=== PATIENT | female | born 1950 | race Asian ===

== ENCOUNTER 2017-03-02 11:12 | Emergency (ER) | payer SELFPAY ==
[2017-03-02 12:31] LABS: Basophils % (Auto) 0.4 % (0.0-1.8); Hemoglobin 13.4 gm/dl (10.1-14.3); Mean Corpuscular HGB Conc 34 % (30-34); Mean Corpuscular Hemoglobin 33 pg (28-32); Mean Corpuscular Volume 95 fl (79-97); Platelet Count 270 K/mm3 (140-440); Red Blood Count 4.12 M/mm3 (3.65-5.03); Red Cell Distribution Width 12.8 % (13.2-15.2); White Blood Count 6.8 K/mm3 (4.5-11.0)
[2017-03-02 13:17] LABS: Anion Gap 16 mmol/L; Blood Urea Nitrogen 12 mg/dL (7-17); Calcium 8.6 mg/dL (8.4-10.2); Carbon Dioxide 25 mmol/L (22-30); Chloride 101.4 mmol/L (98-107); Glucose 117 mg/dL (65-100); Potassium 3.9 mmol/L (3.6-5.0); Sodium 138 mmol/L (137-145)
--- NOTE | 2017-03-02 13:33 | XRay Report ---
Chest 2 views and right ribs: History: Chest pain rib pain. Findings: Normal cardiomediastinal silhouette. Trachea is midline. Evidence of emphysema with chronic interstitial lung changes lower lobes bilaterally. Minimal pleural thickening bilaterally. No evidence of recent fracture right ribs. Next Impression: Findings as detailed above. No evidence of acute fracture.
[2017-03-02 14:13] VITALS: BP 193/90
[2017-03-02 14:28] LABS: Bacteria,Urine 2+ /HPF (Negative); Bilirubin,Urine NEG (Negative); Blood,Urine NEG (Negative); Ketones,Urine NEG (Negative); Leukocyte Esterase,Urine SM (Negative); Nitrite,Urine NEG (Negative); Protein,Urine <15 mg/dL mg/dL (Negative); Urobilinogen,Urine < 2.0 mg/dL (<2.0)
== END 2017-03-02 17:05 ==
LOC: ED 11:12
DX: Z53.21 Procedure and treatment not carried out due to patient leaving prior to being seen by health care provider (principal)
CPT/HCPCS: 36415; 80048; 81001; 84484; 85025; 93005; 93010

== ENCOUNTER 2020-09-13 03:33 | Inpatient (IN) | payer OTHER ==
[2020-09-13 04:57] LABS: Hematocrit 37.2 % (30.3-42.9); Hemoglobin 12.6 gm/dl (10.1-14.3); Mean Corpuscular HGB Conc 34 % (30-34); Mean Corpuscular Volume 101 fl (79-97); Platelet Count 132 K/mm3 (140-440); Red Blood Count 3.67 M/mm3 (3.65-5.03); Red Cell Distribution Width 13.8 % (13.2-15.2)
[2020-09-13 05:03] LABS: Lymphocytes % (Auto) 8.6 % (13.4-35.0)
[2020-09-13 05:04] LABS: Basophils % (Auto) 0.1 % (0.0-1.8); Lymphocytes # (Auto) 1.5 K/mm3 (1.2-5.4); Monocytes # (Auto) 0.8 K/mm3 (0.0-0.8); Monocytes % (Auto) 4.5 % (0.0-7.3)
[2020-09-13 05:06] LABS: Albumin 3.1 g/dL (3.9-5); Calcium 7.7 mg/dL (8.4-10.2)
--- NOTE | 2020-09-13 05:11 | XRay Report ---
ABDOMEN 3 VIEW(S) INDICATION / CLINICAL INFORMATION: Abd pain, SOB. COMPARISON: None available. FINDINGS: TUBES / LINES: None. BOWEL GAS PATTERN: No acute abnormality. Bowel is normal in caliber. There is gas noted throughout th e bowel. FREE AIR / EXTRALUMINAL GAS: None seen. ADDITIONAL FINDINGS: No significant additional findings. CHEST: There is bilateral interstitial disease IMPRESSION: 1. No acute abnormality is seen in the abdomen. There is gas in the small and large bowel. The bowel is normal in caliber. 2. There is bilateral interstitial disease which is likely chronic. Signer Name: Ranjan Josue MD Signed: 09/13/2020 5:07 AM Workstation Name: [id number]
[2020-09-13] MEDS ORDERED: SODIUM CHLORIDE 0.9% 1000 ML 1,000 ML IV ONE ×2 (05:26→10:30)
[2020-09-13] MEDS ORDERED: cefTRIAXone/NS 1 GM/50 ML 1 GM/50 ML BAG IV ONE (06:51)
--- NOTE | 2020-09-13 06:57 | Emergency Department Report ---
HPI - General Chief Complaint: Abdominal Pain Time Seen by Provider: 09/13/20 04:10 - HPI HPI: Room 19 The patient is a 70-year-old female present with a chief complaint of flank pain. The patient states for the past 4 days she has had pain in her left flank in addition to dysuria nausea and vomiting. Patient denies hematuria. ED Past Medical Hx - Past Medical History Previous Medical History?: Yes Hx Hypertension: Yes Hx Seizures: Yes Hx Psychiatric Treatment: Yes (depression) Additional medical history: UNABLE TO OBTAIN - Surgical History Past Surgical History?: Yes Additional Surgical History: UNABLE TO OBTAIN - Family History Family history: no significant - Social History Smoking Status: Never Smoker Substance Use Type: None - Medications Home Medications: Home Medications Medication Instructions Recorded Confirmed Last Taken Type Acetaminophen/Codeine [Tylenol #3] 1 tab PO Q6H PRN #20 tab 01/17/16 Unknown Rx amLODIPine [Norvasc] 5 mg PO DAILY 01/17/16 01/17/16 Unknown History carBAMazepine [TEGretol] 200 mg PO Q12HR #60 tab 01/17/16 Unknown Rx ED Review of Systems ROS: Stated complaint: NAUSEA, BACK PAIN Other details as noted in HPI Constitutional: weakness Eyes: denies: eye pain ENT: denies: throat pain Respiratory: cough Cardiovascular: denies: chest pain Endocrine: no symptoms reported Gastrointestinal: abdominal pain, nausea Genitourinary: dysuria. denies: hematuria Musculoskeletal: back pain Neurological: denies: headache Physical Exam - Physical Exam Vital Signs: Vital Signs 09/13/20 09/13/20 09/13/20 03:56 04:16 04:30 Temperature 100.8 F H Pulse Rate 101 H 102 H 105 H Respiratory 22 18 25 H Rate Blood Pressure 101/59 101/59 Blood Pressure 101/59 [Left] O2 Sat by Pulse 94 94 92 Oximetry 09/13/20 09/13/20 09/13/20 04:46 05:00 05:16 Temperature Pulse Rate 107 H 101 H 104 H Respiratory 21 26 H 28 H Rate Blood Pressure 101/59 101/59 96/48 Blood Pressure [Left] O2 Sat by Pulse 91 93 93 Oximetry Physical Exam: GENERAL: The patient is well-developed well-nourished female lying on stretcher not appearing to be in acute distress. [] HEENT: Normocephalic. Atraumatic. Extraocular motions are intact. Patient has moist mucous membranes. NECK: Supple. Trachea midline CHEST/LUNGS: Clear to auscultation. There is no respiratory distress noted. HEART/CARDIOVASCULAR: Regular. There is tachycardia. There is no gallop rub or murmur. ABDOMEN: Abdomen is soft to palpation. Patient complains of periumbilical discomfort to palpation. There is no rebound or guarding. Patient has normal bowel sounds. There is no abdominal distention. SKIN: There is no rash. There is no edema. There is no diaphoresis. NEURO: The patient is awake, alert, and oriented. The patient is cooperative. The patient has no focal neurologic deficits. The patient has normal speech MUSCULOSKELETAL: There is bilateral CVA tenderness. There is no evidence of acute injury. ED Course Vital Signs 09/13/20 09/13/20 09/13/20 03:56 04:16 04:30 Temperature 100.8 F H Pulse Rate 101 H 102 H 105 H Respiratory 22 18 25 H Rate Blood Pressure 101/59 101/59 Blood Pressure 101/59 [Left] O2 Sat by Pulse 94 94 92 Oximetry 09/13/20 09/13/20 09/13/20 04:46 05:00 05:16 Temperature Pulse Rate 107 H 101 H 104 H Respiratory 21 26 H 28 H Rate Blood Pressure 101/59 101/59 96/48 Blood Pressure [Left] O2 Sat by Pulse 91 93 93 Oximetry ED Medical Decision Making - Lab Data Result diagrams: 09/13/20 04:16 09/13/20 04:16 Laboratory Tests 09/13/20 09/13/20 09/13/20 04:16 04:16 04:16 WBC 17.5 H RBC 3.67 Hgb 12.6 Hct 37.2 MCV 101 H MCH 34 H MCHC 34 RDW 13.8 Plt Count 132 L Lymph % (Auto) 8.6 L [place] % (Auto) 4.5 Eos % (Auto) 0.0 Baso % (Auto) 0.1 Lymph # (Auto) 1.5 Lea # (Auto) 0.8 Eos # (Auto) 0.0 Baso # (Auto) 0.0 Seg Neutrophils % 86.8 H Seg Neutrophils # 15.2 H Sodium 130 L Potassium 4.1 Chloride 95.6 L Carbon Dioxide 19 L Anion Gap 20 BUN 38 H Creatinine 2.5 H Estimated GFR 19 BUN/Creatinine Ratio 15 Glucose 230 H Lactic Acid Calcium 7.7 L Total Bilirubin 0.50 AST 38 ALT 20 Alkaline Phosphatase 111 Troponin T NT-Pro-B Natriuret Pep Total Protein 7.5 Albumin 3.1 L Albumin/Globulin Ratio 0.7 Lipase 27 Urine Color Urine Turbidity Urine pH Ur Specific [place] Urine Protein Urine Glucose (UA) Urine Ketones Urine Blood Urine Nitrite Urine Bilirubin Urine Urobilinogen Ur Leukocyte Esterase Urine WBC (Auto) Urine RBC (Auto) U Epithel Cells (Auto) Urine WBC Clumps Amorphous Crystals Plasma/Serum Alcohol 09/13/20 09/13/20 09/13/20 04:16 04:16 04:16 WBC RBC Hgb Hct MCV MCH MCHC RDW Plt Count Lymph % (Auto) [place] % (Auto) Eos % (Auto) Baso % (Auto) Lymph # (Auto) [place] # (Auto) Eos # (Auto) Baso # (Auto) Seg Neutrophils % Seg Neutrophils # Sodium Potassium Chloride Carbon Dioxide Anion Gap BUN Creatinine Estimated GFR BUN/Creatinine Ratio Glucose Lactic Acid 2.50 H* Calcium Total Bilirubin AST ALT Alkaline Phosphatase Troponin T < 0.010 NT-Pro-B Natriuret Pep 1315 H Total Protein Albumin Albumin/Globulin Ratio Lipase Urine Color Urine Turbidity Urine pH Ur Specific [place] Urine Protein Urine Glucose (UA) Urine Ketones Urine Blood Urine Nitrite Urine Bilirubin Urine Urobilinogen Ur Leukocyte Esterase Urine WBC (Auto) Urine RBC (Auto) U Epithel Cells (Auto) Urine WBC Clumps Amorphous Crystals Plasma/Serum Alcohol < 0.01 09/13/20 09/13/20 07:06 Unknown WBC RBC Hgb Hct MCV MCH MCHC RDW Plt Count Lymph % (Auto) [place] % (Auto) Eos % (Auto) Baso % (Auto) Lymph # (Auto) [place] # (Auto) Eos # (Auto) Baso # (Auto) Seg Neutrophils % Seg Neutrophils # Sodium Potassium Chloride Carbon Dioxide Anion Gap BUN Creatinine Estimated GFR BUN/Creatinine Ratio Glucose Lactic Acid 1.80 Calcium Total Bilirubin AST ALT Alkaline Phosphatase Troponin T NT-Pro-B Natriuret Pep Total Protein Albumin Albumin/Globulin Ratio Lipase Urine Color [place] Urine Turbidity Cloudy Urine pH 5.0 Ur Specific [place] 1.018 Urine Protein 100 mg/dl Urine Glucose (UA) Neg Urine Ketones Neg Urine Blood Lg Urine Nitrite Neg Urine Bilirubin Neg Urine Urobilinogen < 2.0 Ur Leukocyte Esterase Mod Urine WBC (Auto) > 182.0 H Urine RBC (Auto) 10.0 U Epithel Cells (Auto) 3.0 Urine WBC Clumps 1+ Amorphous Crystals 1+ Plasma/Serum Alcohol - Radiology Data Radiology results: report reviewed (Chest x-ray, CT abdomen pelvis), image reviewed (Chest x-ray, CT abdomen pelvis) interpreted by me: Chest x-ray-no definite focal infiltrates, no pneumothorax. No foreign body seen [address] [address] XRay Report Signed Patient: JACKELYN KEENE MR#: [id number] : 1950 Acct:[id number] Age/Sex: 70 / F ADM Date: 09/13/20 Loc: ED Attending Dr: Ordering Physician: TUYET AUSTIN DO Date of Service: 09/13/20 Procedure(s): XR abd series w cxr 1V Accession Number(s): [id number] cc: TUYET AUSTIN DO Fluoro Time In Minutes: ABDOMEN 3 VIEW(S) INDICATION / CLINICAL INFORMATION: Abd pain, SOB. COMPARISON: None available. FINDINGS: TUBES / LINES: None. BOWEL GAS PATTERN: No acute abnormality. Bowel is normal in caliber. There is gas noted throughout the bowel. FREE AIR / EXTRALUMINAL GAS: None seen. ADDITIONAL FINDINGS: No significant additional findings. CHEST: There is bilateral interstitial disease IMPRESSION: 1. No acute abnormality is seen in the abdomen. There is gas in the small and large bowel. The bowel is normal in caliber. 2. There is bilateral interstitial disease which is likely chronic. Signer Name: Ranjan Josue MD Signed: 09/13/2020 5:07 AM Workstation Name: [id number] Tra nscribed By: Dictated By: Ranjan Josue MD Electronically Authenticated By: Ranjan Josue MD Signed Date/Time: 09/13/20506 DD/ 3 TD/TT: Print Cancel [address] [address] Cat Scan Report Signed Patient: JACKELYN KEENE MR#: [id number] : 1950 Acct:[id number] Age/Sex: 70 / F ADM Date: 09/13/20 Loc: ED Attending Dr: Ordering Physician: OSMEL WHITE MD Date of Service: 09/13/20 Procedure(s): CT abdomen pelvis wo con Accession Number(s): [id number] cc: OSMEL WHITE MD This CT A BDOMEN AND PELVIS WITHOUT CONTRAST INDICATION / CLINICAL INFORMATION: Periumbilical abdominal pain, bilateral flank pain. TECHNIQUE: Axial CT images were obtained through the abdomen and pelvis without IV contrast. All CT scans at this location are performed using CT dose reduction for ALARA by means of automated exposure control. COMPARISON: None available. FINDINGS: LOWER CHEST: There is airspace consolidation in the extreme right lung base suspicious for pneumonia and to a lesser extent in the left lung base.. There is bilateral basilar interstitial disease and bullous disease in the lungs. LIVER: No significant abnormality. GALLBLADDER: No significant abnormality. BILE DUCTS: No significant abnormality. PANCREAS: No significant abnormality. SPLEEN: No significant abnormality. ADRENALS: No significant abnormality. RIGHT KIDNEY / URETER: There is mild stranding in the fat around the right kidney. There is slight dilatation of the renal collecting system. No ureteral calculi are seen. LEFT KIDNEY / URETER: No significant abnormality. STOMACH / SMALL BOWEL: There is a hiatal hernia. There is no obstruction. COLON: No significant abnormality. APPENDIX: No significant abnormality. PERITONEUM: No free fluid. No free air. No fluid collection. LYMPH NODES: No significant adenopathy. AORTA / ARTERIES: Mild atherosclerotic calcification without acute abnormality. IVC / VEINS: No significant abnormality. URINARY BLADDER: No significant abnormality. REPRODUCTIVE ORGANS: There is a 10 x 8 cm cystic mass in the left adnexa. This measures water density. ADDITIONAL FINDINGS: None. SKELETAL SYSTEM: No acute abnormality IMPRESSION: 1. There is airspace consolidation noted in the lung ba ses right greater than left. This could represent pneumonia. 2. There is perinephric edema on the right. There is mild dilatation of the right renal collecting system. No ureteral calculi are seen. These changes are not specific but could indicate a recently passed stone. 3. There is a large cystic mass in the left adnexa. Signer Name: Ranjan Josue MD Signed: 09/13/2020 7:33 AM Workstation Name: [id number] Transcribed By: Dictated By: Ranjan Josue MD Electronically Authenticated By: Ranjan Josue MD Signed Date/Time: 09/13/20732 DD/ 4 TD/TT: - Differential Diagnosis Pyelonephritis, pneumonia, COVID-19, cystitis, sepsis Critical care attestation.: If time is entered above; I have spent that time in minutes in the direct care of this critically ill patient, excluding procedure time. ED Disposition Clinical Impression: Pneumonia, Suspected COVID-19 virus infection, Sepsis, Leukocytosis, Abdominal pain, acute, Acute kidney injury, Pyelonephritis, Hypoxia Disposition: OP ADMIT IP TO THIS HOSP Is pt being admited?: Yes Does the pt Need Aspirin: No Condition: Fair Instructions: Bacterial Pneumonia (ED), Abdominal Pain (ED) Referrals: PRIMARY CARE, [Primary Care Provider] - 3-5 Days Time of Disposition: 07:47 (Hospitalist paged)
[2020-09-13 07:20] LABS: Amorphous Crystals,Urine 1+; Bilirubin,Urine NEG (Negative); Blood,Urine LG (Negative); Color,Urine Amber (Yellow); Urobilinogen,Urine < 2.0 mg/dL (<2.0)
[2020-09-13 07:28] LABS: WBC,Urine > 182.0 /HPF (0.0-6.0)
--- NOTE | 2020-09-13 07:38 | Cat Scan Report ---
This CT ABDOMEN AND PELVIS WITHOUT CONTRAST INDICATION / CLINICAL INFORMATION: Periumbilical abdominal pain, bilateral flank pain. TECHNIQUE: Axial CT images were obtained through the abdomen and pelvis without IV contrast. All CT scans at this location are performed using CT dose reduction for ALARA by means of automated exposure control. COMPARISON: None available. FINDINGS: LOWER CHEST: There is airspace consolidation in the extreme right lung base suspicious for pneumonia and to a lesser extent in the left lung base.. There is bilateral basilar interstitial disease and bu llous disease in the lungs. LIVER: No significant abnormality. GALLBLADDER: No significant abnormality. BILE DUCTS: No significant abnormality. PANCREAS: No significant abnormality. SPLEEN: No significant abnormality. ADRENALS: No significant abnormality. RIGHT KIDNEY / URETER: There is mild stranding in the fat around the right kidney. There is slight dilatation of the renal collecting system. No ureteral calculi are seen. LEFT KIDNEY / URETER: No significant abnormality. STOMACH / SMALL BOWEL: There is a hiatal hernia. There is no obstruction. COLON: No significant abnormality. APPENDIX: No significant abnormality. PERITONEUM: No free fluid. No free air. No fluid collection. LYMPH NODES: No significant adenopathy. AORTA / ARTERIES: Mild atherosclerotic calcification without acute abnormality. IVC / VEINS: No significant abnormality. URINARY BLADDER: No significant abnormality. REPRODUCTIVE ORGANS: There is a 10 x 8 cm cystic mass in the left adnexa. This measures water density . ADDITIONAL FINDINGS: None. SKELETAL SYSTEM: No acute abnormality IMPRESSION: 1. There is airspace consolidation noted in the lung bases right greater than left. This could repres ent pneumonia. 2. There is perinephric edema on the right. There is mild dilatation of the right renal collecting sy stem. No ureteral calculi are seen. These changes are not specific but could indicate a recently pass ed stone. 3. There is a large cystic mass in the left adnexa. Signer Name: Ranjan Josue MD Signed: 09/13/2020 7:33 AM Workstation Name: [id number]
[2020-09-13] MEDS ORDERED: AZITHROMYCIN/NS 500 MG/250 ML 500 MG/250 ML BAG IV ONE (07:44)
[2020-09-13] MEDS ORDERED: ACETAMINOPHEN 500 MG TAB PO ONE (08:00)
[2020-09-13] MEDS ORDERED: ONDANSETRON 4 MG/2 ML INJ IV PRN (09:02)
[2020-09-13] MEDS ORDERED: hydrALAZINE 20 MG/1 ML INJ IV PRN (09:02)
[2020-09-13] MEDS ORDERED: METOCLOPRAMIDE 10 MG TAB PO PRN (09:02)
--- NOTE | 2020-09-13 09:09 | History and Physical Report ---
History of Present Illness Date of examination: 09/13/20 Date of admission: 09/13/20 07:50 Chief complaint: Flank pain History of present illness: The patient is a 70-year-old female with a history of hypertension, seizure depression presented to the hospital with a chief complaint of flank pain for last 4 days. The patient also complains of subjective fever dysuria nausea and vomiting for the same duration. Patient denies hematuria. In the ER work-up showed high WBC count and positive leukoesterase and a UA, WBC of 17.5, elevated D-dimer greater than 10,000, creatinine 2.5 with CO2 of 19, lactic acid 2.5. CT abdomen pelvis in the ER showed airspace consolidation in the lung bases right greater than left, perinephric edema on the right and mild dilatation of the right renal collecting system, a large cystic mass in the left adnexa. Patient also noted to have hypertension, she was was given IV fluid bolus, placed on empiric antibiotics, blood culture and urine culture ordered and called for admission for further evaluation and management. - Past Medical History Previous Medical History?: Yes Hx Hypertension: Yes Hx Seizures: Yes Hx Psychiatric Treatment: Yes (depression) Additional medical history: UNABLE TO OBTAIN - Surgical History Past Surgical History?: UNABLE TO OBTAIN - Family History Family history: no significant - Social History Smoking Status: Never Smoker Substance Use Type: None Review of System: Constitutional: + fever, + chills, no weight loss Ears, eyes, nose, mouth and throat: no nasal congestion, no nasal discharge, no sinus pressure, no vision change, no red eye. Neck: No neck pain or rigidity. Cardiovascular: No chest pain, no orthopnea, no palpitations, no leg swelling Respiratory: No shortness of breath, no cough, no congestion, no wheezing Gastrointestinal: + abdominal pain, _+nausea, + vomiting Genitourinary : Positive for dysuria, no hematuria Musculoskeletal: no joint swelling or muscle ache Integumentary: no rash, no pruritis Neurological: no parathesias, no numbness, no tingling Endocrine: no cold or heat intolerance, no polyuria or polydipsia Hematologic/Lymphatic: no easy bruising, no easy bleeding, no gland swelling Allergic/Immunologic: no urticaria, no angioedema. Medications and Allergies Allergies Allergy/AdvReac Type Severity Reaction Status Date / Time No Known Allergies Allergy Unverified 01/16/16 13:46 Home Medications Medication Instructions Recorded Confirmed Last Taken Type Acetaminophen/Codeine [Tylenol #3] 1 tab PO Q6H PRN #20 tab 01/17/16 09/13/20 09/13/20 17:44 Rx amLODIPine [Norvasc] 5 mg PO DAILY 01/17/16 09/13/20 09/13/20 17:44 History carBAMazepine [TEGretol] 200 mg PO Q12HR #60 tab 01/17/16 09/13/20 09/13/20 17:44 Rx Active Meds: Active Medications Acetaminophen/Codeine Phosphate (Acetaminophen W/Codeine 300-30 Mg Tab) 1 tab PO Q6H PRN PRN Reason: Pain, Moderate (4-6) Carbamazepine (Carbamazepine 200 Mg Tab) 200 mg PO Q12HR CHAS Famotidine (Famotidine 10 Mg Tab) 10 mg PO BID CHAS Heparin Sodium (Porcine) (Heparin 5,000 Unit/1 Ml Vial) 5,000 unit SUB-Q Q8HR CHAS Hydralazine HCl (Hydralazine 20 Mg/1 Ml Inj) 5 mg IV Q30MIN PRN PRN Reason: Hypertension Ceftriaxone Sodium (Rocephin/Ns 1 Gm/50 Ml) 1 gm in 50 mls @ 100 mls/hr IV Q12HR CHAS; Protocol Sodium Chloride (Nacl 0.9% 1000 Ml) 1,000 mls @ 100 mls/hr IV DIRECT CHAS Metoclopramide HCl (Metoclopramide 10 Mg Tab) 10 mg PO Q6H PRN PRN Reason: Nausea And Vomiting Ondansetron HCl (Ondansetron 4 Mg/2 Ml Inj) 4 mg IV Q8H PRN PRN Reason: N/V unrelieved by Reglan Exam - Physical Exam Narrative exam: Limited physical exam due to COVID-19 pandemic to minimize transmission of the disease and to preserve PPE. Vital reviewed and stable. GENERAL: well-developed well-nourished elderly female lying on bed appeared to be in no discomfort. HEENT: Normocephalic. Atraumatic. NECK: Supple. CHEST/LUNGS: breathing nonlabored. HEART/CARDIOVASCULAR: Heart rate tachycardic ABDOMEN: Visibly not distended SKIN: There is no rash NEURO: No focal motor deficit. Follows command. MUSCULOSKELETAL: No joint effusion EXTRIMITY: No swelling, no cyanosis or clubbing. PSYCH: Cooperative. - Constitutional Vitals: Temp Pulse Resp BP Pulse Ox 100.3 F H 101 H 29 H 111/55 99 09/13/20 09:02 09/13/20 08:46 09/13/20 08:46 09/13/20 08:46 09/13/20 08:46 HEART Score - HEART Score Troponin: Troponin T < 0.010 ng/mL (0.00-0.029) 09/13/20 04:16 Results - Labs CBC & Chem 7: 09/15/20 08:02 09/14/20 04:52 Labs: Abnormal lab results 09/13/20 09/13/20 09/13/20 Range/Units 04:16 04:16 04:16 WBC 17.5 H (4.5-11.0) K/mm3 MCV 101 H (79-97) fl MCH 34 H (28-32) pg Plt Count 132 L (140-440) K/mm3 Lymph % (Auto) 8.6 L (13.4-35.0) % Seg Neutrophils % 86.8 H (40.0-70.0) % Seg Neutrophils # 15.2 H (1.8-7.7) K/mm3 Sodium 130 L (137-145) mmol/L Chloride 95.6 L (98-107) mmol/L Carbon Dioxide 19 L (22-30) mmol/L BUN 38 H (7-17) mg/dL Creatinine 2.5 H (0.6-1.2) mg/dL Glucose 230 H (65-100) mg/dL Lactic Acid (0.7-2.0) mmol/L Calcium 7.7 L (8.4-10.2) mg/dL NT-Pro-B Natriuret Pep 1315 H (0-900) pg/mL Albumin 3.1 L (3.9-5) g/dL Urine WBC (Auto) (0.0-6.0) /HPF 09/13/20 09/13/20 Range/Units 04:16 07:06 WBC (4.5-11.0) K/mm3 MCV (79-97) fl MCH (28-32) pg Plt Count (140-440) K/mm3 Lymph % (Auto) (13.4-35.0) % Seg Neutrophils % (40.0-70.0) % Seg Neutrophils # (1.8-7.7) K/mm3 Sodium (137-145) mmol/L Chloride (98-107) mmol/L Carbon Dioxide (22-30) mmol/L BUN (7-17) mg/dL Creatinine (0.6-1.2) mg/dL Glucose (65-100) mg/dL Lactic Acid 2.50 H* (0.7-2.0) mmol/L Calcium (8.4-10.2) mg/dL NT-Pro-B Natriuret Pep (0-900) pg/mL Albumin (3.9-5) g/dL Urine WBC (Auto) > 182.0 H (0.0-6.0) /HPF - Imaging and Cardiology Chest x-ray: report reviewed Abdominal x-ray: report reviewed CT scan - abdomen: report reviewed Assessment and Plan Sepsis, -manifested with fever tachycardia leukocytosis elevated lactic acid, bilateral pneumonia and UTI -Patient also pui FOR covid -Start empiric antibiotic, obtain culture, follow clinically, IV fluid Hypotension, likely due to septic shock and dehydration -Patient received IV fluids bolus and BP responding to IV fluid -We will start on pressors if needed UTI with pyelonephritis: IV antibiotics, urine cultures Covid PUI: Placed on Covid protocol, Covid test was ordered ALLAN, due to vasomotor nephropathy/ATN from severe sepsis -Continue IV antibiotics hold BP medications Bilateral pneumonia: Empiric antibiotic, Covid protocol, follow culture Acute hypoxic respiratory failure, likely due to underlying pneumonia and chronic lung disease -Continue antibiotics, nebulizer as needed and scheduled, and supplemental O2 to keep O2 sats greater than 94% -Consult pulmonary if symptom worsen Left adnexal cystic mass: Monitor clinically for now further work-up could be done as outpatient when clinically more stable DVT prophylaxis: Heparin CT abdomen pelvis: 1. There is airspace consolidation noted in the lung bases right greater than left. This could represent pneumonia. 2. There is perinephric edema on the right. There is mild dilatation of the right renal collecting system. No ureteral calculi are seen. These changes are not specific but could indicate a recently passed stone. 3. There is a large cystic mass in the left adnexa.
[2020-09-13] MEDS ORDERED: cefTRIAXone/NS 1 GM/50 ML 1 GM/50 ML BAG IV SCH (10:00)
[2020-09-13] MEDS ORDERED: amLODIPine 5 MG TAB PO SCH (10:00)
[2020-09-13 10:09] LABS: C-Reactive Protein 42.3 mg/dL (0.00-1.30)
[2020-09-13] MEDS: carBAMazepine 200 MG TAB PO SCH ×2 (10:27→23:20)
[2020-09-13] MEDS: FAMOTIDINE 10 MG TAB PO SCH ×2 (10:27→23:19)
[2020-09-13] MEDS: SODIUM CHLORIDE 0.9% 1000 ML 1,000 ML IV SCH ×2 (11:52→23:19)
[2020-09-13] MEDS: HEPARIN 5,000 UNIT/1 ML VIAL SUB-Q SCH ×2 (13:24→23:20)
[2020-09-13] MEDS: ACETAMINOPHEN W/CODEINE 300-30 MG TAB PO PRN ×2 (17:16→23:19)
[2020-09-13] MEDS ORDERED: AZITHROMYCIN/NS 500 MG/250 ML 500 MG/250 ML BAG IV SCH (22:00)
[2020-09-13] MEDS ORDERED: cefTRIAXone/NS 2 GM/100 ML 2 GM/100 ML BAG IV SCH (22:00)
[2020-09-14] MEDS: HEPARIN 5,000 UNIT/1 ML VIAL SUB-Q SCH ×3 (05:19→21:03)
[2020-09-14] MEDS: ACETAMINOPHEN W/CODEINE 300-30 MG TAB PO PRN ×2 (05:20→17:19)
[2020-09-14 06:24] LABS: Calcium 6.6 mg/dL (8.4-10.2)
[2020-09-14] MEDS: FAMOTIDINE 10 MG TAB PO SCH ×2 (09:58→21:03)
[2020-09-14] MEDS: carBAMazepine 200 MG TAB PO SCH ×2 (09:58→21:04)
[2020-09-14] MEDS: IPRATROPIUM/ALBUTEROL SULFATE 3 ML AMPUL.NEB IH SCH ×3 (12:31→20:10)
--- NOTE | 2020-09-14 14:41 | XRay Report ---
CHEST 1 VIEW 09/14/2020 1:29 PM INDICATION / CLINICAL INFORMATION: chest pain. COMPARISON: 01/13/2021 FINDINGS: SUPPORT DEVICES: None. HEART / MEDIASTINUM: No significant abnormality. LUNGS / PLEURA: Mild increased interstitial process in bilateral lungs. No pneumothorax. ADDITIONAL FINDINGS: No significant additional findings. IMPRESSION: 1. Mild increased interstitial prominence in bilateral lungs could represent mild interstitial edema. Signer Name: Asaf Shields MD Signed: 09/14/2020 2:36 PM Workstation Name: [id number]
--- NOTE | 2020-09-14 15:14 | Nuclear Medicine Report ---
Nuclear medicine perfusion lung scan Indication: Shortness of breath Technique: 5.0 mCi of Tc 99m MAA were given by IV. Findings: Comparison with chest radiograph from earlier today. Perfusion images are unremarkable; specifically, no wedge-shaped, pleural-based, segmental defects ar e seen. Impression: Normal V/Q scan. Signer Name: Shawn Everett MD Signed: 09/14/2020 3:10 PM Workstation Name: [id number]
--- NOTE | 2020-09-14 15:23 | Progress Note ---
Assessment and Plan Sepsis, -manifested with fever tachycardia leukocytosis elevated lactic acid, bilateral pneumonia and UTI -Covid test is negative, blood Cx positive for gm -ve rods -Start empiric antibiotic, obtain culture, follow clinically, IV fluid Hypotension, likely due to septic shock and dehydration -Patient received IV fluids bolus and BP responding to IV fluid -We will start on pressors if needed UTI with pyelonephritis: IV antibiotics, urine cultures Gm neg bacteremia - change abx to cefepime, follow final cx result, consult ID Covid PUI: Ruled out with a negative test ALLAN, due to vasomotor nephropathy/ATN from severe sepsis -Continue IV antibiotics hold BP medications Bilateral pneumonia: Empiric antibiotic, Covid protocol, follow culture Acute hypoxic respiratory failure, likely due to underlying pneumonia and chronic lung disease -Continue antibiotics, nebulizer as needed and scheduled, and supplemental O2 to keep O2 sats greater than 94% -Consult pulmonary if symptom worsen Left adnexal cystic mass: Monitor clinically for now further work-up could be done as outpatient when clinically more stable DVT prophylaxis: Heparin CT abdomen pelvis: 1. There is airspace consolidation noted in the lung bases right greater than left. This could represent pneumonia. 2. There is perinephric edema on the right. There is mild dilatation of the right renal collecting system. No ureteral calculi are seen. These changes are not specific but could indicate a recently passed stone. 3. There is a large cystic mass in the left adnexa. Daily clinical course: 09/14: blood cx positive for gm -ve rods, Covid test is negative. Continue empiric breathing treatments. Renal function improving. Continue IV fluid. Order for renal ultrasound. consult ID, change iv abx to cefepime. Subjective Date of service: 09/14/20 Interval history: Patient seen and examined. Medical records and medication list reviewed. No acute event overnight noted by the RN. Patient denies any chest pain, states that abdominal pain much better today, patient is tolerating diet. Blood culture growing gram-negative karly Discussed plan of care at bedside with patient. Objective - Exam Narrative Exam: GENERAL: well-developed well-nourished elderly female lying on bed appeared to be in no discomfort. HEENT: Normocephalic. Atraumatic. NECK: Supple. CHEST/LUNGS: breathing nonlabored. HEART/CARDIOVASCULAR: S1 and S2 positive ABDOMEN: Bowel sounds positive SKIN: There is no rash NEURO: No focal motor deficit. Follows command. MUSCULOSKELETAL: No joint effusion EXTRIMITY: No swelling, no cyanosis or clubbing. PSYCH: Cooperative. - Constitutional Vitals: Vital Signs - 12hr 09/14/20 09/14/20 09/14/20 05:07 11:42 12:40 Temperature 101.2 F H 98.8 F Pulse Rate 100 H 96 H Pulse Rate [ 73 Anterior Bilateral Throughout] Respiratory 18 18 Rate Respiratory 16 Rate [Anterior Bilateral Throughout] Blood Pressure 98/48 95/64 O2 Sat by Pulse 94 95 Oximetry - Labs CBC & Chem 7: 09/15/20 08:02 09/15/20 08:02 Labs: Abnormal lab results 09/13/20 09/14/20 Range/Units 14:39 04:52 D-Dimer > 01490 H (0-234) ng/mlDDU Sodium 133 L (137-145) mmol/L Carbon Dioxide 18 L (22-30) mmol/L BUN 36 H (7-17) mg/dL Creatinine 2.0 H (0.6-1.2) mg/dL Glucose 105 H (65-100) mg/dL Calcium 6.6 L (8.4-10.2) mg/dL HEART Score - HEART Score Troponin: Troponin T < 0.010 ng/mL (0.00-0.029) 09/13/20 04:16
--- NOTE | 2020-09-14 18:49 | Ultrasound Report ---
US renal BILAT INDICATION / CLINICAL INFORMATION: Possible CKD. COMPARISON: CT abdomen of 09/13/2020 FINDINGS: Right kidney measures 10.9 cm in length, with cortical thickness of 1.4 cm. Cortical echogenicity is normal. No hydronephrosis or abnormal mass. Left kidney measures 10.5 cm in length, with cortical thickness of 1.6 cm. Cortical echogenicity is n ormal. No hydronephrosis or abnormal mass. Urinary bladder appears unremarkable. Large cystic mass in the left adnexal region, unchanged from the CT exam. IMPRESSION: 1. Normal kidneys and urinary bladder. Signer Name: Eron Sweeney MD Signed: 09/14/2020 6:45 PM Workstation Name: [id number]
[2020-09-14] MEDS ORDERED: CEFEPIME/NS 1 GM/100 ML 1 GM/100 ML BAG IV SCH (19:00)
[2020-09-14] MEDS ORDERED: CEFEPIME 0.5 GM in SODIUM CHLORIDE 0.9% 100 ML IV SCH (20:00)
[2020-09-15] MEDS: SODIUM CHLORIDE 0.9% 1000 ML 1,000 ML IV SCH (04:43)
[2020-09-15] MEDS: HEPARIN 5,000 UNIT/1 ML VIAL SUB-Q SCH ×3 (05:32→22:06)
[2020-09-15 08:50] LABS: Basophils % (Auto) 0.4 % (0.0-1.8); Eosinophils # (Auto) 0.1 K/mm3 (0.0-0.4); Eosinophils % (Auto) 0.8 % (0.0-4.3); Hematocrit 28.5 % (30.3-42.9); Hemoglobin 9.8 gm/dl (10.1-14.3); Lymphocytes # (Auto) 1.4 K/mm3 (1.2-5.4); Lymphocytes % (Auto) 14.4 % (13.4-35.0); Mean Corpuscular HGB Conc 35 % (30-34); Mean Corpuscular Volume 100 fl (79-97); Monocytes # (Auto) 0.8 K/mm3 (0.0-0.8); Monocytes % (Auto) 8.2 % (0.0-7.3); Platelet Count 111 K/mm3 (140-440); Red Blood Count 2.85 M/mm3 (3.65-5.03); Red Cell Distribution Width 14.1 % (13.2-15.2)
[2020-09-15] MEDS ORDERED: CEFEPIME/NS 1 GM/100 ML 1 GM/100 ML BAG IV SCH (10:00)
[2020-09-15] MEDS: IPRATROPIUM/ALBUTEROL SULFATE 3 ML AMPUL.NEB IH SCH ×3 (10:53→21:07)
[2020-09-15] MEDS: FAMOTIDINE 10 MG TAB PO SCH ×2 (11:14→22:29)
[2020-09-15] MEDS: carBAMazepine 200 MG TAB PO SCH ×2 (11:14→22:29)
[2020-09-15] MEDS: MIDODRINE 2.5 MG TAB PO SCH ×2 (13:05→15:58)
--- NOTE | 2020-09-15 13:33 | Progress Note ---
Assessment and Plan Sepsis, -manifested with fever tachycardia leukocytosis elevated lactic acid, bilateral pneumonia and UTI -Covid test is negative, blood Cx positive for gm -ve rods -Start empiric antibiotic, obtain culture, follow clinically, IV fluid Hypotension, likely due to septic shock and dehydration -Patient received IV fluids bolus and BP responding to IV fluid -We will start on pressors if needed UTI with pyelonephritis: IV antibiotics, urine cultures Gm neg bacteremia - change abx to cefepime, follow final cx result, consult ID Covid PUI: Ruled out with a negative test ALLAN, due to vasomotor nephropathy/ATN from severe sepsis -Continue IV antibiotics hold BP medications Bilateral pneumonia: Empiric antibiotic, Covid protocol, follow culture Acute hypoxic respiratory failure, likely due to underlying pneumonia and chronic lung disease -Continue antibiotics, nebulizer as needed and scheduled, and supplemental O2 to keep O2 sats greater than 94% -Consult pulmonary if symptom worsen Left adnexal cystic mass: Monitor clinically for now further work-up could be done as outpatient when clinically more stable DVT prophylaxis: Heparin CT abdomen pelvis: 1. There is airspace consolidation noted in the lung bases right greater than left. This could represent pneumonia. 2. There is perinephric edema on the right. There is mild dilatation of the right renal collecting system. No ureteral calculi are seen. These changes are not specific but could indicate a recently passed stone. 3. There is a large cystic mass in the left adnexa. Daily clinical course: 09/14: blood cx positive for gm -ve rods, Covid test is negative. Continue empiric breathing treatments. Renal function improving. Continue IV fluid. Order for renal ultrasound. consult ID, change iv abx to cefepime. 09/15: Continue to replete electrolytes as needed, follow BMP, continue IV antibiotic. Follow final blood culture results and ID recommendation Subjective Date of service: 09/15/20 Interval history: Patient seen and examined. Medical records and medication list reviewed. No acute event overnight noted by the RN. Patient denies any chest pain, patient is tolerating diet. Blood culture growing gram-negative karly -E. coli Discussed plan of care at bedside with patient. Objective - Exam Narrative Exam: GENERAL: well-developed well-nourished elderly female lying on bed appeared to be in no discomfort. HEENT: Normocephalic. Atraumatic. NECK: Supple. CHEST/LUNGS: breathing nonlabored. HEART/CARDIOVASCULAR: S1 and S2 positive ABDOMEN: Bowel sounds positive SKIN: There is no rash NEURO: No focal motor deficit. Follows command. MUSCULOSKELETAL: No joint effusion EXTRIMITY: No swelling, no cyanosis or clubbing. PSYCH: Cooperative. - Constitutional Vitals: Vital Signs - 12hr 09/15/20 09/15/20 05:28 11:20 Temperature 98.0 F 98.2 F Pulse Rate 100 H 100 H Respiratory 16 19 Rate Blood Pressure 99/59 Blood Pressure 124/63 [Left] O2 Sat by Pulse 84 95 Oximetry - Labs CBC & Chem 7: 09/15/20 08:02 09/16/20 04:26 Labs: Abnormal lab results 09/15/20 09/15/20 Range/Units 08:02 08:02 RBC 2.85 L (3.65-5.03) M/mm3 Hgb 9.8 L (10.1-14.3) gm/dl Hct 28.5 L D (30.3-42.9) % MCV 100 H (79-97) fl MCH 35 H (28-32) pg MCHC 35 H (30-34) % Plt Count 111 L (140-440) K/mm3 [place] % (Auto) 8.2 H (0.0-7.3) % Seg Neutrophils % 76.2 H (40.0-70.0) % Sodium 132 L (137-145) mmol/L Carbon Dioxide 19 L (22-30) mmol/L BUN 24 H (7-17) mg/dL Creatinine 1.4 H (0.6-1.2) mg/dL Glucose 123 H (65-100) mg/dL Calcium 7.0 L (8.4-10.2) mg/dL HEART Score - HEART Score Troponin: Troponin T < 0.010 ng/mL (0.00-0.029) 09/13/20 04:16
[2020-09-15] MEDS ORDERED: METOPROLOL TARTRATE 5 MG/5 ML INJ IV SCH (15:00)
--- NOTE | 2020-09-15 16:27 | Consultation ---
History of Present Illness - Reason for Consult Consult date: 09/15/20 Gram-negative bacilli Requesting physician: DAVID LEMOS - History of Present Illness 70 years old female with history of hypertension, depression, seizure disorder, admitted on 09/13/2020 secondary to bilateral flank pain associated with dysuria, subjective fever, nausea and vomiting for 4 days. On arrival, temperature 100.5, HR 101, RR 22, O2 sat 94%, BP 101/59. Initial WBC 17.5. Hemoglobin 12.6. Platelet 132. D-dimer> 10,000. Lactate 2.5. Creatinine 2.5. CRP 42. Procalcitonin 162. Blood culture 09/13/2020 gram-negative bacilli 4 out of 4 bottles. Urine culture E. coli resistant to ampicillin. SARS-CoV-[address] abdomen with bilateral airspace disease right more than left, right perinephric edema, mild dilated renal collecting system. Large cystic mass on the left adnexa 10 by a centimeter. VQ scan negative. Patient currently on 2 L. Review of Systems: positive in bold print General: fever, chills, malaise Cutaneous: rash, pruritus Head: headaches or injury Eyes: changes in vision, eye pain, double vision Ears: ear pain, ear discharge, ringing or hearing loss Nose: nose bleeding, stuffiness Mouth & throat: bleeding gums, horseness, no dental problems, or swollen glands Neck: no pain, node enlargement/lumps, tyroid enlargement or tenderness Respiratory: SOB, cough, SEVILLA, wheezing, sputum, hemoptysis, pleuritic chest pain Cardiovascular: chest pain, leg edema, cyanosis, SEVILLA, orthopnea Musculoskeletal: edema, deformities, pain Gastrointestinal: nausea, vomiting, hematemesis, diarrhea, constipation, melena, bright red blood in stools, fecal incontinence, jaundice Genitourinary/Reproductive: frequent urination, dysuria, flank pain, hematuria, incontinence Neurogical: seizures, headaches, weakness, paresthesias, loss of speech or vision; memory loss, vertigo, tremors, numbness Psychiatric: stable mood; excessive anxiety, sadness or moodiness Medications and Allergies Allergies Allergy/AdvReac Type Severity Reaction Status Date / Time No Known Allergies Allergy Unverified 01/16/16 13:46 Home Medications Medication Instructions Recorded Confirmed Last Taken Type Acetaminophen/Codeine [Tylenol #3] 1 tab PO Q6H PRN #20 tab 01/17/16 09/13/20 09/13/20 17:44 Rx amLODIPine [Norvasc] 5 mg PO DAILY 01/17/16 09/13/20 09/13/20 17:44 History carBAMazepine [TEGretol] 200 mg PO Q12HR #60 tab 01/17/16 09/13/20 09/13/20 17:44 Rx Active Meds: Active Medications Acetaminophen/Codeine Phosphate (Acetaminophen W/Codeine 300-30 Mg Tab) 1 tab PO Q6H PRN PRN Reason: Pain, Moderate (4-6) Last Admin: 09/14/20 17:19 Dose: 1 tab Documented by: Albuterol/Ipratropium (Ipratropium/Albuterol Sulfate 3 Ml Ampul.Neb) 1 ampul IH TIDRT [facility] Last Admin: 09/15/20 10:53 Dose: 1 ampul Documented by: Carbamazepine (Carbamazepine 200 Mg Tab) 200 mg PO Q12HR [facility] Last Admin: 09/15/20 11:14 Dose: 200 mg Documented by: Famotidine (Famotidine 10 Mg Tab) 10 mg PO BID [facility] Last Admin: 09/15/20 11:14 Dose: 10 mg Documented by: Heparin Sodium (Porcine) (Heparin 5,000 Unit/1 Ml Vial) 5,000 unit SUB-Q Q8HR [facility] Last Admin: 09/15/20 05:32 Dose: 5,000 unit Documented by: Hydralazine HCl (Hydralazine 20 Mg/1 Ml Inj) 5 mg IV Q30MIN PRN PRN Reason: Hypertension Sodium Chloride (Nacl 0.9% 1000 Ml) 1,000 mls @ 100 mls/hr IV DIRECT [facility] Last Admin: 09/15/20 04:43 Dose: 100 mls/hr Documented by: Cefepime HCl (Cefepime/Ns 1 Gm/100 Ml) 1 gm in 100 mls @ 200 mls/hr IV Q12HR [facility] Last Admin: 09/15/20 11:15 Dose: 200 mls/hr Documented by: Metoclopramide HCl (Metoclopramide 10 Mg Tab) 10 mg PO Q6H PRN PRN Reason: Nausea And Vomiting Metoprolol Tartrate (Metoprolol Tartrate 25 Mg Tab) 12.5 mg PO Q8HR [facility] Midodrine (Midodrine 2.5 Mg Tab) 5 mg PO TID@0800,1200,1600 [facility] Last Admin: 09/15/20 15:58 Dose: Not Given Documented by: Ondansetron HCl (Ondansetron 4 Mg/2 Ml Inj) 4 mg IV Q8H PRN PRN Reason: N/V unrelieved by Reglan Physical Examination - Physical Exam Narrative exam: General appearance: Alert in NAD pleasant Eyes: anicteric sclerae, moist conjunctivae; no lid-lag; PERRLA HENT: Normocephalic, Atraumatic; normal external ears, nares open, oropharynx clear partially edentulous Neck: supple, tracheal midline, no JVD Lungs: Bibasilar crackles CV: RRR no murmur Abdomen: Soft, non-tender; no masses or hepatosplenomegaly Extremities: no edema, no cyanosis Skin: No rash. Psych: no agitated Neuro: alert and oriented x 3. Moving all extermities - Constitutional Vitals: Vital Signs Temp Pulse Resp BP Pulse Ox 98.2 F 100 H 19 124/63 95 09/15/20 11:20 09/15/20 11:20 09/15/20 11:20 09/15/20 11:20 09/15/20 11:20 Temperature -Last 24 Hours Temperature 98.2 F Temperature 98.0 F Temperature 98.0 F Temperature 102.1 F Results - Labs CBC & Chem 7: 09/15/20 08:02 09/15/20 08:02 Labs: Abnormal lab results 09/15/20 09/15/20 Range/Units 08:02 08:02 RBC 2.85 L (3.65-5.03) M/mm3 Hgb 9.8 L (10.1-14.3) gm/dl Hct 28.5 L D (30.3-42.9) % MCV 100 H (79-97) fl MCH 35 H (28-32) pg MCHC 35 H (30-34) % Plt Count 111 L (140-440) K/mm3 [place] % (Auto) 8.2 H (0.0-7.3) % Seg Neutrophils % 76.2 H (40.0-70.0) % Sodium 132 L (137-145) mmol/L Carbon Dioxide 19 L (22-30) mmol/L BUN 24 H (7-17) mg/dL Creatinine 1.4 H (0.6-1.2) mg/dL Glucose 123 H (65-100) mg/dL Calcium 7.0 L (8.4-10.2) mg/dL Assessment and Plan Cultures: Blood culture 09/13/2020 gram-negative bacilli 4 out of 4 bottles. Urine culture E. coli resistant to ampicillin. SARS-CoV-2 PCR negative. Assessment: 70 years old female with history of hypertension, depression, seizure disorder, admitted on 09/13/2020 secondary to bilateral flank pain associated with dysuria, subjective fever, nausea and vomiting for 4 days. On arrival, temperature 100.5, HR 101, RR 22, O2 sat 94%, BP 101/59. Initial WBC 17.5. Hemoglobin 12.6. Platelet 132. D-dimer> 10,000. Lactate 2.5. Creatinine 2.5. CRP 42. Procalcitonin 162. CT abdomen with bilateral airspace disease right more than left, right perinephric edema, mild dilated renal collecting system. Large cystic mass on the left adnexa 10 by a centimeter. VQ scan negative. Patient currently on 2 L. #Severe sepsis: Present on admission with fever, tachycardia, leukocytosis, elevated lactate, ALLAN, likely secondary to gram-negative bacilli bacteremia/UTI/pneumonia. Very high procalcitonin in the setting of ALLAN. #Complicated UTI with pyelonephritis and dilated renal collecting system: No stones seen. Urine culture grew E. coli resistant to ampicillin. #Gram-negative bacilli bacteremia: Likely secondary to UTI. Blood culture ID and SERGIO is pending. #Bilateral pneumonia: Community-acquired versus aspiration. SARS-CoV-2 PCR negative. #ALLAN: Secondary to sepsis, improving. #Large left adnexal mass: CT shows 10 x 8 cm left adnexal mass. Unclear etiology? Malignancy ? Abscess #Elevated D-dimer: VQ scan low probability for PE Recommendations: -Pelvic ultrasound evaluation for mass/cyst versus abscess, CENTRIFUGAL WAX MOLDER f/u as an outpatient -Stop cefepime -Start ceftriaxone 2 g IV once a day -Add azithromycin to cover community-acquired pneumonia -Anticipate to discharge on Levaquin 750 mg p.o. once a day total 10 days to cover UTI with bacteremia/pneumonia -Lower extremity ultrasound rule out DVT -Repeat procalcitonin and CRP Will follow. Bita Manley MD Infectious Diseases Importer Or Exporter [facility] ([facility] M [phone] O [phone]
[2020-09-15] MEDS: METOPROLOL TARTRATE 25 MG TAB PO SCH ×2 (16:52→22:27)
[2020-09-15] MEDS ORDERED: cefTRIAXone/NS 2 GM/100 ML 2 GM/100 ML BAG IV SCH (20:00)
[2020-09-16 04:59] LABS: Calcium 7.6 mg/dL (8.4-10.2)
[2020-09-16] MEDS: HEPARIN 5,000 UNIT/1 ML VIAL SUB-Q SCH (05:13)
[2020-09-16] MEDS: SODIUM CHLORIDE 0.9% 1000 ML 1,000 ML IV SCH (05:13)
[2020-09-16] MEDS: METOPROLOL TARTRATE 25 MG TAB PO SCH ×2 (05:24→13:13)
[2020-09-16] MEDS: IPRATROPIUM/ALBUTEROL SULFATE 3 ML AMPUL.NEB IH SCH (07:25)
[2020-09-16] MEDS: carBAMazepine 200 MG TAB PO SCH (10:10)
[2020-09-16] MEDS: FAMOTIDINE 10 MG TAB PO SCH (10:10)
[2020-09-16 11:48] VITALS: BP 110/66
--- NOTE | 2020-09-16 13:24 | Progress Note ---
Assessment and Plan Cultures: Blood culture 09/13/2020 E coli 4 out of 4 bottles. Urine culture E. coli resistant to ampicillin. SARS-CoV-2 PCR negative. Assessment: 70 years old female with history of hypertension, depression, seizure disorder, admitted on 09/13/2020 secondary to bilateral flank pain associated with dysuria, subjective fever, nausea and vomiting for 4 days. On arrival, temperature 100.5, HR 101, RR 22, O2 sat 94%, BP 101/59. Initial WBC 17.5. Hemoglobin 12.6. Platelet 132. D-dimer> 10,000. Lactate 2.5. Creatinine 2.5. CRP 42-->23. Procalcitonin 162-->29. CT abdomen with bilateral airspace disease right more than left, right perinephric edema, mild dilated renal collecting system. Large cystic mass on the left adnexa 10 by a centimeter. VQ scan negative. Patient currently on 2 L. #Severe sepsis: resolved, likely secondary to gram-negative bacilli bacteremia/UTI/pneumonia. Very high procalcitonin in the setting of ALLAN. #Complicated UTI with pyelonephritis and dilated renal collecting system: No stones seen. Urine culture grew E. coli resistant to ampicillin. #E coli bacteremia: Likely secondary to UTI. Repeat Blood culture no growth #Bilateral pneumonia: Community-acquired versus aspiration. SARS-CoV-2 PCR negative. #ALLAN: Secondary to sepsis, improving. #Large left adnexal mass: CT shows 10 x 8 cm left adnexal mass. Unclear etiology? Malignancy ? Abscess #Elevated D-dimer: VQ scan low probability for PE Recommendations: -markers better but remain elevated -Pelvic ultrasound evaluation for mass/cyst versus abscess, FIELD MECHANIC f/u as an outpatient -Lower extremity ultrasound rule out DVT -Continue ceftriaxone 2 g IV once a day -Continue Azithromycin to cover community-acquired pneumonia total 5 days -Anticipate to discharge on Levaquin 750 mg p.o. once a day total 10 days to cover UTI with bacteremia/pneumonia till 09/24/2020 Will follow. Bita Manley MD Infectious Diseases Rn Palliative [facility] ([facility] M [phone] O [phone] Subjective Date of service: 09/16/20 Principal diagnosis: E coli bacteremia Interval history: Feels better, no fever, still c/o bilateral back pain Objective - Exam Narrative Exam: General appearance: Alert in NAD pleasant Eyes: anicteric sclerae, moist conjunctivae; no lid-lag; PERRLA HENT: Normocephalic, Atraumatic; normal external ears, nares open, oropharynx clear partially edentulous Neck: supple, tracheal midline, no JVD Lungs: Bibasilar crackles CV: RRR no murmur Abdomen: Soft, mild tenderness diffusely Extremities: no edema, no cyanosis Skin: No rash. Psych: no agitated Neuro: alert and oriented x 3. Moving all extermities - Constitutional Vitals: Vital Signs Temp Pulse Resp BP Pulse Ox 97.9 F 72 18 110/66 84 09/16/20 11:41 09/16/20 13:13 09/16/20 11:41 09/16/20 13:13 09/16/20 11:41 Temperature -Last 24 Hours Temperature 97.9 F Temperature 97.2 F Temperature 98.5 F - Labs CBC & Chem 7: 09/15/20 08:02 09/16/20 04:26 Labs: Abnormal lab results 09/15/20 09/15/20 09/16/20 Range/Units 17:05 22:15 04:26 Sodium 131 L (137-145) mmol/L Carbon Dioxide 14 L (22-30) mmol/L BUN 22 H (7-17) mg/dL Glucose 122 H (65-100) mg/dL POC Glucose 132 H (70-105) mg/dL Calcium 7.6 L (8.4-10.2) mg/dL C-Reactive Protein 23.60 H (0.00-1.30) mg/dL 09/16/20 09/16/20 Range/Units 08:05 11:39 Sodium (137-145) mmol/L Carbon Dioxide (22-30) mmol/L BUN (7-17) mg/dL Glucose (65-100) mg/dL POC Glucose 108 H 113 H (70-105) mg/dL Calcium (8.4-10.2) mg/dL C-Reactive Protein (0.00-1.30) mg/dL
--- NOTE | 2020-09-16 13:38 | Discharge Summary ---
Providers - Providers Date of Admission: 09/13/20 07:50 Date of discharge: 09/16/20 Attending physician: DAVID LEMOS 09/14/20 15:23 Physical Therapy Evaluation and Treat [CONS] Routine Comment: Reason For Exam: Debility 09/14/20 18:20 Consult to Physician [CONS] Routine Comment: Consulting Provider: SANDRA GOFF Physician Instructions: Reason For Exam: gm neg bacteremia 09/16/20 08:31 Consult to Case Management [CONS] Routine Services Needed at Discharge: Other Notified:: jeronimo Additional Physician Instructions: acute rehab Primary care physician: CLINICAL ENGINEER Hospitalization Condition: Fair Disposition: DC-01 TO HOME OR SELFCARE Final Discharge Diagnosis (Prints w/discharge instructions): Sepsis, hypotension/septic shock, UTI with pyelonephritis, E. coli bacteremia, will be PE while ruled out, ALLAN due to vasomotor nephropathy, bilateral pneumonia, acute hypoxic respiratory failure resolved, left adnexal cystic mass, mild hyponatremia, macrocytic anemia. Time spent for discharge: 34 minutes Core Measure Documentation - Palliative Care Palliative Care/ Comfort Measures: Not Applicable - Core Measures Any of the following diagnoses?: none Exam - Physical Exam Narrative exam: GENERAL: well-developed well-nourished elderly female lying on bed appeared to be in no discomfort. HEENT: Normocephalic. Atraumatic. NECK: Supple. CHEST/LUNGS: breathing nonlabored. HEART/CARDIOVASCULAR: S1 and S2 positive ABDOMEN: Bowel sounds positive SKIN: There is no rash NEURO: No focal motor deficit. Follows command. MUSCULOSKELETAL: No joint effusion EXTRIMITY: No swelling, no cyanosis or clubbing. PSYCH: Cooperative. - Constitutional Vitals: Temp Pulse Resp BP Pulse Ox 97.9 F 72 18 110/66 84 09/16/20 11:41 09/16/20 13:13 09/16/20 11:41 09/16/20 13:13 09/16/20 11:41 Plan Activity: advance as tolerated Weight Bearing Status: Weight Bear as Tolerated Diet: regular Special Instructions: home health RN Durable Medical Equipment Needed Upon Discharge: Walker-Rolling Additional Instructions: Please continue Levaquin 750 mg p.o. once a day to cover UTI with bacteremia/pneumonia till 09/24/2020. Please follow-up with [facility] as outpatient for your left adnexal cystic mass. Follow up with: PRIMARY CARE, [Primary Care Provider] - 3-5 Days
[2020-09-16] MEDS ORDERED: AZITHROMYCIN 250 MG TAB PO SCH (14:00)
[2020-09-16 15:05] LABS: Iron 76 ug/dL (37-170); Total Iron Binding Capacity 139 mcg/dL (250-450)
--- NOTE | 2020-09-16 18:19 | Ultrasound Report ---
Transvaginal and transabdominal pelvic ultrasound INDICATION: Left lower quadrant pain FINDINGS: Uterus measures 8.8 x 3.7 x 3.0 cm. Endometrium is thickened measuring 2 mm. Uterus is ante flexed imaging, this appearance. Right ovary is not well seen. Small amount of free fluid in the righ t pelvis. Left ovary measures 10.1 x 7.2 x 8.6 cm. There is a cystic lesion/mass measuring 9.9 x 6.8 cm. IMPRESSION: 1. Left ovarian cystic mass. Follow-up ultrasound and workup is recommended. 2. Thickened endometrium. Myometrium is slightly echogenic. Follow-up recommended. Signer Name: Asaf Shields MD Signed: 09/16/2020 6:15 PM Workstation Name: [email or web address]
== END 2020-09-16 16:11 | disposition home health service (06) | DRG 871 ==
LOC: ED 03:33 → 3A 07:50
PROVIDERS: ADMIT Internal Medicine; ATTEND Internal Medicine
DX: A41.51 Sepsis due to Escherichia coli [E. coli] (principal); J18.9 Pneumonia, unspecified organism; N17.0 Acute kidney failure with tubular necrosis; R65.21 Severe sepsis with septic shock; J96.01 Acute respiratory failure with hypoxia; N12 Tubulo-interstitial nephritis, not specified as acute or chronic; N39.0 Urinary tract infection, site not specified; E87.1 Hypo-osmolality and hyponatremia; Z20.822 Contact with and (suspected) exposure to COVID-19; I10 Essential (primary) hypertension; F32.9 Major depressive disorder, single episode, unspecified; I95.9 Hypotension, unspecified; N83.8 Other noninflammatory disorders of ovary, fallopian tube and broad ligament; R79.89 Other specified abnormal findings of blood chemistry; D53.9 Nutritional anemia, unspecified
CPT/HCPCS: 36415; 71045; 74022; 74176; 76770; 76830; 76856; 78580; 80048; 80053; 80320; 81001; 82140; 82728; 82962; 83550; 83615; 83690; 83880; 84145; 84484; 85025; 85379; 86140; 87040; 87076; 87086; 87186; 93306; 94640; 96365; 96367; 96375; G0378; A9540; G0480; J0456; J0692; J0696; J1644; J7030; U0003

== ENCOUNTER 2020-09-16 20:12 | Inpatient (IN) | payer OTHER ==
--- NOTE | 2020-09-16 21:10 | Event Note ---
ED Screening Note Date of service: 09/16/20 Time: 21:07 ED Screening Note: 70-year-old female patient with history of pneumonia presents to the emergency department to be readmitted to the hospital. According to the daughter, who is not present, the patient was discharged from this facility earlier today. The daughter received a telephone call from the hospitalist saying that she needed to bring the patient back to the hospital to be readmitted because her oxygen saturation was low. Patient was diagnosed with pneumonia during her admission. It is unclear whether she uses supplemental oxygen at home. Patient states that her chest pain and shortness of breath are no worse today than they were during her admission. Pulse oximetry 96% on 2 L per nasal cannula. General: Awake, appropriately interactive, no acute distress. Neck: Supple. Full range of motion intact. Cardiovascular: Normal peripheral perfusion. Pulmonary: Scattered expiratory wheezing. No respiratory distress. Patient is speaking normally without use of accessory muscles. Skin: No apparent rashes or lesions. Neurological: No facial asymmetry. Speech is clear. Follows commands. Patient is alert and oriented. Musculoskeletal: Moves all four extremities spontaneously with normal range of motion. Psych: Cooperative. Appropriate mood and affect. I have greeted and performed a focused rapid initial assessment of this patient. A comprehensive ED assessment and evaluation of the patient, analysis of all t est results, and completion of the medical decision-making process will be conducted by additional ED providers. This initial assessment/diagnostic orders/clinical plan/treatment(s) is/are subject to change based on patients health status, clinical progression and re-assessment. Further treatment and workup at subsequent clinical provider's discretion. Patient/guardian urged not to elope from the ED as their condition may be serious if not clinically assessed and managed.
[2020-09-16 21:39] LABS: Basophils % (Auto) 0.3 % (0.0-1.8); Eosinophils # (Auto) 0.1 K/mm3 (0.0-0.4); Eosinophils % (Auto) 0.9 % (0.0-4.3); Hematocrit 33.7 % (30.3-42.9); Hemoglobin 11.2 gm/dl (10.1-14.3); Lymphocytes # (Auto) 1.5 K/mm3 (1.2-5.4); Lymphocytes % (Auto) 13.2 % (13.4-35.0); Mean Corpuscular HGB Conc 33 % (30-34); Mean Corpuscular Volume 102 fl (79-97); Monocytes # (Auto) 0.8 K/mm3 (0.0-0.8); Monocytes % (Auto) 6.5 % (0.0-7.3); Platelet Count 204 K/mm3 (140-440); Red Cell Distribution Width 14.1 % (13.2-15.2)
[2020-09-16 22:06] LABS: Albumin 2.7 g/dL (3.9-5); Calcium 7.5 mg/dL (8.4-10.2)
--- NOTE | 2020-09-16 22:29 | XRay Report ---
CHEST 1 VIEW 09/16/2020 8:45 PM INDICATION / CLINICAL INFORMATION: chest pain/SOB. COMPARISON: 09/14/2020 FINDINGS: SUPPORT DEVICES: None. HEART / MEDIASTINUM: No significant abnormality. LUNGS / PLEURA: There is mild increase in interstitial markings. There is increased airspace opacity in the lung bases. No pneumothorax. ADDITIONAL FINDINGS: No significant additional findings. IMPRESSION: 1. Mild Interval worsening. Signer Name: Ranjan Josue MD Signed: 09/16/2020 10:25 PM Workstation Name: [id number]
--- NOTE | 2020-09-16 23:51 | Emergency Department Report ---
ED General Adult HPI - General Chief complaint: Dyspnea/Respdistress Stated complaint: im fine PUI?: No Time Seen by Provider: 09/16/20 23:46 Source: patient, RN notes reviewed, old records reviewed Mode of arrival: Wheelchair Limitations: Other (The patient is a poor historian) - History of Present Illness Initial comments: The patient was evaluated in the emergency department for symptoms described in the history of present illness. He/she was evaluated in the context of the global COVID-19 pandemic, which necessitated consideration that the patient might be at risk for infection with the virus that causes COVID-19. In stitutional protocols and algorithms that pertain to the evaluation of patients at risk for COVID-19 are in a state of rapid change based on information released by regulatory bodies including the CDC and federal and state organizations. These policies and algorithms were followed during the patient's care in the emergency department. Please note that these policies, procedures and recommendations changed on a rapid basis. The patient is a 70-year-old female. The patient was recently discharged from this hospital yesterday. The patient was recently admitted to this hospital for hypertension, depression, seizure disorder, and sepsis secondary to suspected pyelonephritis, as well as right lower lobe pneumonia. She had blood cultures and urine cultures which were positive for E. coli, sensitive to Levaquin. Her D-dimer was quite elevated, and she had a low probability nuclear medicine study. Initially, was found to be febrile to 100.5, tachycardic, hypoxic, with a leukocytosis. She also had mild renal insufficiency, and a procalcitonin elevation. I received a call earlier on this afternoon from her treating physician. The patient was instructed to return to the emergency room, because of a hypoxic pulse oximetry reading, which was reportedly not communicated to the medical team. The patient herself denies complaints at this time. The patient denies physical pain to myself. She tells me that she is "fine." She was discharged with Levaquin, as per review of old medical records, and infectious disease recommendations. Improves with: none Worsens with: none Associated Symptoms: denies other symptoms - Related Data Previous Rx's Medication Instructions Recorded Last Taken Type Acetaminophen/Codeine [Tylenol 1 tab PO Q6H PRN #20 tab 01/17/16 09/13/20 17:44 Rx /Codeine # 3 tab] carBAMazepine [TEGretol] 200 mg PO Q12HR #60 tab 01/17/16 09/13/20 17:44 Rx Albuterol Mdi (or & Nicu Only) 2 puff IH QID PRN #8.5 gram 09/16/20 Unknown Rx [ProAir HFA Inhaler] Fluticasone [Flonase] 1 spray NS QDAY #1 bottle 09/16/20 Unknown Rx Metoclopramide [Reglan TAB] 10 mg PO Q6H PRN #14 tablet 09/16/20 Unknown Rx Metoprolol [Lopressor TAB] 12.5 mg PO BID #60 tablet 09/16/20 Unknown Rx guaiFENesin ER [Mucinex ER] 600 mg PO Q12H #14 tablet.er 09/16/20 Unknown Rx levoFLOXacin [Levaquin] 750 mg PO QDAY #8 tablet 09/16/20 Unknown Rx Allergies Allergy/AdvReac Type Severity Reaction Status Date / Time No Known Allergies Allergy Unverified 01/16/16 13:46 ED Review of Systems ROS: Stated complaint: SOB/LOW OX/CALLED BACK BY Other details as noted in HPI Constitutional: denies: fever Eyes: denies: eye discharge Respiratory: denies: wheezing Cardiovascular: denies: chest pain Gastrointestinal: denies: abdominal pain Genitourinary: denies: dysuria Musculoskeletal: denies: back pain Hematological/Lymphatic: denies: easy bleeding ED Past Medical Hx - Past Medical History Previous Medical History?: Yes Hx Hypertension: Yes Hx Seizures: Yes Hx Psychiatric Treatment: Yes (depression) Additional medical history: UNABLE TO OBTAIN - Surgical History Additional Surgical History: UNABLE TO OBTAIN - Social History Smoking Status: Former Smoker - Medications Home Medications: Home Medications Medication Instructions Recorded Confirmed Last Taken Type Acetaminophen/Codeine [Tylenol 1 tab PO Q6H PRN #20 tab 01/17/16 09/17/20 09/13/20 17:44 Rx /Codeine # 3 tab] carBAMazepine [TEGretol] 200 mg PO Q12HR #60 tab 01/17/16 09/17/20 09/13/20 17:44 Rx Albuterol Mdi (or & Nicu Only) 2 puff IH QID PRN #8.5 gram 09/16/20 09/17/20 Unknown Rx [ProAir HFA Inhaler] Fluticasone [Flonase] 1 spray NS QDAY #1 bottle 09/16/20 09/17/20 Unknown Rx Metoclopramide [Reglan TAB] 10 mg PO Q6H PRN #14 tablet 09/16/20 09/17/20 Unknown Rx Metoprolol [Lopressor TAB] 12.5 mg PO BID #60 tablet 09/16/20 09/17/20 Unknown Rx guaiFENesin ER [Mucinex ER] 600 mg PO Q12H #14 tablet.er 09/16/20 09/17/20 Unknown Rx levoFLOXacin [Levaquin] 750 mg PO QDAY #8 tablet 09/16/20 09/17/20 Unknown Rx ED Physical Exam - General Limitations: No Limitations General appearance: alert, in no apparent distress - Head Head exam: Present: atraumatic, normocephalic - Eye Eye exam: Present: normal appearance, EOMI - ENT ENT exam: Present: normal exam, normal external ear exam, other (Patient has poor dentition) - Neck Neck exam: Present: normal inspection, full ROM. Absent: tenderness, meningismus - Respiratory Respiratory exam: Present: decreased breath sounds. Absent: respiratory distress, wheezes, rales, rhonchi, stridor - Cardiovascular Cardiovascular Exam: Present: regular rate, normal rhythm, normal heart sounds. Absent: bradycardia, tachycardia, irregular rhythm, systolic murmur, diastolic murmur, rubs, gallop - GI/Abdominal GI/Abdominal exam: Present: soft. Absent: distended, tenderness, guarding, rebound, rigid, pulsatile mass - Extremities Exam Extremities exam: Present: normal inspection, full ROM, other (2+ pulses noted in the bilateral upper and lower extremities. There is no palpable cord. negative Homans sign. Muscular compartments are soft. The pelvis is stable.). Absent: pedal edema, calf tenderness - Back Exam Back exam: Present: normal inspection, full ROM. Absent: tenderness, CVA tenderness (R), CVA tenderness (L), paraspinal tenderness, vertebral tenderness - Neurological Exam Neurological exam: Present: alert, other (No facial droop. Tongue midline. Extraocular movements intact bilaterally. Facial sensation intact to light kaylyn ch in V1, V2, V3 distribution bilaterally. 5 and a 5 strength in 4 extremities. Sensation intact to light touch in 4 extremities.) - Psychiatric Psychiatric exam: Present: flat affect - Skin Skin exam: Present: warm, ecchymosis. Absent: rash ED Course Vital Signs 09/16/20 09/16/20 09/17/20 21:08 23:52 00:00 Temperature 98.5 F Pulse Rate 69 Respiratory 20 Rate Blood Pressure Blood Pressure 145/74 [Right] O2 Sat by Pulse 96 93 95 Oximetry O2 Sat by Pulse Oximetry [ Digit-Finger] 09/17/20 09/17/20 09/17/20 00:28 00:30 01:08 Temperature Pulse Rate 65 68 Respiratory 20 22 15 Rate Blood Pressure 140/82 Blood Pressure [Right] O2 Sat by Pulse 94 98 89 Oximetry O2 Sat by Pulse Oximetry [ Digit-Finger] 09/17/20 09/17/20 09/17/20 01:30 01:36 02:00 Temperature Pulse Rate 64 63 Respiratory 22 23 Rate Blood Pressure 138/71 Blood Pressure [Right] O2 Sat by Pulse 98 96 Oximetry O2 Sat by Pulse 88 Oximetry [ Digit-Finger] 09/17/20 02:30 Temperature Pulse Rate Respiratory 20 Rate Blood Pressure 110/63 Blood Pressure [Right] O2 Sat by Pulse 90 Oximetry O2 Sat by Pulse Oximetry [ Digit-Finger] - Reevaluation(s) Reevaluation #1: 09/17/20 00:28 Differential diagnosis, including but not limited to: Pneumonia, bacteremia, pericarditis, myocarditis, coronary artery disease, pulmonary embolism Assessment and plan: 70-year-old female who has no acute complaints to myself, who was discharged from this hospital, apparently hypoxic, without this being communicated to the treating provider, who was called back by her treating provider for readmission secondary to hypoxia. On my assessment, patient resting comfortably in stretcher, saturating 88% on room air. Prior imaging studies are reviewed and appreciated. Patient denies chest pain, EKG abnormal, but not consistent with a STEMI. Nonspecific troponin reviewed and appreciated, given lack of chest pain, lack of tachycardia, myocarditis pericarditis are unlikely. I suspect this is a type II troponin leak. In addition, mild transaminitis likely secondary to recent infectious insult. There is no right upper quadrant abdominal pain. I suspect hypoxia secondary to worsening right lower lobe pneumonia. However, given recent elevated D-dimer, hypoxia, abnormal EKG, nonspecifically elevated troponin, we will obtain CT scan of the chest to exclude concomitant pulmonary embolism. We will give IV fluids, aspirin, and continue Levaquin therapy. Patient is amenable to readmission at this time. Hospital physician, Dr. Loyd to admit to [facility] Reevaluation #2: 09/17/20 01:36 CT scan shows the following: IMPRESSION: 1. No CT evidence for pulmonary embolism. 2. There is bullous disease in the lungs characteristic of chronic changes of emphysema. There is peripheral interstitial disease in the lung bases with some bronchiectasis. There is mild honeycombing. The appearance is concerning for pulmonary fibrosis. Airspace opacities in the lung bases persist. There is a small right pleural effusion which has developed since the prior CT No pulmonary embolism identified. - Pulse Oximetry Interpretation Digit-Finger Initial Pulse Oximetry Readin O2 Sat by Pulse Oximetry: 88 Additional Comments: placed on 2 liters of oxygen ED Medical Decision Making - Lab Data Result diagrams: 09/20/20 06:17 09/20/20 06:17 Vital Signs 09/16/20 21:08 Temperature 98.5 F Pulse Rate 69 Respiratory 20 Rate Blood Pressure 145/74 [Right] O2 Sat by Pulse 96 Oximetry Lab Results 09/16/20 09/16/20 Range/Units 21:21 21:21 WBC 11.7 H (4.5-11.0) K/mm3 RBC 3.30 L (3.65-5.03) M/mm3 Hgb 11.2 (10.1-14.3) gm/dl Hct 33.7 (30.3-42.9) % MCV 102 H (79-97) fl MCH 34 H (28-32) pg MCHC 33 (30-34) % RDW 14.1 (13.2-15.2) % Plt Count 204 (140-440) K/mm3 Lymph % (Auto) 13.2 L (13.4-35.0) % [place] % (Auto) 6.5 (0.0-7.3) % Eos % (Auto) 0.9 (0.0-4.3) % Baso % (Auto) 0.3 (0.0-1.8) % Lymph # (Auto) 1.5 (1.2-5.4) K/mm3 [place] # (Auto) 0.8 (0.0-0.8) K/mm3 Eos # (Auto) 0.1 (0.0-0.4) K/mm3 Baso # (Auto) 0.0 (0.0-0.1) K/mm3 Seg Neutrophils % 79.1 H (40.0-70.0) % Seg Neutrophils # 9.2 H (1.8-7.7) K/mm3 Sodium 133 L (137-145) mmol/L Potassium 4.5 (3.6-5.0) mmol/L Chloride 105.1 (98-107) mmol/L Carbon Dioxide 16 L (22-30) mmol/L Anion Gap 16 mmol/L BUN 27 H (7-17) mg/dL Creatinine 1.1 (0.6-1.2) mg/dL Estimated GFR 49 ml/min BUN/Creatinine Ratio 25 % Glucose 161 H (65-100) mg/dL Calcium 7.5 L (8.4-10.2) mg/dL Magnesium 1.80 (1.7-2.3) mg/dL Total Bilirubin 0.30 (0.1-1.2) mg/dL AST 181 H (5-40) units/L ALT 93 H (7-56) units/L Alkaline Phosphatase 203 H (35-129) units/L Troponin T 0.036 H D (0.00-0.029) ng/mL Total Protein 6.0 L (6.3-8.2) g/dL Albumin 2.7 L (3.9-5) g/dL Albumin/Globulin Ratio 0.8 % - EKG Data -: EKG Interpreted by Wi EKG shows normal: sinus rhythm Rate: normal - EKG Data 09/17/20 00:27 EKG interpreted at 21: 25 Sinus rhythm, 68 bpm. Normal axis, QTC 443 ms. T wave inversion V3 and V4. Motion artifact. Patient denies chest pain to myself. This is an abnormal EKG. This is not a STEMI. Nonspecific changes when compared to prior EKG. - Radiology Data Radiology results: report reviewed, image reviewed CHEST 1 VIEW 09/16/2020 8:45 PM INDICATION / CLINICAL INFORMATION: chest pain/SOB. COMPARISON: 09/14/2020 FINDINGS: SUPPORT DEVICES: None. HEART / MEDIASTINUM: No significant abnormality. LUNGS / PLEURA: There is mild increase in interstitial markings. There is increased airspace opacity in the lung bases. No pneumothorax. ADDITIONAL FINDINGS: No significant additional findings. IMPRESSION: 1. Mild Interval worsening. Signer Name: Ranjan Josue MD Signed: 09/16/2020 9:25 PM Workstation Name: [id number] Nuclear medicine perfusion lung scan Indication: Shortness of breath Technique: 5.0 mCi of Tc 99m MAA were given by IV. Findings: Comparison with chest radiograph from earlier today. Perfusion images are unremarkable; specifically, no wedge-shaped, pleural-based, segmental defects are seen. Impression: Normal V/Q scan. Signer Name: Shawn Everett MD Signed: 09/14/2020 2:10 PM Workstation Name: [id number] This CT ABDOMEN AND PELVIS WITHOUT CONTRAST INDICATION / CLINICAL INFORMATION: Periumbilical abdominal pain, bilateral flank pain. TECHNIQUE: Axial CT images were obtained through the abdomen and pelvis without IV contrast. All CT scans at this location are performed using CT dose reduction for ALARA by means of automated exposure control. COMPARISON: None available. FINDINGS: LOWER CHEST: There is airspace consolidation in the extreme right lung base suspicious for pneumonia and to a lesser extent in the left lung base.. There is bilateral basilar interstitial disease and bullous disease in the lungs. LIVER: No significant abnormality. GALLBLADDER: No significant abnormality. BILE DUCTS: No significant abnormality. PANCREAS: No significant abnormality. SPLEEN: No significant abnormality. ADRENALS: No significant abnormality. RIGHT KIDNEY / URETER: There is mild stranding in the fat around the right kidney. There is slight dilatation of the renal collecting system. No ureteral calculi are seen. LEFT KIDNEY / URETER: No significant abnormality. STOMACH / SMALL BOWEL: There is a hiatal hernia. There is no obstruction. COLON: No significant abnormality. APPENDIX: No significant abnormality. PERITONEUM: No free fluid. No free air. No fluid collection. LYMPH NODES: No significant adenopathy. AORTA / ARTERIES: Mild atherosclerotic calcification without acute abnormality. IVC / VEINS: No significant abnormality. URINARY BLADDER: No significant abnormality. REPRODUCTIVE ORGANS: There is a 10 x 8 cm cystic mass in the left adnexa. This measures water density. ADDITIONAL FINDINGS: None. SKELETAL SYSTEM: No acute abnormality IMPRESSION: 1. There is airspace consolidation noted in the lung bases right greater than left. This could represent pneumonia. 2. There is perinephric edema on the right. There is mild dilatation of the right renal collecting system. No ureteral calculi are seen. These changes are not specific but could indicate a recently passed stone. 3. There is a large cystic mass in the left adnexa. Signer Name: Ranjan Josue MD Signed: 09/13/2020 6:33 AM Workstation Name: [id number] ABDOMEN 3 VIEW(S) INDICATION / CLINICAL INFORMATION: Abd pain, SOB. COMPARISON: None available. FINDINGS: TUBES / LINES: None. BOWEL GAS PATTERN: No acute abnormality. Bowel is normal in caliber. There is gas noted throughout the bowel. FREE AIR / EXTRALUMINAL GAS: None seen. ADDITIONAL FINDINGS: No significant additional findings. CHEST: There is bilateral interstitial disease IMPRESSION: 1. No acute abnormality is seen in the abdomen. There is gas in the small and large bowel. The bowel is normal in caliber. 2. There is bilateral interstitial disease which is likely chronic. Signer Name: Ranjan Josue MD Signed: 09/13/2020 4:07 AM Workstation Name: [id number] CTA CHEST WITH CONTRAST INDICATION / CLINICAL INFORMATION: Elevated Troponin, R.L.L. Pneumonia, abnormal EKG. TECHNIQUE: Axial CT images were obtained through the chest after injection of 100 cc of Omnipaque 350 IV contrast. 3 plane MIP and/or 3D reconstructions were produced. All CT scans at this location are performed using CT dose reduction for ALARA by means of automated exposure control. COMPARISON: Chest radiograph dated 09/16/[address] dated 09/13/2020 FINDINGS: PULMONARY ARTERIES: No pulmonary emboli. THORACIC AORTA: Mild at herosclerotic calcification without acute abnormality. HEART: No significant abnormality. CORONARY ARTERY CALCIFICATION: Mild. MEDIASTINUM / MARVIN: No significant abnormality. PLEURA: There is a small right pleural effusion. No pneumothorax. LUNGS: There is bullous disease in the lungs. There is chronic appearing peripheral interstitial disease which is most prominent in the lung bases. There is mild bronchiectasis.. Basilar airspace opacities persist and appear relatively unchanged. There is a 1.3 cm subsolid nodule in the left upper lobe, series 2 image 26. ADDITIONAL FINDINGS: None. UPPER ABDOMEN: There is a hiatal hernia. There is mild atherosclerotic calcification in the aorta. SKELETAL STRUCTURES: No acute osseous abnormality IMPRESSION: 1. No CT evidence for pulmonary embolism. 2. There is bullous disease in the lungs characteristic of chronic changes of emphysema. There is peripheral interstitial disease in the lung bases with some bronchiectasis. There is mild honeycombing. The appearance is concerning for pulmonary fibrosis. Airspace opacities in the lung bases persist. There is a small right pleural effusion which has developed since the prior CT 3. Single incidental pulmonary nodule(s) in the left upper lobe measuring 13 mm with subsolid (part solid) characteristics. Recommendation according to Fleischner Society 2017 Guidelines: CT at 3-6 months to confirm persistence. If unchanged and solid component remains <6 mm, annual CT should be performed for 5 years. Signer Name: Ranjan Josue MD Signed: 09/17/2020 12:24 AM Workstation Name: [id number] Critical care attestation.: If time is entered above; I have spent that time in minutes in the direct care of this critically ill patient, excluding procedure time. ED Disposition Clinical Impression: Hypoxia, Pneumonia, Transaminitis Disposition: DC-09 OP ADMIT IP TO THIS HOSP Is pt being admited?: Yes Does the pt Need Aspirin: Yes Condition: Fair
[2020-09-17] MEDS ORDERED: LACTATED RINGERS 1,000 ML IV ONE (00:19)
[2020-09-17] MEDS ORDERED: ASPIRIN 81 MG TAB CHEW PO ONE (00:31)
[2020-09-17] MEDS ORDERED: ALBUTEROL 8.5 GM MDI INHALATION IH PRN (00:43)
[2020-09-17] MEDS ORDERED: METOCLOPRAMIDE 10 MG TAB PO PRN ×2 (00:43→01:17)
[2020-09-17] MEDS ORDERED: ACETAMINOPHEN W/CODEINE 300-30 MG TAB PO PRN (00:43)
[2020-09-17] MEDS ORDERED: ONDANSETRON 4 MG/2 ML INJ IV PRN (00:44)
--- NOTE | 2020-09-17 00:53 | History and Physical Report ---
History of Present Illness Date of examination: 09/17/20 Date of admission: 09/17/20 Chief complaint: Dyspnea Hypoxia History of present illness: 70-year-old female with past medical history of hypertension, depression, seizure disorder, and sepsis secondary to suspected pyelonephritis was brought to the emergency room because of hypoxia. O2 sat is 88%. Patient was recently discharged from this hospital yesterday. The patient was recently admitted to this hospital for hypertension, depression, seizure disorder, and sepsis secondary to suspected pyelonephritis, as well as right lower lobe pneumonia. She had blood cultures and urine cultures which were positive for E. coli, sensitive to Levaquin. Patient was found to be hypoxic O2 sat is 88%. WBC is 11.7 Chest x-ray shows mild interval worsening of the pneumonia. Past History Past Medical History: hypertension (Depression, pneumonia and pyelonephritis), s eizures Medications and Allergies Allergies Allergy/AdvReac Type Severity Reaction Status Date / Time No Known Allergies Allergy Unverified 01/16/16 13:46 Home Medications Medication Instructions Recorded Confirmed Last Taken Type Acetaminophen/Codeine [Tylenol 1 tab PO Q6H PRN #20 tab 01/17/16 09/13/20 09/13/20 17:44 Rx /Codeine # 3 tab] carBAMazepine [TEGretol] 200 mg PO Q12HR #60 tab 01/17/16 09/13/20 09/13/20 17:44 Rx Albuterol Mdi (or & Nicu Only) 2 puff IH QID PRN #8.5 gram 09/16/20 Unknown Rx [ProAir HFA Inhaler] Fluticasone [Flonase] 1 spray NS QDAY #1 bottle 09/16/20 Unknown Rx Metoclopramide [Reglan TAB] 10 mg PO Q6H PRN #14 tablet 09/16/20 Unknown Rx Metoprolol [Lopressor TAB] 12.5 mg PO BID #60 tablet 09/16/20 Unknown Rx guaiFENesin ER [Mucinex ER] 600 mg PO Q12H #14 tablet.er 09/16/20 Unknown Rx levoFLOXacin [Levaquin] 750 mg PO QDAY #8 tablet 09/16/20 Unknown Rx Active Meds: Active Medications Acetaminophen/Codeine Phosphate (Acetaminophen W/Codeine 300-30 Mg Tab) 1 tab PO Q6H PRN PRN Reason: PAIN Albuterol (Albuterol 8.5 Gm Mdi Inhalation) 2 puff IH QID PRN PRN Reason: Shortness Of Breath Carbamazepine (Carbamazepine 200 Mg Tab) 200 mg PO Q12HR [facility] Fluticasone Propionate (Fluticasone Propionate Nasal [place] 16 Gm) 50 mcg NS QDAY [facility] Guaifenesin (Guaifenesin Er 600 Mg Tab) 600 mg PO Q12H [facility] Levofloxacin/Dextrose (Levaquin 750mg/150ml) 750 mg in 150 mls @ 100 mls/hr IV ONCE ONE; Protocol Stop: 09/17/20 01:24 Lactated Ringer's (Lactated Ringers) 1,000 mls @ 999 mls/hr IV BOLUS ONE Stop: 09/17/20 01:19 Metoclopramide HCl (Metoclopramide 10 Mg Tab) 10 mg PO Q6H PRN PRN Reason: Nausea And Vomiting Metoprolol Tartrate (Metoprolol Tartrate 25 Mg Tab) 12.5 mg PO BID [facility] Review of Systems Constitutional: weakness Respiratory: shortness of breath Exam - Constitutional Vitals: Temp Pulse Resp BP Pulse Ox 98.5 F 69 20 145/74 88 09/16/20 21:08 09/16/20 21:08 09/17/20 00:28 09/16/20 21:08 09/17/20 00:31 General appearance: Present: no acute distress, well-nourished - EENT Eyes: Present: PERRL ENT: hearing intact, clear oral mucosa - Neck Neck: Present: supple, normal ROM - Respiratory Respiratory effort: normal Respiratory: bilateral: diminished - Cardiovascular Heart Sounds: Present: S1 & S2. Absent: rub, click - Extremities Extremities: pulses symmetrical, No edema Peripheral Pulses: within normal limits - Abdominal General gastrointestinal: Present: soft, non-tender, non-distended, normal bowel sounds Female genitourinary: Present: normal - Integumentary Integumentary: Present: clear, warm, dry - Musculoskeletal Musculoskeletal: gait normal, strength equal bilaterally - Psychiatric Psychiatric: appropriate mood/affect, intact judgment & insight - Neurologic Neurologic: CNII-XII intact, moves all extremities HEART Score - HEART Score Troponin: Troponin T 0.036 ng/mL (0.00-0.029) H D 09/16/20 21:21 Results - Labs CBC & Chem 7: 09/16/20 21:21 09/16/20 21:21 Labs: Laboratory Last Values WBC 11.7 K/mm3 (4.5-11.0) H 09/16/20 21:21 RBC 3.30 M/mm3 (3.65-5.03) L 09/16/20 21:21 Hgb 11.2 gm/dl (10.1-14.3) 09/16/20 21: Hct 33.7 % (30.3-42.9) 09/16/20 21: MCV 102 fl (79-97) H 09/16/20 21:21 MCH 34 pg (28-32) H 09/16/20 21: MCHC 33 % (30-34) 09/16/20 21: RDW 14.1 % (13.2-15.2) 09/16/20 21: Plt Count 204 K/mm3 (140-440) 09/16/20 21:21 Lymph % (Auto) 13.2 % (13.4-35.0) L 09/16/20 21: [place] % (Auto) 6.5 % (0.0-7.3) 09/16/20 21: Eos % (Auto) 0.9 % (0.0-4.3) 09/16/20 21: Baso % (Auto) 0.3 % (0.0-1.8) 09/16/20 21: Lymph # (Auto) 1.5 K/mm3 (1.2-5.4) 09/16/20 21: [place] # (Auto) 0.8 K/mm3 (0.0-0.8) 09/16/20 21: Eos # (Auto) 0.1 K/mm3 (0.0-0.4) 09/16/20 21: Baso # (Auto) 0.0 K/mm3 (0.0-0.1) 09/16/20 21: Seg Neutrophils % 79.1 % (40.0-70.0) H 09/16/20 21:21 Seg Neutrophils # 9.2 K/mm3 (1.8-7.7) H 09/16/20 21:21 Sodium 133 mmol/L (137-145) L 09/16/20 21:21 Potassium 4.5 mmol/L (3.6-5.0) 09/16/20 21:21 Chloride 105.1 mmol/L (98-107) 09/16/20 21:21 Carbon Dioxide 16 mmol/L (22-30) L 09/16/20 21:21 Anion Gap 16 mmol/L 09/16/20 21:21 BUN 27 mg/dL (7-17) H 09/16/20 21:21 Creatinine 1.1 mg/dL (0.6-1.2) 09/16/20 21:21 Estimated GFR 49 ml/min 09/16/20 21:21 BUN/Creatinine Ratio 25 % 09/16/20 21:21 Glucose 161 mg/dL (65-100) H 09/16/20 21:21 Lactic Acid 1.80 mmol/L (0.7-2.0) 09/17/20 00:01 Calcium 7.5 mg/dL (8.4-10.2) L 09/16/20 21:21 Magnesium 1.80 mg/dL (1.7-2.3) 09/16/20 21:21 Total Bilirubin 0.30 mg/dL (0.1-1.2) 09/16/20 21:21 AST 181 units/L (5-40) H 09/16/20 21:21 ALT 93 units/L (7-56) H 09/16/20 21:21 Alkaline Phosphatase 203 units/L (35-129) H 09/16/20 21:21 Troponin T 0.036 ng/mL (0.00-0.029) H D 09/16/20 21:21 Total Protein 6.0 g/dL (6.3-8.2) L 09/16/20 21:21 Albumin 2.7 g/dL (3.9-5) L 09/16/20 21:21 Albumin/Globulin Ratio 0.8 % 09/16/20 21:21 - Imaging and Cardiology Chest x-ray: image reviewed Assessment and Plan VTE prophylaxis?: Chemical Plan of care discussed with patient/family: Yes - Patient Problems (1) Pneumonia Current Visit: Yes Status: Acute Plan to address problem: Admit the patient to the medical telemetry. Put the patient on oxygen via nasal cannula 3 L/min. DuoNeb by nebulizer every 4 hours as needed. Levaquin 750 mils IV daily. We will do the blood cultures sputum culture and urine culture. Consult pulmonary if needed. Recheck CBC BMP in the morning (2) Hypoxia Current Visit: Yes Status: Acute Plan to address problem: Put the patient on oxygen via nasal cannula 3 L/min. DuoNeb by nebulizer every 4 hours as needed. Levaquin 750 mils IV daily. Consult pulmonary if needed. We will check if the patient is qualify for home oxygen (3) Leukocytosis Current Visit: No Status: Acute Plan to address problem: Levaquin 750 mils IV daily. We will do the blood cultures sputum culture and urine culture. Recheck CBC BMP in the morning (4) Sepsis Current Visit: No Status: Acute Plan to address problem: Levaquin 750 mils IV daily. We will do the blood cultures sputum culture and urine culture. Recheck CBC BMP in the morning (5) Pyelonephritis Current Visit: No Status: Acute Plan to address problem: Levaquin 750 mils IV daily. We will do the blood culture and urine culture. (6) Hypertension Current Visit: No Status: Chronic Plan to address problem: Hydralazine 10 mg IV every 6 hours as needed for hypertension. We monitor the blood pressure closely (7) DVT prophylaxis Current Visit: Yes Status: Acute Plan to address problem: . Heparin 5000 units subcu every 8 hours for DVT prophylaxis and Protonix 40 mg p.o. daily for GI prophylaxis. Patient is a full code
[2020-09-17] MEDS ORDERED: ALBUTEROL 2.5 MG/3 ML NEBU IH PRN (00:58)
--- NOTE | 2020-09-17 01:29 | Cat Scan Report ---
CTA CHEST WITH CONTRAST INDICATION / CLINICAL INFORMATION: Elevated Troponin, R.L.L. Pneumonia, abnormal EKG. TECHNIQUE: Axial CT images were obtained through the chest after injection of 100 cc of Omnipaque 350 IV contrast. 3 plane MIP and/or 3D reconstructions were produced. All CT scans at this location are performed using CT dose reduction for ALARA by means of automated exposure control. COMPARISON: Chest radiograph dated 09/16/[address] dated 09/13/2020 FINDINGS: PULMONARY ARTERIES: No pulmonary emboli. THORACIC AORTA: Mild atherosclerotic calcification without acute abnormality. HEART: No significant abnormality. CORONARY ARTERY CALCIFICATION: Mild. MEDIASTINUM / MARVIN: No significant abnormality. PLEURA: There is a small right pleural effusion. No pneumothorax. LUNGS: There is bullous disease in the lungs. There is chronic appearing peripheral interstitial dise ase which is most prominent in the lung bases. There is mild bronchiectasis.. Basilar airspace opacit ies persist and appear relatively unchanged. There is a 1.3 cm subsolid nodule in the left upper lobe, series 2 image 26. ADDITIONAL FINDINGS: None. UPPER ABDOMEN: There is a hiatal hernia. There is mild atherosclerotic calcification in the aorta. SKELETAL STRUCTURES: No acute osseous abnormality IMPRESSION: 1. No CT evidence for pulmonary embolism. 2. There is bullous disease in the lungs characteristic of chronic changes of emphysema. There is per ipheral interstitial disease in the lung bases with some bronchiectasis. There is mild honeycombing. The appearance is concerning for pulmonary fibrosis. Airspace opacities in the lung bases persist. Th ere is a small right pleural effusion which has developed since the prior CT 3. Single incidental pulmonary nodule(s) in the left upper lobe measuring 13 mm with subsolid (part s olid) characteristics. Recommendation according to Fleischner Society 2017 Guidelines: CT at 3-6 mon ths to confirm persistence. If unchanged and solid component remains <6 mm, annual CT should be perfo rmed for 5 years. Signer Name: Ranjan Josue MD Signed: 09/17/2020 1:24 AM Workstation Name: [id number]
[2020-09-17 02:06] LABS: Chol/HDL Ratio 5.4 %
[2020-09-17] MEDS: IPRATROPIUM/ALBUTEROL SULFATE 3 ML AMPUL.NEB IH SCH ×4 (02:30→20:07)
[2020-09-17] MEDS: HEPARIN 5,000 UNIT/1 ML VIAL SUB-Q SCH ×3 (05:39→21:37)
[2020-09-17] MEDS: ACETAMINOPHEN 325 MG TAB PO PRN (05:46)
[2020-09-17] MEDS: METOPROLOL TARTRATE 25 MG TAB PO SCH ×2 (09:27→21:35)
[2020-09-17] MEDS: carBAMazepine 200 MG TAB PO SCH ×2 (09:28→21:36)
[2020-09-17] MEDS: PANTOPRAZOLE 40 MG TAB PO SCH (09:28)
[2020-09-17] MEDS: guaiFENesin ER 600 MG TAB PO SCH ×2 (09:28→21:36)
[2020-09-17] MEDS: FLUTICASONE PROPIONATE NASAL SPRAY 16 GM NS SCH (10:22)
--- NOTE | 2020-09-17 11:32 | Electrocardiograph Report ---
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
--- NOTE | 2020-09-17 11:32 | Electrocardiograph Report ---
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
--- NOTE | 2020-09-17 18:28 | Progress Note ---
Assessment and Plan Assessment and plan: 70-year-old female with past medical history of hypertension, depression, seizure disorder, and sepsis secondary to suspected pyelonephritis was brought to the emergency room because of hypoxia. O2 sat is 88%. Patient was recently discharged from this hospital yesterday. The patient was recently admitted to this hospital for hypertension, depression, seizure disorder, and sepsis secondary to suspected pyelonephritis, as well as right lower lobe pneumonia. She had blood cultures and urine cultures which were positive for E. coli, sensitive to Levaquin. Patient was found to be hypoxic O2 sat is 88%. WBC is 11.7 - Patient Problems (1) Pneumonia Current Visit: Yes Status: Acute Plan to address problem: Levaquin, repeat blood cx, (2) Hypoxia Current Visit: Yes Status: Acute Plan to address problem: Put the patient on oxygen via nasal cannula 3 L/min. DuoNeb by nebulizer every 4 hours as needed. (3) Leukocytosis Current Visit: No Status: Acute Plan to address problem: Levaquin 750 mils IV daily. blood/sputum cx pending (4) Sepsis Current Visit: No Status: Acute Plan to address problem: Levaquin 750 mils IV daily. blood/sputum cx pending (5) Pyelonephritis Current Visit: No Status: Acute Plan to address problem: Levaquin 750 mils IV daily. blood/urine cx pending (6) Hypertension Current Visit: No Status: Chronic Plan to address problem: Hydralazine 10 mg IV every 6 hours as needed for hypertension. We monitor the blood pressure closely (7) DVT prophylaxis Current Visit: Yes Status: Acute Plan to address problem: . Heparin 5000 units subcu every 8 hours for DVT prophylaxis Protonix 40 mg p.o. daily for GI prophylaxis. CODE status: full History Interval history: 09/17 pt feels weak, SOB. needs assistance to move to the chair. PT consulted Hospitalist Physical - Physical exam Narrative exam: General appearance: Present: thin, no acute distress, well-nourished EENT: PERRL, EOM intact, hearing intact, clear oral mucosa, dentition normal Neck: Present: supple, normal ROM Respiratory: bilateral: CTA, negative: rales, rhonchi, wheezing Cardiovascular: Rhythm: regular Heart Sounds: Present: S1 & S2. Absent: gallop, rub Extremities: no ischemia, No edema, normal temperature, normal color, Full ROM Abdominal: soft, non-tender, non-distended, normal bowel sounds Integumentary: Present: clear, warm, dry Psychiatric: appropriate mood/affect, intact judgment & insight Neurologic: CNII-XII intact, moves all extremities - Constitutional Vitals: Temp Pulse Resp BP Pulse Ox 97.8 F 71 18 122/65 92 09/17/20 08:31 09/17/20 14:00 09/17/20 14:00 09/17/20 08:31 09/17/20 08:47 General appearance: Present: no acute distress, well-nourished HEART Score - HEART Score Troponin: Troponin T 0.036 ng/mL (0.00-0.029) H D 09/16/20 21:21 Results - Labs CBC & Chem 7: 09/16/20 21:21 09/16/20 21:21 Labs: Laboratory Last Values WBC 11.7 K/mm3 (4.5-11.0) H 09/16/20 21: RBC 3.30 M/mm3 (3.65-5.03) L 09/16/20 21:21 Hgb 11.2 gm/dl (10.1-14.3) 09/16/20 21: Hct 33.7 % (30.3-42.9) 09/16/20 21: MCV 102 fl (79-97) H 09/16/20 21:21 MCH 34 pg (28-32) H 09/16/20 21: MCHC 33 % (30-34) 09/16/20 21: RDW 14.1 % (13.2-15.2) 09/16/20 21: Plt Count 204 K/mm3 (140-440) 09/16/20 21:21 Lymph % (Auto) 13.2 % (13.4-35.0) L 09/16/20 21: [place] % (Auto) 6.5 % (0.0-7.3) 09/16/20 21: Eos % (Auto) 0.9 % (0.0-4.3) 09/16/20 21: Baso % (Auto) 0.3 % (0.0-1.8) 09/16/20 21: Lymph # (Auto) 1.5 K/mm3 (1.2-5.4) 09/16/20 21:21 [place] # (Auto) 0.8 K/mm3 (0.0-0.8) 09/16/20 21:21 Eos # (Auto) 0.1 K/mm3 (0.0-0.4) 09/16/20 21:21 Baso # (Auto) 0.0 K/mm3 (0.0-0.1) 09/16/20 21:21 Seg Neutrophils % 79.1 % (40.0-70.0) H 09/16/20 21:21 Seg Neutrophils # 9.2 K/mm3 (1.8-7.7) H 09/16/20 21:21 Sodium 133 mmol/L (137-145) L 09/16/20 21: Potassium 4.5 mmol/L (3.6-5.0) 09/16/20 21: Chloride 105.1 mmol/L (98-107) 09/16/20 21:21 Carbon Dioxide 16 mmol/L (22-30) L 09/16/20 21:21 Anion Gap 16 mmol/L 09/16/20 21:21 BUN 27 mg/dL (7-17) H 09/16/20 21:21 Creatinine 1.1 mg/dL (0.6-1.2) 09/16/20 21: Estimated GFR 49 ml/min 09/16/20 21: BUN/Creatinine Ratio 25 % 09/16/20 21:21 Glucose 161 mg/dL (65-100) H 09/16/20 21:21 POC Glucose 120 mg/dL (70-105) H 09/17/20 08:29 Lactic Acid 1.80 mmol/L (0.7-2.0) 09/17/20 00:01 Calcium 7.5 mg/dL (8.4-10.2) L 09/16/20 21:21 Magnesium 1.80 mg/dL (1.7-2.3) 09/16/20 21:21 Total Bilirubin 0.30 mg/dL (0.1-1.2) 09/16/20 21:21 AST 181 units/L (5-40) H 09/16/20 21:21 ALT 93 units/L (7-56) H 09/16/20 21:21 Alkaline Phosphatase 203 units/L (35-129) H 09/16/20 21:21 Total Creatine Kinase 340 units/L (30-135) H 09/17/20 00:01 Troponin T 0.036 ng/mL (0.00-0.029) H D 09/16/20 21:21 NT-Pro-B Natriuret Pep 6800 pg/mL (0-900) H 09/17/20 00:01 Total Protein 6.0 g/dL (6.3-8.2) L 09/16/20 21:21 Albumin 2.7 g/dL (3.9-5) L 09/16/20 21:21 Albumin/Globulin Ratio 0.8 % 09/16/20 21:21 Triglycerides 194 mg/dL (2-149) H 09/16/20 21: Cholesterol 108 mg/dL (50-199) 09/16/20 21:21 LDL Cholesterol Direct 39 mg/dL (50-130) L 09/16/20 21:21 HDL Cholesterol 20 mg/dL (40-59) L 09/16/20 21:21 Cholesterol/HDL Ratio 5.40 % 09/16/20 21:21 Microbiology: Microbiology 09/17/20 00:01 Peripheral/Venous Blood Culture - Preliminary Culture in Progress 09/17/20 Unknown Peripheral/Venous Blood Culture - Preliminary Culture in Progress [place]/IV: Voiding Method Bedside Commode Active Medications - Current Medications Current Medications: Generic Name Dose Route Start Last Admin Trade Name Freq PRN Reason Stop Dose Admin Acetaminophen 650 mg 09/17/20 00:44 09/17/20 05:46 Acetaminophen 325 Mg Tab PO 650 mg Q4H PRN Administration Pain MILD(1-3)/Fever >100.5/[place] Acetaminophen/Codeine Phosphate 1 tab 09/17/20 00:43 Acetaminophen W/Codeine 300-30 Mg Tab PO Q6H PRN Pain, Moderate (4-6) Albuterol 2.5 mg 09/17/20 00:58 Albuterol 2.5 Mg/3 Ml Nebu IH Q4HRT PRN Shortness Of Breath Albuterol/Ipratropium 1 ampul 09/17/20 02:00 09/17/20 15:09 Ipratropium/Albuterol Sulfate 3 Ml Ampul.Neb IH 1 ampul Q6HRT CHAS Administration Carbamazepine 200 mg 09/17/20 10:00 09/17/20 09:28 Carbamazepine 200 Mg Tab PO 200 mg Q12HR CHAS Administration Fluticasone Propionate 50 mcg 09/17/20 10:00 09/17/20 10:22 Fluticasone Propionate Nasal [place] 16 Gm NS 50 mcg QDAY CHAS Administration Guaifenesin 600 mg 09/17/20 10:00 09/17/20 09:28 Guaifenesin Er 600 Mg Tab PO 600 mg Q12HR [facility]AS Administration Heparin Sodium (Porcine) 5,000 unit 09/17/20 06:00 09/17/20 14:42 Heparin 5,000 Unit/1 Ml Vial SUB-Q 5,000 unit Q8HR CHAS Administration Hydralazine HCl 10 mg 09/17/20 00:46 Hydralazine 20 Mg/1 Ml Inj IV Q6H PRN htn Levofloxacin/Dextrose 750 mg in 150 mls @ 100 mls/hr 09/18/20 22:00 Levaquin 750mg/150ml IV 09/24/20 23:59 Q48H [facility] Protocol Metoclopramide HCl 5 mg 09/17/20 01:17 Metoclopramide 10 Mg Tab PO Q6H PRN Nausea And Vomiting Metoprolol Tartrate 12.5 mg 09/17/20 10:00 09/17/20 09:27 Metoprolol Tartrate 25 Mg Tab PO 12.5 mg BID CHAS Administration Ondansetron HCl 4 mg 09/17/20 00:44 Ondansetron 4 Mg/2 Ml Inj IV Q8H PRN Nausea And Vomiting Pantoprazole Sodium 40 mg 09/17/20 07:30 09/17/20 09:28 Pantoprazole 40 Mg Tab PO 40 mg QDAC CHAS Administration Sodium Chloride 10 ml 09/17/20 10:00 09/17/20 09:29 Sodium Chloride 0.9% 10 Ml Flush Syringe IV 10 ml BID CHAS Administration Sodium Chloride 10 ml 09/17/20 00:44 Sodium Chloride 0.9% 10 Ml Flush Syringe IV PRN PRN LINE FLUSH
[2020-09-17 20:53] LABS: Bilirubin,Urine NEG (Negative); Blood,Urine SM (Negative); Color,Urine Yellow (Yellow); Mucus,Urine FEW /HPF; Protein,Urine <15 mg/dL mg/dL (Negative); Urobilinogen,Urine < 2.0 mg/dL (<2.0)
[2020-09-18] MEDS: IPRATROPIUM/ALBUTEROL SULFATE 3 ML AMPUL.NEB IH SCH ×4 (01:25→20:55)
[2020-09-18 05:17] LABS: Hematocrit 29.5 % (30.3-42.9); Hemoglobin 9.9 gm/dl (10.1-14.3); Mean Corpuscular HGB Conc 34 % (30-34); Mean Corpuscular Volume 100 fl (79-97); Platelet Count 289 K/mm3 (140-440); Red Blood Count 2.96 M/mm3 (3.65-5.03); Red Cell Distribution Width 14.2 % (13.2-15.2)
[2020-09-18 05:19] LABS: Basophils % (Auto) 0.4 % (0.0-1.8); Eosinophils # (Auto) 0.2 K/mm3 (0.0-0.4); Eosinophils % (Auto) 1.4 % (0.0-4.3); Lymphocytes # (Auto) 2.7 K/mm3 (1.2-5.4); Monocytes # (Auto) 0.8 K/mm3 (0.0-0.8); Monocytes % (Auto) 6.4 % (0.0-7.3)
[2020-09-18 05:24] LABS: BUN/Creatinine Ratio 12; Blood Urea Nitrogen 11 mg/dL (7-17); Calcium 7.4 mg/dL (8.4-10.2); Hemolysis Index 9
[2020-09-18] MEDS: HEPARIN 5,000 UNIT/1 ML VIAL SUB-Q SCH ×3 (05:45→22:14)
[2020-09-18] MEDS: METOPROLOL TARTRATE 25 MG TAB PO SCH ×2 (10:25→22:12)
[2020-09-18] MEDS: PANTOPRAZOLE 40 MG TAB PO SCH (10:25)
[2020-09-18] MEDS: FLUTICASONE PROPIONATE NASAL SPRAY 16 GM NS SCH (10:25)
[2020-09-18] MEDS: guaiFENesin ER 600 MG TAB PO SCH ×2 (10:26→22:14)
[2020-09-18] MEDS: carBAMazepine 200 MG TAB PO SCH ×2 (10:26→22:13)
--- NOTE | 2020-09-18 11:11 | Progress Note ---
Assessment and Plan Assessment and plan: 70-year-old female with past medical history of hypertension, depression, seizure disorder, and sepsis secondary to suspected pyelonephritis was brought to the emergency room because of hypoxia. O2 sat is 88%. Patient was recently discharged from this hospital yesterday. The patient was recently admitted to this hospital for hypertension, depression, seizure disorder, and sepsis secondary to suspected pyelonephritis, as well as right lower lobe pneumonia. She had blood cultures and urine cultures which were positive for E. coli, sensitive to Levaquin. Patient was found to be hypoxic O2 sat is 88%. WBC is 11.7 - Patient Problems (1) Pneumonia Current Visit: Yes Status: Acute Plan to address problem: Levaquin ABX Blood cx NGTD (2) Acute respiratory failure w/hypoxia Current Visit: Yes Status: Acute Plan to address problem: Continue oxygen supplementation DuoNeb by nebulizer every 4 hours PRN Ambulatory O2 walk test Chest XR pending (3) Leukocytosis Current Visit: No Status: Acute Plan to address problem: Levaquin 750 mg IV daily. blood cx NGTD (4) Sepsis Current Visit: No Status: Acute Plan to address problem: Levaquin 750 mg IV daily. blood cx NGTD (5) Pyelonephritis from previous/recent admission Current Visit: No Status: Acute Plan to address problem: Levaquin 750 mils IV daily. blood cx NGTD (6) Hypertension Current Visit: No Status: Chronic Plan to address problem: Hydralazine 10 mg IV every 6 hours as needed for hypertension. (7) DVT prophylaxis Current Visit: Yes Status: Acute Plan to address problem: heparin SQ Protonix 40 mg p.o. daily for GI prophylaxis. CODE status: full History Interval history: 09/17 pt feels weak, SOB. needs assistance to move to the chair. PT consulted 09/18 pt states she has improvement with breathing, continues to be on 4L O2, states she's regaining her strength Hospitalist Physical - Physical exam Narrative exam: General appearance: Present: thin, no acute distress, well-nourished EENT: PERRL, EOM intact, hearing intact, clear oral mucosa, dentition normal Neck: Present: supple, normal ROM Respiratory: NC O2 4L, bilateral CTA, negative: rales, rhonchi, wheezing Cardiovascular: Rhythm: regular Heart Sounds: Present: S1 & S2. Absent: gallop, rub Extremities: no ischemia, No edema, normal temperature, normal color, Full ROM Abdominal: soft, non-tender, non-distended, normal bowel sounds Integumentary: Present: clear, warm, dry Psychiatric: appropriate mood/affect, intact judgment & insight Neurologic: CNII-XII intact, moves all extremities - Constitutional Vitals: Temp Pulse Resp BP Pulse Ox 98.2 F 88 18 124/66 96 09/18/20 04:44 09/18/20 08:25 09/18/20 08:25 09/18/20 04:44 09/18/20 04:44 General appearance: Present: no acute distress, well-nourished HEART Score - HEART Score Troponin: Troponin T 0.036 ng/mL (0.00-0.029) H D 09/16/20 21:21 Results - Labs CBC & Chem 7: 09/18/20 04:25 09/18/20 04:25 Labs: Laboratory Last Values WBC 12.2 K/mm3 (4.5-11.0) H 09/18/20 04:25 RBC 2.96 M/mm3 (3.65-5.03) L 09/18/20 04:25 Hgb 9.9 gm/dl (10.1-14.3) L 09/18/20 04:25 Hct 29.5 % (30.3-42.9) L 09/18/20 04:25 MCV 100 fl (79-97) H 09/18/20 04:25 MCH 34 pg (28-32) H 09/18/20 04:25 MCHC 34 % (30-34) 09/18/20 04:25 RDW 14.2 % (13.2-15.2) 09/18/20 04:25 Plt Count 289 K/mm3 (140-440) 09/18/20 04:25 Lymph % (Auto) 22.0 % (13.4-35.0) 09/18/20 04:25 [place] % (Auto) 6.4 % (0.0-7.3) 09/18/20 04:25 Eos % (Auto) 1.4 % (0.0-4.3) 09/18/20 04:25 Baso % (Auto) 0.4 % (0.0-1.8) 09/18/20 04:25 Lymph # (Auto) 2.7 K/mm3 (1.2-5.4) 09/18/20 04:25 [place] # (Auto) 0.8 K/mm3 (0.0-0.8) 09/18/20 04:25 Eos # (Auto) 0.2 K/mm3 (0.0-0.4) 09/18/20 04:25 Baso # (Auto) 0.0 K/mm3 (0.0-0.1) 09/18/20 04:25 Seg Neutrophils % 69.8 % (40.0-70.0) 09/18/20 04:25 Seg Neutrophils # 8.5 K/mm3 (1.8-7.7) H 09/18/20 04:25 Sodium 138 mmol/L (137-145) 09/18/20 04:25 Potassium 3.6 mmol/L (3.6-5.0) 09/18/20 04:25 Chloride 107.6 mmol/L (98-107) H 09/18/20 04:25 Carbon Dioxide 20 mmol/L (22-30) L 09/18/20 04:25 Anion Gap 14 mmol/L 09/18/20 04:25 BUN 11 mg/dL (7-17) 09/18/20 04:25 Creatinine 0.9 mg/dL (0.6-1.2) 09/18/20 04:25 Estimated GFR > 60 ml/min 09/18/20 04:25 BUN/Creatinine Ratio 12 % 09/18/20 04:25 Glucose 142 mg/dL (65-100) H 09/18/20 04:25 POC Glucose 120 mg/dL (70-105) H 09/17/20 08:29 Lactic Acid 1.80 mmol/L (0.7-2.0) 09/17/20 00:01 Calcium 7.4 mg/dL (8.4-10.2) L 09/18/20 04:25 Magnesium 1.80 mg/dL (1.7-2.3) 09/16/20 21:21 Total Bilirubin 0.30 mg/dL (0.1-1.2) 09/16/20 21:21 AST 181 units/L (5-40) H 09/16/20 21:21 ALT 93 units/L (7-56) H 09/16/20 21:21 Alkaline Phosphatase 203 units/L (35-129) H 09/16/20 21:21 Total Creatine Kinase 340 units/L (30-135) H 09/17/20 00:01 Troponin T 0.036 ng/mL (0.00-0.029) H D 09/16/20 21:21 NT-Pro-B Natriuret Pep 6800 pg/mL (0-900) H 09/17/20 00:01 Total Protein 6.0 g/dL (6.3-8.2) L 09/16/20 21: Albumin 2.7 g/dL (3.9-5) L 09/16/20 21: Albumin/Globulin Ratio 0.8 % 09/16/20 21: Triglycerides 194 mg/dL (2-149) H 09/16/20 21:21 Cholesterol 108 mg/dL (50-199) 09/16/20 21: LDL Cholesterol Direct 39 mg/dL (50-130) L 09/16/20 21: HDL Cholesterol 20 mg/dL (40-59) L 09/16/20 21: Cholesterol/HDL Ratio 5.40 % 09/16/20 21: Urine Color Yellow (Yellow) 09/17/20 20: Urine Turbidity Clear (Clear) 09/17/20 20: Urine pH 6.0 (5.0-7.0) 09/17/20 20:23 Ur Specific [place] 1.017 (1.003-1.030) 09/17/20 20: Urine Protein <15 mg/dl mg/dL (Negative) 09/17/20 20: Urine Glucose (UA) 50 mg/dL (Negative) 09/17/20 20: Urine Ketones Neg mg/dL (Negative) 09/17/20 20: Urine Blood Sm (Negative) 09/17/20 20: Urine Nitrite Neg (Negative) 09/17/20 20: Urine Bilirubin Neg (Negative) 09/17/20 20: Urine Urobilinogen < 2.0 mg/dL (<2.0) 09/17/20 20: Ur Leukocyte Esterase Tr (Negative) 09/17/20 20: Urine WBC (Auto) 15.0 /HPF (0.0-6.0) H 09/17/20 20:23 Urine RBC (Auto) 1.0 /HPF (0.0-6.0) 09/17/20 20:23 U Epithel Cells (Auto) 3.0 /HPF (0-13.0) 09/17/20 20:23 Urine Mucus Few /HPF 09/17/20 20:23 Microbiology: Microbiology 09/17/20 00:01 Peripheral/Venous Blood Culture - Preliminary NO GROWTH AFTER 24 HOURS 09/17/20 Unknown Peripheral/Venous Blood Culture - Preliminary NO GROWTH AFTER 24 HOURS [place]/IV: Voiding Method Bedside Commode Active Medications - Current Medications Current Medications: Generic Name Dose Route Start Last Admin Trade Name Freq PRN Reason Stop Dose Admin Acetaminophen 650 mg 09/17/20 00:44 09/17/20 05:46 Acetaminophen 325 Mg Tab PO 650 mg Q4H PRN Administration Pain MILD(1-3)/Fever >100.5/[place] Acetaminophen/Codeine Phosphate 1 tab 09/17/20 00:43 Acetaminophen W/Codeine 300-30 Mg Tab PO Q6H PRN Pain, Moderate (4-6) Albuterol 2.5 mg 09/17/20 00:58 Albuterol 2.5 Mg/3 Ml Nebu IH Q4HRT PRN Shortness Of Breath Albuterol/Ipratropium 1 ampul 09/17/20 02:00 09/18/20 08:24 Ipratropium/Albuterol Sulfate 3 Ml Ampul.Neb IH 1 ampul Q6HRT CHAS Administration Carbamazepine 200 mg 09/17/20 10:00 09/17/20 21:36 Carbamazepine 200 Mg Tab PO 200 mg Q12HR CHAS Administration Fluticasone Propionate 50 mcg 09/17/20 10:00 09/17/20 10:22 Fluticasone Propionate Nasal [place] 16 Gm NS 50 mcg QDAY CHAS Administration Guaifenesin 600 mg 09/17/20 10:00 09/17/20 21:36 Guaifenesin Er 600 Mg Tab PO 600 mg Q12HR CHAS Administration Heparin Sodium (Porcine) 5,000 unit 09/17/20 06:00 09/18/20 05:45 Heparin 5,000 Unit/1 Ml Vial SUB-Q 5,000 unit Q8HR CHAS Administration Hydralazine HCl 10 mg 09/17/20 00:46 Hydralazine 20 Mg/1 Ml Inj IV Q6H PRN htn Levofloxacin/Dextrose 750 mg in 150 mls @ 100 mls/hr 09/18/20 22:00 Levaquin 750mg/150ml IV 09/24/20 23:59 Q48H CHAS Protocol Metoclopramide HCl 5 mg 09/17/20 01:17 Metoclopramide 10 Mg Tab PO Q6H PRN Nausea And Vomiting Metoprolol Tartrate 12.5 mg 09/17/20 10:00 09/17/20 21:35 Metoprolol Tartrate 25 Mg Tab PO 12.5 mg BID CHAS Administration Ondansetron HCl 4 mg 09/17/20 00:44 Ondansetron 4 Mg/2 Ml Inj IV Q8H PRN Nausea And Vomiting Pantoprazole Sodium 40 mg 09/17/20 07:30 09/17/20 09:28 Pantoprazole 40 Mg Tab PO 40 mg QDAC CHAS Administration Sodium Chloride 10 ml 09/17/20 10:00 09/17/20 21:37 Sodium Chloride 0.9% 10 Ml Flush Syringe IV 10 ml BID CHAS Administration Sodium Chloride 10 ml 09/17/20 00:44 Sodium Chloride 0.9% 10 Ml Flush Syringe IV PRN PRN LINE FLUSH
--- NOTE | 2020-09-18 12:10 | XRay Report ---
CHEST 1 VIEW 1147 INDICATION / CLINICAL INFORMATION: eval for fluid overload COMPARISON: 09/16/2020 FINDINGS: SUPPORT DEVICES: None HEART / MEDIASTINUM: Stable LUNGS / PLEURA: Congestive changes appear mildly worse. Mild interstitial edema is mildly more promin ent. Mild basilar atelectatic changes are seen. Minimal right pleural effusion is noted. No pneumotho rax. ADDITIONAL FINDINGS: No significant additional findings. Signer Name: Matt Craven MD Signed: 09/18/2020 12:06 PM Workstation Name: [id number]
[2020-09-19] MEDS: HEPARIN 5,000 UNIT/1 ML VIAL SUB-Q SCH ×3 (05:29→21:50)
[2020-09-19] MEDS: IPRATROPIUM/ALBUTEROL SULFATE 3 ML AMPUL.NEB IH SCH ×3 (09:36→21:13)
[2020-09-19] MEDS: PANTOPRAZOLE 40 MG TAB PO SCH (10:12)
[2020-09-19] MEDS: guaiFENesin ER 600 MG TAB PO SCH ×2 (10:12→21:50)
[2020-09-19] MEDS: METOPROLOL TARTRATE 25 MG TAB PO SCH ×2 (10:12→21:51)
[2020-09-19] MEDS: FLUTICASONE PROPIONATE NASAL SPRAY 16 GM NS SCH (10:13)
[2020-09-19] MEDS: carBAMazepine 200 MG TAB PO SCH ×2 (10:14→21:51)
[2020-09-19] MEDS ORDERED: FUROSEMIDE 40 MG/4 ML INJ IV NR (15:47)
--- NOTE | 2020-09-19 15:49 | Progress Note ---
Assessment and Plan Assessment and plan: 70-year-old female with past medical history of hypertension, depression, seizure disorder, and sepsis secondary to suspected pyelonephritis was brought to the emergency room because of hypoxia. O2 sat is 88%. Patient was recently discharged from this hospital yesterday. The patient was recently admitted to this hospital for hypertension, depression, seizure disorder, and sepsis secondary to suspected pyelonephritis, as well as right lower lobe pneumonia. She had blood cultures and urine cultures which were positive for E. coli, sensitive to Levaquin. Patient was found to be hypoxic O2 sat is 88%. WBC is 11.7 - Patient Problems (1) Pneumonia Current Visit: Yes Status: Acute Plan to address problem: Levaquin ABX Blood cx NGTD (2) Acute respiratory failure w/hypoxia Current Visit: Yes Status: Acute Plan to address problem: Continue oxygen supplementation DuoNeb by nebulizer every 4 hours PRN Ambulatory O2 walk test Chest XR with pulmonary congestion Lasix 40 mg daily (3) Leukocytosis Current Visit: No Status: Acute Plan to address problem: Levaquin 750 mg IV daily. blood cx NGTD (4) Sepsis Current Visit: No Status: Acute Plan to address problem: Levaquin 750 mg IV daily. blood cx NGTD (5) Pyelonephritis from previous/recent admission Current Visit: No Status: Acute Plan to address problem: Levaquin 750 mils IV daily. blood cx NGTD (6) Hypertension Current Visit: No Status: Chronic Plan to address problem: Hydralazine 10 mg IV every 6 hours as needed for hypertension. (7) DVT prophylaxis Current Visit: Yes Status: Acute Plan to address problem: heparin SQ Protonix 40 mg p.o. daily for GI prophylaxis. CODE status: full Disposition: Continue treatment for pneumonia, ambulatory walk test pending. History Interval history: 09/17 pt feels weak, SOB. needs assistance to move to the chair. PT consulted 09/18 pt states she has improvement with breathing, continues to be on 4L O2, states she's regaining her strength 09/19 pt improving, try to wean pt off O2 Hospitalist Physical - Physical exam Narrative exam: General appearance: Present: thin, no acute distress, well-nourished EENT: PERRL, EOM intact, hearing intact, clear oral mucosa, dentition normal Neck: Present: supple, normal ROM Respiratory: NC O2 3L, bilateral CTA, negative: rales, rhonchi, wheezing Cardiovascular: Rhythm: regular Heart Sounds: Present: S1 & S2. Absent: gallop, rub Extremities: no ischemia, No edema, normal temperature, normal color, Full ROM Abdominal: soft, non-tender, non-distended, normal bowel sounds Integumentary: Present: clear, warm, dry Psychiatric: appropriate mood/affect, intact judgment & insight Neurologic: CNII-XII intact, moves all extremities - Constitutional Vitals: Temp Pulse Resp BP Pulse Ox 98.0 F 81 18 129/73 93 09/19/20 14:03 09/19/20 14:03 09/19/20 12:00 09/19/20 14:03 09/19/20 14:03 General appearance: Present: no acute distress, well-nourished HEART Score - HEART Score Troponin: Troponin T 0.036 ng/mL (0.00-0.029) H D 09/16/20 21:21 Results - Labs CBC & Chem 7: 09/18/20 04:25 09/18/20 04:25 Labs: Laboratory Last Values WBC 12.2 K/mm3 (4.5-11.0) H 09/18/20 04:25 RBC 2.96 M/mm3 (3.65-5.03) L 09/18/20 04:25 Hgb 9.9 gm/dl (10.1-14.3) L 09/18/20 04:25 Hct 29.5 % (30.3-42.9) L 09/18/20 04:25 MCV 100 fl (79-97) H 09/18/20 04:25 MCH 34 pg (28-32) H 09/18/20 04:25 MCHC 34 % (30-34) 09/18/20 04:25 RDW 14.2 % (13.2-15.2) 09/18/20 04:25 Plt Count 289 K/mm3 (140-440) 09/18/20 04:25 Lymph % (Auto) 22.0 % (13.4-35.0) 09/18/20 04:25 [place] % (Auto) 6.4 % (0.0-7.3) 09/18/20 04:25 Eos % (Auto) 1.4 % (0.0-4.3) 09/18/20 04:25 Baso % (Auto) 0.4 % (0.0-1.8) 09/18/20 04:25 Lymph # (Auto) 2.7 K/mm3 (1.2-5.4) 09/18/20 04:25 [place] # (Auto) 0.8 K/mm3 (0.0-0.8) 09/18/20 04:25 Eos # (Auto) 0.2 K/mm3 (0.0-0.4) 09/18/20 04:25 Baso # (Auto) 0.0 K/mm3 (0.0-0.1) 09/18/20 04:25 Seg Neutrophils % 69.8 % (40.0-70.0) 09/18/20 04:25 Seg Neutrophils # 8.5 K/mm3 (1.8-7.7) H 09/18/20 04:25 Sodium 138 mmol/L (137-145) 09/18/20 04:25 Potassium 3.6 mmol/L (3.6-5.0) 09/18/20 04:25 Chloride 107.6 mmol/L (98-107) H 09/18/20 04:25 Carbon Dioxide 20 mmol/L (22-30) L 09/18/20 04:25 Anion Gap 14 mmol/L 09/18/20 04:25 BUN 11 mg/dL (7-17) 09/18/20 04:25 Creatinine 0.9 mg/dL (0.6-1.2) 09/18/20 04:25 Estimated GFR > 60 ml/min 09/18/20 04:25 BUN/Creatinine Ratio 12 % 09/18/20 04:25 Glucose 142 mg/dL (65-100) H 09/18/20 04:25 POC Glucose 120 mg/dL (70-105) H 09/17/20 08:29 Lactic Acid 1.80 mmol/L (0.7-2.0) 09/17/20 00:01 Calcium 7.4 mg/dL (8.4-10.2) L 09/18/20 04:25 Magnesium 1.80 mg/dL (1.7-2.3) 09/16/20 21:21 Total Bilirubin 0.30 mg/dL (0.1-1.2) 09/16/20 21:21 AST 181 units/L (5-40) H 09/16/20 21:21 ALT 93 units/L (7-56) H 09/16/20 21:21 Alkaline Phosphatase 203 units/L (35-129) H 09/16/20 21:21 Total Creatine Kinase 340 units/L (30-135) H 09/17/20 00:01 Troponin T 0.036 ng/mL (0.00-0.029) H D 09/16/20 21:21 NT-Pro-B Natriuret Pep 6800 pg/mL (0-900) H 09/17/20 00:01 Total Protein 6.0 g/dL (6.3-8.2) L 09/16/20 21: Albumin 2.7 g/dL (3.9-5) L 09/16/20 21: Albumin/Globulin Ratio 0.8 % 09/16/20 21: Triglycerides 194 mg/dL (2-149) H 09/16/20 21:21 Cholesterol 108 mg/dL (50-199) 09/16/20 21: LDL Cholesterol Direct 39 mg/dL (50-130) L 09/16/20 21: HDL Cholesterol 20 mg/dL (40-59) L 09/16/20 21: Cholesterol/HDL Ratio 5.40 % 09/16/20 21:21 Urine Color Yellow (Yellow) 09/17/20 20:23 Urine Turbidity Clear (Clear) 09/17/20 20: Urine pH 6.0 (5.0-7.0) 09/17/20 20:23 Ur Specific [place] 1.017 (1.003-1.030) 09/17/20 20:23 Urine Protein <15 mg/dl mg/dL (Negative) 09/17/20 20:23 Urine Glucose (UA) 50 mg/dL (Negative) 09/17/20 20: Urine Ketones Neg mg/dL (Negative) 09/17/20 20:23 Urine Blood Sm (Negative) 09/17/20 20:23 Urine Nitrite Neg (Negative) 09/17/20 20:23 Urine Bilirubin Neg (Negative) 09/17/20 20:23 Urine Urobilinogen < 2.0 mg/dL (<2.0) 09/17/20 20:23 Ur Leukocyte Esterase Tr (Negative) 09/17/20 20:23 Urine WBC (Auto) 15.0 /HPF (0.0-6.0) H 09/17/20 20:23 Urine RBC (Auto) 1.0 /HPF (0.0-6.0) 09/17/20 20:23 U Epithel Cells (Auto) 3.0 /HPF (0-13.0) 09/17/20 20:23 Urine Mucus Few /HPF 09/17/20 20:23 Microbiology: Microbiology 09/17/20 20:23 Urine,Clean Catch Urine Culture - Preliminary 09/17/20 00:01 Peripheral/Venous Blood Culture - Preliminary NO GROWTH AFTER 48 HOURS 09/17/20 Unknown Peripheral/Venous Blood Culture - Preliminary NO GROWTH AFTER 48 HOURS [place]/IV: Voiding Method Bedside Commode Active Medications - Current Medications Current Medications: Generic Name Dose Route Start Last Admin Trade Name Freq PRN Reason Stop Dose Admin Acetaminophen 650 mg 09/17/20 00:44 09/17/20 05:46 Acetaminophen 325 Mg Tab PO 650 mg Q4H PRN Administration Pain MILD(1-3)/Fever >100.5/[place] Acetaminophen/Codeine Phosphate 1 tab 09/17/20 00:43 Acetaminophen W/Codeine 300-30 Mg Tab PO Q6H PRN Pain, Moderate (4-6) Albuterol 2.5 mg 09/17/20 00:58 Albuterol 2.5 Mg/3 Ml Nebu IH Q4HRT PRN Shortness Of Breath Albuterol/Ipratropium 1 ampul 09/19/20 08:00 09/19/20 09:36 Ipratropium/Albuterol Sulfate 3 Ml Ampul.Neb IH 1 ampul TIDRT CHAS Administration Carbamazepine 200 mg 09/17/20 10:00 09/19/20 10:14 Carbamazepine 200 Mg Tab PO 200 mg Q12HR CHAS Administration Fluticasone Propionate 50 mcg 09/17/20 10:00 09/19/20 10:13 Fluticasone Propionate Nasal [place] 16 Gm NS 50 mcg QDAY CHAS Administration Guaifenesin 600 mg 09/17/20 10:00 09/19/20 10:12 Guaifenesin Er 600 Mg Tab PO 600 mg Q12HR CHAS Administration Heparin Sodium (Porcine) 5,000 unit 09/17/20 06:00 09/19/20 13:22 Heparin 5,000 Unit/1 Ml Vial SUB-Q 5,000 unit Q8HR CHAS Administration Hydralazine HCl 10 mg 09/17/20 00:46 Hydralazine 20 Mg/1 Ml Inj IV Q6H PRN htn Levofloxacin/Dextrose 750 mg in 150 mls @ 100 mls/hr 09/18/20 22:00 09/18/20 22:12 Levaquin 750mg/150ml IV 09/24/20 23:59 100 mls/hr Q48H CHAS Administration Protocol Metoclopramide HCl 5 mg 09/17/20 01:17 Metoclopramide 10 Mg Tab PO Q6H PRN Nausea And Vomiting Metoprolol Tartrate 12.5 mg 09/17/20 10:00 09/19/20 10:12 Metoprolol Tartrate 25 Mg Tab PO 12.5 mg BID CHAS Administration Ondansetron HCl 4 mg 09/17/20 00:44 Ondansetron 4 Mg/2 Ml Inj IV Q8H PRN Nausea And Vomiting Pantoprazole Sodium 40 mg 09/17/20 07:30 09/19/20 10:12 Pantoprazole 40 Mg Tab PO 40 mg QDAC CHAS Administration Sodium Chloride 10 ml 09/17/20 10:00 09/19/20 10:14 Sodium Chloride 0.9% 10 Ml Flush Syringe IV 10 ml BID CHAS Administration Sodium Chloride 10 ml 09/17/20 00:44 Sodium Chloride 0.9% 10 Ml Flush Syringe IV PRN PRN LINE FLUSH
[2020-09-19] MEDS: hydrALAZINE 20 MG/1 ML INJ IV PRN (17:47)
[2020-09-19] MEDS: ACETAMINOPHEN 325 MG TAB PO PRN (21:51)
[2020-09-20] MEDS: hydrALAZINE 20 MG/1 ML INJ IV PRN (05:27)
[2020-09-20] MEDS: HEPARIN 5,000 UNIT/1 ML VIAL SUB-Q SCH ×3 (05:27→21:12)
[2020-09-20 06:45] LABS: BUN/Creatinine Ratio 6; Blood Urea Nitrogen 5 mg/dL (7-17); Calcium 7.6 mg/dL (8.4-10.2); Hemolysis Index 6
[2020-09-20 06:53] LABS: Hematocrit 31.9 % (30.3-42.9); Hemoglobin 10.6 gm/dl (10.1-14.3); Mean Corpuscular HGB Conc 33 % (30-34); Mean Corpuscular Volume 100 fl (79-97); Platelet Count 457 K/mm3 (140-440); Red Cell Distribution Width 14.5 % (13.2-15.2)
[2020-09-20] MEDS: IPRATROPIUM/ALBUTEROL SULFATE 3 ML AMPUL.NEB IH SCH ×3 (07:59→20:16)
--- NOTE | 2020-09-20 09:45 | Progress Note ---
Assessment and Plan Assessment and plan: 70-year-old female with past medical history of hypertension, depression, seizure disorder, and sepsis secondary to suspected pyelonephritis was brought to the emergency room because of hypoxia. O2 sat is 88%. Patient was recently discharged from this hospital yesterday. The patient was recently admitted to this hospital for hypertension, depression, seizure disorder, and sepsis secondary to suspected pyelonephritis, as well as right lower lobe pneumonia. She had blood cultures and urine cultures which were positive for E. coli, sensitive to Levaquin. Patient was found to be hypoxic O2 sat is 88%. WBC is 11.7 - Patient Problems [place] Pneumonia Current Visit: Yes Status: Acute Plan to address problem: Levaquin ABX Blood cx NGTD Acute respiratory failure w/hypoxia Current Visit: Yes Status: Acute Plan to address problem: Continue oxygen supplementation DuoNeb by nebulizer every 4 hours PRN Ambulatory O2 walk test Elevated BP Chest XR with pulmonary congestion Lasix 40 mg daily Pending Echocardiogram Leukocytosis Current Visit: No Status: Acute Plan to address problem: Levaquin 750 mg IV daily. blood cx NGTD Sepsis Current Visit: No Status: Acute Plan to address problem: Levaquin 750 mg IV daily. blood cx NGTD Pyelonephritis from previous/recent admission Current Visit: No Status: Acute Plan to address problem: Levaquin 750 mils IV daily. blood cx NGTD Hypertension Current Visit: No Status: Chronic Plan to address problem: Hydralazine 10 mg IV every 6 hours as needed for hypertension. DVT prophylaxis Current Visit: Yes Status: Acute Plan to address problem: heparin SQ Protonix 40 mg p.o. daily for GI prophylaxis. CODE status: full Disposition: Continue treatment for pneumonia, ambulatory walk test pending, pending echocardiogram to assess LV function History Interval history: 09/17 pt feels weak, SOB. needs assistance to move to the chair. PT consulted 09/18 pt states she has improvement with breathing, continues to be on 4L O2, states she's regaining her strength 09/19 pt improving, try to wean pt off O2 09/20 pt somewhat winded today, started lasix due to vascular congestion, will get echo to assess LV function Hospitalist Physical - Physical exam Narrative exam: General appearance: Present: thin, no acute distress, well-nourished EENT: PERRL, EOM intact, hearing intact, clear oral mucosa, dentition poor Neck: Present: supple, normal ROM Respiratory: NC O2 2L, bilateral CTA, negative: rales, rhonchi, wheezing Cardiovascular: Rhythm: regular Heart Sounds: Present: S1 & S2. Absent: gallop, rub Extremities: no ischemia, No edema, normal temperature, normal color, Full ROM Abdominal: soft, non-tender, non-distended, normal bowel sounds Integumentary: Present: clear, warm, dry Psychiatric: appropriate mood/affect, intact judgment & insight Neurologic: CNII-XII intact, moves all extremities - Constitutional Vitals: Temp Pulse Resp BP Pulse Ox 98.4 F 72 16 134/72 94 09/20/20 07:26 09/20/20 08:00 09/20/20 08:00 09/20/20 07:26 09/20/20 08:59 General appearance: Present: no acute distress, well-nourished HEART Score - HEART Score Troponin: Troponin T 0.036 ng/mL (0.00-0.029) H D 09/16/20 21:21 Results - Labs CBC & Chem 7: 09/20/20 06:17 09/20/20 06:17 Labs: Laboratory Last Values WBC 11.6 K/mm3 (4.5-11.0) H 09/20/20 06:17 RBC 3.20 M/mm3 (3.65-5.03) L 09/20/20 06:17 Hgb 10.6 gm/dl (10.1-14.3) 09/20/20 06:17 Hct 31.9 % (30.3-42.9) 09/20/20 06:17 MCV 100 fl (79-97) H 09/20/20 06:17 MCH 33 pg (28-32) H 09/20/20 06:17 MCHC 33 % (30-34) 09/20/20 06:17 RDW 14.5 % (13.2-15.2) 09/20/20 06:17 Plt Count 457 K/mm3 (140-440) H 09/20/20 06:17 Lymph % (Auto) 22.0 % (13.4-35.0) 09/18/20 04:25 [place] % (Auto) 6.4 % (0.0-7.3) 09/18/20 04:25 Eos % (Auto) 1.4 % (0.0-4.3) 09/18/20 04:25 Baso % (Auto) 0.4 % (0.0-1.8) 09/18/20 04:25 Lymph # (Auto) 2.7 K/mm3 (1.2-5.4) 09/18/20 04:25 [place] # (Auto) 0.8 K/mm3 (0.0-0.8) 09/18/20 04:25 Eos # (Auto) 0.2 K/mm3 (0.0-0.4) 09/18/20 04:25 Baso # (Auto) 0.0 K/mm3 (0.0-0.1) 09/18/20 04:25 Seg Neutrophils % 69.8 % (40.0-70.0) 09/18/20 04:25 Seg Neutrophils # 8.5 K/mm3 (1.8-7.7) H 09/18/20 04:25 Sodium 139 mmol/L (137-145) 09/20/20 06:17 Potassium 3.3 mmol/L (3.6-5.0) L 09/20/20 06:17 Chloride 104.5 mmol/L (98-107) 09/20/20 06:17 Carbon Dioxide 26 mmol/L (22-30) 09/20/20 06:17 Anion Gap 12 mmol/L 09/20/20 06:17 BUN 5 mg/dL (7-17) L 09/20/20 06:17 Creatinine 0.8 mg/dL (0.6-1.2) 09/20/20 06:17 Estimated GFR > 60 ml/min 09/20/20 06:17 BUN/Creatinine Ratio 6 % 09/20/20 06:17 Glucose 121 mg/dL (65-100) H 09/20/20 06:17 POC Glucose 120 mg/dL (70-105) H 09/17/20 08:29 Lactic Acid 1.80 mmol/L (0.7-2.0) 09/17/20 00:01 Calcium 7.6 mg/dL (8.4-10.2) L 09/20/20 06:17 Magnesium 1.80 mg/dL (1.7-2.3) 09/16/20 21:21 Total Bilirubin 0.30 mg/dL (0.1-1.2) 09/16/20 21:21 AST 181 units/L (5-40) H 09/16/20 21:21 ALT 93 units/L (7-56) H 09/16/20 21:21 Alkaline Phosphatase 203 units/L (35-129) H 09/16/20 21:21 Total Creatine Kinase 340 units/L (30-135) H 09/17/20 00:01 Troponin T 0.036 ng/mL (0.00-0.029) H D 09/16/20 21:21 NT-Pro-B Natriuret Pep 6800 pg/mL (0-900) H 09/17/20 00:01 Total Protein 6.0 g/dL (6.3-8.2) L 09/16/20 21: Albumin 2.7 g/dL (3.9-5) L 09/16/20 21: Albumin/Globulin Ratio 0.8 % 09/16/20 21: Triglycerides 194 mg/dL (2-149) H 09/16/20 21:21 Cholesterol 108 mg/dL (50-199) 09/16/20 21:21 LDL Cholesterol Direct 39 mg/dL (50-130) L 09/16/20 21: HDL Cholesterol 20 mg/dL (40-59) L 09/16/20 21:21 Cholesterol/HDL Ratio 5.40 % 09/16/20 21: Urine Color Yellow (Yellow) 09/17/20 20: Urine Turbidity Clear (Clear) 09/17/20 20: Urine pH 6.0 (5.0-7.0) 09/17/20 20:23 Ur Specific [place] 1.017 (1.003-1.030) 09/17/20 20: Urine Protein <15 mg/dl mg/dL (Negative) 09/17/20 20: Urine Glucose (UA) 50 mg/dL (Negative) 09/17/20 20: Urine Ketones Neg mg/dL (Negative) 09/17/20 20:23 Urine Blood Sm (Negative) 09/17/20 20:23 Urine Nitrite Neg (Negative) 09/17/20 20: Urine Bilirubin Neg (Negative) 09/17/20: Urine Urobilinogen < 2.0 mg/dL (<2.0) 09/17/20 20:23 Ur Leukocyte Esterase Tr (Negative) 09/17/20 20:23 Urine WBC (Auto) 15.0 /HPF (0.0-6.0) H 09/17/20 20:23 Urine RBC (Auto) 1.0 /HPF (0.0-6.0) 09/17/20 20:23 U Epithel Cells (Auto) 3.0 /HPF (0-13.0) 09/17/20 20:23 Urine Mucus Few /HPF 09/17/20 20:23 Microbiology: Microbiology 09/17/20 00:01 Peripheral/Venous Blood Culture - Preliminary NO GROWTH AFTER 72 HOURS 09/17/20 Unknown Peripheral/Venous Blood Culture - Preliminary NO GROWTH AFTER 72 HOURS 09/17/20 20:23 Urine,Clean Catch Urine Culture - Preliminary [place]/IV: Voiding Method Bedside Commode Active Medications - Current Medications Current Medications: Generic Name Dose Route Start Last Admin Trade Name Freq PRN Reason Stop Dose Admin Acetaminophen 650 mg 09/17/20 00:44 09/19/20 21:51 Acetaminophen 325 Mg Tab PO 650 mg Q4H PRN Administration Pain MILD(1-3)/Fever >100.5/[place] Acetaminophen/Codeine Phosphate 1 tab 09/17/20 00:43 Acetaminophen W/Codeine 300-30 Mg Tab PO Q6H PRN Pain, Moderate (4-6) Albuterol 2.5 mg 09/17/20 00:58 Albuterol 2.5 Mg/3 Ml Nebu IH Q4HRT PRN Shortness Of Breath Albuterol/Ipratropium 1 ampul 09/19/20 08:00 09/20/20 07:59 Ipratropium/Albuterol Sulfate 3 Ml Ampul.Neb IH 1 ampul TIDRT CHAS Administration Carbamazepine 200 mg 09/17/20 10:00 09/19/20 21:51 Carbamazepine 200 Mg Tab PO 200 mg Q12HR CHAS Administration Fluticasone Propionate 50 mcg 09/17/20 10:00 09/19/20 10:13 Fluticasone Propionate Nasal [place] 16 Gm NS 50 mcg QDAY CHAS Administration Furosemide 40 mg 09/20/20 10:00 Furosemide 40 Mg/4 Ml Inj IV DAILY@0600 CHAS Guaifenesin 600 mg 09/17/20 10:00 09/19/20 21:50 Guaifenesin Er 600 Mg Tab PO 600 mg Q12HR CHAS Administration Heparin Sodium (Porcine) 5,000 unit 09/17/20 06:00 09/20/20 05:27 Heparin 5,000 Unit/1 Ml Vial SUB-Q 5,000 unit Q8HR CHAS Administration Hydralazine HCl 10 mg 09/17/20 00:46 09/20/20 05:27 Hydralazine 20 Mg/1 Ml Inj IV 10 mg Q6H PRN Administration htn Levofloxacin/Dextrose 750 mg in 150 mls @ 100 mls/hr 09/18/20 22:00 09/18/20 22:12 Levaquin 750mg/150ml IV 09/24/20 23:59 100 mls/hr Q48H CHAS Administration Protocol Metoclopramide HCl 5 mg 09/17/20 01:17 Metoclopramide 10 Mg Tab PO Q6H PRN Nausea And Vomiting Metoprolol Tartrate 12.5 mg 09/17/20 10:00 09/19/20 21:51 Metoprolol Tartrate 25 Mg Tab PO 12.5 mg BID CHAS Administration Ondansetron HCl 4 mg 09/17/20 00:44 Ondansetron 4 Mg/2 Ml Inj IV Q8H PRN Nausea And Vomiting Pantoprazole Sodium 40 mg 09/17/20 07:30 09/19/20 10:12 Pantoprazole 40 Mg Tab PO 40 mg QDAC CHAS Administration Sodium Chloride 10 ml 09/17/20 10:00 09/19/20 21:52 Sodium Chloride 0.9% 10 Ml Flush Syringe IV 10 ml BID CHAS Administration Sodium Chloride 10 ml 09/17/20 00:44 Sodium Chloride 0.9% 10 Ml Flush Syringe IV PRN PRN LINE FLUSH
[2020-09-20] MEDS: FLUTICASONE PROPIONATE NASAL SPRAY 16 GM NS SCH (09:48)
[2020-09-20] MEDS: FUROSEMIDE 40 MG/4 ML INJ IV SCH (10:04)
[2020-09-20] MEDS: METOPROLOL TARTRATE 25 MG TAB PO SCH ×2 (10:04→21:11)
[2020-09-20] MEDS: PANTOPRAZOLE 40 MG TAB PO SCH (10:05)
[2020-09-20] MEDS: guaiFENesin ER 600 MG TAB PO SCH ×2 (10:05→21:11)
[2020-09-20] MEDS: carBAMazepine 200 MG TAB PO SCH ×2 (10:05→21:11)
[2020-09-20] MEDS: ACETAMINOPHEN 325 MG TAB PO PRN (21:09)
[2020-09-21] MEDS: FUROSEMIDE 40 MG/4 ML INJ IV SCH (05:09)
[2020-09-21] MEDS: HEPARIN 5,000 UNIT/1 ML VIAL SUB-Q SCH ×3 (05:09→22:49)
[2020-09-21 05:30] LABS: Hematocrit 31.4 % (30.3-42.9); Mean Corpuscular HGB Conc 35 % (30-34); Mean Corpuscular Volume 99 fl (79-97); Platelet Count 471 K/mm3 (140-440); Red Blood Count 3.18 M/mm3 (3.65-5.03); Red Cell Distribution Width 14.3 % (13.2-15.2)
[2020-09-21 05:54] LABS: BUN/Creatinine Ratio 10; Blood Urea Nitrogen 8 mg/dL (7-17); Calcium 7.7 mg/dL (8.4-10.2); Hemolysis Index 45
[2020-09-21] MEDS: IPRATROPIUM/ALBUTEROL SULFATE 3 ML AMPUL.NEB IH SCH ×3 (08:07→20:05)
--- NOTE | 2020-09-21 10:58 | Progress Note ---
Assessment and Plan Assessment and plan: 70-year-old female with past medical history of hypertension, depression, seizure disorder, and sepsis secondary to suspected pyelonephritis was brought to the emergency room because of hypoxia. O2 sat is 88%. Patient was recently discharged from this hospital yesterday. The patient was recently admitted to this hospital for hypertension, depression, seizure disorder, and sepsis secondary to suspected pyelonephritis, as well as right lower lobe pneumonia. She had blood cultures and urine cultures which were positive for E. coli, sensitive to Levaquin. Patient was found to be hypoxic O2 sat is 88%. WBC is 11.7 Community-acquired pneumonia Acute hypoxic respiratory failure Accelerated hypertension Sepsis DVT prophylaxis 09/17 pt feels weak, SOB. needs assistance to move to the chair. PT consulted 09/18 pt states she has improvement with breathing, continues to be on 4L O2, states she's regaining her strength 09/19 pt improving, try to wean pt off O2 09/20 pt somewhat winded today, started lasix due to vascular congestion, will get echo to assess LV function 09/21. Patient still complains of dyspnea/shortness of breath. CTA revealed bullous disease in the lungs characteristic of chronic changes of emphysema. There is also peripheral interstitial disease in the lung bases with some bronchiectasis and mild honeycombing. The appearance is concerning for pulmonary fibrosis. Given the abnormal CT findings, we will consult pulmonary for further evaluation. Continue IV antibiotics for now. History Interval history: No new issues overnight. Hospitalist Physical - Constitutional Vitals: Temp Pulse Resp BP Pulse Ox 98.3 F 68 16 132/55 94 09/21/20 04:21 09/21/20 04:09/21/20 04:09/21/20 04:09/21/20 08:07 General appearance: Present: no acute distress, well-nourished - EENT Eyes: Present: PERRL, EOM intact ENT: hearing intact, clear oral mucosa, dentition normal - Neck Neck: Present: supple, normal ROM - Respiratory Respiratory effort: normal Respiratory: bilateral: CTA - Cardiovascular Rhythm: regular Heart Sounds: Present: S1 & S2. Absent: gallop, rub - Extremities Extremities: no ischemia, No edema, Full ROM - Abdominal General gastrointestinal: soft, non-tender, non-distended, normal bowel sounds - Integumentary Integumentary: Present: clear, warm, dry - Neurologic Neurologic: CNII-XII intact, moves all extremities HEART Score - HEART Score Troponin: Troponin T 0.036 ng/mL (0.00-0.029) H D 09/16/20 21:21 Results - Labs CBC & Chem 7: 09/21/20 05:19 09/21/20 05:19 Labs: Laboratory Last Values WBC 10.2 K/mm3 (4.5-11.0) 09/21/20 05:19 RBC 3.18 M/mm3 (3.65-5.03) L 09/21/20 05:19 Hgb 11.0 gm/dl (10.1-14.3) 09/21/20 05:19 Hct 31.4 % (30.3-42.9) 09/21/20 05:19 MCV 99 fl (79-97) H 09/21/20 05:19 MCH 35 pg (28-32) H 09/21/20 05:19 MCHC 35 % (30-34) H 09/21/20 05:19 RDW 14.3 % (13.2-15.2) 09/21/20 05:19 Plt Count 471 K/mm3 (140-440) H 09/21/20 05:19 Lymph % (Auto) 22.0 % (13.4-35.0) 09/18/20 04:25 [place] % (Auto) 6.4 % (0.0-7.3) 09/18/20 04:25 Eos % (Auto) 1.4 % (0.0-4.3) 09/18/20 04:25 Baso % (Auto) 0.4 % (0.0-1.8) 09/18/20 04:25 Lymph # (Auto) 2.7 K/mm3 (1.2-5.4) 09/18/20 04:25 [place] # (Auto) 0.8 K/mm3 (0.0-0.8) 09/18/20 04:25 Eos # (Auto) 0.2 K/mm3 (0.0-0.4) 09/18/20 04:25 Baso # (Auto) 0.0 K/mm3 (0.0-0.1) 09/18/20 04:25 Seg Neutrophils % 69.8 % (40.0-70.0) 09/18/20 04:25 Seg Neutrophils # 8.5 K/mm3 (1.8-7.7) H 09/18/20 04:25 Sodium 137 mmol/L (137-145) 09/21/20 05:19 Potassium 3.9 mmol/L (3.6-5.0) 09/21/20 05:19 Chloride 102.9 mmol/L (98-107) 09/21/20 05:19 Carbon Dioxide 25 mmol/L (22-30) 09/21/20 05:19 Anion Gap 13 mmol/L 09/21/20 05:19 BUN 8 mg/dL (7-17) 09/21/20 05:19 Creatinine 0.8 mg/dL (0.6-1.2) 09/21/20 05:19 Estimated GFR > 60 ml/min 09/21/20 05:19 BUN/Creatinine Ratio 10 % 09/21/20 05:19 Glucose 121 mg/dL (65-100) H 09/21/20 05:19 POC Glucose 120 mg/dL (70-105) H 09/17/20 08:29 Lactic Acid 1.80 mmol/L (0.7-2.0) 09/17/20 00:01 Calcium 7.7 mg/dL (8.4-10.2) L 09/21/20 05:19 Magnesium 1.80 mg/dL (1.7-2.3) 09/16/20 21:21 Total Bilirubin 0.30 mg/dL (0.1-1.2) 09/16/20 21:21 AST 181 units/L (5-40) H 09/16/20 21:21 ALT 93 units/L (7-56) H 09/16/20 21:21 Alkaline Phosphatase 203 units/L (35-129) H 09/16/20 21:21 Total Creatine Kinase 340 units/L (30-135) H 09/17/20 00:01 Troponin T 0.036 ng/mL (0.00-0.029) H D 09/16/20 21:21 NT-Pro-B Natriuret Pep 6800 pg/mL (0-900) H 09/17/20 00:01 Total Protein 6.0 g/dL (6.3-8.2) L 09/16/20 21: Albumin 2.7 g/dL (3.9-5) L 09/16/20 21: Albumin/Globulin Ratio 0.8 % 09/16/20 21: Triglycerides 194 mg/dL (2-149) H 09/16/20 21:21 Cholesterol 108 mg/dL (50-199) 09/16/20 21: LDL Cholesterol Direct 39 mg/dL (50-130) L 09/16/20 21: HDL Cholesterol 20 mg/dL (40-59) L 09/16/20 21: Cholesterol/HDL Ratio 5.40 % 09/16/20 21: Urine Color Yellow (Yellow) 09/17/20 20: Urine Turbidity Clear (Clear) 09/17/20 20: Urine pH 6.0 (5.0-7.0) 09/17/20 20: Ur Specific [place] 1.017 (1.003-1.030) 09/17/20 20: Urine Protein <15 mg/dl mg/dL (Negative) 09/17/20 20: Urine Glucose (UA) 50 mg/dL (Negative) 09/17/20 20: Urine Ketones Neg mg/dL (Negative) 09/17/20 20: Urine Blood Sm (Negative) 09/17/20 20: Urine Nitrite Neg (Negative) 09/17/20 20: Urine Bilirubin Neg (Negative) 09/17/20 20: Urine Urobilinogen < 2.0 mg/dL (<2.0) 09/17/20 20:23 Ur Leukocyte Esterase Tr (Negative) 09/17/20 20: Urine WBC (Auto) 15.0 /HPF (0.0-6.0) H 09/17/20 20:23 Urine RBC (Auto) 1.0 /HPF (0.0-6.0) 09/17/20 20: U Epithel Cells (Auto) 3.0 /HPF (0-13.0) 09/17/20 20: Urine Mucus Few /HPF 09/17/20 20:23 Microbiology: Microbiology 09/17/20 00:01 Peripheral/Venous Blood Culture - Preliminary NO GROWTH AFTER 4 DAYS 09/17/20 Unknown Peripheral/Venous Blood Culture - Preliminary NO GROWTH AFTER 4 DAYS [place]/IV: Voiding Method Toilet Active Medications - Current Medications Current Medications: Generic Name Dose Route Start Last Admin Trade Name Freq PRN Reason Stop Dose Admin Acetaminophen 650 mg 09/17/20 00:44 09/20/20 21:09 Acetaminophen 325 Mg Tab PO 650 mg Q4H PRN Administration Pain MILD(1-3)/Fever >100.5/[place] Acetaminophen/Codeine Phosphate 1 tab 09/17/20 00:43 Acetaminophen W/Codeine 300-30 Mg Tab PO Q6H PRN Pain, Moderate (4-6) Albuterol 2.5 mg 09/17/20 00:58 Albuterol 2.5 Mg/3 Ml Nebu IH Q4HRT PRN Shortness Of Breath Albuterol/Ipratropium 1 ampul 09/19/20 08:00 09/21/20 08:07 Ipratropium/Albuterol Sulfate 3 Ml Ampul.Neb IH Not Given TIDRT CHAS Carbamazepine 200 mg 09/17/20 10:00 09/20/20 21:11 Carbamazepine 200 Mg Tab PO 200 mg Q12HR CHAS Administration Fluticasone Propionate 50 mcg 09/17/20 10:00 09/20/20 09:48 Fluticasone Propionate Nasal [place] 16 Gm NS 50 mcg QDAY CHAS Administration Furosemide 40 mg 09/20/20 10:00 09/21/20 05:09 Furosemide 40 Mg/4 Ml Inj IV 40 mg DAILY@0600 CHAS Administration Guaifenesin 600 mg 09/17/20 10:00 09/20/20 21:11 Guaifenesin Er 600 Mg Tab PO 600 mg Q12HR CHAS Administration Heparin Sodium (Porcine) 5,000 unit 09/17/20 06:00 09/21/20 05:09 Heparin 5,000 Unit/1 Ml Vial SUB-Q 5,000 unit Q8HR CHAS Administration Hydralazine HCl 10 mg 09/17/20 00:46 09/20/20 05:27 Hydralazine 20 Mg/1 Ml Inj IV 10 mg Q6H PRN Administration SBP > /160; DBP >/=100 Levofloxacin/Dextrose 750 mg in 150 mls @ 100 mls/hr 09/18/20 22:00 09/20/20 21:09 Levaquin 750mg/150ml IV 09/24/20 23:59 100 mls/hr Q48H CHAS Administration Protocol Metoclopramide HCl 5 mg 09/17/20 01:17 Metoclopramide 10 Mg Tab PO Q6H PRN Nausea And Vomiting Metoprolol Tartrate 12.5 mg 09/17/20 10:00 09/20/20 21:11 Metoprolol Tartrate 25 Mg Tab PO 12.5 mg BID CHAS Administration Ondansetron HCl 4 mg 09/17/20 00:44 Ondansetron 4 Mg/2 Ml Inj IV Q8H PRN Nausea And Vomiting Pantoprazole Sodium 40 mg 09/17/20 07:30 09/20/20 10:05 Pantoprazole 40 Mg Tab PO 40 mg QDAC CHAS Administration Sodium Chloride 10 ml 09/17/20 10:00 09/20/20 21:12 Sodium Chloride 0.9% 10 Ml Flush Syringe IV 10 ml BID CHAS Administration Sodium Chloride 10 ml 09/17/20 00:44 Sodium Chloride 0.9% 10 Ml Flush Syringe IV PRN PRN LINE FLUSH
[2020-09-21] MEDS: METOPROLOL TARTRATE 25 MG TAB PO SCH ×2 (11:09→22:49)
[2020-09-21] MEDS: guaiFENesin ER 600 MG TAB PO SCH ×2 (11:09→22:49)
[2020-09-21] MEDS: carBAMazepine 200 MG TAB PO SCH ×2 (11:10→22:49)
[2020-09-21] MEDS: PANTOPRAZOLE 40 MG TAB PO SCH (11:10)
[2020-09-21] MEDS: FLUTICASONE PROPIONATE NASAL SPRAY 16 GM NS SCH (11:14)
[2020-09-22] MEDS: FUROSEMIDE 40 MG/4 ML INJ IV SCH (05:18)
[2020-09-22] MEDS: HEPARIN 5,000 UNIT/1 ML VIAL SUB-Q SCH ×3 (05:18→21:37)
[2020-09-22 06:56] LABS: Hematocrit 31.6 % (30.3-42.9); Hemoglobin 10.7 gm/dl (10.1-14.3); Mean Corpuscular HGB Conc 34 % (30-34); Mean Corpuscular Volume 99 fl (79-97); Platelet Count 539 K/mm3 (140-440); Red Blood Count 3.18 M/mm3 (3.65-5.03); Red Cell Distribution Width 14.6 % (13.2-15.2)
[2020-09-22 07:05] LABS: Basophils % (Auto) 0.4 % (0.0-1.8); Eosinophils # (Auto) 0.1 K/mm3 (0.0-0.4); Eosinophils % (Auto) 1.3 % (0.0-4.3); Lymphocytes # (Auto) 2.9 K/mm3 (1.2-5.4); Lymphocytes % (Auto) 27.5 % (13.4-35.0); Monocytes # (Auto) 0.6 K/mm3 (0.0-0.8); Monocytes % (Auto) 5.3 % (0.0-7.3)
[2020-09-22 07:23] LABS: BUN/Creatinine Ratio 9; Blood Urea Nitrogen 8 mg/dL (7-17); Calcium 7.7 mg/dL (8.4-10.2); Hemolysis Index 7
[2020-09-22] MEDS: guaiFENesin ER 600 MG TAB PO SCH ×2 (09:40→21:40)
[2020-09-22] MEDS: carBAMazepine 200 MG TAB PO SCH ×2 (09:40→21:42)
[2020-09-22] MEDS: PANTOPRAZOLE 40 MG TAB PO SCH (09:40)
[2020-09-22] MEDS: METOPROLOL TARTRATE 25 MG TAB PO SCH ×2 (09:41→21:42)
[2020-09-22] MEDS: FLUTICASONE PROPIONATE NASAL SPRAY 16 GM NS SCH (09:44)
[2020-09-22] MEDS: IPRATROPIUM/ALBUTEROL SULFATE 3 ML AMPUL.NEB IH SCH ×3 (10:50→21:52)
--- NOTE | 2020-09-22 10:57 | Progress Note ---
Assessment and Plan Assessment and plan: 70-year-old female with past medical history of hypertension, depression, seizure disorder, and sepsis secondary to suspected pyelonephritis was brought to the emergency room because of hypoxia. O2 sat is 88%. Patient was recently discharged from this hospital yesterday. The patient was recently admitted to this hospital for hypertension, depression, seizure disorder, and sepsis secondary to suspected pyelonephritis, as well as right lower lobe pneumonia. She had blood cultures and urine cultures which were positive for E. coli, sensitive to Levaquin. Patient was found to be hypoxic O2 sat is 88%. WBC is 11.7 Community-acquired pneumonia Acute hypoxic respiratory failure Accelerated hypertension Sepsis DVT prophylaxis 09/17 pt feels weak, SOB. needs assistance to move to the chair. PT consulted 09/18 pt states she has improvement with breathing, continues to be on 4L O2, states she's regaining her strength 09/19 pt improving, try to wean pt off O2 09/20 pt somewhat winded today, started lasix due to vascular congestion, will get echo to assess LV function 09/21. Patient still complains of dyspnea/shortness of breath. CTA revealed bullous disease in the lungs characteristic of chronic changes of emphysema. There is also peripheral interstitial disease in the lung bases with some bronchiectasis and mild honeycombing. The appearance is concerning for pulmonary fibrosis. Given the abnormal CT findings, we will consult pulmonary for further evaluation. Continue IV antibiotics for now. 09/22. Await pulmonary evaluation for possible pulmonary fibrosis. Continue IV antibiotics. Patient currently on 3 L of oxygen satting at 96%. History Interval history: No new issues overnight. Hospitalist Physical - Constitutional Vitals: Temp Pulse Resp BP Pulse Ox 98.3 F 89 18 104/73 90 09/22/20 08:18 09/22/20 08:18 09/22/20 08:18 09/22/20 08:18 09/22/20 08:18 General appearance: Present: no acute distress, well-nourished - EENT Eyes: Present: PERRL, EOM intact ENT: hearing intact, clear oral mucosa, dentition normal - Neck Neck: Present: supple, normal ROM - Respiratory Respiratory effort: normal Respiratory: bilateral: CTA - Cardiovascular Rhythm: regular Heart Sounds: Present: S1 & S2. Absent: gallop, rub - Extremities Extremities: no ischemia, No edema, Full ROM - Abdominal General gastrointestinal: soft, non-tender, non-distended, normal bowel sounds - Integumentary Integumentary: Present: clear, warm, dry - Neurologic Neurologic: CNII-XII intact, moves all extremities HEART Score - HEART Score Troponin: Troponin T 0.036 ng/mL (0.00-0.029) H D 09/16/20 21:21 Results - Labs CBC & Chem 7: 09/22/20 04:36 09/22/20 04:36 Labs: Laboratory Last Values WBC 10.6 K/mm3 (4.5-11.0) 09/22/20 04:36 RBC 3.18 M/mm3 (3.65-5.03) L 09/22/20 04:36 Hgb 10.7 gm/dl (10.1-14.3) 09/22/20 04:36 Hct 31.6 % (30.3-42.9) 09/22/20 04:36 MCV 99 fl (79-97) H 09/22/20 04:36 MCH 34 pg (28-32) H 09/22/20 04:36 MCHC 34 % (30-34) 09/22/20 04:36 RDW 14.6 % (13.2-15.2) 09/22/20 04:36 Plt Count 539 K/mm3 (140-440) H 09/22/20 04:36 Lymph % (Auto) 27.5 % (13.4-35.0) 09/22/20 04:36 [place] % (Auto) 5.3 % (0.0-7.3) 09/22/20 04:36 Eos % (Auto) 1.3 % (0.0-4.3) 09/22/20 04:36 Baso % (Auto) 0.4 % (0.0-1.8) 09/22/20 04:36 Lymph # (Auto) 2.9 K/mm3 (1.2-5.4) 09/22/20 04:36 [place] # (Auto) 0.6 K/mm3 (0.0-0.8) 09/22/20 04:36 Eos # (Auto) 0.1 K/mm3 (0.0-0.4) 09/22/20 04:36 Baso # (Auto) 0.0 K/mm3 (0.0-0.1) 09/22/20 04:36 Seg Neutrophils % 65.5 % (40.0-70.0) 09/22/20 04:36 Seg Neutrophils # 6.9 K/mm3 (1.8-7.7) 09/22/20 04:36 Sodium 140 mmol/L (137-145) 09/22/20 04:36 Potassium 2.9 mmol/L (3.6-5.0) L* D 09/22/20 04:36 Chloride 100.8 mmol/L (98-107) 09/22/20 04:36 Carbon Dioxide 26 mmol/L (22-30) 09/22/20 04:36 Anion Gap 16 mmol/L 09/22/20 04:36 BUN 8 mg/dL (7-17) 09/22/20 04:36 Creatinine 0.9 mg/dL (0.6-1.2) 09/22/20 04:36 Estimated GFR > 60 ml/min 09/22/20 04:36 BUN/Creatinine Ratio 9 % 09/22/20 04:36 Glucose 113 mg/dL (65-100) H 09/22/20 04:36 POC Glucose 120 mg/dL (70-105) H 09/17/20 08:29 Lactic Acid 1.80 mmol/L (0.7-2.0) 09/17/20 00:01 Calcium 7.7 mg/dL (8.4-10.2) L 09/22/20 04:36 Magnesium 1.80 mg/dL (1.7-2.3) 09/16/20 21:21 Total Bilirubin 0.30 mg/dL (0.1-1.2) 09/16/20 21:21 AST 181 units/L (5-40) H 09/16/20 21:21 ALT 93 units/L (7-56) H 09/16/20 21:21 Alkaline Phosphatase 203 units/L (35-129) H 09/16/20 21:21 Total Creatine Kinase 340 units/L (30-135) H 09/17/20 00:01 Troponin T 0.036 ng/mL (0.00-0.029) H D 09/16/20 21:21 NT-Pro-B Natriuret Pep 6800 pg/mL (0-900) H 09/17/20 00:01 Total Protein 6.0 g/dL (6.3-8.2) L 09/16/20 21: Albumin 2.7 g/dL (3.9-5) L 09/16/20 21: Albumin/Globulin Ratio 0.8 % 09/16/20 21:21 Triglycerides 194 mg/dL (2-149) H 09/16/20 21: Cholesterol 108 mg/dL (50-199) 09/16/20 21: LDL Cholesterol Direct 39 mg/dL (50-130) L 09/16/20 21: HDL Cholesterol 20 mg/dL (40-59) L 09/16/20 21: Cholesterol/HDL Ratio 5.40 % 09/16/20 21: Urine Color Yellow (Yellow) 09/17/20 20: Urine Turbidity Clear (Clear) 09/17/20 20: Urine pH 6.0 (5.0-7.0) 09/17/20 20: Ur Specific [place] 1.017 (1.003-1.030) 09/17/20 20: Urine Protein <15 mg/dl mg/dL (Negative) 09/17/20 20: Urine Glucose (UA) 50 mg/dL (Negative) 09/17/20 20: Urine Ketones Neg mg/dL (Negative) 09/17/20 20: Urine Blood Sm (Negative) 09/17/20 20:23 Urine Nitrite Neg (Negative) 09/17/20 20: Urine Bilirubin Neg (Negative) 09/17/20 20: Urine Urobilinogen < 2.0 mg/dL (<2.0) 09/17/20 20:23 Ur Leukocyte Esterase Tr (Negative) 09/17/20 20:23 Urine WBC (Auto) 15.0 /HPF (0.0-6.0) H 09/17/20 20:23 Urine RBC (Auto) 1.0 /HPF (0.0-6.0) 09/17/20 20:23 U Epithel Cells (Auto) 3.0 /HPF (0-13.0) 09/17/20 20:23 Urine Mucus Few /HPF 09/17/20 20:23 Microbiology: Microbiology 09/17/20 00:01 Peripheral/Venous Blood Culture - Final NO GROWTH AFTER 5 DAYS 09/17/20 Unknown Peripheral/Venous Blood Culture - Final NO GROWTH AFTER 5 DAYS 09/17/20 20:23 Urine,Clean Catch Urine Culture - Final [place]/IV: Voiding Method Toilet Active Medications - Current Medications Current Medications: Generic Name Dose Route Start Last Admin Trade Name Freq PRN Reason Stop Dose Admin Acetaminophen 650 mg 09/17/20 00:44 09/20/20 21:09 Acetaminophen 325 Mg Tab PO 650 mg Q4H PRN Administration Pain MILD(1-3)/Fever >100.5/[place] Acetaminophen/Codeine Phosphate 1 tab 09/17/20 00:43 Acetaminophen W/Codeine 300-30 Mg Tab PO Q6H PRN Pain, Moderate (4-6) Albuterol 2.5 mg 09/17/20 00:58 Albuterol 2.5 Mg/3 Ml Nebu IH Q4HRT PRN Shortness Of Breath Albuterol/Ipratropium 1 ampul 09/19/20 08:00 09/21/20 20:05 Ipratropium/Albuterol Sulfate 3 Ml Ampul.Neb IH 1 ampul TIDRT CHAS Administration Carbamazepine 200 mg 09/17/20 10:00 09/22/20 09:40 Carbamazepine 200 Mg Tab PO 200 mg Q12HR CHAS Administration Fluticasone Propionate 50 mcg 09/17/20 10:00 09/22/20 09:44 Fluticasone Propionate Nasal [place] 16 Gm NS 50 mcg QDAY CHAS Administration Furosemide 40 mg 09/20/20 10:00 09/22/20 05:18 Furosemide 40 Mg/4 Ml Inj IV 40 mg DAILY@0600 CHAS Administration Guaifenesin 600 mg 09/17/20 10:00 09/22/20 09:40 Guaifenesin Er 600 Mg Tab PO 600 mg Q12HR CHAS Administration Heparin Sodium (Porcine) 5,000 unit 09/17/20 06:00 09/22/20 05:18 Heparin 5,000 Unit/1 Ml Vial SUB-Q 5,000 unit Q8HR CHAS Administration Hydralazine HCl 10 mg 09/17/20 00:46 09/20/20 05:27 Hydralazine 20 Mg/1 Ml Inj IV 10 mg Q6H PRN Administration SBP > /160; DBP >/=100 Levofloxacin/Dextrose 750 mg in 150 mls @ 100 mls/hr 09/18/20 22:00 09/20/20 21:09 Levaquin 750mg/150ml IV 09/24/20 23:59 100 mls/hr Q48H CHAS Administration Protocol Metoclopramide HCl 5 mg 09/17/20 01:17 Metoclopramide 10 Mg Tab PO Q6H PRN Nausea And Vomiting Metoprolol Tartrate 12.5 mg 09/17/20 10:00 09/22/20 09:41 Metoprolol Tartrate 25 Mg Tab PO 12.5 mg BID CHAS Administration Ondansetron HCl 4 mg 09/17/20 00:44 Ondansetron 4 Mg/2 Ml Inj IV Q8H PRN Nausea And Vomiting Pantoprazole Sodium 40 mg 09/17/20 07:30 09/22/20 09:40 Pantoprazole 40 Mg Tab PO 40 mg QDAC CHAS Administration Sodium Chloride 10 ml 09/17/20 10:00 09/22/20 09:41 Sodium Chloride 0.9% 10 Ml Flush Syringe IV 10 ml BID CHAS Administration Sodium Chloride 10 ml 09/17/20 00:44 Sodium Chloride 0.9% 10 Ml Flush Syringe IV PRN PRN LINE FLUSH Nutrition/Malnutrition Assess - Dietary Evaluation Nutrition/Malnutrition Findings: Nutrition Notes Start: 09/21/20 13:06 Freq: Status: Active Protocol: Document 09/21/20 13:06 (Rec: 09/21/20 13:12 [id number]) Nutrition Notes Need for Assessment generated from: Low BMI Initial or Follow up Assessment Current Diagnosis Sepsis,Hypertension Other Pertinent Diagnosis acute respiratory failure, pneu, depression Current Diet Cardiac Labs/Tests Reviewed Pertinent Medications Lasix Height 5 ft 2 in Weight 42.3 kg [place] Body Weight (kg) 50.00 BMI 17.0 Intake Prior to Admission Good Weight Status Underweight Subjective/Other Information Screen for low BMI. Pt unsure of UBW but states she hasn't lost weight and she has always been small. Pt eating 50% of meals due to prefrences and not eating meat. Food prefrences noted. Pt open to ONS daily for if she doesn't like her meal options. Burn Absent Trauma Absent GI Symptoms None Current % PO Fair (50-74%) Minimum of two criteria No Muscle Mass Mild Depletion (non-severe) #1 Nutrition Diagnosis No nutrition diagnosis at this time Is patient on ventilator? No Is Patient Ambulatory and/or Out of Bed No REE-([facility]-confined to bed) 1075.812 Kcal/Kg value to use for calculation 31 Approximate Energy Requirements Using 1311 kcal/Kg Calculation Used for Recommendations Kcal/kg Additional Notes Protein: 42-51g (1-1.2g/kg) Nutrition Intervention Change Diet Order: Continue Add Supplement/Snack (indicate name/kcal Ensure Enlive daily /protein ) Provides kCal: 350 Provides Protein (gm) 20 Goal #1 Meet at least 75% of protein and energy needs via PO and ONS intakes Anticipated Discharge Needs: Cardiac Follow-Up By: 09/24/20 Additional Comments FU for stable intakes
[2020-09-22] MEDS ORDERED: POTASSIUM CHLORIDE ER 20 MEQ TAB PO NR ×2 (13:00→17:00)
--- NOTE | 2020-09-22 15:21 | Event Note ---
Date: 09/22/[address] New, please consult him. Thanks.
[2020-09-22] MEDS: ACETAMINOPHEN 325 MG TAB PO PRN (18:33)
[2020-09-23 05:16] LABS: Basophils % (Auto) 0.5 % (0.0-1.8); Eosinophils # (Auto) 0.1 K/mm3 (0.0-0.4); Eosinophils % (Auto) 1.1 % (0.0-4.3); Hematocrit 31.8 % (30.3-42.9); Hemoglobin 10.8 gm/dl (10.1-14.3); Lymphocytes # (Auto) 2.4 K/mm3 (1.2-5.4); Lymphocytes % (Auto) 22.4 % (13.4-35.0); Mean Corpuscular HGB Conc 34 % (30-34); Mean Corpuscular Volume 99 fl (79-97); Monocytes # (Auto) 0.5 K/mm3 (0.0-0.8); Monocytes % (Auto) 4.8 % (0.0-7.3); Platelet Count 603 K/mm3 (140-440); Red Cell Distribution Width 14.7 % (13.2-15.2)
[2020-09-23] MEDS: HEPARIN 5,000 UNIT/1 ML VIAL SUB-Q SCH ×2 (05:20→13:44)
[2020-09-23] MEDS: FUROSEMIDE 40 MG/4 ML INJ IV SCH (05:22)
[2020-09-23 05:32] LABS: BUN/Creatinine Ratio 16; Blood Urea Nitrogen 14 mg/dL (7-17); Calcium 7.9 mg/dL (8.4-10.2); Hemolysis Index 6
[2020-09-23] MEDS: IPRATROPIUM/ALBUTEROL SULFATE 3 ML AMPUL.NEB IH SCH (08:36)
--- NOTE | 2020-09-23 08:55 | Progress Note ---
Subjective Date of service: 09/23/20 Interval history: 70-year-old female with past medical history of hypertension, depression, seizure disorder, and sepsis secondary to suspected pyelonephritis was brought to the emergency room because of hypoxia. O2 sat is 88%. Patient was recently discharged from this hospital yesterday. The patient was recently admitted to this hospital for hypertension, depression, seizure disorder, and sepsis secondary to suspected pyelonephritis, as well as right lower lobe pneumonia. S he had blood cultures and urine cultures which were positive for E. coli, sensitive to Levaquin. Patient was found to be hypoxic O2 sat is 88%. WBC is 11.7 Community-acquired pneumonia Acute hypoxic respiratory failure Accelerated hypertension Sepsis DVT prophylaxis 09/17 pt feels weak, SOB. needs assistance to move to the chair. PT consulted 09/18 pt states she has improvement with breathing, continues to be on 4L O2, states she's regaining her strength 09/19 pt improving, try to wean pt off O2 09/20 pt somewhat winded today, started lasix due to vascular congestion, will get echo to assess LV function 09/21. Patient still complains of dyspnea/shortness of breath. CTA revealed bullous disease in the lungs characteristic of chronic changes of emphysema. There is also peripheral interstitial disease in the lung bases with some bronchiectasis and mild honeycombing. The appearance is concerning for pulmonary fibrosis. Given the abnormal CT findings, we will consult pulmonary for further evaluation. Continue IV antibiotics for now. 09/22. Await pulmonary evaluation for possible pulmonary fibrosis. Continue IV antibiotics. Patient currently on 3 L of oxygen satting at 96%. Objective - Constitutional Vitals: Vital Signs - 12hr 09/22/20 09/22/20 09/22/20 21:42 21:51 23:35 Temperature 98.2 F Pulse Rate 84 94 H Respiratory 18 Rate Respiratory Rate [Right Abdomen] Blood Pressure 99/60 115/61 O2 Sat by Pulse 96 92 Oximetry 09/23/20 09/23/20 09/23/20 00:25 04:05 04:07 Temperature 98.0 F Pulse Rate 83 87 Respiratory 18 Rate Respiratory 18 Rate [Right Abdomen] Blood Pressure 124/58 O2 Sat by Pulse 91 Oximetry - Labs CBC & Chem 7: 09/23/20 04:30 09/23/20 04:30 Labs: Abnormal lab results 09/23/20 09/23/20 Range/Units 04:30 04:30 RBC 3.20 L (3.65-5.03) M/mm3 MCV 99 H (79-97) fl MCH 34 H (28-32) pg Plt Count 603 H (140-440) K/mm3 Seg Neutrophils % 71.2 H (40.0-70.0) % Sodium 135 L (137-145) mmol/L Glucose 157 H (65-100) mg/dL Calcium 7.9 L (8.4-10.2) mg/dL HEART Score - HEART Score Troponin: Troponin T 0.036 ng/mL (0.00-0.029) H D 09/16/20 21:21
[2020-09-23] MEDS: carBAMazepine 200 MG TAB PO SCH (09:49)
[2020-09-23] MEDS: guaiFENesin ER 600 MG TAB PO SCH (09:49)
[2020-09-23] MEDS: METOPROLOL TARTRATE 25 MG TAB PO SCH (09:49)
[2020-09-23] MEDS: PANTOPRAZOLE 40 MG TAB PO SCH (09:49)
[2020-09-23] MEDS: FLUTICASONE PROPIONATE NASAL SPRAY 16 GM NS SCH (09:51)
--- NOTE | 2020-09-23 11:05 | Discharge Summary ---
Providers - Providers Date of Admission: 09/17/20 00:32 Date of discharge: 09/23/20 Attending physician: DARBY HAMILTON 09/17/20 14:56 Physical Therapy Evaluation and Treat [CONS] Routine Comment: Reason For Exam: gen weakness 09/22/20 20:53 Consult to Physician [CONS] Routine Comment: Dr. Kristen Silva -pt seen before Consulting Provider: CANDACE HWANG Physician Instructions: Reason For Exam: abn CT/ pneumonia 09/23/20 08:58 Consult to Physician [CONS] Routine Comment: Consulting Provider: CANDACE HWANG Physician Instructions: Reason For Exam: pulmonary fibrosis Primary care physician: CLINICAL NURSE LEADER Hospitalization Condition: Fair Hospital course: 70-year-old female with past medical history of hypertension, depression, seizure disorder, and sepsis secondary to suspected pyelonephritis was brought to the emergency room because of hypoxia. O2 sat is 88%. Patient was recently discharged from this hospital yesterday. The patient was recently admitted to this hospital for hypertension, depression, seizure disorder, and sepsis secondary to suspected pyelonephritis, as well as right lower lobe pneumonia. She had blood cultures and urine cultures which were positive for E. coli, sensitive to Levaquin. Patient was found to be hypoxic O2 sat is 88%. WBC is 11.7 patient work-up found to have community-acquired pneumonia. On this admission. CT scan showed bronchiectasis with mild honeycombed appearance this was concerning for pulmonary fibrosis. Patient is stable hemodynamically stable on 3 L of O2. Has 3 L of oxygen set up for home. Patient very persistent on going home. Patient is stable enough to follow-up with her magazine hand as outpatient. Community-acquired pneumonia Acute hypoxic respiratory failure Accelerated hypertension Sepsis DVT prophylaxis 09/17 pt feels weak, SOB. needs assistance to move to the chair. PT consulted 09/18 pt states she has improvement with breathing, continues to be on 4L O2, states she's regaining her strength 09/19 pt improving, try to wean pt off O2 09/20 pt somewhat winded today, started lasix due to vascular congestion, will get echo to assess LV function 09/21. Patient still complains of dyspnea/shortness of breath. CTA revealed bullous disease in the lungs characteristic of chronic changes of emphysema. There is also peripheral interstitial disease in the lung bases with some bronchiectasis and mild honeycombing. The appearance is concerning for pulmonary fibrosis. Given the abnormal CT findings, we will consult pulmonary for further evaluation. Continue IV antibiotics for now. 09/22. Await pulmonary evaluation for possible pulmonary fibrosis. Continue IV antibiotics. Patient currently on 3 L of oxygen satting at 96%. 09/23. Patient feels stronger. Very persistent about going home. Has magazine hand has oxygen. Has been weaned down to 3 L and stable. Will discharge patient on steroid taper, 3 L of O2. Follow with Dr. Cho in 3 to 5 days. Disposition: [id number] HOME UNDER HOME [facility] Final Discharge Diagnosis (Prints w/discharge instructions): Pneumonia community-acquired pneumonia Core Measure Documentation - Palliative Care Palliative Care/ Comfort Measures: Not Applicable - Core Measures Any of the following diagnoses?: none Exam - Constitutional Vitals: Temp Pulse Resp BP Pulse Ox 98.0 F 86 16 110/61 96 09/23/20 08:20 09/23/20 09:49 09/23/20 08:20 09/23/20 09:49 09/23/20 08:20 General appearance: Present: no acute distress, well-nourished - EENT Eyes: Present: PERRL ENT: hearing intact, clear oral mucosa - Neck Neck: Present: supple, normal ROM - Respiratory Respiratory effort: normal Respiratory: bilateral: diminished, rhonchi, negative: wheezing (Mild wheezing) - Cardiovascular Heart Sounds: Present: S1 & S2. Absent: rub, click - Extremities Extremities: pulses symmetrical, No edema Peripheral Pulses: within normal limits - Abdominal General gastrointestinal: Present: soft, non-tender, non-distended, normal bowel sounds Female genitourinary: Present: normal - Integumentary Integumentary: Present: clear, warm, dry - Musculoskeletal Musculoskeletal: gait normal, strength equal bilaterally - Psychiatric Psychiatric: appropriate mood/affect, intact judgment & insight - Neurologic Neurologic: CNII-XII intact, moves all extremities Plan Activity: up only with assistance, other (Oxygen) Weight Bearing Status: Full Weight Bearing Diet: regular Special Instructions: smoking cessation, home oxygen via, home health RN Durable Medical Equipment Needed Upon Discharge: Oxygen Follow up with: PANCHO BARAJAS MD [Primary Care Provider] - 3-5 Days CANDACE HWANG MD [Staff Physician] - 7 Days Prescriptions: hydrALAZINE [Apresoline INJ] 10 mg IV Q6H PRN #1 vial PRN Reason: SBP > /160; DBP >/=100 levoFLOXacin [Levaquin TAB] 750 mg PO QDAY #8 tablet Metoprolol [Lopressor TAB] 12.5 mg PO BID #60 tablet guaiFENesin ER [Mucinex ER] 600 mg PO Q12HR #1 tablet Albuterol Mdi (or & Nicu Only) [ProAir HFA Inhaler] 2 puff IH QID PRN #8.5 gram PRN Reason: Shortness Of Breath Pantoprazole [Protonix TAB] 40 mg PO QDAC #7 tablet ALBUTEROL NEB's [Proventil 0.083% NEBS] 2.5 mg IH Q4HRT PRN #1 nebu PRN Reason: Shortness Of Breath carBAMazepine [TEGretol] 200 mg PO Q12HR #20 tablet
[2020-09-23 12:47] VITALS: BP 119/66
== END 2020-09-23 18:37 | disposition home health service (06) | DRG 871 ==
LOC: ED 20:12 → 4A 09-17 00:32
PROVIDERS: ADMIT Hospitalist; ATTEND Internal Medicine
DX: A41.9 Sepsis, unspecified organism (principal); J18.9 Pneumonia, unspecified organism; J96.01 Acute respiratory failure with hypoxia; N10 Acute pyelonephritis; Z87.01 Personal history of pneumonia (recurrent); I10 Essential (primary) hypertension; F32.9 Major depressive disorder, single episode, unspecified; G40.909 Epilepsy, unspecified, not intractable, without status epilepticus; B96.20 Unspecified Escherichia coli [E. coli] as the cause of diseases classified elsewhere
CPT/HCPCS: 36415; 71045; 71275; 80048; 80053; 80061; 81001; 82140; 82550; 82962; 83735; 83880; 84484; 85025; 85027; 87040; 87086; 93005; 94640; 96374; 96375; 96376; G0378; J0360; J1644; J1940; J1956; J7120; Q9967

== ENCOUNTER 2021-03-22 03:11 | Inpatient (IN) | payer MEDICAID ==
[2021-03-22] MEDS ORDERED: ALUM-MAG HYDROXIDE-SIMETHICONE 200-200-20MG/5ML ORAL LIQD 30 ML PO ONE (03:53)
[2021-03-22] MEDS ORDERED: levETIRAcetam 1000 MG/NS 0.75% 1,000 MG/100 ML BAG IV ONE (03:53)
[2021-03-22] MEDS ORDERED: LIDOCAINE VISCOUS 2% 15 ML ORAL LIQD PO ONE (03:53)
[2021-03-22] MEDS ORDERED: ONDANSETRON 4 MG/2 ML INJ IV ONE (03:54)
[2021-03-22] MEDS ORDERED: fentaNYL 100 MCG/2 ML INJ IV ONE (03:54)
[2021-03-22] MEDS ORDERED: FAMOTIDINE 20 MG/2 ML INJ IV ONE (03:56)
--- NOTE | 2021-03-22 04:03 | Emergency Department Report ---
HPI - General Chief Complaint: Chest Pain Time Seen by Provider: 03/22/21 03:45 - HPI HPI: Room 25 The patient is a 70-year-old female present with a chief complaint of chest pain. Patient states approximately 3 hours prior to arrival she developed sub sternal chest pain associated with shortness of breath, nausea and diaphoresis. Patient states the pain has been constant and burning in nature. EMS was called while on scene the patient had a generalized tonic-clonic seizure lasting less than 1 minute. Patient has a history of seizures and is on Keppra. Patient states she is never had a cardiac catheterization. Patient currently gives her chest pain a score of 10/10 ED Past Medical Hx - Past Medical History Hx Hypertension: Yes Hx GERD: Yes Hx Seizures: Yes Hx Psychiatric Treatment: Yes (depression) Additional medical history: UNABLE TO OBTAIN - Surgical History Past Surgical History?: No Additional Surgical History: UNABLE TO OBTAIN - Family History Family history: no significant - Social History Smoking Status: Never Smoker Substance Use Type: Alcohol - Medications Home Medications: Home Medications Medication Instructions Recorded Confirmed Last Taken Type ALBUTEROL NEB's [Proventil 0.083% 2.5 mg IH Q4HRT PRN #1 nebu 09/23/20 02/04/21 01/31/21 Rx NEBS] Albuterol Mdi (or & Nicu Only) 2 puff IH QID PRN #8.5 gram 09/23/20 02/04/21 Rx [ProAir HFA Inhaler] Albuterol Mdi (or & Nicu Only) 2 puff IH QID PRN #8.5 gram 02/05/21 Unknown Rx [ProAir HFA Inhaler] AtorvaSTATin [Lipitor] 20 mg PO QHS 02/05/21 02/05/21 Unknown History Pantoprazole [Protonix TAB] 40 mg PO QDAC #14 tablet 02/05/21 Unknown Rx Sodium Chloride 1 gm PO BID #14 tablet 02/05/21 Unknown Rx amLODIPine 10 mg PO DAILY 02/05/21 02/05/21 Unknown History carBAMazepine [TEGretol] 200 mg PO Q12HR #60 tablet 02/05/21 Unknown Rx guaiFENesin ER [Mucinex ER] 600 mg PO Q12HR #30 tablet 02/05/21 Unknown Rx levETIRAcetam [Keppra TAB] 500 mg PO BID #60 tablet 02/05/21 Unknown Rx ED Review of Systems ROS: Stated complaint: SEIZURES Other details as noted in HPI Constitutional: diaphoresis Eyes: denies: eye pain ENT: denies: throat pain Respiratory: shortness of breath Cardiovascular: chest pain Endocrine: no symptoms reported Gastrointestinal: nausea. denies: vomiting Musculoskeletal: denies: back pain Neurological: denies: headache Physical Exam - Physical Exam Vital Signs: Vital Signs 03/22/21 03:44 Temperature 98 F Pulse Rate 103 H Respiratory 18 Rate Blood Pressure 142/93 [Left] O2 Sat by Pulse 97 Oximetry Physical Exam: GENERAL: The patient is well-developed well-nourished female lying on stretcher not appearing to be in acute distress. [] HEENT: Normocephalic. Atraumatic. Extraocular motions are intact. Patient has moist mucous membranes. NECK: Supple. Trachea midline CHEST/LUNGS: Clear to auscultation. There is no respiratory distress noted. HEART/CARDIOVASCULAR: Regular. There is no tachycardia. There is no gallop rub or murmur. ABDOMEN: Abdomen is soft, nontender. Patient has normal bowel sounds. There is no abdominal distention. SKIN: There is no rash. There is no edema. There is no diaphoresis. NEURO: The patient is awake, alert, and oriented. The patient is cooperative. The patient has no focal neurologic deficits. The patient has normal speech. GCS 15 MUSCULOSKELETAL: There is no evidence of acute injury. ED Course Vital Signs 03/22/21 03:44 Temperature 98 F Pulse Rate 103 H Respiratory 18 Rate Blood Pressure 142/93 [Left] O2 Sat by Pulse 97 Oximetry ED Medical Decision Making - Lab Data Result diagrams: 03/22/21 04:04 03/22/21 04:04 Laboratory Tests 03/22/21 03/22/21 03/22/21 04:04 04:04 04:04 WBC 6.9 RBC 3.79 Hgb 13.0 Hct 37.1 MCV 98 H MCH 34 H MCHC 35 H RDW 13.7 Plt Count 212 Lymph % (Auto) 18.1 [place] % (Auto) 3.2 Eos % (Auto) 0.2 Baso % (Auto) 0.5 Lymph # (Auto) 1.3 [place] # (Auto) 0.2 Eos # (Auto) 0.0 Baso # (Auto) 0.0 Seg Neutrophils % 78.0 H Seg Neutrophils # 5.4 PT 22.4 H INR 1.90 H Sodium 135 L Potassium 3.7 Chloride 96.2 L Carbon Dioxide 18 L Anion Gap 25 BUN 20 H Creatinine 1.0 Estimated GFR 55 BUN/Creatinine Ratio 20 Glucose 214 H Calcium 9.2 Magnesium Total Creatine Kinase 90 CK-MB (CK-2) 2.8 CK-MB (CK-2) Rel Index 3.1 Troponin T < 0.010 Lipase 88 H Plasma/Serum Alcohol 03/22/21 03/22/21 04:04 04:04 WBC RBC Hgb Hct MCV MCH MCHC RDW Plt Count Lymph % (Auto) [place] % (Auto) Eos % (Auto) Baso % (Auto) Lymph # (Auto) [place] # (Auto) Eos # (Auto) Baso # (Auto) Seg Neutrophils % Seg Neutrophils # PT INR Sodium Potassium Chloride Carbon Dioxide Anion Gap BUN Creatinine Estimated GFR BUN/Creatinine Ratio Glucose Calcium Magnesium 1.50 L Total Creatine Kinase CK-MB (CK-2) CK-MB (CK-2) Rel Index Troponin T Lipase Plasma/Serum Alcohol < 0.01 - EKG Data -: EKG Interpreted by Me EKG shows normal: sinus rhythm Rate: normal (91 bpm) - EKG Data When compared to previous EKG there are: previous EKG unavailable Interpretation: other (No ischemic changes seen) - Radiology Data Radiology results: report reviewed (Chest x-ray), image reviewed (Chest x-ray) interpreted by me: Chest x-ray-no definite focal infiltrates, no pneumothorax [facility] [address] [place] [address] XRay Report Signed Patient: JACKELYN KEENE MR#: [id number] : 1950 Acct:[id number] Age/Sex: 70 / F ADM Date: 03/22/21 Loc: ED Attending Dr: Ordering Physician: OSMEL WHITE MD Date of Service: 03/22/21 Procedure(s): XR chest 1V ap Accession Number(s): [id number] cc: OSMEL WHITE MD Fluoro Time In Minutes: CHEST 1 VIEW 03/22/2021 4:22 AM INDICATION / CLINICAL INFORMATION: chest pain. COMPARISON: 02/01/2021 FINDINGS: SUPPORT DEVICES: None. HEART / MEDIASTINUM: No significant abnormality. LUNGS / PLEURA: COPD again noted. No significant pulmonary or pleural abnormality. No pneumothorax. ADDITIONAL FINDINGS: No significant additional findings. IMPRESSION: 1. No acute findings. Signer Name: Orlin Daily MD Signed: 03/22/2021 4:28 AM Workstation Name: [id number] Transcribed By: TL Dictated By: Orlin Daily MD Electronically Authenticated By: Orlin Daily MD Signed Date/Time: 03/22/21427 DD/ 6 TD/TT: Print Cancel - Differential Diagnosis ACS, pericarditis, GERD Critical care attestation.: If time is entered above; I have spent that time in minutes in the direct care of this critically ill patient, excluding procedure time. ED Disposition Clinical Impression: Chest pain Disposition: 09 ADMITTED INPATIENT Is pt being admited?: Yes Does the pt Need Aspirin: Yes Condition: Fair Instructions: Nonspecific Chest Pain, Adult Time of Disposition: 05:57 (Hospitalist called (Dr Carter)) Heart Score - HEART Score History: Moderately suspicious EKG: Normal Age: > 65 Risk factors: 1-2 risk factors Troponin: < normal limit HEART Score: 4 - EKG Read Time Time EKG Completed: 05:50 EKG Read Time: 05:55
--- NOTE | 2021-03-22 04:32 | XRay Report ---
CHEST 1 VIEW 03/22/2021 4:22 AM INDICATION / CLINICAL INFORMATION: chest pain. COMPARISON: 02/01/2021 FINDINGS: SUPPORT DEVICES: None. HEART / MEDIASTINUM: No significant abnormality. LUNGS / PLEURA: COPD again noted. No significant pulmonary or pleural abnormality. No pneumothorax. ADDITIONAL FINDINGS: No significant additional findings. IMPRESSION: 1. No acute findings. Signer Name: Orlin Daily MD Signed: 03/22/2021 4:28 AM Workstation Name: [email or web address] ([id number]
[2021-03-22 04:50] LABS: Basophils % (Auto) 0.5 % (0.0-1.8); Eosinophils % (Auto) 0.2 % (0.0-4.3); Hematocrit 37.1 % (30.3-42.9); Lymphocytes # (Auto) 1.3 K/mm3 (1.2-5.4); Lymphocytes % (Auto) 18.1 % (13.4-35.0); Mean Corpuscular HGB Conc 35 % (30-34); Mean Corpuscular Volume 98 fl (79-97); Monocytes # (Auto) 0.2 K/mm3 (0.0-0.8); Monocytes % (Auto) 3.2 % (0.0-7.3); Platelet Count 212 K/mm3 (140-440); Red Blood Count 3.79 M/mm3 (3.65-5.03); Red Cell Distribution Width 13.7 % (13.2-15.2)
[2021-03-22 04:57] LABS: INR 1.9 (0.87-1.13)
[2021-03-22 05:10] LABS: Creatine Kinase MB 2.8 ng/mL (0.0-4.0)
[2021-03-22 05:11] LABS: BUN/Creatinine Ratio 20; Blood Urea Nitrogen 20 mg/dL (7-17); Calcium 9.2 mg/dL (8.4-10.2); Hemolysis Index 14
[2021-03-22] MEDS ORDERED: THIAMINE 100 MG, FOLIC ACID 1 MG, MULTIPLE VITAMIN INJ, ADULT 10 ML in SODIUM CHLORIDE ... IV ONE (05:32)
[2021-03-22] MEDS ORDERED: MAGNESIUM SULFATE 2 GM/50 ML BAG IV ONE (05:32)
[2021-03-22] MEDS ORDERED: ASPIRIN 325 MG TAB PO ONE (05:58)
[2021-03-22] MEDS ORDERED: fentaNYL 100 MCG/2 ML INJ IV SCH (08:00)
[2021-03-22] MEDS ORDERED: MAGNESIUM HYDROXIDE (MOM) ORAL LIQD UDC PO PRN (10:00)
[2021-03-22] MEDS ORDERED: ACETAMINOPHEN 325 MG TAB PO PRN (10:00)
[2021-03-22] MEDS ORDERED: NALOXONE 0.4 MG/1 ML INJ IV PRN (10:00)
[2021-03-22] MEDS ORDERED: ONDANSETRON 4 MG/2 ML INJ IV PRN (10:00)
[2021-03-22 10:43] LABS: Chol/HDL Ratio 3.11 %; HDL Cholesterol 68 mg/dL (40-59); LDL Cholesterol,Direct TNR mg/dL (50-130)
--- NOTE | 2021-03-22 10:46 | Electrocardiograph Report ---
[facility] Test Date: 2021-03-22 Test Time: 05:50:37 Pat Name: JACKELYN KEENE Department: Room: [facility] Gender: F [employer]ing Gateman: LYNDON : 1950 Requested By: OSMEL WHITE Order Number: [id number] Reading MD: Jon Mcnamara Measurements Intervals [place] Rate: 91 P: 66 NE: 144 QRS: -5 QRSD: 94 T: 52 QT: 373 QTc: 459 Interpretive Statements Sinus rhythm Compared to ECG 02/01/2021 20:05:02 Sinus bradycardia no longer present Electronically Signed On 03-22-2021 10:46:07 EDT by Jon Mcnamara
[2021-03-22] MEDS: HEPARIN 5,000 UNIT/1 ML VIAL SUB-Q SCH ×3 (11:00→23:37)
[2021-03-22] MEDS: oxyCODONE /ACETAMINOPHEN 5-325MG TAB PO PRN ×2 (11:51→23:36)
--- NOTE | 2021-03-22 12:49 | History and Physical Report ---
History of Present Illness Date of examination: 03/22/21 Date of admission: 03/22/21 06:05 Chief complaint: Chest pain History of present illness: Patient is a 70-year-old lady with history of hypertension, seizure disorder and questionable alcohol dependence who presented with complaint of shortness of breath and chest pain. She was reported to have a witnessed seizure. She is currently on Keppra and carbamazepine at home and reports compliance. She reports her chest pain starting 1 day ago. She described it as "like heartburn". She tried to take mustard and the pain was unrelieved. The pain became worse with intensity and is associated with nausea and dizziness. The pain is located on the left side of her chest and is reproducible on examination. She denies radiation to arm, back, numbness tingling in extremities. She denies NSAID use or history of heartburn. She reports drinking a 12 ounce can of beer daily. Discussion with daughter Kathie ([phone]) revealed that patient drinks more than she alludes to. Labs were notable for negative troponin. Chest x-ray was negative for acute process. Cardiology was consulted and she was admitted for further care. Past History Past Medical History: hypertension Past Surgical History: No surgical history Social history: smoking, other (one 12oz beer daily) Family history: no significant family history Medications and Allergies Allergies Allergy/AdvReac Type Severity Reaction Status Date / Time No Known Allergies Allergy Verified 02/02/21 09:38 Home Medications Medication Instructions Recorded Confirmed Last Taken Type ALBUTEROL NEB's [Proventil 0.083% 2.5 mg IH Q4HRT PRN #1 nebu 09/23/20 03/22/21 01/31/21 Rx NEBS] Albuterol Mdi (or & Nicu Only) 2 puff IH QID PRN #8.5 gram 02/05/21 03/22/21 Unknown Rx [ProAir HFA Inhaler] AtorvaSTATin [Lipitor] 20 mg PO QHS 02/05/21 03/22/21 Unknown History Pantoprazole [Protonix TAB] 40 mg PO QDAC #14 tablet 02/05/21 03/22/21 Unknown Rx Sodium Chloride 1 gm PO BID #14 tablet 02/05/21 03/22/21 Unknown Rx amLODIPine 10 mg PO DAILY 02/05/21 03/22/21 Unknown History carBAMazepine [TEGretol] 200 mg PO Q12HR #60 tablet 02/05/21 03/22/21 Unknown Rx levETIRAcetam [Keppra TAB] 500 mg PO BID #60 tablet 02/05/21 03/22/21 Unknown Rx Metoclopramide [Reglan TAB] 1 tab PO Q6H PRN 03/22/21 03/22/21 Unknown History Metoprolol [Lopressor TAB] 0.5 tab PO BID 03/22/21 03/22/21 Unknown History Active Meds: Active Medications Acetaminophen (Acetaminophen 325 Mg Tab) 650 mg PO Q4H PRN PRN Reason: Pain MILD(1-3)/Fever >100.5/[place] Heparin Sodium (Porcine) (Heparin 5,000 Unit/1 Ml Vial) 5,000 unit SUB-Q Q8HR FORMER[facility], [facility] Last Admin: 03/22/21 11:00 Dose: 5,000 unit Documented by: Magnesium Hydroxide (Magnesium Hydroxide (Mom) Oral Liqd Udc) 30 ml PO Q4H PRN PRN Reason: Constipation Morphine Sulfate (Morphine 4 Mg/1 Ml Inj) 4 mg IV Q4H PRN PRN Reason: Pain , Severe (7-10) Naloxone HCl (Naloxone 0.4 Mg/1 Ml Inj) 0.1 mg IV Q2MIN PRN PRN Reason: Res Rate </= 8 or 02 SAT < 92% Ondansetron HCl (Ondansetron 4 Mg/2 Ml Inj) 4 mg IV Q8H PRN PRN Reason: Nausea And Vomiting Oxycodone/Acetaminophen (Oxycodone /Acetaminophen 5-325mg Tab) 1 tab PO Q6H PRN PRN Reason: Pain, Moderate (4-6) Last Admin: 03/22/21 11:51 Dose: 1 tab Documented by: Sodium Chloride (Sodium Chloride 0.9% 10 Ml Flush Syringe) 10 ml IV BID [facility], [facility] Last Admin: 03/22/21 10:45 Dose: 10 ml Documented by: Sodium Chloride (Sodium Chloride 0.9% 10 Ml Flush Syringe) 10 ml IV PRN PRN PRN Reason: LINE FLUSH Review of Systems Constitutional: chronic pain (bilateral leg pain) Cardiovascular: chest pain Gastrointestinal: nausea, heartburn Musculoskeletal: arm numbness/tingling Exam - Physical Exam Narrative exam: GENERAL: Thin elderly woman. Lying bed in no acute distress. HEENT: Normocephalic. Poor dentition. NECK: Supple. CHEST/LUNGS: CTAB on room air HEART/CARDIOVASCULAR: RRR. No murmur, rubs or gallops appreciated. ABDOMEN: +BS. NT/ND. SKIN: No rashes noted. NEURO: No focal motor deficit. Follows all commands. MUSCULOSKELETAL: No joint effusion EXTREMITIES: No cyanosis, clubbing or edema. PSYCH: Cooperative. - Constitutional Vitals: Temp Pulse Resp BP Pulse Ox 98 F 83 14 149/84 94 03/22/21 03:44 03/22/21 11:57 03/22/21 11:57 03/22/21 11:57 03/22/21 11:57 HEART Score - HEART Score EKG: Normal Age: > 65 Risk factors: 1-2 risk factors Troponin: Troponin T < 0.010 ng/mL (0.00-0.029) 03/22/21 04:04 Troponin: < normal limit Results - Labs CBC & Chem 7: 03/22/21 04:04 03/23/21 06:35 Labs: Laboratory Last Values WBC 6.9 K/mm3 (4.5-11.0) 03/22/21 04:04 RBC 3.79 M/mm3 (3.65-5.03) 03/22/21 04:04 Hgb 13.0 gm/dl (10.1-14.3) 03/22/21 04:04 Hct 37.1 % (30.3-42.9) 03/22/21 04:04 MCV 98 fl (79-97) H 03/22/21 04:04 MCH 34 pg (28-32) H 03/22/21 04:04 MCHC 35 % (30-34) H 03/22/21 04:04 RDW 13.7 % (13.2-15.2) 03/22/21 04:04 Plt Count 212 K/mm3 (140-440) 03/22/21 04:04 Lymph % (Auto) 18.1 % (13.4-35.0) 03/22/21 04:04 [place] % (Auto) 3.2 % (0.0-7.3) 03/22/21 04:04 Eos % (Auto) 0.2 % (0.0-4.3) 03/22/21 04:04 Baso % (Auto) 0.5 % (0.0-1.8) 03/22/21 04:04 Lymph # (Auto) 1.3 K/mm3 (1.2-5.4) 03/22/21 04:04 [place] # (Auto) 0.2 K/mm3 (0.0-0.8) 03/22/21 04:04 Eos # (Auto) 0.0 K/mm3 (0.0-0.4) 03/22/21 04:04 Baso # (Auto) 0.0 K/mm3 (0.0-0.1) 03/22/21 04:04 Seg Neutrophils % 78.0 % (40.0-70.0) H 03/22/21 04:04 Seg Neutrophils # 5.4 K/mm3 (1.8-7.7) 03/22/21 04:04 PT 22.4 Sec. (12.2-14.9) H 03/22/21 04:04 INR 1.90 (0.87-1.13) H 03/22/21 04:04 Sodium 135 mmol/L (137-145) L 03/22/21 04:04 Potassium 3.7 mmol/L (3.6-5.0) 03/22/21 04:04 Chloride 96.2 mmol/L (98-107) L 03/22/21 04:04 Carbon Dioxide 18 mmol/L (22-30) L 03/22/21 04:04 Anion Gap 25 mmol/L 03/22/21 04:04 BUN 20 mg/dL (7-17) H 03/22/21 04:04 Creatinine 1.0 mg/dL (0.6-1.2) 03/22/21 04:04 Estimated GFR 55 ml/min 03/22/21 04:04 BUN/Creatinine Ratio 20 % 03/22/21 04:04 Glucose 214 mg/dL (65-100) H 03/22/21 04:04 Hemoglobin A1c 7.2 % (4-6) H 03/22/21 04:04 Calcium 9.2 mg/dL (8.4-10.2) 03/22/21 04:04 Magnesium 1.50 mg/dL (1.7-2.3) L 03/22/21 04:04 Total Creatine Kinase 90 units/L (30-135) 03/22/21 04:04 CK-MB (CK-2) 2.8 ng/mL (0.0-4.0) 03/22/21 04:04 CK-MB (CK-2) Rel Index 3.1 (0-4) 03/22/21 04:04 Troponin T < 0.010 ng/mL (0.00-0.029) 03/22/21 04:04 Triglycerides 471 mg/dL (2-149) H 03/22/21 04:04 Cholesterol 212 mg/dL (50-199) H 03/22/21 04:04 LDL Cholesterol Direct TNR 03/22/21 04:04 HDL Cholesterol 68 mg/dL (40-59) H 03/22/21 04:04 Cholesterol/HDL Ratio 3.11 % 03/22/21 04:04 Lipase 88 units/L (13-60) H 03/22/21 04:04 Plasma/Serum Alcohol < 0.01 % (0-0.07) 03/22/21 04:04 - Imaging and Cardiology Chest x-ray: report reviewed, image reviewed Assessment and Plan Assessment and plan: #Chest pain, atypical -reproducible on examination, worse with inspiration -Heart score 4 -Troponin negative x1, EKG without acute ST changes -Stress test in a.m. -Cardiology consulted, recommendations appreciated #Seizure disorder -resume Keppra and carbamazepine at home doses #Hypertension -will resume amlodipine #Type 2 diabetes -Hemoglobin A1c 7.2% -Goal glucose one 140-180 while inpatient -Sliding scale + Accu-Cheks #Alcohol dependence -Patient reports to drink 1 can of beer per day -Attempts at counseling were refused -We will continue to monitor Advance Directives: No VTE prophylaxis?: Chemical Plan of care discussed with patient/family: Yes
--- NOTE | 2021-03-22 13:12 | Consultation ---
History of Present Illness Consult date: 03/22/21 Requesting physician: HELEN VELARDE Consult reason: chest pain History of present illness: Patient is a 70 year old female a PMHx of HTN and seizure disorder (on Keppra) who presented to the Ed with a complaint of chest pain x 1 day. The patient reports that yesterday she developed a burning chest pain located substernally that radiated down her left arm. She further reports that the chest pain is associated with increased SOB but denies nausea, vomiting, or lightheadedness. She states at home nothing relieved her chest pain but that the pain is made worse with deep breathing and palpation. Per documentation EMS witnessed patient having a generalized tonic-clonic seizure lasting less than a minute. Furthermore, patient admits to drinking alcohol heavily the day before her chest pain began. This patient is previously unknown to our practice. Cardiology has been consulted for chest pain Past History Past Medical History: hypertension, hyperlipidemia, seizures Past Surgical History: No surgical history Social history: lives with family, alcohol abuse Family history: no significant family history Medications and Allergies Allergies Allergy/AdvReac Type Severity Reaction Status Date / Time No Known Allergies Allergy Verified 02/02/21 09:38 Home Medications Medication Instructions Recorded Confirmed Last Taken Type ALBUTEROL NEB's [Proventil 0.083% 2.5 mg IH Q4HRT PRN #1 nebu 09/23/20 03/22/21 01/31/21 Rx NEBS] Albuterol Mdi (or & Nicu Only) 2 puff IH QID PRN #8.5 gram 02/05/21 03/22/21 Unknown Rx [ProAir HFA Inhaler] AtorvaSTATin [Lipitor] 20 mg PO QHS 02/05/21 03/22/21 Unknown History Pantoprazole [Protonix TAB] 40 mg PO QDAC #14 tablet 02/05/21 03/22/21 Unknown Rx Sodium Chloride 1 gm PO BID #14 tablet 02/05/21 03/22/21 Unknown Rx amLODIPine 10 mg PO DAILY 02/05/21 03/22/21 Unknown History carBAMazepine [TEGretol] 200 mg PO Q12HR #60 tablet 02/05/21 03/22/21 Unknown Rx levETIRAcetam [Keppra TAB] 500 mg PO BID #60 tablet 02/05/21 03/22/21 Unknown Rx Metoclopramide [Reglan TAB] 1 tab PO Q6H PRN 03/22/21 03/22/21 Unknown History Metoprolol [Lopressor TAB] 0.5 tab PO BID 03/22/21 03/22/21 Unknown History Active Meds: Active Medications Acetaminophen (Acetaminophen 325 Mg Tab) 650 mg PO Q4H PRN PRN Reason: Pain MILD(1-3)/Fever >100.5/[place] Amlodipine Besylate (Amlodipine 10 Mg Tab) 10 mg PO QDAY CHAS Atorvastatin Calcium (Atorvastatin 20 Mg Tab) 20 mg PO QHS CHAS Carbamazepine (Carbamazepine 200 Mg Tab) 200 mg PO BID [facility] Heparin Sodium (Porcine) (Heparin 5,000 Unit/1 Ml Vial) 5,000 unit SUB-Q Q8HR [facility] Last Admin: 03/22/21 11:00 Dose: 5,000 unit Documented by: Levetiracetam (Levetiracetam 500 Mg Tab) 500 mg PO BID [facility] Magnesium Hydroxide (Magnesium Hydroxide (Mom) Oral Liqd Udc) 30 ml PO Q4H PRN PRN Reason: Constipation Morphine Sulfate (Morphine 4 Mg/1 Ml Inj) 4 mg IV Q4H PRN PRN Reason: Pain , Severe (7-10) Naloxone HCl (Naloxone 0.4 Mg/1 Ml Inj) 0.1 mg IV Q2MIN PRN PRN Reason: Res Rate </= 8 or 02 SAT < 92% Ondansetron HCl (Ondansetron 4 Mg/2 Ml Inj) 4 mg IV Q8H PRN PRN Reason: Nausea And Vomiting Oxycodone/Acetaminophen (Oxycodone /Acetaminophen 5-325mg Tab) 1 tab PO Q6H PRN PRN Reason: Pain, Moderate (4-6) Last Admin: 03/22/21 11:51 Dose: 1 tab Documented by: Sodium Chloride (Sodium Chloride 0.9% 10 Ml Flush Syringe) 10 ml IV BID [facility] Last Admin: 03/22/21 10:45 Dose: 10 ml Documented by: Sodium Chloride (Sodium Chloride 0.9% 10 Ml Flush Syringe) 10 ml IV PRN PRN PRN Reason: LINE FLUSH Review of Systems All systems: negative Constitutional: no weight loss, no weight gain, no fever, no sweats Ears, nose, mouth and throat: no nasal congestion, no nasal discharge, no sinus pressure Cardiovascular: chest pain, shortness of breath, no orthopnea, no palpitations, no edema, no syncope Respiratory: shortness of breath, no cough, no excessive sputum, no hemoptysis Gastrointestinal: no abdominal pain, no nausea, no vomiting, no diarrhea Musculoskeletal: shooting arm pain, no neck stiffness, no neck pain Integumentary: no rash, no pruritis, no redness Neurological: no head injury, no transient paralysis, no paralysis, no weakness Psychiatric: no anxiety, no memory loss Endocrine: no cold intolerance, no heat intolerance Physical Examination Vital Signs Temp Pulse Resp BP Pulse Ox 98 F 103 H 18 142/93 97 03/22/21 03:44 03/22/21 03:44 03/22/21 03:44 03/22/21 03:44 03/22/21 03:44 General appearance: no acute distress HEENT: Positive: PERRL Neck: Positive: trachea midline Cardiac: Positive: Reg Rate and Rhythm Lungs: Positive: clear to auscultation, Normal Breath Sounds Neuro: Positive: Grossly Intact Abdomen: Positive: Soft, Active Bowel Sounds Skin: Negative: Rash, Suspicious Lesions, Ulceration Extremities: Present: upper extr. pulses, lower extr. pulses. Absent: edema Results 03/22/21 04:04 03/22/21 04:04 Cardiac Enzymes 03/22/21 Range/Units 04:04 CK-MB (CK-2) 2.8 (0.0-4.0) ng/mL Coagulation 03/22/21 Range/Units 04:04 PT 22.4 H (12.2-14.9) Sec. INR 1.90 H (0.87-1.13) Lipids 03/22/21 Range/Units 04:04 Triglycerides 471 H (2-149) mg/dL Cholesterol 212 H (50-199) mg/dL HDL Cholesterol 68 H (40-59) mg/dL Cholesterol/HDL Ratio 3.11 % CBC 03/22/21 Range/Units 04:04 WBC 6.9 (4.5-11.0) K/mm3 RBC 3.79 (3.65-5.03) M/mm3 Hgb 13.0 (10.1-14.3) gm/dl Hct 37.1 (30.3-42.9) % Plt Count 212 (140-440) K/mm3 Lymph # (Auto) 1.3 (1.2-5.4) K/mm3 [place] # (Auto) 0.2 (0.0-0.8) K/mm3 Eos # (Auto) 0.0 (0.0-0.4) K/mm3 Baso # (Auto) 0.0 (0.0-0.1) K/mm3 Comprehensive Metabolic Panel 03/22/21 Range/Units 04:04 Sodium 135 L (137-145) mmol/L Potassium 3.7 (3.6-5.0) mmol/L Chloride 96.2 L (98-107) mmol/L Carbon Dioxide 18 L (22-30) mmol/L BUN 20 H (7-17) mg/dL Creatinine 1.0 (0.6-1.2) mg/dL Glucose 214 H (65-100) mg/dL Calcium 9.2 (8.4-10.2) mg/dL - Imaging and Cardiology Echo: report reviewed EKG: report reviewed, image reviewed EKG interpretations - Telemetry EKG Rhythm: Sinus Rhythm - EKG Sinus rhythms and dysrhythmias: sinus rhythm Assessment and Plan HTN Atypical Chest pain * Chest pain reproducible with palpation and deep breathing * EKG shows normal sinus rhythm with no acute ischemic changes. Troponins negx1 * Echo 09/14/2020-EF 50 to 55%, right ventricular systolic function is normal mild mitral regurgitation mild to moderate tricuspid regurgitation RSVP 45 mmHg Seizure disorder * On Keppra as an outpatient Plan: Troponin pending. Lexiscan stress test in AM. NPO after midnight. Agree with Amlodipine 10mg PO QD Patient seen in conjunction with Dr. Ybarra who agrees with this plan of care. Will continue to follow - Patient Problems (1) Chest pain Current Visit: Yes Status: Acute (2) Chronic interstitial lung disease Current Visit: No Status: Acute (3) Essential hypertension Current Visit: No Status: Acute (4) Seizures Current Visit: No Status: Acute (5) Alcohol abuse Current Visit: No Status: Chronic
[2021-03-22] MEDS: amLODIPine 10 MG TAB PO SCH (14:50)
[2021-03-22] MEDS ORDERED: DEXTROSE 50% IN WATER (25GM) 50 ML SYRINGE IV PRN (22:42)
[2021-03-22] MEDS: carBAMazepine 200 MG TAB PO SCH (23:35)
[2021-03-22] MEDS: levETIRAcetam 500 MG TAB PO SCH (23:35)
[2021-03-23] MEDS: INSULIN LISPRO 100 UNIT/ML SUB-Q SCH ×4 (02:20→18:35)
[2021-03-23] MEDS: HEPARIN 5,000 UNIT/1 ML VIAL SUB-Q SCH ×3 (06:16→23:17)
[2021-03-23 07:44] LABS: Calcium 8.9 mg/dL (8.4-10.2)
[2021-03-23] MEDS ORDERED: REGADENOSON 0.4 MG/5 ML INJ IV ONE (07:55)
--- NOTE | 2021-03-23 11:38 | Progress Note ---
Assessment and Plan HTN Atypical Chest pain * Chest pain reproducible with palpation and deep breathing * EKG shows normal sinus rhythm with no acute ischemic changes. Troponins negx2 * Echo 09/14/2020-EF 50 to 55%, right ventricular systolic function is normal mild mitral regurgitation mild to moderate tricuspid regurgitation RSVP 45 mmHg * Lexiscan MPI stress test 03/23/2021- negative for ischemia Seizure disorder * [facility] Plan: Patient stress test is negative for ischemia. Patient is stable and may be discharged from a cardiac point of view. Patient seen in conjunction with Dr. Ybarra who agrees with this plan of care. Will sign off - Patient Problems (1) Chest pain Current Visit: Yes Status: Acute (2) Chronic interstitial lung disease Current Visit: No Status: Acute (3) Essential hypertension Current Visit: No Status: Acute (4) Seizures Current Visit: No Status: Acute (5) Alcohol abuse Current Visit: No Status: Chronic Subjective Date of service: 03/23/21 Principal diagnosis: seizures Interval history: Patient for stress test this AM Sinus 75 with no events on monitor Objective Vital Signs Temp Pulse Resp BP BP Pulse Ox 03/23/21 10:23 98.3 F 78 16 127/67 92 03/23/21 08:39 107/50 03/23/21 08:38 118/55 03/23/21 08:37 107/51 03/23/21 08:36 102/49 03/23/21 08:35 118/53 03/23/21 08:18 128/58 03/23/21 03:16 98.6 F 79 18 120/61 89 03/23/21 02:51 112/60 99 03/23/21 02:41 128/63 99 03/23/21 02:31 128/63 98 03/23/21 02:21 128/63 99 03/23/21 02:14 128/63 100 03/23/21 02:05 72 18 120/58 100 03/23/21 01:50 128/63 76 L 03/23/21 01:43 128/63 100 03/23/21 01:38 128/63 76 L 03/23/21 01:20 79 15 128/63 90 03/23/21 01:10 79 16 151/80 93 03/23/21 01:01 78 13 128/63 92 03/23/21 00:36 18 03/23/21 00:30 95 03/23/21 00:01 74 15 151/80 100 03/22/21 23:36 18 03/22/21 23:01 80 18 151/81 03/22/21 22:01 78 17 150/83 03/22/21 21:01 75 16 145/80 03/22/21 20:01 71 16 153/75 98 03/22/21 19:50 98.0 F 78 18 153/78 95 03/22/21 19:01 75 17 155/76 82 L 03/22/21 17:00 61 14 155/91 100 03/22/21 14:50 73 141/69 03/22/21 11:57 83 14 149/84 94 - Physical Examination General: No Apparent Distress HEENT: Positive: PERRL Neck: Positive: trachea midline Cardiac: Positive: Reg Rate and Rhythm Lungs: Positive: Normal Breath Sounds Neuro: Positive: Grossly Intact Abdomen: Positive: Soft, Active Bowel Sounds Skin: Negative: Rash, Suspicious Lesions, Ulceration Extremities: Present: upper extr. pulses, lower extr. pulses. Absent: edema - Labs and Meds Comprehensive Metabolic Panel 03/23/21 Range/Units 06:35 Sodium 135 L (137-145) mmol/L Potassium 4.3 (3.6-5.0) mmol/L Chloride 99.5 (98-107) mmol/L Carbon Dioxide 21 L (22-30) mmol/L BUN 23 H (7-17) mg/dL Creatinine 1.4 H (0.6-1.2) mg/dL Glucose 109 H (65-100) mg/dL Calcium 8.9 (8.4-10.2) mg/dL - Imaging and Cardiology EKG: report reviewed, image reviewed Echo: report reviewed - Telemetry EKG Rhythm: Sinus Rhythm - EKG Sinus rhythms and dysrhythmias: sinus rhythm
--- NOTE | 2021-03-23 12:20 | Progress Note ---
Assessment and Plan Assessment and plan: #Chest pain, atypical -Stress test negative, will continue with medical optimization -Patient reports pain to be epigastric/abdominal in nature, exquisitely tender on exam -CT abdomen pelvis without contrast ordered, will await results -Pepcid started -Cardiology consulted, recommendations appreciated #ALLAN -SCr increased from 1.0 to 1.4 -Urine electrolytes ordered -UA ordered -will give 1 L IVF -epeat BMP in a.m. #Seizure disorder -resume Keppra and carbamazepine at home doses #Hypertension -continue amlodipine #Type 2 diabetes -Hemoglobin A1c 7.2% -Goal glucose one 140-180 while inpatient -Sliding scale + Accu-Cheks #Alcohol dependence -Patient reports to drink 1 can of beer per day -Attempts at counseling were refused -will start CIWA protocol Disposition Plan: Home Total Time Spent with Patient (Minutes): 30 minutes History Interval history: No acute events overnight. Patient finished stress test. Reports feeling weak and dizzy. Has pain with eating. Denies nausea, vomiting, diarrhea. Hospitalist Physical - Physical exam Narrative exam: GENERAL: Thin elderly woman. Lying bed in no acute distress. CHEST/LUNGS: CTAB on room air HEART/CARDIOVASCULAR: RRR. No murmur, rubs or gallops appreciated. ABDOMEN: +BS. Positive epigastric tenderness. EXTREMITIES: No cyanosis, clubbing or edema. PSYCH: Cooperative. - Constitutional Vitals: Temp Pulse Resp BP Pulse Ox 98.3 F 78 16 127/67 92 03/23/21 10:23 03/23/21 10:23 03/23/21 10:23 03/23/21 10:23 03/23/21 10:23 General appearance: Present: no acute distress HEART Score - HEART Score EKG: Normal Age: > 65 Risk factors: 1-2 risk factors Troponin: Troponin T < 0.010 ng/mL (0.00-0.029) 03/22/21 15:11 Troponin: < normal limit Results - Labs CBC & Chem 7: 03/22/21 04:04 03/23/21 06:35 Labs: Laboratory Last Values WBC 6.9 K/mm3 (4.5-11.0) 03/22/21 04:04 RBC 3.79 M/mm3 (3.65-5.03) 03/22/21 04:04 Hgb 13.0 gm/dl (10.1-14.3) 03/22/21 04:04 Hct 37.1 % (30.3-42.9) 03/22/21 04:04 MCV 98 fl (79-97) H 03/22/21 04:04 MCH 34 pg (28-32) H 03/22/21 04:04 MCHC 35 % (30-34) H 03/22/21 04:04 RDW 13.7 % (13.2-15.2) 03/22/21 04:04 Plt Count 212 K/mm3 (140-440) 03/22/21 04:04 Lymph % (Auto) 18.1 % (13.4-35.0) 03/22/21 04:04 [place] % (Auto) 3.2 % (0.0-7.3) 03/22/21 04:04 Eos % (Auto) 0.2 % (0.0-4.3) 03/22/21 04:04 Baso % (Auto) 0.5 % (0.0-1.8) 03/22/21 04:04 Lymph # (Auto) 1.3 K/mm3 (1.2-5.4) 03/22/21 04:04 [place] # (Auto) 0.2 K/mm3 (0.0-0.8) 03/22/21 04:04 Eos # (Auto) 0.0 K/mm3 (0.0-0.4) 03/22/21 04:04 Baso # (Auto) 0.0 K/mm3 (0.0-0.1) 03/22/21 04:04 Seg Neutrophils % 78.0 % (40.0-70.0) H 03/22/21 04:04 Seg Neutrophils # 5.4 K/mm3 (1.8-7.7) 03/22/21 04:04 PT 22.4 Sec. (12.2-14.9) H 03/22/21 04:04 INR 1.90 (0.87-1.13) H 03/22/21 04:04 Sodium 135 mmol/L (137-145) L 03/23/21 06:35 Potassium 4.3 mmol/L (3.6-5.0) 03/23/21 06:35 Chloride 99.5 mmol/L (98-107) 03/23/21 06:35 Carbon Dioxide 21 mmol/L (22-30) L 03/23/21 06:35 Anion Gap 19 mmol/L 03/23/21 06:35 BUN 23 mg/dL (7-17) H 03/23/21 06:35 Creatinine 1.4 mg/dL (0.6-1.2) H 03/23/21 06:35 Estimated GFR 37 ml/min 03/23/21 06:35 BUN/Creatinine Ratio 16 % 03/23/21 06:35 Glucose 109 mg/dL (65-100) H 03/23/21 06:35 POC Glucose 114 mg/dL (70-105) H 03/23/21 11:05 Hemoglobin A1c 7.2 % (4-6) H 03/22/21 04:04 Calcium 8.9 mg/dL (8.4-10.2) 03/23/21 06:35 Magnesium 1.50 mg/dL (1.7-2.3) L 03/22/21 04:04 Total Creatine Kinase 90 units/L (30-135) 03/22/21 04:04 CK-MB (CK-2) 2.8 ng/mL (0.0-4.0) 03/22/21 04:04 CK-MB (CK-2) Rel Index 3.1 (0-4) 03/22/21 04:04 Troponin T < 0.010 ng/mL (0.00-0.029) 03/22/21 15:11 Triglycerides 471 mg/dL (2-149) H 03/22/21 04:04 Cholesterol 212 mg/dL (50-199) H 03/22/21 04:04 LDL Cholesterol Direct TNR 03/22/21 04:04 HDL Cholesterol 68 mg/dL (40-59) H 03/22/21 04:04 Cholesterol/HDL Ratio 3.11 % 03/22/21 04:04 Lipase 88 units/L (13-60) H 03/22/21 04:04 Plasma/Serum Alcohol < 0.01 % (0-0.07) 03/22/21 04:04 [place]/IV: Voiding Method Toilet Active Medications - Current Medications Current Medications: Generic Name Dose Route Start Last Admin Trade Name Freq PRN Reason Stop Dose Admin Acetaminophen 650 mg 03/22/21 10:00 Acetaminophen 325 Mg Tab PO Q4H PRN Pain MILD(1-3)/Fever >100.5/[place] Amlodipine Besylate 10 mg 03/22/21 14:00 03/22/21 14:50 Amlodipine 10 Mg Tab PO 10 mg QDAY CHAS Administration Atorvastatin Calcium 20 mg 03/22/21 22:00 03/22/21 23:35 Atorvastatin 20 Mg Tab PO 20 mg QHS CHAS Administration Carbamazepine 200 mg 03/22/21 22:00 03/22/21 23:35 Carbamazepine 200 Mg Tab PO 200 mg BID CHAS Administration Dextrose 50 ml 03/22/21 22:42 Dextrose 50% In Water (25gm) 50 Ml Syringe IV Q30MIN PRN Hypoglycemia Protocol Famotidine 10 mg 03/23/21 13:00 Famotidine 10 Mg Tab PO BID [facility] Heparin Sodium (Porcine) 5,000 unit 03/22/21 10:00 03/23/21 06:16 Heparin 5,000 Unit/1 Ml Vial SUB-Q 5,000 unit Q8HR [facility] Administration Insulin Human Lispro 0 unit 03/23/21 00:00 03/23/21 07:03 Insulin Lispro 100 Unit/Ml SUB-Q Not Given Q6HR [facility] Protocol Levetiracetam 500 mg 03/22/21 22:00 03/22/21 23:35 Levetiracetam 500 Mg Tab PO 500 mg BID [facility] Administration Magnesium Hydroxide 30 ml 03/22/21 10:00 Magnesium Hydroxide (Mom) Oral Liqd Udc PO Q4H PRN Constipation Morphine Sulfate 4 mg 03/22/21 10:00 Morphine 4 Mg/1 Ml Inj IV Q4H PRN Pain , Severe (7-10) Naloxone HCl 0.1 mg 03/22/21 10:00 Naloxone 0.4 Mg/1 Ml Inj IV Q2MIN PRN Res Rate </= 8 or 02 SAT < 92% Ondansetron HCl 4 mg 03/22/21 10:00 Ondansetron 4 Mg/2 Ml Inj IV Q8H PRN Nausea And Vomiting Oxycodone/Acetaminophen 1 tab 03/22/21 10:00 03/22/21 23:36 Oxycodone /Acetaminophen 5-325mg Tab PO 1 tab Q6H PRN Administration Pain, Moderate (4-6) Sodium Chloride 10 ml 03/22/21 10:00 03/23/21 00:42 Sodium Chloride 0.9% 10 Ml Flush Syringe IV 10 ml BID CHAS Administration Sodium Chloride 10 ml 03/22/21 10:00 Sodium Chloride 0.9% 10 Ml Flush Syringe IV PRN PRN LINE FLUSH
[2021-03-23] MEDS: MORPHINE 4 MG/1 ML INJ IV PRN (13:16)
--- NOTE | 2021-03-23 14:32 | Cat Scan Report ---
CT ABDOMEN WITHOUT CONTRAST HISTORY: abdominal pain. COMPARISON: 09/13/2020 TECHNIQUE: CT images of the abdomen were obtained following administration of intravenous contrast. S agittal and coronal reformatted images. All CT scans at this location are performed using CT dose red uction for ALARA by means of automated exposure control. FINDINGS: Abdomen: The liver is unremarkable. The gallbladder is contracted or surgically removed. No obvious cholelithiasis. The pancreas, spleen, kidneys and adrenal glands are unremarkable. Visualized bowel l oops are normal caliber and wall thickness. There are mild diffuse aortic calcifications without aneu rysm. No evidence for adenopathy, free fluid, free air or fluid collection. A large cyst in the left side of the pelvis measuring up to 10 cm in diameter is partially imaged. Th is presumably represents a large left ovarian cyst which is unchanged since 09/13/2020. Lungs/bones: Emphysematous changes are noted at the lung bases. Heart size is within normal limits. A large hiatal hernia is present. The osseous structures are unremarkable. IMPRESSION: No acute process is appreciated. Large left ovarian cyst, partially imaged. Large hiatal hernia. Emphysematous changes at the lung bases. Signer Name: Lester Wiley Jr, MD Signed: 03/23/2021 2:28 PM Workstation Name: [id number]
[2021-03-23] MEDS: carBAMazepine 200 MG TAB PO SCH ×2 (15:15→23:16)
[2021-03-23] MEDS: amLODIPine 10 MG TAB PO SCH (15:19)
[2021-03-23] MEDS: levETIRAcetam 500 MG TAB PO SCH ×2 (15:24→23:16)
[2021-03-23] MEDS: FAMOTIDINE 10 MG TAB PO SCH ×2 (15:24→23:16)
[2021-03-23] MEDS ORDERED: LORazepam 2 MG TAB PO PRN (16:00)
[2021-03-23] MEDS: LORazepam 2 MG TAB PO PRN (18:43)
[2021-03-24] MEDS: INSULIN LISPRO 100 UNIT/ML SUB-Q SCH ×5 (00:14→23:00)
[2021-03-24] MEDS: HEPARIN 5,000 UNIT/1 ML VIAL SUB-Q SCH ×3 (06:13→22:24)
[2021-03-24 06:34] LABS: Calcium 8.5 mg/dL (8.4-10.2)
[2021-03-24] MEDS ORDERED: SODIUM CHLORIDE 0.9% 1000 ML 1,000 ML IV SCH (07:30)
--- NOTE | 2021-03-24 07:32 | Progress Note ---
Assessment and Plan Assessment and plan: #Chest pain, atypical -Stress test negative, will continue with medical optimization -Patient reports pain to be epigastric/abdominal in nature, exquisitely tender on exam -CT abdomen pelvis without contrast shows large hiatal hernia, and large left ovarian cyst #ALLAN -SCr increased from 1.4 to 2.3 -Renal US, urine electrolytes & UA ordered -will give 1 L IVF -Nephrology consulted, assistance appreciated #Seizure disorder -continue Keppra and carbamazepine at home doses #Hypertension -continue amlodipine #Left ovarian cyst -Measuring 10 cm, unchanged from previous study -Will need outpatient follow-up #Type 2 diabetes -Hemoglobin A1c 7.2% -Goal glucose one 140-180 while inpatient -Sliding scale + Accu-Cheks #Alcohol dependence -Patient reports to drink 1 can of beer per day -Attempts at counseling were refused -continue CIWA protocol PRN Disposition Plan: Home Total Time Spent with Patient (Minutes): 30 minutes History Interval history: No acute events overnight. Patient confused today, with new oxygen requirement. Alert to self only. Hospitalist Physical - Physical exam Narrative exam: GENERAL: Thin elderly woman. Lying bed in no acute distress. CHEST/LUNGS: CTAB on 2 L nasal cannula HEART/CARDIOVASCULAR: RRR. No murmur, rubs or gallops appreciated. ABDOMEN: +BS. NT/ND EXTREMITIES: No cyanosis, clubbing or edema. PSYCH: Cooperative. - Constitutional Vitals: Temp Pulse Resp BP Pulse Ox 98.4 F 76 18 112/62 88 03/24/21 04:41 03/24/21 04:41 03/24/21 04:41 03/24/21 04:41 03/24/21 04:41 General appearance: Present: no acute distress HEART Score - HEART Score EKG: Normal Age: > 65 Risk factors: 1-2 risk factors Troponin: Troponin T < 0.010 ng/mL (0.00-0.029) 03/22/21 15:11 Troponin: < normal limit Results - Labs CBC & Chem 7: 03/22/21 04:04 03/24/21 05:48 Labs: Laboratory Last Values WBC 6.9 K/mm3 (4.5-11.0) 03/22/21 04:04 RBC 3.79 M/mm3 (3.65-5.03) 03/22/21 04:04 Hgb 13.0 gm/dl (10.1-14.3) 03/22/21 04:04 Hct 37.1 % (30.3-42.9) 03/22/21 04:04 MCV 98 fl (79-97) H 03/22/21 04:04 MCH 34 pg (28-32) H 03/22/21 04:04 MCHC 35 % (30-34) H 03/22/21 04:04 RDW 13.7 % (13.2-15.2) 03/22/21 04:04 Plt Count 212 K/mm3 (140-440) 03/22/21 04:04 Lymph % (Auto) 18.1 % (13.4-35.0) 03/22/21 04:04 [place] % (Auto) 3.2 % (0.0-7.3) 03/22/21 04:04 Eos % (Auto) 0.2 % (0.0-4.3) 03/22/21 04:04 Baso % (Auto) 0.5 % (0.0-1.8) 03/22/21 04:04 Lymph # (Auto) 1.3 K/mm3 (1.2-5.4) 03/22/21 04:04 [place] # (Auto) 0.2 K/mm3 (0.0-0.8) 03/22/21 04:04 Eos # (Auto) 0.0 K/mm3 (0.0-0.4) 03/22/21 04:04 Baso # (Auto) 0.0 K/mm3 (0.0-0.1) 03/22/21 04:04 Seg Neutrophils % 78.0 % (40.0-70.0) H 03/22/21 04:04 Seg Neutrophils # 5.4 K/mm3 (1.8-7.7) 03/22/21 04:04 PT 22.4 Sec. (12.2-14.9) H 03/22/21 04:04 INR 1.90 (0.87-1.13) H 03/22/21 04:04 Sodium 133 mmol/L (137-145) L 03/24/21 05:48 Potassium 4.0 mmol/L (3.6-5.0) 03/24/21 05:48 Chloride 96.7 mmol/L (98-107) L 03/24/21 05:48 Carbon Dioxide 20 mmol/L (22-30) L 03/24/21 05:48 Anion Gap 20 mmol/L 03/24/21 05:48 BUN 34 mg/dL (7-17) H 03/24/21 05:48 Creatinine 2.3 mg/dL (0.6-1.2) H D 03/24/21 05:48 Estimated GFR 21 ml/min 03/24/21 05:48 BUN/Creatinine Ratio 15 % 03/24/21 05:48 Glucose 95 mg/dL (65-100) 03/24/21 05:48 POC Glucose 92 mg/dL (70-105) 03/24/21 05:35 Hemoglobin A1c 7.2 % (4-6) H 03/22/21 04:04 Calcium 8.5 mg/dL (8.4-10.2) 03/24/21 05:48 Phosphorus 3.30 mg/dL (2.5-4.5) 03/24/21 05:48 Magnesium 2.00 mg/dL (1.7-2.3) 03/24/21 05:48 Total Creatine Kinase 90 units/L (30-135) 03/22/21 04:04 CK-MB (CK-2) 2.8 ng/mL (0.0-4.0) 03/22/21 04:04 CK-MB (CK-2) Rel Index 3.1 (0-4) 03/22/21 04:04 Troponin T < 0.010 ng/mL (0.00-0.029) 03/22/21 15:11 Triglycerides 471 mg/dL (2-149) H 03/22/21 04:04 Cholesterol 212 mg/dL (50-199) H 03/22/21 04:04 LDL Cholesterol Direct TNR 03/22/21 04:04 HDL Cholesterol 68 mg/dL (40-59) H 03/22/21 04:04 Cholesterol/HDL Ratio 3.11 % 03/22/21 04:04 Lipase 88 units/L (13-60) H 03/22/21 04:04 Plasma/Serum Alcohol < 0.01 % (0-0.07) 03/22/21 04:04 [place]/IV: Voiding Method Toilet Active Medications - Current Medications Current Medications: Generic Name Dose Route Start Last Admin Trade Name Freq PRN Reason Stop Dose Admin Acetaminophen 650 mg 03/22/21 10:00 Acetaminophen 325 Mg Tab PO Q4H PRN Pain MILD(1-3)/Fever >100.5/[place] Amlodipine Besylate 10 mg 03/22/21 14:00 03/23/21 15:19 Amlodipine 10 Mg Tab PO 10 mg QDAY CHAS Administration Atorvastatin Calcium 20 mg 03/22/21 22:00 03/23/21 23:16 Atorvastatin 20 Mg Tab PO 20 mg QHS CHAS Administration Carbamazepine 200 mg 03/22/21 22:00 03/23/21 23:16 Carbamazepine 200 Mg Tab PO 200 mg BID CHAS Administration Dextrose 50 ml 03/22/21 22:42 Dextrose 50% In Water (25gm) 50 Ml Syringe IV Q30MIN PRN Hypoglycemia Protocol Famotidine 10 mg 03/23/21 13:00 03/23/21 23:16 Famotidine 10 Mg Tab PO 10 mg BID [facility] Administration Heparin Sodium (Porcine) 5,000 unit 03/22/21 10:00 03/24/21 06:13 Heparin 5,000 Unit/1 Ml Vial SUB-Q 5,000 unit Q8HR [facility] Administration Sodium Chloride 1,000 mls @ 75 mls/hr 03/24/21 07:30 Nacl 0.9% 1000 Ml IV 03/24/21 20:49 DIRECT CHAS Insulin Human Lispro 0 unit 03/23/21 00:00 03/24/21 06:20 Insulin Lispro 100 Unit/Ml SUB-Q Not Given Q6HR [facility] Protocol Levetiracetam 500 mg 03/22/21 22:00 03/23/21 23:16 Levetiracetam 500 Mg Tab PO 500 mg BID [facility]AS Administration Lorazepam 2 mg 03/23/21 16:00 03/23/21 18:43 Lorazepam 2 Mg Tab PO 2 mg Q1HR PRN Administration CIWA-Ar 8-15 Lorazepam 4 mg 03/23/21 16:00 Lorazepam 2 Mg Tab PO Q1HR PRN CIWA-Ar 16-25 Lorazepam 4 mg 03/23/21 16:00 Lorazepam 2 Mg/Ml Vial IV Q15MIN PRN CIWA-Ar >25 Magnesium Hydroxide 30 ml 03/22/21 10:00 Magnesium Hydroxide (Mom) Oral Liqd Udc PO Q4H PRN Constipation Morphine Sulfate 4 mg 03/22/21 10:00 03/23/21 13:16 Morphine 4 Mg/1 Ml Inj IV 4 mg Q4H PRN Administration Pain , Severe (7-10) Naloxone HCl 0.1 mg 03/22/21 10:00 Naloxone 0.4 Mg/1 Ml Inj IV Q2MIN PRN Res Rate </= 8 or 02 SAT < 92% Ondansetron HCl 4 mg 03/22/21 10:00 Ondansetron 4 Mg/2 Ml Inj IV Q8H PRN Nausea And Vomiting Oxycodone/Acetaminophen 1 tab 03/22/21 10:00 03/22/21 23:36 Oxycodone /Acetaminophen 5-325mg Tab PO 1 tab Q6H PRN Administration Pain, Moderate (4-6) Sodium Chloride 10 ml 03/22/21 10:00 03/23/21 23:17 Sodium Chloride 0.9% 10 Ml Flush Syringe IV 10 ml BID CHAS Administration Sodium Chloride 10 ml 03/22/21 10:00 Sodium Chloride 0.9% 10 Ml Flush Syringe IV PRN PRN LINE FLUSH Nutrition/Malnutrition Assess - Dietary Evaluation Nutrition/Malnutrition Findings: Nutrition Notes Start: 03/23/21 12:32 Freq: Status: Active Protocol: Document 03/23/21 12:32 AURELIA (Rec: 03/23/21 12:52 AURELIA [id number]) Nutrition Notes Need for Assessment generated from: director trial Initial or Follow up Assessment Current Diagnosis Hypertension Other Pertinent Diagnosis Chest Pain, Hx GERD. Current Diet NPO (since 03/23). Labs/Tests 03/23: Na 135, CO2 21, BUN 23, Cr 1.54, Glu 109. Pertinent Medications 03/23: Nutritionally unremarkabke. Height 5 ft Weight 45.8 kg [place] Body Weight (kg) 45.45 BMI 19.7 Weight Status Appropriate Percent of energy/protein needs met: Pt is on NPO at the time. Burn Absent Trauma Absent GI Symptoms None Food Allergy No Skin Integrity/Comment Integumentary; clear, warm, dry. Current % PO Other Minimum of two criteria No physical signs of malnutrition #1 Nutrition Diagnosis No nutrition diagnosis at this time Comments: Pt presents no signs of integumentary risk, as per Progress Notes. Is patient on ventilator? No Is Patient Ambulatory and/or Out of Bed Yes REE-([place]-St. Jeor-ambulatory/OOB) [ 1162.850 [id number]] Kcal/Kg value to use for calculation 25 Approximate Energy Requirements Using 1145 kcal/Kg Calculation Used for Recommendations Kcal/kg Additional Notes Protein: 0.8-1.0 g/Kg/day; 36- 45 g/day; 144-180 Kcal/day ( from IBW). Fluids: 1.0 ml/Kcal/day, or as per MD. Nutrition Intervention Change Diet Order: Continue NPO, or as per MD. Goal #1 Maintain body weight within +/ -3% of current BWt during LOS. Goal #2 Reach and maintain acceptable chemistry lab values during LOS. Follow-Up By: 03/25/21 Additional Comments Continue monitoring Hydration, and BM.
--- NOTE | 2021-03-24 09:16 | Nuclear Medicine Report ---
APPROVED REPORT Exam: Nuclear Stress Test Indication: Chest pain Patient Location: [address] [place] [address] Room #: 378 Ht: 5 ft 0 in Wt: 101 lbs BSA: 1.40 m2 HR: 71 bpmBP: 128/58 mmHgBMI: 19.72 Rhythm: NSR Stress Test Details Stress Test: Pharmacologic stress testing performed using 0.4 mg of regadenoson per 5 mL given IV over 10 seconds. Reason for pharmacologic stress test: physical limitation. HR Resting HR: 71 bpm Max HR Achieved: 93 bpm Max Heart Rate (APMHR): 149.609950 bpm Target HR (85% APMHR): 126.943463 bpm % of APMHR: 62.42 BP Resting BP: 102/49 mmHg Max BP: 128/58 mmHg ECG Resting ECG: Sinus Rhythm Clinical Reason for Termination: Completed protocol Stress Symptoms: None NM EXAM: Myocardial Perfusion REST/STRESS Imaging Protocol: Rest Tc-99m/Stress Tc-99m 1 day Resting Data Rest SPECT myocardial perfusion imaging was performed in supine position 45 minutes following the intravenous injection of 10 mCi of Tc-99m Myoview. Time of rest injection: 0635 Pharmacologic Stress Pharmacologic stress test was performed by injecting Regadenoson 0.4 mg IV push followed by the intravenous injection of 28 mCi of Tc-99m Myoview. Time of stress injection: 0834 Gated Stress SPECT was performed 30 minutes after stress injection. The images were gated to evaluate regional wall motion and calculate left ventricular ejection fraction. Study Quality Study: excellent Lung Uptake: Normal Study Data TID = 1.00. Perfusion Wall Motion The rest and stress images show normal left ventricular wall motion. There is a area of akinesis in the segment of the wall which is seen on . Nuclear Conclusion ECG Findings: negative for ischemia Clinical Findings: negative for ischemia Nuclear Findings: negative for ischemia Exercise Capacity: not assessed Left Ventricular Function: normal Normal study. No scintigraphic evidence for myocardial ischemia or scar. Normal left ventricular size and function with no regional wall motion abnormalities.
--- NOTE | 2021-03-24 09:46 | Consultation ---
History of Present Illness - Reason for Consult Consult date: 03/24/21 acute renal failure Requesting physician: HELEN VELARDE - History of Present Illness Patient is a 70-year-old lady with history of hypertension, seizure disorder and questionable alcohol dependence who presented with complaint of shortness of breath and chest pain. She was reported to have a witnessed seizure. She is currently on Keppra and carbamazepine at home and reports compliance. She reports her chest pain starting 1 day ago. She described it as "like heartburn". She tried to take mustard and the pain was unrelieved. The pain became worse with intensity and is associated with nausea and dizziness. The pain is located on the left side of her chest and is reproducible on examination. She denies radiation to arm, back, numbness tingling in extremities. She denies NSAID use or history of heartburn. She reports drinking a 12 ounce can of beer daily. Could not obtain additional history from patient due to language barrier. Information obtained from admission records. Past History Past Medical History: hypertension Past Surgical History: No surgical history Social history: smoking, other (one 12oz beer daily) Family history: no significant family history Medications and Allergies Allergies Allergy/AdvReac Type Severity Reaction Status Date / Time No Known Allergies Allergy Verified 02/02/21 09:38 Home Medications Medication Instructions Recorded Confirmed Last Taken Type ALBUTEROL NEB's [Proventil 0.083% 2.5 mg IH Q4HRT PRN #1 nebu 09/23/20 03/22/21 01/31/21 Rx NEBS] Albuterol Mdi (or & Nicu Only) 2 puff IH QID PRN #8.5 gram 02/05/21 03/22/21 Unknown Rx [ProAir HFA Inhaler] AtorvaSTATin [Lipitor] 20 mg PO QHS 02/05/21 03/22/21 Unknown History Pantoprazole [Protonix TAB] 40 mg PO QDAC #14 tablet 02/05/21 03/22/21 Unknown Rx Sodium Chloride 1 gm PO BID #14 tablet 02/05/21 03/22/21 Unknown Rx amLODIPine 10 mg PO DAILY 02/05/21 03/22/21 Unknown History carBAMazepine [TEGretol] 200 mg PO Q12HR #60 tablet 02/05/21 03/22/21 Unknown Rx levETIRAcetam [Keppra TAB] 500 mg PO BID #60 tablet 02/05/21 03/22/21 Unknown Rx Metoclopramide [Reglan TAB] 1 tab PO Q6H PRN 03/22/21 03/22/21 Unknown History Metoprolol [Lopressor TAB] 0.5 tab PO BID 03/22/21 03/22/21 Unknown History Active Meds: Active Medications Acetaminophen (Acetaminophen 325 Mg Tab) 650 mg PO Q4H PRN PRN Reason: Pain MILD(1-3)/Fever >100.5/[place] Amlodipine Besylate (Amlodipine 10 Mg Tab) 10 mg PO QDAY [facility] Last Admin: 03/23/21 15:19 Dose: 10 mg Documented by: Atorvastatin Calcium (Atorvastatin 20 Mg Tab) 20 mg PO QHS [facility] Last Admin: 03/23/21 23:16 Dose: 20 mg Documented by: Carbamazepine (Carbamazepine 200 Mg Tab) 200 mg PO BID [facility] Last Admin: 03/23/21 23:16 Dose: 200 mg Documented by: Dextrose (Dextrose 50% In Water (25gm) 50 Ml Syringe) 50 ml IV Q30MIN PRN; Protocol PRN Reason: Hypoglycemia Famotidine (Famotidine 10 Mg Tab) 10 mg PO BID [facility] Last Admin: 03/23/21 23:16 Dose: 10 mg Documented by: Heparin Sodium (Porcine) (Heparin 5,000 Unit/1 Ml Vial) 5,000 unit SUB-Q Q8HR [facility] Last Admin: 03/24/21 06:13 Dose: 5,000 unit Documented by: Sodium Chloride (Nacl 0.9% 1000 Ml) 1,000 mls @ 75 mls/hr IV DIRECT CHAS Stop: 03/24/21 20:49 Insulin Human Lispro (Insulin Lispro 100 Unit/Ml) 0 unit SUB-Q Q6HR CHAS; Protocol Last Admin: 03/24/21 06:20 Dose: Not Given Documented by: Levetiracetam (Levetiracetam 500 Mg Tab) 500 mg PO BID [facility] Last Admin: 03/23/21 23:16 Dose: 500 mg Documented by: Lorazepam (Lorazepam 2 Mg Tab) 2 mg PO Q1HR PRN PRN Reason: CIWA-Ar 8-15 Last Admin: 03/23/21 18:43 Dose: 2 mg Documented by: Lorazepam (Lorazepam 2 Mg Tab) 4 mg PO Q1HR PRN PRN Reason: CIWA-Ar 16-25 Lorazepam (Lorazepam 2 Mg/Ml Vial) 4 mg IV Q15MIN PRN PRN Reason: CIWA-Ar >25 Magnesium Hydroxide (Magnesium Hydroxide (Mom) Oral Liqd Udc) 30 ml PO Q4H PRN PRN Reason: Constipation Morphine Sulfate (Morphine 4 Mg/1 Ml Inj) 4 mg IV Q4H PRN PRN Reason: Pain , Severe (7-10) Last Admin: 03/23/21 13:16 Dose: 4 mg Documented by: Naloxone HCl (Naloxone 0.4 Mg/1 Ml Inj) 0.1 mg IV Q2MIN PRN PRN Reason: Res Rate </= 8 or 02 SAT < 92% Ondansetron HCl (Ondansetron 4 Mg/2 Ml Inj) 4 mg IV Q8H PRN PRN Reason: Nausea And Vomiting Oxycodone/Acetaminophen (Oxycodone /Acetaminophen 5-325mg Tab) 1 tab PO Q6H PRN PRN Reason: Pain, Moderate (4-6) Last Admin: 03/22/21 23:36 Dose: 1 tab Documented by: Sodium Chloride (Sodium Chloride 0.9% 10 Ml Flush Syringe) 10 ml IV BID [facility]AS Last Admin: 03/23/21 23:17 Dose: 10 ml Documented by: Sodium Chloride (Sodium Chloride 0.9% 10 Ml Flush Syringe) 10 ml IV PRN PRN PRN Reason: LINE FLUSH Review of Systems All systems: negative (Negative except as noted above) Exam - Vital Signs Vital signs: Vital Signs Temp Pulse Resp BP Pulse Ox 98 F 103 H 18 142/93 97 03/22/21 03:44 03/22/21 03:44 03/22/21 03:44 03/22/21 03:44 03/22/21 03:44 - General Appearance General appearance: well-developed, well-nourished, appears stated age EENT: PERRL, mucous membranes moist Neck: Present: neck supple, trachea midline. Absent: JVD/HJR, Masses Respiratory: Clear to Ascultation Heart: regular, normal heart rate, S1S2, no murmurs Gastrointestinal: Present: normal, normoactive bowel sounds Integumentary: no rash, other (No edema) Results - Lab Results 03/22/21 04:04 03/24/21 05:48 Most recent lab results Calcium 8.5 mg/dL (8.4-10.2) 03/24/21 05:48 Phosphorus 3.30 mg/dL (2.5-4.5) 03/24/21 05:48 Magnesium 2.00 mg/dL (1.7-2.3) 03/24/21 05:48 Assessment and Plan Impression * Acute kidney injury * Atypical chest pain * Hypertension * Diabetes * Seizure disorder Recommendations * Etiology of acute kidney injury unclear. She may have a prerenal component. Need to rule out other causes of ALLAN as well * Shall check a UA as well as a fractional excretion of sodium * Check vasculitis work-up * Check renal ultrasound to assess kidney size and echogenicity and to rule out obstruction * Gentle IV hydration * Avoid nephrotoxins * Monitor fluid status and electrolytes closely * No urgent indication for dialysis today * Thank you very much for the consultation. Shall follow along with you
[2021-03-24] MEDS: FAMOTIDINE 10 MG TAB PO SCH ×2 (10:00→22:25)
[2021-03-24] MEDS: levETIRAcetam 500 MG TAB PO SCH ×2 (10:00→22:25)
[2021-03-24] MEDS: amLODIPine 10 MG TAB PO SCH (10:00)
[2021-03-24] MEDS: carBAMazepine 200 MG TAB PO SCH ×2 (10:00→22:24)
--- NOTE | 2021-03-24 13:07 | Ultrasound Report ---
ULTRASOUND RENAL INDICATION / CLINICAL INFORMATION: Worsening ALLAN. COMPARISON: CT abdomen without contrast 03/23/2021. FINDINGS: RIGHT KIDNEY: Length = 8.9 cm. - Echogenicity: Normal. - Cortical Thickness: Normal. - Hydronephrosis: None. - Cyst / Mass: None. - Stones: None seen. LEFT KIDNEY: Length = 11.3 cm. - Echogenicity: Normal. - Cortical Thickness: Normal. - Hydronephrosis: None. - Cyst / Mass: None. - Stones: None seen. URINARY BLADDER: No significant abnormality. FREE FLUID: None. ADDITIONAL FINDINGS: Large cystic mass measuring 9.7 cm is again visualized within the left adnexa an d appears unchanged from previous exams. IMPRESSION: 1. No sonographic abnormality of the kidneys or urinary bladder. 2. Stable left adnexal cyst. Scribed by: Sanjuanita Acevedo RDMS, RVT Scribed: 03/24/2021 11:46 AM I have reviewed the images, agree with this report, and edited this report as needed. Signer Name: Asaf Shields MD Signed: 03/24/2021 1:03 PM Workstation Name: [id number]
[2021-03-24] MEDS: LORazepam 2 MG TAB PO PRN (14:48)
[2021-03-24 16:58] LABS: Hepatitis B Surface Antigen Nonreactive (Negative)
[2021-03-24 17:08] LABS: Hepatitis C Virus Antibody Nonreactive (NonReactive)
[2021-03-25] MEDS: HEPARIN 5,000 UNIT/1 ML VIAL SUB-Q SCH ×3 (05:40→23:01)
[2021-03-25 06:53] LABS: Calcium 8.4 mg/dL (8.4-10.2)
[2021-03-25] MEDS: INSULIN LISPRO 100 UNIT/ML SUB-Q SCH ×3 (07:14→17:18)
[2021-03-25] MEDS: FAMOTIDINE 10 MG TAB PO SCH ×2 (10:17→23:00)
[2021-03-25] MEDS: carBAMazepine 200 MG TAB PO SCH ×2 (10:17→23:00)
[2021-03-25] MEDS: levETIRAcetam 500 MG TAB PO SCH ×2 (10:17→23:01)
[2021-03-25] MEDS: amLODIPine 10 MG TAB PO SCH (10:17)
--- NOTE | 2021-03-25 13:17 | Progress Note ---
Assessment and Plan Assessment and plan: #Acute encephalopathy -patient confused, change from baseline -CT head ordered -TSH, B12, folate, ammonia ordered -will continue to monitor #ALLAN -SCr 2.1 today -Renal US, urine electrolytes & UA ordered -continue gentle IVFs -Nephrology consulted, assistance appreciated #Seizure disorder -continue Keppra and carbamazepine at home doses #Hypertension -continue amlodipine #Left ovarian cyst -Measuring 10 cm, unchanged from previous study -Will need outpatient follow-up #Type 2 diabetes -Hemoglobin A1c 7.2% -Goal glucose one 140-180 while inpatient -Sliding scale + Accu-Cheks #Chest pain, atypical- resolved -Stress test negative, will continue with medical optimization -Patient reported pain to be epigastric/abdominal in nature -CT abdomen pelvis without contrast shows large hiatal hernia, and large left ovarian cyst #Alcohol dependence -Patient reports to drink 1 can of beer per day -Attempts at counseling were refused -continue CIWA protocol PRN Disposition Plan: Pending formal PT eval, likely home Total Time Spent with Patient (Minutes): 20 minutes History Interval history: No acute events overnight. Patient refusing to participate in visit today. Alert to self. Hospitalist Physical - Physical exam Narrative exam: GENERAL: Thin elderly woman. Lying bed in no acute distress. CHEST/LUNGS: CTAB on 2 L nasal cannula HEART/CARDIOVASCULAR: RRR. No murmur, rubs or gallops appreciated. ABDOMEN: +BS. NT/ND EXTREMITIES: No cyanosis, clubbing or edema. PSYCH: Cooperative. - Constitutional Vitals: Temp Pulse Resp BP Pulse Ox 97.6 F 75 16 169/68 97 03/25/21 11:30 03/25/21 11:30 03/25/21 11:30 03/25/21 11:30 03/25/21 11:30 General appearance: Present: no acute distress HEART Score - HEART Score EKG: Normal Age: > 65 Risk factors: 1-2 risk factors Troponin: Troponin T < 0.010 ng/mL (0.00-0.029) 03/22/21 15:11 Troponin: < normal limit Results - Labs CBC & Chem 7: 03/22/21 04:04 03/25/21 05:17 Labs: Laboratory Last Values WBC 6.9 K/mm3 (4.5-11.0) 03/22/21 04:04 RBC 3.79 M/mm3 (3.65-5.03) 03/22/21 04:04 Hgb 13.0 gm/dl (10.1-14.3) 03/22/21 04:04 Hct 37.1 % (30.3-42.9) 03/22/21 04:04 MCV 98 fl (79-97) H 03/22/21 04:04 MCH 34 pg (28-32) H 03/22/21 04:04 MCHC 35 % (30-34) H 03/22/21 04:04 RDW 13.7 % (13.2-15.2) 03/22/21 04:04 Plt Count 212 K/mm3 (140-440) 03/22/21 04:04 Lymph % (Auto) 18.1 % (13.4-35.0) 03/22/21 04:04 [place] % (Auto) 3.2 % (0.0-7.3) 03/22/21 04:04 Eos % (Auto) 0.2 % (0.0-4.3) 03/22/21 04:04 Baso % (Auto) 0.5 % (0.0-1.8) 03/22/21 04:04 Lymph # (Auto) 1.3 K/mm3 (1.2-5.4) 03/22/21 04:04 [place] # (Auto) 0.2 K/mm3 (0.0-0.8) 03/22/21 04:04 Eos # (Auto) 0.0 K/mm3 (0.0-0.4) 03/22/21 04:04 Baso # (Auto) 0.0 K/mm3 (0.0-0.1) 03/22/21 04:04 Seg Neutrophils % 78.0 % (40.0-70.0) H 03/22/21 04:04 Seg Neutrophils # 5.4 K/mm3 (1.8-7.7) 03/22/21 04:04 PT 22.4 Sec. (12.2-14.9) H 03/22/21 04:04 INR 1.90 (0.87-1.13) H 03/22/21 04:04 Sodium 139 mmol/L (137-145) 03/25/21 05:17 Potassium 3.7 mmol/L (3.6-5.0) 03/25/21 05:17 Chloride 105.1 mmol/L (98-107) 03/25/21 05:17 Carbon Dioxide 21 mmol/L (22-30) L 03/25/21 05:17 Anion Gap 17 mmol/L 03/25/21 05:17 BUN 28 mg/dL (7-17) H 03/25/21 05:17 Creatinine 2.1 mg/dL (0.6-1.2) H 03/25/21 05:17 Estimated GFR 23 ml/min 03/25/21 05:17 BUN/Creatinine Ratio 13 % 03/25/21 05:17 Glucose 151 mg/dL (65-100) H 03/25/21 05:17 POC Glucose 201 mg/dL (70-105) H 03/25/21 11:28 Hemoglobin A1c 7.2 % (4-6) H 03/22/21 04:04 Calcium 8.4 mg/dL (8.4-10.2) 03/25/21 05:17 Phosphorus 3.30 mg/dL (2.5-4.5) 03/24/21 05:48 Magnesium 2.00 mg/dL (1.7-2.3) 03/24/21 05:48 Total Creatine Kinase 90 units/L (30-135) 03/22/21 04:04 CK-MB (CK-2) 2.8 ng/mL (0.0-4.0) 03/22/21 04:04 CK-MB (CK-2) Rel Index 3.1 (0-4) 03/22/21 04:04 Troponin T < 0.010 ng/mL (0.00-0.029) 03/22/21 15:11 Triglycerides 471 mg/dL (2-149) H 03/22/21 04:04 Cholesterol 212 mg/dL (50-199) H 03/22/21 04:04 LDL Cholesterol Direct TNR 03/22/21 04:04 HDL Cholesterol 68 mg/dL (40-59) H 03/22/21 04:04 Cholesterol/HDL Ratio 3.11 % 03/22/21 04:04 Lipase 88 units/L (13-60) H 03/22/21 04:04 Plasma/Serum Alcohol < 0.01 % (0-0.07) 03/22/21 04:04 Hepatitis A IgM Ab Non-reactive (NonReactive) 03/24/21 15:42 Hep Bs Antigen Nonreactive (Negative) 03/24/21 15:42 Hep B Core IgM Ab Non-reactive (NonReactive) 03/24/21 15:42 Hepatitis C Antibody Nonreactive (NonReactive) 03/24/21 15:42 [place]/IV: Voiding Method Diaper Active Medications - Current Medications Current Medications: Generic Name Dose Route Start Last Admin Trade Name Freq PRN Reason Stop Dose Admin Acetaminophen 650 mg 03/22/21 10:00 Acetaminophen 325 Mg Tab PO Q4H PRN Pain MILD(1-3)/Fever >100.5/[place] Amlodipine Besylate 10 mg 03/22/21 14:00 03/25/21 10:17 Amlodipine 10 Mg Tab PO 10 mg QDAY CHAS Administration Atorvastatin Calcium 20 mg 03/22/21 22:00 03/24/21 22:25 Atorvastatin 20 Mg Tab PO 20 mg QHS CHAS Administration Carbamazepine 200 mg 03/22/21 22:00 03/25/21 10:17 Carbamazepine 200 Mg Tab PO 200 mg BID CHAS Administration Dextrose 50 ml 03/22/21 22:42 Dextrose 50% In Water (25gm) 50 Ml Syringe IV Q30MIN PRN Hypoglycemia Protocol Famotidine 10 mg 03/23/21 13:00 03/25/21 10:17 Famotidine 10 Mg Tab PO 10 mg BID CHAS Administration Heparin Sodium (Porcine) 5,000 unit 03/22/21 10:00 03/25/21 05:40 Heparin 5,000 Unit/1 Ml Vial SUB-Q 5,000 unit Q8HR CHAS Administration Insulin Human Lispro 0 unit 03/23/21 00:00 03/25/21 11:30 Insulin Lispro 100 Unit/Ml SUB-Q Not Given Q6HR CHAS Protocol Levetiracetam 500 mg 03/22/21 22:00 03/25/21 10:17 Levetiracetam 500 Mg Tab PO 500 mg BID CHAS Administration Lorazepam 2 mg 03/23/21 16:00 03/24/21 14:48 Lorazepam 2 Mg Tab PO 2 mg Q1HR PRN Administration CIWA-Ar 8-15 Lorazepam 4 mg 03/23/21 16:00 Lorazepam 2 Mg Tab PO Q1HR PRN CIWA-Ar 16-25 Lorazepam 4 mg 03/23/21 16:00 Lorazepam 2 Mg/Ml Vial IV Q15MIN PRN CIWA-Ar >25 Magnesium Hydroxide 30 ml 03/22/21 10:00 Magnesium Hydroxide (Mom) Oral Liqd Udc PO Q4H PRN Constipation Morphine Sulfate 4 mg 03/22/21 10:00 03/23/21 13:16 Morphine 4 Mg/1 Ml Inj IV 4 mg Q4H PRN Administration Pain , Severe (7-10) Naloxone HCl 0.1 mg 03/22/21 10:00 Naloxone 0.4 Mg/1 Ml Inj IV Q2MIN PRN Res Rate </= 8 or 02 SAT < 92% Ondansetron HCl 4 mg 03/22/21 10:00 Ondansetron 4 Mg/2 Ml Inj IV Q8H PRN Nausea And Vomiting Oxycodone/Acetaminophen 1 tab 03/22/21 10:00 03/22/21 23:36 Oxycodone /Acetaminophen 5-325mg Tab PO 1 tab Q6H PRN Administration Pain, Moderate (4-6) Sodium Chloride 10 ml 03/22/21 10:00 03/25/21 10:17 Sodium Chloride 0.9% 10 Ml Flush Syringe IV 10 ml BID CHAS Administration Sodium Chloride 10 ml 03/22/21 10:00 Sodium Chloride 0.9% 10 Ml Flush Syringe IV PRN PRN LINE FLUSH Nutrition/Malnutrition Assess - Dietary Evaluation Nutrition/Malnutrition Findings: Nutrition Notes Start: 03/23/21 12:32 Freq: Status: Active Protocol: Document 03/25/21 12:06 AURELIA (Rec: 03/25/21 12:29 AURELIA [id number]) Nutrition 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 Labs/Tests 03/25: CO2 21, BUN 28, Cr 2.1, Glu 151. Pertinent Medications 03/25: Nutritionally unremarkable. Height 5 ft Weight 45.8 kg [place] Body Weight (kg) 45.45 BMI 19.7 Weight Status Appropriate Percent of energy/protein needs met: Prescribed Pureed Diet provides with energy/protein needs (1,804 Kcal/77 g) during LOS. Burn Absent Trauma Absent GI Symptoms None Food Allergy No Skin Integrity/Comment Integumentary; clear, warm, dry. Current % PO Fair (50-74%) Minimum of two criteria No physical signs of malnutrition #1 Nutrition Diagnosis No nutrition diagnosis at this time Comments: Pt shows acceptance of PO intake of prescribed diet, as per ADL Notes. Is patient on ventilator? No Is Patient Ambulatory and/or Out of Bed Yes REE-([place]-St. Jeor-ambulatory/OOB) [ 1162.850 NUTR.[id number]] Kcal/Kg value to use for calculation 25 Approximate Energy Requirements Using 1145 kcal/Kg Calculation Used for Recommendations Kcal/kg Additional Notes Protein: 0.8-1.0 g/Kg/day; 36- 45 g/day; 144-180 Kcal/day ( from IBW). Fluids: 1.0 ml/Kcal/day, or as per MD. Nutrition Intervention Change Diet Order: Continue Pureed Diet, or as per MD. Goal #1 Maintain body weight within +/ -3% of current BWt during LOS. Goal #2 Reach and maintain acceptable chemistry lab values during LOS. Follow-Up By: 04/01/21 Additional Comments Continue monitoring acceptance of foods, % PO intake of meals, Hydration, and BM.
--- NOTE | 2021-03-25 15:07 | Progress Note ---
Assessment and Plan Impression * Acute kidney injury * Atypical chest pain * Hypertension * Diabetes * Seizure disorder Recommendations * Etiology of acute kidney injury unclear. She may have a prerenal component. Need to rule out other causes of ALLAN as well * Urine studies are still pending. * Follow-up results of vasculitis work-up. Hepatitis B and C both are negative * Gentle IV hydration * Avoid nephrotoxins * Monitor fluid status and electrolytes closely * No urgent indication for dialysis today * Renal function is slowly improving Subjective Date of service: 03/25/21 Principal diagnosis: seizures Interval history: Patient is comfortable. Unable to get history due to language barrier Objective - Vital Signs Vital signs: Vital Signs - 12hr 03/25/21 03/25/21 04:43 11:30 Temperature 97.5 F L 97.6 F Pulse Rate 65 75 Respiratory 18 16 Rate Blood Pressure 121/65 169/68 O2 Sat by Pulse 96 97 Oximetry - General Appearance General appearance: well-developed, well-nourished, appears stated age EENT: PERRL, mucous membranes moist Neck: no JVD, no thyromegaly, no carotid bruit, supple Respiratory: Present: Clear to Ascultation Cardiology: regular, normal heart rate Gastrointestinal: normal, normoactive bowel sounds Integumentary: other (No edema) - Lab 03/22/21 04:04 03/25/21 05:17 Most recent lab results Calcium 8.4 mg/dL (8.4-10.2) 03/25/21 05:17 Phosphorus 3.30 mg/dL (2.5-4.5) 03/24/21 05:48 Magnesium 2.00 mg/dL (1.7-2.3) 03/24/21 05:48 Medications & Allergies - Medications Allergies/Adverse Reactions: Allergies No Known Allergies Allergy (Verified 02/02/21 09:38) Home Medications: Home Medications Medication Instructions Recorded Confirmed Last Taken Type ALBUTEROL NEB's [Proventil 0.083% 2.5 mg IH Q4HRT PRN #1 nebu 09/23/20 03/22/21 01/31/21 Rx NEBS] Albuterol Mdi (or & Nicu Only) 2 puff IH QID PRN #8.5 gram 02/05/21 03/22/21 Unknown Rx [ProAir HFA Inhaler] AtorvaSTATin [Lipitor] 20 mg PO QHS 02/05/21 03/22/21 Unknown History Pantoprazole [Protonix TAB] 40 mg PO QDAC #14 tablet 02/05/21 03/22/21 Unknown Rx Sodium Chloride 1 gm PO BID #14 tablet 02/05/21 03/22/21 Unknown Rx amLODIPine 10 mg PO DAILY 02/05/21 03/22/21 Unknown History carBAMazepine [TEGretol] 200 mg PO Q12HR #60 tablet 02/05/21 03/22/21 Unknown Rx levETIRAcetam [Keppra TAB] 500 mg PO BID #60 tablet 02/05/21 03/22/21 Unknown Rx Metoclopramide [Reglan TAB] 1 tab PO Q6H PRN 03/22/21 03/22/21 Unknown History Metoprolol [Lopressor TAB] 0.5 tab PO BID 03/22/21 03/22/21 Unknown History Active Medications: Generic Name Dose Route Start Last Admin Trade Name Freq PRN Reason Stop Dose Admin Acetaminophen 650 mg 03/22/21 10:00 Acetaminophen 325 Mg Tab PO Q4H PRN Pain MILD(1-3)/Fever >100.5/[place] Amlodipine Besylate 10 mg 03/22/21 14:00 03/25/21 10:17 Amlodipine 10 Mg Tab PO 10 mg QDAY CHAS Administration Atorvastatin Calcium 20 mg 03/22/21 22:00 03/24/21 22:25 Atorvastatin 20 Mg Tab PO 20 mg QHS CHAS Administration Carbamazepine 200 mg 03/22/21 22:00 03/25/21 10:17 Carbamazepine 200 Mg Tab PO 200 mg BID CHAS Administration Dextrose 50 ml 03/22/21 22:42 Dextrose 50% In Water (25gm) 50 Ml Syringe IV Q30MIN PRN Hypoglycemia Protocol Famotidine 10 mg 03/23/21 13:00 03/25/21 10:17 Famotidine 10 Mg Tab PO 10 mg BID CHAS Administration Heparin Sodium (Porcine) 5,000 unit 03/22/21 10:00 03/25/21 13:31 Heparin 5,000 Unit/1 Ml Vial SUB-Q 5,000 unit Q8HR CHAS Administration Insulin Human Lispro 0 unit 03/23/21 00:00 03/25/21 11:30 Insulin Lispro 100 Unit/Ml SUB-Q Not Given Q6HR CHAS Protocol Levetiracetam 500 mg 03/22/21 22:00 03/25/21 10:17 Levetiracetam 500 Mg Tab PO 500 mg BID CHAS Administration Lorazepam 2 mg 03/23/21 16:00 03/24/21 14:48 Lorazepam 2 Mg Tab PO 2 mg Q1HR PRN Administration CIWA-Ar 8-15 Lorazepam 4 mg 03/23/21 16:00 Lorazepam 2 Mg Tab PO Q1HR PRN CIWA-Ar 16-25 Lorazepam 4 mg 03/23/21 16:00 Lorazepam 2 Mg/Ml Vial IV Q15MIN PRN CIWA-Ar >25 Magnesium Hydroxide 30 ml 03/22/21 10:00 Magnesium Hydroxide (Mom) Oral Liqd Udc PO Q4H PRN Constipation Morphine Sulfate 4 mg 03/22/21 10:00 03/23/21 13:16 Morphine 4 Mg/1 Ml Inj IV 4 mg Q4H PRN Administration Pain , Severe (7-10) Naloxone HCl 0.1 mg 03/22/21 10:00 Naloxone 0.4 Mg/1 Ml Inj IV Q2MIN PRN Res Rate </= 8 or 02 SAT < 92% Ondansetron HCl 4 mg 03/22/21 10:00 Ondansetron 4 Mg/2 Ml Inj IV Q8H PRN Nausea And Vomiting Oxycodone/Acetaminophen 1 tab 03/22/21 10:00 03/22/21 23:36 Oxycodone /Acetaminophen 5-325mg Tab PO 1 tab Q6H PRN Administration Pain, Moderate (4-6) Sodium Chloride 10 ml 03/22/21 10:00 03/25/21 10:17 Sodium Chloride 0.9% 10 Ml Flush Syringe IV 10 ml BID CHAS Administration Sodium Chloride 10 ml 03/22/21 10:00 Sodium Chloride 0.9% 10 Ml Flush Syringe IV PRN PRN LINE FLUSH
--- NOTE | 2021-03-25 17:06 | Cat Scan Report ---
CT BRAIN: 03/25/2021 INDICATION / CLINICAL INFORMATION: AMS, BEST IMAGES POSSIBLE. PATIENT DIDNT FOLLOW COMMANDS. COMPARISON: CT brain 02/01/2021 FINDINGS: BRAIN/INTRACRANIAL STRUCTURES: Unenhanced CT images of the brain demonstrate no evidence of acute abn ormality. Ventricles and sulci are prominent in size, consistent with diffuse cerebral atrophy. There is no CT evidence of acute large vessel territory ischemic injury, hemorrhage, or mass. There a re no abnormal extra-axial fluid collection. Overall, there is been no significant change when compared to 02/01/2021. EXTRACRANIAL STRUCTURES: Unremarkable. IMPRESSION: No acute abnormality. No change when compared to the prior exam. All CT scans at this location are performed using dose reduction to ALARA by means of automated expos ure control. Signer Name: Hunter Loya MD Signed: 03/25/2021 5:02 PM Workstation Name: [id number]
[2021-03-26] MEDS: INSULIN LISPRO 100 UNIT/ML SUB-Q SCH ×4 (05:43→18:00)
[2021-03-26] MEDS: HEPARIN 5,000 UNIT/1 ML VIAL SUB-Q SCH ×3 (06:17→22:04)
[2021-03-26 06:41] LABS: Hematocrit 34.8 % (30.3-42.9); Hemoglobin 11.9 gm/dl (10.1-14.3); Mean Corpuscular HGB Conc 34 % (30-34); Mean Corpuscular Volume 99 fl (79-97); Platelet Count 112 K/mm3 (140-440); Red Blood Count 3.51 M/mm3 (3.65-5.03); Red Cell Distribution Width 14.2 % (13.2-15.2)
[2021-03-26 07:05] LABS: Calcium 8.4 mg/dL (8.4-10.2)
[2021-03-26] MEDS: FAMOTIDINE 10 MG TAB PO SCH ×2 (11:06→22:04)
[2021-03-26] MEDS: amLODIPine 10 MG TAB PO SCH (11:06)
[2021-03-26] MEDS: levETIRAcetam 500 MG TAB PO SCH ×2 (11:07→22:05)
[2021-03-26] MEDS: carBAMazepine 200 MG TAB PO SCH ×2 (11:07→22:04)
--- NOTE | 2021-03-26 11:14 | Progress Note ---
Assessment and Plan Impression * Acute kidney injury * Atypical chest pain * Hypertension * Diabetes * Seizure disorder Recommendations * Etiology of acute kidney injury unclear. She may have a prerenal component. Need to rule out other causes of ALLAN as well * Urine studies are still pending. Shall reorder * Follow-up results of vasculitis work-up. Hepatitis B and C both are negative * Avoid nephrotoxins * Monitor fluid status and electrolytes closely * No urgent indication for dialysis * Renal ultrasound is essentially normal * Renal function is slowly improving * No objection to discharge from renal standpoint. However she will need outpatient renal follow-up Subjective Date of service: 03/26/21 Principal diagnosis: seizures Interval history: Patient is comfortable. Unable to get history due to language barrier Objective - Vital Signs Vital signs: Vital Signs - 12hr 03/26/21 05:52 Temperature 97.5 F L Pulse Rate 75 Respiratory 20 Rate Blood Pressure 134/55 O2 Sat by Pulse 100 Oximetry - General Appearance General appearance: well-developed, well-nourished, appears stated age EENT: PERRL, mucous membranes moist Neck: no JVD, no thyromegaly, no carotid bruit, supple Respiratory: Present: Clear to Ascultation Cardiology: regular, normal heart rate, S1S2, no murmurs Gastrointestinal: normal, normoactive bowel sounds Integumentary: no rash, other (No edema) - Lab 03/26/21 05:51 03/26/21 05:51 Most recent lab results Calcium 8.4 mg/dL (8.4-10.2) 03/26/21 05:51 Phosphorus 3.30 mg/dL (2.5-4.5) 03/24/21 05:48 Magnesium 2.00 mg/dL (1.7-2.3) 03/24/21 05:48 Medications & Allergies - Medications Allergies/Adverse Reactions: Allergies No Known Allergies Allergy (Verified 02/02/21 09:38) Home Medications: Home Medications Medication Instructions Recorded Confirmed Last Taken Type ALBUTEROL NEB's [Proventil 0.083% 2.5 mg IH Q4HRT PRN #1 nebu 09/23/20 03/22/21 01/31/21 Rx NEBS] Albuterol Mdi (or & Nicu Only) 2 puff IH QID PRN #8.5 gram 02/05/21 03/22/21 Unknown Rx [ProAir HFA Inhaler] AtorvaSTATin [Lipitor] 20 mg PO QHS 02/05/21 03/22/21 Unknown History Pantoprazole [Protonix TAB] 40 mg PO QDAC #14 tablet 02/05/21 03/22/21 Unknown Rx Sodium Chloride 1 gm PO BID #14 tablet 02/05/21 03/22/21 Unknown Rx amLODIPine 10 mg PO DAILY 02/05/21 03/22/21 Unknown History carBAMazepine [TEGretol] 200 mg PO Q12HR #60 tablet 02/05/21 03/22/21 Unknown Rx levETIRAcetam [Keppra TAB] 500 mg PO BID #60 tablet 02/05/21 03/22/21 Unknown Rx Metoclopramide [Reglan TAB] 1 tab PO Q6H PRN 03/22/21 03/22/21 Unknown History Metoprolol [Lopressor TAB] 0.5 tab PO BID 03/22/21 03/22/21 Unknown History Active Medications: Generic Name Dose Route Start Last Admin Trade Name Freq PRN Reason Stop Dose Admin Acetaminophen 650 mg 03/22/21 10:00 Acetaminophen 325 Mg Tab PO Q4H PRN Pain MILD(1-3)/Fever >100.5/[place] Amlodipine Besylate 10 mg 03/22/21 14:00 03/26/21 11:06 Amlodipine 10 Mg Tab PO 10 mg QDAY CHAS Administration Atorvastatin Calcium 20 mg 03/22/21 22:00 03/25/21 23:00 Atorvastatin 20 Mg Tab PO 20 mg QHS CHAS Administration Carbamazepine 200 mg 03/22/21 22:00 03/26/21 11:07 Carbamazepine 200 Mg Tab PO 200 mg BID CHAS Administration Dextrose 50 ml 03/22/21 22:42 Dextrose 50% In Water (25gm) 50 Ml Syringe IV Q30MIN PRN Hypoglycemia Protocol Famotidine 10 mg 03/23/21 13:00 03/26/21 11:06 Famotidine 10 Mg Tab PO 10 mg BID CHAS Administration Heparin Sodium (Porcine) 5,000 unit 03/22/21 10:00 03/26/21 06:17 Heparin 5,000 Unit/1 Ml Vial SUB-Q 5,000 unit Q8HR CHAS Administration Insulin Human Lispro 0 unit 03/23/21 00:00 03/26/21 06:01 Insulin Lispro 100 Unit/Ml SUB-Q Not Given Q6HR CHAS Protocol Levetiracetam 500 mg 03/22/21 22:00 03/26/21 11:07 Levetiracetam 500 Mg Tab PO 500 mg BID CHAS Administration Lorazepam 2 mg 03/23/21 16:00 03/24/21 14:48 Lorazepam 2 Mg Tab PO 2 mg Q1HR PRN Administration CIWA-Ar 8-15 Lorazepam 4 mg 03/23/21 16:00 Lorazepam 2 Mg Tab PO Q1HR PRN CIWA-Ar 16-25 Lorazepam 4 mg 03/23/21 16:00 Lorazepam 2 Mg/Ml Vial IV Q15MIN PRN CIWA-Ar >25 Magnesium Hydroxide 30 ml 03/22/21 10:00 Magnesium Hydroxide (Mom) Oral Liqd Udc PO Q4H PRN Constipation Morphine Sulfate 4 mg 03/22/21 10:00 03/23/21 13:16 Morphine 4 Mg/1 Ml Inj IV 4 mg Q4H PRN Administration Pain , Severe (7-10) Naloxone HCl 0.1 mg 03/22/21 10:00 Naloxone 0.4 Mg/1 Ml Inj IV Q2MIN PRN Res Rate </= 8 or 02 SAT < 92% Ondansetron HCl 4 mg 03/22/21 10:00 Ondansetron 4 Mg/2 Ml Inj IV Q8H PRN Nausea And Vomiting Oxycodone/Acetaminophen 1 tab 03/22/21 10:00 03/22/21 23:36 Oxycodone /Acetaminophen 5-325mg Tab PO 1 tab Q6H PRN Administration Pain, Moderate (4-6) Sodium Chloride 10 ml 03/22/21 10:00 03/26/21 11:07 Sodium Chloride 0.9% 10 Ml Flush Syringe IV 10 ml BID CHAS Administration Sodium Chloride 10 ml 03/22/21 10:00 Sodium Chloride 0.9% 10 Ml Flush Syringe IV PRN PRN LINE FLUSH
--- NOTE | 2021-03-26 11:23 | Progress Note ---
Assessment and Plan Assessment and plan: #Acute encephalopathy -improving -CT head ordered -TSH, folate WNL -B12 elevated -ammonia high, will give a dose of lactulose -will continue to monitor #ALLAN -SCr 1.9 today -Renal US, urine electrolytes & UA ordered -continue gentle IVFs -Nephrology consulted, assistance appreciated #Seizure disorder -continue Keppra and carbamazepine at home doses #Hypertension -continue amlodipine #Left ovarian cyst -Measuring 10 cm, unchanged from previous study -Will need outpatient follow-up #Type 2 diabetes -Hemoglobin A1c 7.2% -Goal glucose one 140-180 while inpatient -Sliding scale + Accu-Cheks #Chest pain, atypical- resolved -Stress test negative, will continue with medical optimization -Patient reported pain to be epigastric/abdominal in nature -CT abdomen pelvis without contrast shows large hiatal hernia, and large left ovarian cyst #Alcohol dependence -Patient reports to drink 1 can of beer per day -Attempts at counseling were refused -continue CIWA protocol PRN Disposition Plan: Pending PT evaluation Total Time Spent with Patient (Minutes): 20 minutes History Interval history: No acute events overnight. Patient sleep but rousable. More alert today. Hospitalist Physical - Physical exam Narrative exam: GENERAL: Thin elderly woman. Lying bed in no acute distress. CHEST/LUNGS: CTAB on 2 L nasal cannula HEART/CARDIOVASCULAR: RRR. No murmur, rubs or gallops appreciated. ABDOMEN: +BS. NT/ND EXTREMITIES: No cyanosis, clubbing or edema. PSYCH: Cooperative. - Constitutional Vitals: Temp Pulse Resp BP Pulse Ox 97.5 F L 75 20 134/55 100 03/26/21 05:52 03/26/21 05:52 03/26/21 05:52 03/26/21 05:52 03/26/21 05:52 General appearance: Present: no acute distress HEART Score - HEART Score EKG: Normal Age: > 65 Risk factors: 1-2 risk factors Troponin: Troponin T < 0.010 ng/mL (0.00-0.029) 03/22/21 15:11 Troponin: < normal limit Results - Labs CBC & Chem 7: 03/26/21 05:51 03/26/21 05:51 Labs: Laboratory Last Values WBC 5.3 K/mm3 (4.5-11.0) 03/26/21 05:51 RBC 3.51 M/mm3 (3.65-5.03) L 03/26/21 05:51 Hgb 11.9 gm/dl (10.1-14.3) 03/26/21 05:51 Hct 34.8 % (30.3-42.9) 03/26/21 05:51 MCV 99 fl (79-97) H 03/26/21 05:51 MCH 34 pg (28-32) H 03/26/21 05:51 MCHC 34 % (30-34) 03/26/21 05:51 RDW 14.2 % (13.2-15.2) 03/26/21 05:51 Plt Count 112 K/mm3 (140-440) L 03/26/21 05:51 Lymph % (Auto) 18.1 % (13.4-35.0) 03/22/21 04:04 [place] % (Auto) 3.2 % (0.0-7.3) 03/22/21 04:04 Eos % (Auto) 0.2 % (0.0-4.3) 03/22/21 04:04 Baso % (Auto) 0.5 % (0.0-1.8) 03/22/21 04:04 Lymph # (Auto) 1.3 K/mm3 (1.2-5.4) 03/22/21 04:04 [place] # (Auto) 0.2 K/mm3 (0.0-0.8) 03/22/21 04:04 Eos # (Auto) 0.0 K/mm3 (0.0-0.4) 03/22/21 04:04 Baso # (Auto) 0.0 K/mm3 (0.0-0.1) 03/22/21 04:04 Seg Neutrophils % 78.0 % (40.0-70.0) H 03/22/21 04:04 Seg Neutrophils # 5.4 K/mm3 (1.8-7.7) 03/22/21 04:04 PT 22.4 Sec. (12.2-14.9) H 03/22/21 04:04 INR 1.90 (0.87-1.13) H 03/22/21 04:04 Sodium 141 mmol/L (137-145) 03/26/21 05:51 Potassium 3.6 mmol/L (3.6-5.0) 03/26/21 05:51 Chloride 106.9 mmol/L (98-107) 03/26/21 05:51 Carbon Dioxide 23 mmol/L (22-30) 03/26/21 05:51 Anion Gap 15 mmol/L 03/26/21 05:51 BUN 24 mg/dL (7-17) H 03/26/21 05:51 Creatinine 1.9 mg/dL (0.6-1.2) H 03/26/21 05:51 Estimated GFR 26 ml/min 03/26/21 05:51 BUN/Creatinine Ratio 13 % 03/26/21 05:51 Glucose 109 mg/dL (65-100) H 03/26/21 05:51 POC Glucose 99 mg/dL (70-105) 03/26/21 11:05 Hemoglobin A1c 7.2 % (4-6) H 03/22/21 04:04 Calcium 8.4 mg/dL (8.4-10.2) 03/26/21 05:51 Phosphorus 3.30 mg/dL (2.5-4.5) 03/24/21 05:48 Magnesium 2.00 mg/dL (1.7-2.3) 03/24/21 05:48 Ammonia 102.0 umol/L (25-60) H 03/25/21 16:41 Total Creatine Kinase 90 units/L (30-135) 03/22/21 04:04 CK-MB (CK-2) 2.8 ng/mL (0.0-4.0) 03/22/21 04:04 CK-MB (CK-2) Rel Index 3.1 (0-4) 03/22/21 04:04 Troponin T < 0.010 ng/mL (0.00-0.029) 03/22/21 15:11 Triglycerides 471 mg/dL (2-149) H 03/22/21 04:04 Cholesterol 212 mg/dL (50-199) H 03/22/21 04:04 LDL Cholesterol Direct TNR 03/22/21 04:04 HDL Cholesterol 68 mg/dL (40-59) H 03/22/21 04:04 Cholesterol/HDL Ratio 3.11 % 03/22/21 04:04 Lipase 88 units/L (13-60) H 03/22/21 04:04 Vitamin B12 2000 pg/mL (211-911) H 03/25/21 16:41 Folate 14.56 ng/mL (7.3-26.0) 03/25/21 16:41 TSH 2.060 mlU/mL (0.270-4.200) 03/25/21 16:41 Free T4 0.84 ng/dL (0.76-1.46) 03/25/21 16:41 Plasma/Serum Alcohol < 0.01 % (0-0.07) 03/22/21 04:04 Hepatitis A IgM Ab Non-reactive (NonReactive) 03/24/21 15:42 Hep Bs Antigen Nonreactive (Negative) 03/24/21 15:42 Hep B Core IgM Ab Non-reactive (NonReactive) 03/24/21 15:42 Hepatitis C Antibody Nonreactive (NonReactive) 03/24/21 15:42 [place]/IV: Voiding Method Diaper Active Medications - Current Medications Current Medications: Generic Name Dose Route Start Last Admin Trade Name Freq PRN Reason Stop Dose Admin Acetaminophen 650 mg 03/22/21 10:00 Acetaminophen 325 Mg Tab PO Q4H PRN Pain MILD(1-3)/Fever >100.5/[place] Amlodipine Besylate 10 mg 03/22/21 14:00 03/26/21 11:06 Amlodipine 10 Mg Tab PO 10 mg QDAY CHAS Administration Atorvastatin Calcium 20 mg 03/22/21 22:00 03/25/21 23:00 Atorvastatin 20 Mg Tab PO 20 mg QHS CHAS Administration Carbamazepine 200 mg 03/22/21 22:00 03/26/21 11:07 Carbamazepine 200 Mg Tab PO 200 mg BID CHAS Administration Dextrose 50 ml 03/22/21 22:42 Dextrose 50% In Water (25gm) 50 Ml Syringe IV Q30MIN PRN Hypoglycemia Protocol Famotidine 10 mg 03/23/21 13:00 03/26/21 11:06 Famotidine 10 Mg Tab PO 10 mg BID CHAS Administration Heparin Sodium (Porcine) 5,000 unit 03/22/21 10:00 03/26/21 06:17 Heparin 5,000 Unit/1 Ml Vial SUB-Q 5,000 unit Q8HR CHAS Administration Insulin Human Lispro 0 unit 03/23/21 00:00 03/26/21 06:01 Insulin Lispro 100 Unit/Ml SUB-Q Not Given Q6HR [facility] Protocol Levetiracetam 500 mg 03/22/21 22:00 03/26/21 11:07 Levetiracetam 500 Mg Tab PO 500 mg BID CHAS Administration Lorazepam 2 mg 03/23/21 16:00 03/24/21 14:48 Lorazepam 2 Mg Tab PO 2 mg Q1HR PRN Administration CIWA-Ar 8-15 Lorazepam 4 mg 03/23/21 16:00 Lorazepam 2 Mg Tab PO Q1HR PRN CIWA-Ar 16-25 Lorazepam 4 mg 03/23/21 16:00 Lorazepam 2 Mg/Ml Vial IV Q15MIN PRN CIWA-Ar >25 Magnesium Hydroxide 30 ml 03/22/21 10:00 Magnesium Hydroxide (Mom) Oral Liqd Udc PO Q4H PRN Constipation Morphine Sulfate 4 mg 03/22/21 10:00 03/23/21 13:16 Morphine 4 Mg/1 Ml Inj IV 4 mg Q4H PRN Administration Pain , Severe (7-10) Naloxone HCl 0.1 mg 03/22/21 10:00 Naloxone 0.4 Mg/1 Ml Inj IV Q2MIN PRN Res Rate </= 8 or 02 SAT < 92% Ondansetron HCl 4 mg 03/22/21 10:00 Ondansetron 4 Mg/2 Ml Inj IV Q8H PRN Nausea And Vomiting Oxycodone/Acetaminophen 1 tab 03/22/21 10:00 03/22/21 23:36 Oxycodone /Acetaminophen 5-325mg Tab PO 1 tab Q6H PRN Administration Pain, Moderate (4-6) Sodium Chloride 10 ml 03/22/21 10:00 03/26/21 11:07 Sodium Chloride 0.9% 10 Ml Flush Syringe IV 10 ml BID CHAS Administration Sodium Chloride 10 ml 03/22/21 10:00 Sodium Chloride 0.9% 10 Ml Flush Syringe IV PRN PRN LINE FLUSH Nutrition/Malnutrition Assess - Dietary Evaluation Nutrition/Malnutrition Findings: Nutrition Notes Start: 03/23/21 12:32 Freq: Status: Active Protocol: Document 03/25/21 12:06 AURELIA (Rec: 03/25/21 12:29 [email or web address] [id number]) Nutrition Notes Need for Assessment generated from: him clerk Initial or Follow up Reassessment Current Diagnosis Acute Kidney Injury, Hypertension Other Pertinent Diagnosis Accute Kidney Failure Current Diet Pureed Diet (since D 03/24). Labs/Tests 03/25: CO2 21, BUN 28, Cr 2.1, Glu 151. Pertinent Medications 03/25: Nutritionally unremarkable. Height 5 ft Weight 45.8 kg [place] Body Weight (kg) 45.45 BMI 19.7 Weight Status Appropriate Percent of energy/protein needs met: Prescribed Pureed Diet provides with energy/protein needs (1,804 Kcal/77 g) during LOS. Burn Absent Trauma Absent GI Symptoms None Food Allergy No Skin Integrity/Comment Integumentary; clear, warm, dry. Current % PO Fair (50-74%) Minimum of two criteria No physical signs of malnutrition #1 Nutrition Diagnosis No nutrition diagnosis at this time Comments: Pt shows acceptance of PO intake of prescribed diet, as per ADL Notes. Is patient on ventilator? No Is Patient Ambulatory and/or Out of Bed Yes REE-([place]-St. Jeor-ambulatory/OOB) [ 1162.850 [id number]] Kcal/Kg value to use for calculation 25 Approximate Energy Requirements Using 1145 kcal/Kg Calculation Used for Recommendations Kcal/kg Additional Notes Protein: 0.8-1.0 g/Kg/day; 36- 45 g/day; 144-180 Kcal/day ( from IBW). Fluids: 1.0 ml/Kcal/day, or as per MD. Nutrition Intervention Change Diet Order: Continue Pureed Diet, or as per MD. Goal #1 Maintain body weight within +/ -3% of current BWt during LOS. Goal #2 Reach and maintain acceptable chemistry lab values during LOS. Follow-Up By: 04/01/21 Additional Comments Continue monitoring acceptance of foods, % PO intake of meals, Hydration, and BM.
[2021-03-26] MEDS: LACTULOSE 20 GM/30 ML ORAL LIQD PO SCH (13:19)
[2021-03-26] MEDS: LACTATED RINGERS 1,000 ML IV SCH (13:23)
[2021-03-26] MEDS: LORazepam 2 MG TAB PO PRN (22:05)
[2021-03-27] MEDS: INSULIN LISPRO 100 UNIT/ML SUB-Q SCH ×5 (00:09→23:07)
[2021-03-27 01:23] LABS: Creatinine,Urine 70.3 mg/dL (0.1-20.0)
[2021-03-27 01:26] LABS: Fractional Sodium Excretion 1.7
[2021-03-27 01:58] LABS: Bacteria,Urine 1+ /HPF (Negative); Bilirubin,Urine NEG (Negative); Blood,Urine SM (Negative); Color,Urine Yellow (Yellow); Mucus,Urine FEW /HPF; Protein,Urine <15 mg/dL mg/dL (Negative); Urobilinogen,Urine < 2.0 mg/dL (<2.0)
[2021-03-27] MEDS: LACTATED RINGERS 1,000 ML IV SCH ×2 (06:01→19:24)
[2021-03-27] MEDS: HEPARIN 5,000 UNIT/1 ML VIAL SUB-Q SCH ×3 (06:04→22:33)
[2021-03-27 06:25] LABS: Calcium 8.7 mg/dL (8.4-10.2)
[2021-03-27] MEDS ORDERED: POTASSIUM CHLORIDE ER 20 MEQ TAB PO NR (09:00)
[2021-03-27] MEDS: LORazepam 2 MG/ML VIAL IV PRN ×2 (10:33→23:48)
[2021-03-27] MEDS: carBAMazepine 200 MG TAB PO SCH ×2 (10:51→22:33)
[2021-03-27] MEDS: amLODIPine 10 MG TAB PO SCH (10:53)
[2021-03-27] MEDS: LACTULOSE 20 GM/30 ML ORAL LIQD PO SCH (10:53)
[2021-03-27] MEDS: levETIRAcetam 500 MG TAB PO SCH ×2 (10:54→22:33)
[2021-03-27] MEDS: FAMOTIDINE 10 MG TAB PO SCH ×2 (10:54→22:33)
--- NOTE | 2021-03-27 13:09 | Progress Note ---
Assessment and Plan Impression * Acute kidney injury * Atypical chest pain * Hypertension * Diabetes * Seizure disorder Recommendations * Etiology of acute kidney injury unclear. She may have a prerenal component. Need to rule out other causes of ALLAN as well * Urine studies are still pending. I had reordered it yesterday * Follow-up results of vasculitis work-up. Hepatitis B and C both are negative * Avoid nephrotoxins * Monitor fluid status and electrolytes closely * No urgent indication for dialysis * Renal ultrasound is essentially normal * Renal function is slowly improving Subjective Date of service: 03/27/21 Principal diagnosis: seizures Interval history: Patient appears comfortable today. Oral intake is very poor. Pured lunch at bedside. It appears that patient has not touched it yet Objective - Vital Signs Vital signs: Vital Signs - 12hr 03/27/21 03/27/21 05:23 08:15 Temperature 98.2 F Pulse Rate 70 Respiratory 18 Rate Blood Pressure 160/76 O2 Sat by Pulse 100 96 Oximetry - General Appearance General appearance: well-developed, well-nourished, appears stated age EENT: PERRL, mucous membranes moist Neck: no JVD, no thyromegaly, no carotid bruit, supple Respiratory: Present: Clear to Ascultation Cardiology: regular, normal heart rate Gastrointestinal: normal, normoactive bowel sounds Integumentary: other (No edema) - Lab 03/26/21 05:51 03/27/21 05:31 Most recent lab results Calcium 8.7 mg/dL (8.4-10.2) 03/27/21 05:31 Phosphorus 3.30 mg/dL (2.5-4.5) 03/24/21 05:48 Magnesium 2.00 mg/dL (1.7-2.3) 03/24/21 05:48 Urine Creatinine 70.3 mg/dL (0.1-20.0) H 03/26/21 01:00 Urine Sodium 121 mmol/L 03/26/21 01:00 Medications & Allergies - Medications Allergies/Adverse Reactions: Allergies No Known Allergies Allergy (Verified 02/02/21 09:38) Home Medications: Home Medications Medication Instructions Recorded Confirmed Last Taken Type ALBUTEROL NEB's [Proventil 0.083% 2.5 mg IH Q4HRT PRN #1 nebu 09/23/20 03/22/21 01/31/21 Rx NEBS] Albuterol Mdi (or & Nicu Only) 2 puff IH QID PRN #8.5 gram 02/05/21 03/22/21 Unknown Rx [ProAir HFA Inhaler] AtorvaSTATin [Lipitor] 20 mg PO QHS 02/05/21 03/22/21 Unknown History Pantoprazole [Protonix TAB] 40 mg PO QDAC #14 tablet 02/05/21 03/22/21 Unknown Rx Sodium Chloride 1 gm PO BID #14 tablet 02/05/21 03/22/21 Unknown Rx amLODIPine 10 mg PO DAILY 02/05/21 03/22/21 Unknown History carBAMazepine [TEGretol] 200 mg PO Q12HR #60 tablet 02/05/21 03/22/21 Unknown Rx levETIRAcetam [Keppra TAB] 500 mg PO BID #60 tablet 02/05/21 03/22/21 Unknown Rx Metoclopramide [Reglan TAB] 1 tab PO Q6H PRN 03/22/21 03/22/21 Unknown History Metoprolol [Lopressor TAB] 0.5 tab PO BID 03/22/21 03/22/21 Unknown History Active Medications: Generic Name Dose Route Start Last Admin Trade Name Freq PRN Reason Stop Dose Admin Acetaminophen 650 mg 03/22/21 10:00 Acetaminophen 325 Mg Tab PO Q4H PRN Pain MILD(1-3)/Fever >100.5/[place] Amlodipine Besylate 10 mg 03/22/21 14:00 03/27/21 10:53 Amlodipine 10 Mg Tab PO 10 mg QDAY CHAS Administration Atorvastatin Calcium 20 mg 03/22/21 22:00 03/26/21 22:04 Atorvastatin 20 Mg Tab PO 20 mg QHS CHAS Administration Carbamazepine 200 mg 03/22/21 22:00 03/27/21 10:51 Carbamazepine 200 Mg Tab PO 200 mg BID CHAS Administration Dextrose 50 ml 03/22/21 22:42 Dextrose 50% In Water (25gm) 50 Ml Syringe IV Q30MIN PRN Hypoglycemia Protocol Famotidine 10 mg 03/23/21 13:00 03/27/21 10:54 Famotidine 10 Mg Tab PO 10 mg BID CHAS Administration Heparin Sodium (Porcine) 5,000 unit 03/22/21 10:00 03/27/21 06:04 Heparin 5,000 Unit/1 Ml Vial SUB-Q 5,000 unit Q8HR CHAS Administration Lactated Ringer's 1,000 mls @ 75 mls/hr 03/26/21 12:30 03/27/21 06:01 Lactated Ringers IV 75 mls/hr DIRECT CHAS Administration Insulin Human Lispro 0 unit 03/27/21 11:30 Insulin Lispro 100 Unit/Ml SUB-Q ACHS CHAS Protocol Lactulose 10 gm 03/26/21 12:30 03/27/21 10:53 Lactulose 20 Gm/30 Ml Oral Liqd PO 10 gm QDAY CHAS Administration Levetiracetam 500 mg 03/22/21 22:00 03/27/21 10:54 Levetiracetam 500 Mg Tab PO 500 mg BID CHAS Administration Lorazepam 2 mg 03/23/21 16:00 03/26/21 22:05 Lorazepam 2 Mg Tab PO 2 mg Q1HR PRN Administration CIWA-Ar 8-15 Lorazepam 4 mg 03/23/21 16:00 Lorazepam 2 Mg Tab PO Q1HR PRN CIWA-Ar 16-25 Lorazepam 4 mg 03/23/21 16:00 03/27/21 10:33 Lorazepam 2 Mg/Ml Vial IV 4 mg Q15MIN PRN Administration CIWA-Ar >25 Magnesium Hydroxide 30 ml 03/22/21 10:00 Magnesium Hydroxide (Mom) Oral Liqd Udc PO Q4H PRN Constipation Morphine Sulfate 4 mg 03/22/21 10:00 03/23/21 13:16 Morphine 4 Mg/1 Ml Inj IV 4 mg Q4H PRN Administration Pain , Severe (7-10) Naloxone HCl 0.1 mg 03/22/21 10:00 Naloxone 0.4 Mg/1 Ml Inj IV Q2MIN PRN Res Rate </= 8 or 02 SAT < 92% Ondansetron HCl 4 mg 03/22/21 10:00 Ondansetron 4 Mg/2 Ml Inj IV Q8H PRN Nausea And Vomiting Oxycodone/Acetaminophen 1 tab 03/22/21 10:00 03/22/21 23:36 Oxycodone /Acetaminophen 5-325mg Tab PO 1 tab Q6H PRN Administration Pain, Moderate (4-6) Sodium Chloride 10 ml 03/22/21 10:00 03/27/21 10:54 Sodium Chloride 0.9% 10 Ml Flush Syringe IV 10 ml BID CHAS Administration Sodium Chloride 10 ml 03/22/21 10:00 Sodium Chloride 0.9% 10 Ml Flush Syringe IV PRN PRN LINE FLUSH
--- NOTE | 2021-03-27 13:41 | Progress Note ---
Assessment and Plan Assessment and plan: #Acute encephalopathy -improving -CT head ordered -TSH, folate WNL -B12 elevated -ammonia high, will give a dose of lactulose -will continue to monitor #ALLAN -SCr 1.9 today -Renal US, urine electrolytes & UA ordered -continue gentle IVFs -Nephrology consulted, assistance appreciated -will need outpatient follow up #Seizure disorder -continue Keppra and carbamazepine at home doses #Hypertension -continue amlodipine #Left ovarian cyst -Measuring 10 cm, unchanged from previous study -Will need outpatient follow-up #Type 2 diabetes -Goal glucose one 140-180 while inpatient -Sliding scale + Accu-Cheks #Chest pain, atypical- resolved -Stress test negative, will continue with medical optimization -Patient reported pain to be epigastric/abdominal in nature -CT abdomen pelvis without contrast shows large hiatal hernia, and large left ovarian cyst #Alcohol dependence -Patient reports to drink 1 can of beer per day -Attempts at counseling were refused -continue CIWA protocol PRN #Debility -patient evaluated by physical therapy, recommendation for SNF -discussed with patient's daughter Kathie, agreeable to discharge to SNF -CM consult for discharge planning Disposition Plan: SNF Total Time Spent with Patient (Minutes): 20 minutes History Interval history: No acute events overnight. Patient sleep but rousable. More alert today. Hospitalist Physical - Physical exam Narrative exam: GENERAL: Thin elderly woman. Lying bed in no acute distress. CHEST/LUNGS: CTAB on room air HEART/CARDIOVASCULAR: RRR. No murmur, rubs or gallops appreciated. ABDOMEN: +BS. NT/ND EXTREMITIES: No cyanosis, clubbing or edema. PSYCH: Cooperative. - Constitutional Vitals: Temp Pulse Resp BP Pulse Ox 98.2 F 70 18 160/76 96 03/27/21 05:23 03/27/21 05:23 03/27/21 05:23 03/27/21 05:23 03/27/21 08:15 General appearance: Present: no acute distress HEART Score - HEART Score EKG: Normal Age: > 65 Risk factors: 1-2 risk factors Troponin: Troponin T < 0.010 ng/mL (0.00-0.029) 03/22/21 15:11 Troponin: < normal limit Results - Labs CBC & Chem 7: 03/26/21 05:51 03/27/21 05:31 Labs: Laboratory Last Values WBC 5.3 K/mm3 (4.5-11.0) 03/26/21 05:51 RBC 3.51 M/mm3 (3.65-5.03) L 03/26/21 05:51 Hgb 11.9 gm/dl (10.1-14.3) 03/26/21 05:51 Hct 34.8 % (30.3-42.9) 03/26/21 05:51 MCV 99 fl (79-97) H 03/26/21 05:51 MCH 34 pg (28-32) H 03/26/21 05:51 MCHC 34 % (30-34) 03/26/21 05:51 RDW 14.2 % (13.2-15.2) 03/26/21 05:51 Plt Count 112 K/mm3 (140-440) L 03/26/21 05:51 Lymph % (Auto) 18.1 % (13.4-35.0) 03/22/21 04:04 [place] % (Auto) 3.2 % (0.0-7.3) 03/22/21 04:04 Eos % (Auto) 0.2 % (0.0-4.3) 03/22/21 04:04 Baso % (Auto) 0.5 % (0.0-1.8) 03/22/21 04:04 Lymph # (Auto) 1.3 K/mm3 (1.2-5.4) 03/22/21 04:04 [place] # (Auto) 0.2 K/mm3 (0.0-0.8) 03/22/21 04:04 Eos # (Auto) 0.0 K/mm3 (0.0-0.4) 03/22/21 04:04 Baso # (Auto) 0.0 K/mm3 (0.0-0.1) 03/22/21 04:04 Seg Neutrophils % 78.0 % (40.0-70.0) H 03/22/21 04:04 Seg Neutrophils # 5.4 K/mm3 (1.8-7.7) 03/22/21 04:04 PT 22.4 Sec. (12.2-14.9) H 03/22/21 04:04 INR 1.90 (0.87-1.13) H 03/22/21 04:04 Sodium 141 mmol/L (137-145) 03/27/21 05:31 Potassium 3.3 mmol/L (3.6-5.0) L 03/27/21 05:31 Chloride 106.2 mmol/L (98-107) 03/27/21 05:31 Carbon Dioxide 22 mmol/L (22-30) 03/27/21 05:31 Anion Gap 16 mmol/L 03/27/21 05:31 BUN 20 mg/dL (7-17) H 03/27/21 05:31 Creatinine 1.8 mg/dL (0.6-1.2) H 03/27/21 05:31 Estimated GFR 28 ml/min 03/27/21 05:31 BUN/Creatinine Ratio 11 % 03/27/21 05:31 Glucose 118 mg/dL (65-100) H 03/27/21 05:31 POC Glucose 175 mg/dL (70-105) H 03/27/21 12:18 Hemoglobin A1c 7.2 % (4-6) H 03/22/21 04:04 Calcium 8.7 mg/dL (8.4-10.2) 03/27/21 05:31 Phosphorus 3.30 mg/dL (2.5-4.5) 03/24/21 05:48 Magnesium 2.00 mg/dL (1.7-2.3) 03/24/21 05:48 Ammonia 102.0 umol/L (25-60) H 03/25/21 16:41 Total Creatine Kinase 90 units/L (30-135) 03/22/21 04:04 CK-MB (CK-2) 2.8 ng/mL (0.0-4.0) 03/22/21 04:04 CK-MB (CK-2) Rel Index 3.1 (0-4) 03/22/21 04:04 Troponin T < 0.010 ng/mL (0.00-0.029) 03/22/21 15:11 Triglycerides 471 mg/dL (2-149) H 03/22/21 04:04 Cholesterol 212 mg/dL (50-199) H 03/22/21 04:04 LDL Cholesterol Direct TNR 03/22/21 04:04 HDL Cholesterol 68 mg/dL (40-59) H 03/22/21 04:04 Cholesterol/HDL Ratio 3.11 % 03/22/21 04:04 Lipase 88 units/L (13-60) H 03/22/21 04:04 Vitamin B12 2000 pg/mL (211-911) H 03/25/21 16:41 Folate 14.56 ng/mL (7.3-26.0) 03/25/21 16:41 TSH 2.060 mlU/mL (0.270-4.200) 03/25/21 16:41 Free T4 0.84 ng/dL (0.76-1.46) 03/25/21 16:41 Urine Color Yellow (Yellow) 03/26/21 01:00 Urine Turbidity Clear (Clear) 03/26/21 01:00 Urine pH 6.0 (5.0-7.0) 03/26/21 01:00 Ur Specific [place] 1.011 (1.003-1.030) 03/26/21 01:00 Urine Protein <15 mg/dl mg/dL (Negative) 03/26/21 01:00 Urine Glucose (UA) Neg mg/dL (Negative) 03/26/21 01:00 Urine Ketones Neg mg/dL (Negative) 03/26/21 01:00 Urine Blood Sm (Negative) 03/26/21 01:00 Urine Nitrite Neg (Negative) 03/26/21 01:00 Urine Bilirubin Neg (Negative) 03/26/21 01:00 Urine Urobilinogen < 2.0 mg/dL (<2.0) 03/26/21 01:00 Ur Leukocyte Esterase Tr (Negative) 03/26/21 01:00 Urine WBC (Auto) 3.0 /HPF (0.0-6.0) 03/26/21 01:00 Urine RBC (Auto) 1.0 /HPF (0.0-6.0) 03/26/21 01:00 U Epithel Cells (Auto) 3.0 /HPF (0-13.0) 03/26/21 01:00 Urine Bacteria (Auto) 1+ /HPF (Negative) 03/26/21 01:00 Urine Mucus Few /HPF 03/26/21 01:00 Urine Eosinophils <5% (None Seen) 03/24/21 01:00 Urine Creatinine 70.3 mg/dL (0.1-20.0) H 03/26/21 01:00 Urine Sodium 121 mmol/L 03/26/21 01:00 Fraction Sodium Excret 1.7 03/26/21 01:00 Plasma/Serum Alcohol < 0.01 % (0-0.07) 03/22/21 04:04 Hepatitis A IgM Ab Non-reactive (NonReactive) 03/24/21 15:42 Hep Bs Antigen Nonreactive (Negative) 03/24/21 15:42 Hep B Core IgM Ab Non-reactive (NonReactive) 03/24/21 15:42 Hepatitis C Antibody Nonreactive (NonReactive) 03/24/21 15:42 [place]/IV: Voiding Method Incontinent Active Medications - Current Medications Current Medications: Generic Name Dose Route Start Last Admin Trade Name Freq PRN Reason Stop Dose Admin Acetaminophen 650 mg 03/22/21 10:00 Acetaminophen 325 Mg Tab PO Q4H PRN Pain MILD(1-3)/Fever >100.5/[place] Amlodipine Besylate 10 mg 03/22/21 14:00 03/27/21 10:53 Amlodipine 10 Mg Tab PO 10 mg QDAY CHAS Administration Atorvastatin Calcium 20 mg 03/22/21 22:00 03/26/21 22:04 Atorvastatin 20 Mg Tab PO 20 mg QHS CHAS Administration Carbamazepine 200 mg 03/22/21 22:00 03/27/21 10:51 Carbamazepine 200 Mg Tab PO 200 mg BID CHAS Administration Dextrose 50 ml 03/22/21 22:42 Dextrose 50% In Water (25gm) 50 Ml Syringe IV Q30MIN PRN Hypoglycemia Protocol Famotidine 10 mg 03/23/21 13:00 03/27/21 10:54 Famotidine 10 Mg Tab PO 10 mg BID CHAS Administration Heparin Sodium (Porcine) 5,000 unit 03/22/21 10:00 03/27/21 06:04 Heparin 5,000 Unit/1 Ml Vial SUB-Q 5,000 unit Q8HR CHAS Administration Lactated Ringer's 1,000 mls @ 75 mls/hr 03/26/21 12:30 03/27/21 06:01 Lactated Ringers IV 75 mls/hr DIRECT CHAS Administration Insulin Human Lispro 0 unit 03/27/21 11:30 03/27/21 11:30 Insulin Lispro 100 Unit/Ml SUB-Q 1 unit ACHS CHAS Administration Protocol Lactulose 10 gm 03/26/21 12:30 03/27/21 10:53 Lactulose 20 Gm/30 Ml Oral Liqd PO 10 gm QDAY CHAS Administration Levetiracetam 500 mg 03/22/21 22:00 03/27/21 10:54 Levetiracetam 500 Mg Tab PO 500 mg BID CHAS Administration Lorazepam 2 mg 03/23/21 16:00 03/26/21 22:05 Lorazepam 2 Mg Tab PO 2 mg Q1HR PRN Administration CIWA-Ar 8-15 Lorazepam 4 mg 03/23/21 16:00 Lorazepam 2 Mg Tab PO Q1HR PRN CIWA-Ar 16-25 Lorazepam 4 mg 03/23/21 16:00 03/27/21 10:33 Lorazepam 2 Mg/Ml Vial IV 4 mg Q15MIN PRN Administration CIWA-Ar >25 Magnesium Hydroxide 30 ml 03/22/21 10:00 Magnesium Hydroxide (Mom) Oral Liqd Udc PO Q4H PRN Constipation Morphine Sulfate 4 mg 03/22/21 10:00 03/23/21 13:16 Morphine 4 Mg/1 Ml Inj IV 4 mg Q4H PRN Administration Pain , Severe (7-10) Naloxone HCl 0.1 mg 03/22/21 10:00 Naloxone 0.4 Mg/1 Ml Inj IV Q2MIN PRN Res Rate </= 8 or 02 SAT < 92% Ondansetron HCl 4 mg 03/22/21 10:00 Ondansetron 4 Mg/2 Ml Inj IV Q8H PRN Nausea And Vomiting Oxycodone/Acetaminophen 1 tab 03/22/21 10:00 03/22/21 23:36 Oxycodone /Acetaminophen 5-325mg Tab PO 1 tab Q6H PRN Administration Pain, Moderate (4-6) Sodium Chloride 10 ml 03/22/21 10:00 03/27/21 10:54 Sodium Chloride 0.9% 10 Ml Flush Syringe IV 10 ml BID CHAS Administration Sodium Chloride 10 ml 03/22/21 10:00 Sodium Chloride 0.9% 10 Ml Flush Syringe IV PRN PRN LINE FLUSH Nutrition/Malnutrition Assess - Dietary Evaluation Nutrition/Malnutrition Findings: Nutrition Notes Start: 03/23/21 12:32 Freq: Status: Active Protocol: Document 03/25/21 12:06 AURELIA (Rec: 03/25/21 12:29 AURELIA [id number]) Nutrition Notes Need for Assessment generated from: station chief Initial or Follow up Reassessment Current Diagnosis Acute Kidney Injury, Hypertension Other Pertinent Diagnosis Accute Kidney Failure Current Diet Pureed Diet (since D 03/24). Labs/Tests 03/25: CO2 21, BUN 28, Cr 2.1, Glu 151. Pertinent Medications 03/25: Nutritionally unremarkable. Height 5 ft Weight 45.8 kg [place] Body Weight (kg) 45.45 BMI 19.7 Weight Status Appropriate Percent of energy/protein needs met: Prescribed Pureed Diet provides with energy/protein needs (1,804 Kcal/77 g) during LOS. Burn Absent Trauma Absent GI Symptoms None Food Allergy No Skin Integrity/Comment Integumentary; clear, warm, dry. Current % PO Fair (50-74%) Minimum of two criteria No physical signs of malnutrition #1 Nutrition Diagnosis No nutrition diagnosis at this time Comments: Pt shows acceptance of PO intake of prescribed diet, as per ADL Notes. Is patient on ventilator? No Is Patient Ambulatory and/or Out of Bed Yes REE-([place]-ambulatory/OOB) [ 1162.850 NUTR.MSJOOB] Kcal/Kg value to use for calculation 25 Approximate Energy Requirements Using 1145 kcal/Kg Calculation Used for Recommendations Kcal/kg Additional Notes Protein: 0.8-1.0 g/Kg/day; 36- 45 g/day; 144-180 Kcal/day ( from IBW). Fluids: 1.0 ml/Kcal/day, or as per MD. Nutrition Intervention Change Diet Order: Continue Pureed Diet, or as per MD. Goal #1 Maintain body weight within +/ -3% of current BWt during LOS. Goal #2 Reach and maintain acceptable chemistry lab values during LOS. Follow-Up By: 04/01/21 Additional Comments Continue monitoring acceptance of foods, % PO intake of meals, Hydration, and BM.
[2021-03-28] MEDS: HEPARIN 5,000 UNIT/1 ML VIAL SUB-Q SCH ×3 (05:58→21:37)
[2021-03-28] MEDS: INSULIN LISPRO 100 UNIT/ML SUB-Q SCH ×4 (07:52→21:38)
[2021-03-28 09:19] LABS: Calcium 8.9 mg/dL (8.4-10.2)
[2021-03-28] MEDS: levETIRAcetam 500 MG TAB PO SCH ×2 (09:26→21:36)
[2021-03-28] MEDS: LACTULOSE 20 GM/30 ML ORAL LIQD PO SCH (09:26)
[2021-03-28] MEDS: amLODIPine 10 MG TAB PO SCH (09:26)
[2021-03-28] MEDS: carBAMazepine 200 MG TAB PO SCH ×2 (09:26→21:36)
[2021-03-28] MEDS: FAMOTIDINE 10 MG TAB PO SCH ×2 (09:27→21:36)
--- NOTE | 2021-03-28 10:21 | Progress Note ---
Assessment and Plan Assessment and plan: #Acute encephalopathy -improving -CT head ordered -TSH, folate WNL -B12 elevated -will continue to monitor #ALLAN -improving, SCr 1.5 today -Renal US showed normal kidneys, adnexal mass -continue gentle IVFs as patient is not having adequate oral intake -Nephrology consulted, assistance appreciated -will need outpatient follow up #Seizure disorder -continue Keppra and carbamazepine at home doses #Hypertension -continue amlodipine #Left ovarian cyst -Measuring 10 cm, unchanged from previous study -Will need outpatient follow-up #Type 2 diabetes -Goal glucose one 140-180 while inpatient -Sliding scale + Accu-Cheks #Chest pain, atypical- resolved -Stress test negative, will continue with medical optimization -Patient reported pain to be epigastric/abdominal in nature -CT abdomen pelvis without contrast shows large hiatal hernia, and large left ovarian cyst #Alcohol dependence -Patient reports to drink 1 can of beer per day -Attempts at counseling were refused -CIWA protocal discontinued, patient outside of withdrawal window #Debility -patient evaluated by physical therapy, recommendation for SNF -discussed with patient's daughter Kathie, agreeable to discharge to SNF -CM consult for discharge planning Disposition Plan: Pending SNF placement Total Time Spent with Patient (Minutes): 20 minutes History Interval history: No acute events overnight. Reports back pain. No other complaints. Hospitalist Physical - Physical exam Narrative exam: GENERAL: Thin elderly woman. Lying bed in no acute distress. CHEST/LUNGS: CTAB on 1 L nasal cannula HEART/CARDIOVASCULAR: RRR. No murmur, rubs or gallops appreciated. ABDOMEN: +BS. NT/ND EXTREMITIES: No cyanosis, clubbing or edema. PSYCH: Cooperative. - Constitutional Vitals: Temp Pulse Resp BP Pulse Ox 97.9 F 69 17 157/91 98 03/27/21 22:42 03/28/21 05:57 03/28/21 05:57 03/28/21 05:57 03/28/21 05:57 General appearance: Present: no acute distress HEART Score - HEART Score EKG: Normal Age: > 65 Risk factors: 1-2 risk factors Troponin: Troponin T < 0.010 ng/mL (0.00-0.029) 03/22/21 15:11 Troponin: < normal limit Results - Labs CBC & Chem 7: 03/26/21 05:51 03/28/21 08:45 Labs: Laboratory Last Values WBC 5.3 K/mm3 (4.5-11.0) 03/26/21 05:51 RBC 3.51 M/mm3 (3.65-5.03) L 03/26/21 05:51 Hgb 11.9 gm/dl (10.1-14.3) 03/26/21 05:51 Hct 34.8 % (30.3-42.9) 03/26/21 05:51 MCV 99 fl (79-97) H 03/26/21 05:51 MCH 34 pg (28-32) H 03/26/21 05:51 MCHC 34 % (30-34) 03/26/21 05:51 RDW 14.2 % (13.2-15.2) 03/26/21 05:51 Plt Count 112 K/mm3 (140-440) L 03/26/21 05:51 Lymph % (Auto) 18.1 % (13.4-35.0) 03/22/21 04:04 [place] % (Auto) 3.2 % (0.0-7.3) 03/22/21 04:04 Eos % (Auto) 0.2 % (0.0-4.3) 03/22/21 04:04 Baso % (Auto) 0.5 % (0.0-1.8) 03/22/21 04:04 Lymph # (Auto) 1.3 K/mm3 (1.2-5.4) 03/22/21 04:04 [place] # (Auto) 0.2 K/mm3 (0.0-0.8) 03/22/21 04:04 Eos # (Auto) 0.0 K/mm3 (0.0-0.4) 03/22/21 04:04 Baso # (Auto) 0.0 K/mm3 (0.0-0.1) 03/22/21 04:04 Seg Neutrophils % 78.0 % (40.0-70.0) H 03/22/21 04:04 Seg Neutrophils # 5.4 K/mm3 (1.8-7.7) 03/22/21 04:04 PT 22.4 Sec. (12.2-14.9) H 03/22/21 04:04 INR 1.90 (0.87-1.13) H 03/22/21 04:04 Sodium 140 mmol/L (137-145) 03/28/21 08:45 Potassium 4.0 mmol/L (3.6-5.0) D 03/28/21 08:45 Chloride 103.8 mmol/L (98-107) 03/28/21 08:45 Carbon Dioxide 23 mmol/L (22-30) 03/28/21 08:45 Anion Gap 17 mmol/L 03/28/21 08:45 BUN 14 mg/dL (7-17) 03/28/21 08:45 Creatinine 1.5 mg/dL (0.6-1.2) H 03/28/21 08:45 Estimated GFR 34 ml/min 03/28/21 08:45 BUN/Creatinine Ratio 9 % 03/28/21 08:45 Glucose 110 mg/dL (65-100) H 03/28/21 08:45 POC Glucose 102 mg/dL (70-105) 03/28/21 07:47 Hemoglobin A1c 7.2 % (4-6) H 03/22/21 04:04 Calcium 8.9 mg/dL (8.4-10.2) 03/28/21 08:45 Phosphorus 3.30 mg/dL (2.5-4.5) 03/24/21 05:48 Magnesium 2.00 mg/dL (1.7-2.3) 03/24/21 05:48 Ammonia 102.0 umol/L (25-60) H 03/25/21 16:41 Total Creatine Kinase 90 units/L (30-135) 03/22/21 04:04 CK-MB (CK-2) 2.8 ng/mL (0.0-4.0) 03/22/21 04:04 CK-MB (CK-2) Rel Index 3.1 (0-4) 03/22/21 04:04 Troponin T < 0.010 ng/mL (0.00-0.029) 03/22/21 15:11 Triglycerides 471 mg/dL (2-149) H 03/22/21 04:04 Cholesterol 212 mg/dL (50-199) H 03/22/21 04:04 LDL Cholesterol Direct TNR 03/22/21 04:04 HDL Cholesterol 68 mg/dL (40-59) H 03/22/21 04:04 Cholesterol/HDL Ratio 3.11 % 03/22/21 04:04 Lipase 88 units/L (13-60) H 03/22/21 04:04 Vitamin B12 2000 pg/mL (211-911) H 03/25/21 16:41 Folate 14.56 ng/mL (7.3-26.0) 03/25/21 16:41 TSH 2.060 mlU/mL (0.270-4.200) 03/25/21 16:41 Free T4 0.84 ng/dL (0.76-1.46) 03/25/21 16:41 Urine Color Yellow (Yellow) 03/26/21 01:00 Urine Turbidity Clear (Clear) 03/26/21 01:00 Urine pH 6.0 (5.0-7.0) 03/26/21 01:00 Ur Specific [place] 1.011 (1.003-1.030) 03/26/21 01:00 Urine Protein <15 mg/dl mg/dL (Negative) 03/26/21 01:00 Urine Glucose (UA) Neg mg/dL (Negative) 03/26/21 01:00 Urine Ketones Neg mg/dL (Negative) 03/26/21 01:00 Urine Blood Sm (Negative) 03/26/21 01:00 Urine Nitrite Neg (Negative) 03/26/21 01:00 Urine Bilirubin Neg (Negative) 03/26/21 01:00 Urine Urobilinogen < 2.0 mg/dL (<2.0) 03/26/21 01:00 Ur Leukocyte Esterase Tr (Negative) 03/26/21 01:00 Urine WBC (Auto) 3.0 /HPF (0.0-6.0) 03/26/21 01:00 Urine RBC (Auto) 1.0 /HPF (0.0-6.0) 03/26/21 01:00 U Epithel Cells (Auto) 3.0 /HPF (0-13.0) 03/26/21 01:00 Urine Bacteria (Auto) 1+ /HPF (Negative) 03/26/21 01:00 Urine Mucus Few /HPF 03/26/21 01:00 Urine Eosinophils <5% (None Seen) 03/24/21 01:00 Urine Creatinine 70.3 mg/dL (0.1-20.0) H 03/26/21 01:00 Urine Sodium 121 mmol/L 03/26/21 01:00 Fraction Sodium Excret 1.7 03/26/21 01:00 Plasma/Serum Alcohol < 0.01 % (0-0.07) 03/22/21 04:04 Hepatitis A IgM Ab Non-reactive (NonReactive) 03/24/21 15:42 Hep Bs Antigen Nonreactive (Negative) 03/24/21 15:42 Hep B Core IgM Ab Non-reactive (NonReactive) 03/24/21 15:42 Hepatitis C Antibody Nonreactive (NonReactive) 03/24/21 15:42 [place]/IV: Voiding Method Diaper Active Medications - Current Medications Current Medications: Generic Name Dose Route Start Last Admin Trade Name Freq PRN Reason Stop Dose Admin Acetaminophen 650 mg 03/22/21 10:00 Acetaminophen 325 Mg Tab PO Q4H PRN Pain MILD(1-3)/Fever >100.5/[place] Amlodipine Besylate 10 mg 03/22/21 14:00 03/28/21 09:26 Amlodipine 10 Mg Tab PO 10 mg QDAY CHAS Administration Atorvastatin Calcium 20 mg 03/22/21 22:00 03/27/21 22:33 Atorvastatin 20 Mg Tab PO 20 mg QHS CHAS Administration Carbamazepine 200 mg 03/22/21 22:00 03/28/21 09:26 Carbamazepine 200 Mg Tab PO 200 mg BID CHAS Administration Dextrose 50 ml 03/22/21 22:42 Dextrose 50% In Water (25gm) 50 Ml Syringe IV Q30MIN PRN Hypoglycemia Protocol Famotidine 10 mg 03/23/21 13:00 03/28/21 09:27 Famotidine 10 Mg Tab PO 10 mg BID CHAS Administration Heparin Sodium (Porcine) 5,000 unit 03/22/21 10:00 03/28/21 05:58 Heparin 5,000 Unit/1 Ml Vial SUB-Q 5,000 unit Q8HR CHAS Administration Insulin Human Lispro 0 unit 03/27/21 11:30 03/28/21 07:52 Insulin Lispro 100 Unit/Ml SUB-Q Not Given ACHS CHAS Protocol Lactulose 10 gm 03/26/21 12:30 03/28/21 09:26 Lactulose 20 Gm/30 Ml Oral Liqd PO 10 gm QDAY CHAS Administration Levetiracetam 500 mg 03/22/21 22:00 03/28/21 09:26 Levetiracetam 500 Mg Tab PO 500 mg BID CHAS Administration Magnesium Hydroxide 30 ml 03/22/21 10:00 Magnesium Hydroxide (Mom) Oral Liqd Udc PO Q4H PRN Constipation Morphine Sulfate 4 mg 03/22/21 10:00 03/23/21 13:16 Morphine 4 Mg/1 Ml Inj IV 4 mg Q4H PRN Administration Pain , Severe (7-10) Naloxone HCl 0.1 mg 03/22/21 10:00 Naloxone 0.4 Mg/1 Ml Inj IV Q2MIN PRN Res Rate </= 8 or 02 SAT < 92% Ondansetron HCl 4 mg 03/22/21 10:00 Ondansetron 4 Mg/2 Ml Inj IV Q8H PRN Nausea And Vomiting Oxycodone/Acetaminophen 1 tab 03/22/21 10:00 03/22/21 23:36 Oxycodone /Acetaminophen 5-325mg Tab PO 1 tab Q6H PRN Administration Pain, Moderate (4-6) Sodium Chloride 10 ml 03/22/21 10:00 03/28/21 09:27 Sodium Chloride 0.9% 10 Ml Flush Syringe IV 10 ml BID CHAS Administration Sodium Chloride 10 ml 03/22/21 10:00 Sodium Chloride 0.9% 10 Ml Flush Syringe IV PRN PRN LINE FLUSH Nutrition/Malnutrition Assess - Dietary Evaluation Nutrition/Malnutrition Findings: Nutrition Notes Start: 03/23/21 12:32 Freq: Status: Active Protocol: Document 03/25/21 12:06 AURELIA (Rec: 03/25/21 12:29 [email or web address]) Nutrition Notes Need for Assessment generated from: boat tender Initial or Follow up Reassessment Current Diagnosis Acute Kidney Injury, Hypertension Other Pertinent Diagnosis Accute Kidney Failure Current Diet Pureed Diet (since D 03/24). Labs/Tests 03/25: CO2 21, BUN 28, Cr 2.1, Glu 151. Pertinent Medications 03/25: Nutritionally unremarkable. Height 5 ft Weight 45.8 kg [place] Body Weight (kg) 45.45 BMI 19.7 Weight Status Appropriate Percent of energy/protein needs met: Prescribed Pureed Diet provides with energy/protein needs (1,804 Kcal/77 g) during LOS. Burn Absent Trauma Absent GI Symptoms None Food Allergy No Skin Integrity/Comment Integumentary; clear, warm, dry. Current % PO Fair (50-74%) Minimum of two criteria No physical signs of malnutrition #1 Nutrition Diagnosis No nutrition diagnosis at this time Comments: Pt shows acceptance of PO intake of prescribed diet, as per ADL Notes. Is patient on ventilator? No Is Patient Ambulatory and/or Out of Bed Yes REE-([place]-ambulatory/OOB) [ 1162.850 NUTR.MSJOOB] Kcal/Kg value to use for calculation 25 Approximate Energy Requirements Using 1145 kcal/Kg Calculation Used for Recommendations Kcal/kg Additional Notes Protein: 0.8-1.0 g/Kg/day; 36- 45 g/day; 144-180 Kcal/day ( from IBW). Fluids: 1.0 ml/Kcal/day, or as per MD. Nutrition Intervention Change Diet Order: Continue Pureed Diet, or as per MD. Goal #1 Maintain body weight within +/ -3% of current BWt during LOS. Goal #2 Reach and maintain acceptable chemistry lab values during LOS. Follow-Up By: 04/01/21 Additional Comments Continue monitoring acceptance of foods, % PO intake of meals, Hydration, and BM.
--- NOTE | 2021-03-28 17:44 | Progress Note ---
Assessment and Plan Impression * Acute kidney injury * Atypical chest pain * Hypertension * Diabetes * Seizure disorder * Recommendations * Continue IVF * Follow-up results of vasculitis work-up. Hepatitis B and C both are negative * Avoid nephrotoxins * Monitor fluid status and electrolytes closely * No urgent indication for dialysis * Renal ultrasound is essentially normal * Renal function is slowly improving Subjective Date of service: 03/28/21 Principal diagnosis: seizures Interval history: No seizures overnight Objective - Exam Narrative Exam: General: No acute distress HEENT: Oral mucosa moist Neck: Supple, no JVD Chest: Clear to auscultation bilaterally Heart: RRR, S1 and S2, no pericardial rub Abdomen: Soft, nontender, no renal bruit Extremity: No peripheral cyanosis, edema Neurological: Alert, awake, no asterixis Dermatology: No skin rash Psych: No agitation Musculoskeletal: No joint effusion - Vital Signs Vital signs: Vital Signs - 12hr 03/28/21 03/28/21 03/28/21 05:57 11:59 17:01 Temperature 97.5 F L 98.2 F Pulse Rate 69 81 Respiratory 17 19 19 Rate Blood Pressure 171/90 164/98 Blood Pressure 157/91 [Left] O2 Sat by Pulse 98 97 Oximetry - Lab 03/26/21 05:51 03/28/21 08:45 Most recent lab results Calcium 8.9 mg/dL (8.4-10.2) 03/28/21 08:45 Phosphorus 3.30 mg/dL (2.5-4.5) 03/24/21 05:48 Magnesium 2.00 mg/dL (1.7-2.3) 03/24/21 05:48 Urine Creatinine 70.3 mg/dL (0.1-20.0) H 03/26/21 01:00 Urine Sodium 121 mmol/L 03/26/21 01:00 Medications & Allergies - Medications Allergies/Adverse Reactions: Allergies No Known Allergies Allergy (Verified 02/02/21 09:38) Home Medications: Home Medications Medication Instructions Recorded Confirmed Last Taken Type ALBUTEROL NEB's [Proventil 0.083% 2.5 mg IH Q4HRT PRN #1 nebu 09/23/20 03/22/21 01/31/21 Rx NEBS] Albuterol Mdi (or & Nicu Only) 2 puff IH QID PRN #8.5 gram 02/05/21 03/22/21 Unknown Rx [ProAir HFA Inhaler] AtorvaSTATin [Lipitor] 20 mg PO QHS 02/05/21 03/22/21 Unknown History Pantoprazole [Protonix TAB] 40 mg PO QDAC #14 tablet 02/05/21 03/22/21 Unknown Rx Sodium Chloride 1 gm PO BID #14 tablet 02/05/21 03/22/21 Unknown Rx amLODIPine 10 mg PO DAILY 02/05/21 03/22/21 Unknown History carBAMazepine [TEGretol] 200 mg PO Q12HR #60 tablet 02/05/21 03/22/21 Unknown Rx levETIRAcetam [Keppra TAB] 500 mg PO BID #60 tablet 02/05/21 03/22/21 Unknown Rx Metoclopramide [Reglan TAB] 1 tab PO Q6H PRN 03/22/21 03/22/21 Unknown History Metoprolol [Lopressor TAB] 0.5 tab PO BID 03/22/21 03/22/21 Unknown History Active Medications: Generic Name Dose Route Start Last Admin Trade Name Freq PRN Reason Stop Dose Admin Acetaminophen 650 mg 03/22/21 10:00 Acetaminophen 325 Mg Tab PO Q4H PRN Pain MILD(1-3)/Fever >100.5/[place] Amlodipine Besylate 10 mg 03/22/21 14:00 03/28/21 09:26 Amlodipine 10 Mg Tab PO 10 mg QDAY CHAS Administration Atorvastatin Calcium 20 mg 03/22/21 22:00 03/27/21 22:33 Atorvastatin 20 Mg Tab PO 20 mg QHS CHAS Administration Carbamazepine 200 mg 03/22/21 22:00 03/28/21 09:26 Carbamazepine 200 Mg Tab PO 200 mg BID CHAS Administration Dextrose 50 ml 03/22/21 22:42 Dextrose 50% In Water (25gm) 50 Ml Syringe IV Q30MIN PRN Hypoglycemia Protocol Famotidine 10 mg 03/23/21 13:00 03/28/21 09:27 Famotidine 10 Mg Tab PO 10 mg BID CHAS Administration Heparin Sodium (Porcine) 5,000 unit 03/22/21 10:00 03/28/21 13:15 Heparin 5,000 Unit/1 Ml Vial SUB-Q 5,000 unit Q8HR CHAS Administration Insulin Human Lispro 0 unit 03/27/21 11:30 03/28/21 17:23 Insulin Lispro 100 Unit/Ml SUB-Q Not Given ACHS [facility] Protocol Lactulose 10 gm 03/26/21 12:30 03/28/21 09:26 Lactulose 20 Gm/30 Ml Oral Liqd PO 10 gm QDAY CHAS Administration Levetiracetam 500 mg 03/22/21 22:00 03/28/21 09:26 Levetiracetam 500 Mg Tab PO 500 mg BID CHAS Administration Magnesium Hydroxide 30 ml 03/22/21 10:00 Magnesium Hydroxide (Mom) Oral Liqd Udc PO Q4H PRN Constipation Morphine Sulfate 4 mg 03/22/21 10:00 03/23/21 13:16 Morphine 4 Mg/1 Ml Inj IV 4 mg Q4H PRN Administration Pain , Severe (7-10) Naloxone HCl 0.1 mg 03/22/21 10:00 Naloxone 0.4 Mg/1 Ml Inj IV Q2MIN PRN Res Rate </= 8 or 02 SAT < 92% Ondansetron HCl 4 mg 03/22/21 10:00 Ondansetron 4 Mg/2 Ml Inj IV Q8H PRN Nausea And Vomiting Oxycodone/Acetaminophen 1 tab 03/22/21 10:00 03/22/21 23:36 Oxycodone /Acetaminophen 5-325mg Tab PO 1 tab Q6H PRN Administration Pain, Moderate (4-6) Sodium Chloride 10 ml 03/22/21 10:00 03/28/21 09:27 Sodium Chloride 0.9% 10 Ml Flush Syringe IV 10 ml BID CHAS Administration Sodium Chloride 10 ml 03/22/21 10:00 Sodium Chloride 0.9% 10 Ml Flush Syringe IV PRN PRN LINE FLUSH
[2021-03-29] MEDS: HEPARIN 5,000 UNIT/1 ML VIAL SUB-Q SCH ×3 (06:11→23:42)
[2021-03-29 07:25] LABS: Calcium 8.6 mg/dL (8.4-10.2)
[2021-03-29] MEDS: INSULIN LISPRO 100 UNIT/ML SUB-Q SCH ×4 (10:40→23:44)
[2021-03-29] MEDS: amLODIPine 10 MG TAB PO SCH (10:42)
[2021-03-29] MEDS: carBAMazepine 200 MG TAB PO SCH ×2 (10:42→23:42)
[2021-03-29] MEDS: LACTULOSE 20 GM/30 ML ORAL LIQD PO SCH (10:42)
[2021-03-29] MEDS: levETIRAcetam 500 MG TAB PO SCH ×2 (10:42→23:42)
[2021-03-29] MEDS: FAMOTIDINE 10 MG TAB PO SCH ×2 (10:42→23:42)
--- NOTE | 2021-03-29 12:23 | Progress Note ---
Assessment and Plan Assessment and plan: #Acute encephalopathy -improving -CT head ordered -TSH, folate WNL -B12 elevated -will continue to monitor #ALLAN -Creatinine 1.9 (previously 1.5) -Renal US showed normal kidneys, adnexal mass -continue gentle IVFs as patient is not having adequate oral intake -Nephrology consulted, assistance appreciated -will need outpatient follow up #Seizure disorder -continue Keppra and carbamazepine at home doses #Hypertension -continue amlodipine #Left ovarian cyst -Measuring 10 cm, unchanged from previous study -Will need outpatient follow-up #Type 2 diabetes -Goal glucose one 140-180 while inpatient -Sliding scale + Accu-Cheks #Chest pain, atypical- resolved -Stress test negative, will continue with medical optimization -Patient reported pain to be epigastric/abdominal in nature -CT abdomen pelvis without contrast shows large hiatal hernia, and large left ovarian cyst #Alcohol dependence -Patient reports to drink 1 can of beer per day -Attempts at counseling were refused -CIWA protocal discontinued, patient outside of withdrawal window #Debility -patient evaluated by physical therapy, recommendation for SNF -discussed with patient's daughter Kathie, agreeable to discharge to SNF -CM consult for discharge planning Disposition Plan: Pending SNF placement Total Time Spent with Patient (Minutes): 20 History Interval history: No acute events over night. The patient denies fevers, chills, nausea, vomiting, abdominal pain, chest pain/pressure, shortness of breath, urinary symptoms, weakness, or confusion. Hospitalist Physical - Constitutional Vitals: Temp Pulse Resp BP Pulse Ox 98.3 F 74 20 163/79 99 03/29/21 04:29 03/29/21 04:29 03/29/21 04:29 03/29/21 04:29 03/29/21 04:29 General appearance: Present: no acute distress, cachectic - EENT Eyes: Present: PERRL, EOM intact ENT: hearing intact, clear oral mucosa, dentition normal - Neck Neck: Present: supple, normal ROM - Respiratory Respiratory effort: normal (Currently on 5 L nasal cannula) Respiratory: negative: CTA, diminished, rales, rhonchi, wheezing - Cardiovascular Rhythm: regular Heart Sounds: Present: S1 & S2 - Extremities Extremities: no ischemia, pulses intact, pulses symmetrical, No edema, normal temperature, normal color Peripheral Pulses: within normal limits - Abdominal General gastrointestinal: soft, non-tender, non-distended, normal bowel sounds - Integumentary Integumentary: Present: clear, warm, dry - Psychiatric Psychiatric: appropriate mood/affect, intact judgment & insight, cooperative - Neurologic Neurologic: CNII-XII intact, moves all extremities - Allied Health Allied health notes reviewed: nursing HEART Score - HEART Score EKG: Normal Age: > 65 Risk factors: 1-2 risk factors Troponin: Troponin T < 0.010 ng/mL (0.00-0.029) 03/22/21 15:11 Troponin: < normal limit Results - Labs CBC & Chem 7: 03/26/21 05:51 03/29/21 05:35 Labs: Laboratory Last Values WBC 5.3 K/mm3 (4.5-11.0) 03/26/21 05:51 RBC 3.51 M/mm3 (3.65-5.03) L 03/26/21 05:51 Hgb 11.9 gm/dl (10.1-14.3) 03/26/21 05:51 Hct 34.8 % (30.3-42.9) 03/26/21 05:51 MCV 99 fl (79-97) H 03/26/21 05:51 MCH 34 pg (28-32) H 03/26/21 05:51 MCHC 34 % (30-34) 03/26/21 05:51 RDW 14.2 % (13.2-15.2) 03/26/21 05:51 Plt Count 112 K/mm3 (140-440) L 03/26/21 05:51 Lymph % (Auto) 18.1 % (13.4-35.0) 03/22/21 04:04 [place] % (Auto) 3.2 % (0.0-7.3) 03/22/21 04:04 Eos % (Auto) 0.2 % (0.0-4.3) 03/22/21 04:04 Baso % (Auto) 0.5 % (0.0-1.8) 03/22/21 04:04 Lymph # (Auto) 1.3 K/mm3 (1.2-5.4) 03/22/21 04:04 [place] # (Auto) 0.2 K/mm3 (0.0-0.8) 03/22/21 04:04 Eos # (Auto) 0.0 K/mm3 (0.0-0.4) 03/22/21 04:04 Baso # (Auto) 0.0 K/mm3 (0.0-0.1) 03/22/21 04:04 Seg Neutrophils % 78.0 % (40.0-70.0) H 03/22/21 04:04 Seg Neutrophils # 5.4 K/mm3 (1.8-7.7) 03/22/21 04:04 PT 22.4 Sec. (12.2-14.9) H 03/22/21 04:04 INR 1.90 (0.87-1.13) H 03/22/21 04:04 Sodium 140 mmol/L (137-145) 03/29/21 05:35 Potassium 3.6 mmol/L (3.6-5.0) 03/29/21 05:35 Chloride 100.4 mmol/L (98-107) 03/29/21 05:35 Carbon Dioxide 27 mmol/L (22-30) 03/29/21 05:35 Anion Gap 16 mmol/L 03/29/21 05:35 BUN 19 mg/dL (7-17) H 03/29/21 05:35 Creatinine 1.9 mg/dL (0.6-1.2) H 03/29/21 05:35 Estimated GFR 28 ml/min 03/29/21 05:35 BUN/Creatinine Ratio 11 % 03/29/21 05:35 Glucose 109 mg/dL (65-100) H 03/29/21 05:35 POC Glucose 120 mg/dL (70-105) H 03/29/21 11:21 Hemoglobin A1c 7.2 % (4-6) H 03/22/21 04:04 Calcium 8.6 mg/dL (8.4-10.2) 03/29/21 05:35 Phosphorus 3.30 mg/dL (2.5-4.5) 03/24/21 05:48 Magnesium 2.00 mg/dL (1.7-2.3) 03/24/21 05:48 Ammonia 102.0 umol/L (25-60) H 03/25/21 16:41 Total Creatine Kinase 90 units/L (30-135) 03/22/21 04:04 CK-MB (CK-2) 2.8 ng/mL (0.0-4.0) 03/22/21 04:04 CK-MB (CK-2) Rel Index 3.1 (0-4) 03/22/21 04:04 Troponin T < 0.010 ng/mL (0.00-0.029) 03/22/21 15:11 Triglycerides 471 mg/dL (2-149) H 03/22/21 04:04 Cholesterol 212 mg/dL (50-199) H 03/22/21 04:04 LDL Cholesterol Direct TNR 03/22/21 04:04 HDL Cholesterol 68 mg/dL (40-59) H 03/22/21 04:04 Cholesterol/HDL Ratio 3.11 % 03/22/21 04:04 Lipase 88 units/L (13-60) H 03/22/21 04:04 Vitamin B12 2000 pg/mL (211-911) H 03/25/21 16:41 Folate 14.56 ng/mL (7.3-26.0) 03/25/21 16:41 TSH 2.060 mlU/mL (0.270-4.200) 03/25/21 16:41 Free T4 0.84 ng/dL (0.76-1.46) 03/25/21 16:41 Urine Color Yellow (Yellow) 03/26/21 01:00 Urine Turbidity Clear (Clear) 03/26/21 01:00 Urine pH 6.0 (5.0-7.0) 03/26/21 01:00 Ur Specific [place] 1.011 (1.003-1.030) 03/26/21 01:00 Urine Protein <15 mg/dl mg/dL (Negative) 03/26/21 01:00 Urine Glucose (UA) Neg mg/dL (Negative) 03/26/21 01:00 Urine Ketones Neg mg/dL (Negative) 03/26/21 01:00 Urine Blood Sm (Negative) 03/26/21 01:00 Urine Nitrite Neg (Negative) 03/26/21 01:00 Urine Bilirubin Neg (Negative) 03/26/21 01:00 Urine Urobilinogen < 2.0 mg/dL (<2.0) 03/26/21 01:00 Ur Leukocyte Esterase Tr (Negative) 03/26/21 01:00 Urine WBC (Auto) 3.0 /HPF (0.0-6.0) 03/26/21 01:00 Urine RBC (Auto) 1.0 /HPF (0.0-6.0) 03/26/21 01:00 U Epithel Cells (Auto) 3.0 /HPF (0-13.0) 03/26/21 01:00 Urine Bacteria (Auto) 1+ /HPF (Negative) 03/26/21 01:00 Urine Mucus Few /HPF 03/26/21 01:00 Urine Eosinophils <5% (None Seen) 03/24/21 01:00 Urine Creatinine 70.3 mg/dL (0.1-20.0) H 03/26/21 01:00 Urine Sodium 121 mmol/L 03/26/21 01:00 Fraction Sodium Excret 1.7 03/26/21 01:00 Plasma/Serum Alcohol < 0.01 % (0-0.07) 03/22/21 04:04 Hepatitis A IgM Ab Non-reactive (NonReactive) 03/24/21 15:42 Hep Bs Antigen Nonreactive (Negative) 03/24/21 15:42 Hep B Core IgM Ab Non-reactive (NonReactive) 03/24/21 15:42 Hepatitis C Antibody Nonreactive (NonReactive) 03/24/21 15:42 [place]/IV: Voiding Method Diaper Active Medications - Current Medications Current Medications: Generic Name Dose Route Start Last Admin Trade Name Freq PRN Reason Stop Dose Admin Acetaminophen 650 mg 03/22/21 10:00 Acetaminophen 325 Mg Tab PO Q4H PRN Pain MILD(1-3)/Fever >100.5/[place] Amlodipine Besylate 10 mg 03/22/21 14:00 03/29/21 10:42 Amlodipine 10 Mg Tab PO 10 mg QDAY CHAS Administration Atorvastatin Calcium 20 mg 03/22/21 22:00 03/28/21 21:36 Atorvastatin 20 Mg Tab PO 20 mg QHS CHAS Administration Carbamazepine 200 mg 03/22/21 22:00 03/29/21 10:42 Carbamazepine 200 Mg Tab PO 200 mg BID CHAS Administration Dextrose 50 ml 03/22/21 22:42 Dextrose 50% In Water (25gm) 50 Ml Syringe IV Q30MIN PRN Hypoglycemia Protocol Famotidine 10 mg 03/23/21 13:00 03/29/21 10:42 Famotidine 10 Mg Tab PO 10 mg BID CHAS Administration Heparin Sodium (Porcine) 5,000 unit 03/22/21 10:00 03/29/21 06:11 Heparin 5,000 Unit/1 Ml Vial SUB-Q 5,000 unit Q8HR CHAS Administration Insulin Human Lispro 0 unit 03/27/21 11:30 03/29/21 10:40 Insulin Lispro 100 Unit/Ml SUB-Q Not Given ACHS [facility] Protocol Lactulose 10 gm 03/26/21 12:30 03/29/21 10:42 Lactulose 20 Gm/30 Ml Oral Liqd PO 10 gm QDAY CHAS Administration Levetiracetam 500 mg 03/22/21 22:00 03/29/21 10:42 Levetiracetam 500 Mg Tab PO 500 mg BID CHAS Administration Magnesium Hydroxide 30 ml 03/22/21 10:00 Magnesium Hydroxide (Mom) Oral Liqd Udc PO Q4H PRN Constipation Morphine Sulfate 4 mg 03/22/21 10:00 03/23/21 13:16 Morphine 4 Mg/1 Ml Inj IV 4 mg Q4H PRN Administration Pain , Severe (7-10) Naloxone HCl 0.1 mg 03/22/21 10:00 Naloxone 0.4 Mg/1 Ml Inj IV Q2MIN PRN Res Rate </= 8 or 02 SAT < 92% Ondansetron HCl 4 mg 03/22/21 10:00 Ondansetron 4 Mg/2 Ml Inj IV Q8H PRN Nausea And Vomiting Oxycodone/Acetaminophen 1 tab 03/22/21 10:00 03/22/21 23:36 Oxycodone /Acetaminophen 5-325mg Tab PO 1 tab Q6H PRN Administration Pain, Moderate (4-6) Sodium Chloride 10 ml 03/22/21 10:00 03/29/21 10:48 Sodium Chloride 0.9% 10 Ml Flush Syringe IV 10 ml BID CHAS Administration Sodium Chloride 10 ml 03/22/21 10:00 Sodium Chloride 0.9% 10 Ml Flush Syringe IV PRN PRN LINE FLUSH Nutrition/Malnutrition Assess - Dietary Evaluation Nutrition/Malnutrition Findings: Nutrition Notes Start: 03/23/21 12:32 Freq: Status: Active Protocol: Document 03/25/21 12:06 UARELIA (Rec: 03/25/21 12:29 [email or web address] [id number]) Nutrition Notes 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 Labs/Tests 03/25: CO2 21, BUN 28, Cr 2.1, Glu 151. Pertinent Medications 03/25: Nutritionally unremarkable. Height 5 ft Weight 45.8 kg [place] Body Weight (kg) 45.45 BMI 19.7 Weight Status Appropriate Percent of energy/protein needs met: Prescribed Pureed Diet provides with energy/protein needs (1,804 Kcal/77 g) during LOS. Burn Absent Trauma Absent GI Symptoms None Food Allergy No Skin Integrity/Comment Integumentary; clear, warm, dry. Current % PO Fair (50-74%) Minimum of two criteria No physical signs of malnutrition #1 Nutrition Diagnosis No nutrition diagnosis at this time Comments: Pt shows acceptance of PO intake of prescribed diet, as per ADL Notes. Is patient on ventilator? No Is Patient Ambulatory and/or Out of Bed Yes REE-([place]-St. Jeor-ambulatory/OOB) [ 1162.850 [id number]] Kcal/Kg value to use for calculation 25 Approximate Energy Requirements Using 1145 kcal/Kg Calculation Used for Recommendations Kcal/kg Additional Notes Protein: 0.8-1.0 g/Kg/day; 36- 45 g/day; 144-180 Kcal/day ( from IBW). Fluids: 1.0 ml/Kcal/day, or as per MD. Nutrition Intervention Change Diet Order: Continue Pureed Diet, or as per MD. Goal #1 Maintain body weight within +/ -3% of current BWt during LOS. Goal #2 Reach and maintain acceptable chemistry lab values during LOS. Follow-Up By: 04/01/21 Additional Comments Continue monitoring acceptance of foods, % PO intake of meals, Hydration, and BM.
--- NOTE | 2021-03-29 16:35 | Progress Note ---
Assessment and Plan Impression * Acute kidney injury * Atypical chest pain * Hypertension * Diabetes * Seizure disorder * Left adnexal cyst Recommendations * Continue IVF * Follow-up results of vasculitis work-up. Hepatitis B and C both are negative * Avoid nephrotoxins * Monitor fluid status and electrolytes closely * No urgent indication for dialysis * Renal ultrasound is essentially normal * Renal function is slowly improving * Adnexal cyst management as per primary Subjective Date of service: 03/29/21 Principal diagnosis: seizures Interval history: More alert this morning. Objective - Exam Narrative Exam: General: No acute distress HEENT: Oral mucosa moist Neck: Supple, no JVD Chest: Clear to auscultation bilaterally Heart: RRR, S1 and S2, no pericardial rub Abdomen: Soft, nontender, no renal bruit Extremity: No peripheral cyanosis, edema Neurological: Alert, awake, no asterixis Dermatology: No skin rash Psych: No agitation Musculoskeletal: No joint effusion - Vital Signs Vital signs: Vital Signs - 12hr 03/29/21 11:20 Temperature 98.1 F Pulse Rate 83 Respiratory 16 Rate Blood Pressure 136/82 O2 Sat by Pulse 93 Oximetry - Lab 03/26/21 05:51 03/29/21 05:35 Most recent lab results Calcium 8.6 mg/dL (8.4-10.2) 03/29/21 05:35 Phosphorus 3.30 mg/dL (2.5-4.5) 03/24/21 05:48 Magnesium 2.00 mg/dL (1.7-2.3) 03/24/21 05:48 Urine Creatinine 70.3 mg/dL (0.1-20.0) H 03/26/21 01:00 Urine Sodium 121 mmol/L 03/26/21 01:00 Medications & Allergies - Medications Allergies/Adverse Reactions: Allergies No Known Allergies Allergy (Verified 02/02/21 09:38) Home Medications: Home Medications Medication Instructions Recorded Confirmed Last Taken Type ALBUTEROL NEB's [Proventil 0.083% 2.5 mg IH Q4HRT PRN #1 nebu 09/23/20 03/22/21 01/31/21 Rx NEBS] Albuterol Mdi (or & Nicu Only) 2 puff IH QID PRN #8.5 gram 02/05/21 03/22/21 Unknown Rx [ProAir HFA Inhaler] AtorvaSTATin [Lipitor] 20 mg PO QHS 02/05/21 03/22/21 Unknown History Pantoprazole [Protonix TAB] 40 mg PO QDAC #14 tablet 02/05/21 03/22/21 Unknown Rx Sodium Chloride 1 gm PO BID #14 tablet 02/05/21 03/22/21 Unknown Rx amLODIPine 10 mg PO DAILY 02/05/21 03/22/21 Unknown History carBAMazepine [TEGretol] 200 mg PO Q12HR #60 tablet 02/05/21 03/22/21 Unknown Rx levETIRAcetam [Keppra TAB] 500 mg PO BID #60 tablet 02/05/21 03/22/21 Unknown Rx Metoclopramide [Reglan TAB] 1 tab PO Q6H PRN 03/22/21 03/22/21 Unknown History Metoprolol [Lopressor TAB] 0.5 tab PO BID 03/22/21 03/22/21 Unknown History Active Medications: Generic Name Dose Route Start Last Admin Trade Name Freq PRN Reason Stop Dose Admin Acetaminophen 650 mg 03/22/21 10:00 Acetaminophen 325 Mg Tab PO Q4H PRN Pain MILD(1-3)/Fever >100.5/[place] Amlodipine Besylate 10 mg 03/22/21 14:00 03/29/21 10:42 Amlodipine 10 Mg Tab PO 10 mg QDAY CHAS Administration Atorvastatin Calcium 20 mg 03/22/21 22:00 03/28/21 21:36 Atorvastatin 20 Mg Tab PO 20 mg QHS CHAS Administration Carbamazepine 200 mg 03/22/21 22:00 03/29/21 10:42 Carbamazepine 200 Mg Tab PO 200 mg BID CHAS Administration Dextrose 50 ml 03/22/21 22:42 Dextrose 50% In Water (25gm) 50 Ml Syringe IV Q30MIN PRN Hypoglycemia Protocol Famotidine 10 mg 03/23/21 13:00 03/29/21 10:42 Famotidine 10 Mg Tab PO 10 mg BID CHAS Administration Heparin Sodium (Porcine) 5,000 unit 03/22/21 10:00 03/29/21 06:11 Heparin 5,000 Unit/1 Ml Vial SUB-Q 5,000 unit Q8HR CHAS Administration Insulin Human Lispro 0 unit 03/27/21 11:30 03/29/21 12:27 Insulin Lispro 100 Unit/Ml SUB-Q Not Given ACHS CHAS Protocol Lactulose 10 gm 03/26/21 12:30 03/29/21 10:42 Lactulose 20 Gm/30 Ml Oral Liqd PO 10 gm QDAY CHAS Administration Levetiracetam 500 mg 03/22/21 22:00 03/29/21 10:42 Levetiracetam 500 Mg Tab PO 500 mg BID CHAS Administration Magnesium Hydroxide 30 ml 03/22/21 10:00 Magnesium Hydroxide (Mom) Oral Liqd Udc PO Q4H PRN Constipation Morphine Sulfate 4 mg 03/22/21 10:00 03/23/21 13:16 Morphine 4 Mg/1 Ml Inj IV 4 mg Q4H PRN Administration Pain , Severe (7-10) Naloxone HCl 0.1 mg 03/22/21 10:00 Naloxone 0.4 Mg/1 Ml Inj IV Q2MIN PRN Res Rate </= 8 or 02 SAT < 92% Ondansetron HCl 4 mg 03/22/21 10:00 Ondansetron 4 Mg/2 Ml Inj IV Q8H PRN Nausea And Vomiting Oxycodone/Acetaminophen 1 tab 03/22/21 10:00 03/22/21 23:36 Oxycodone /Acetaminophen 5-325mg Tab PO 1 tab Q6H PRN Administration Pain, Moderate (4-6) Sodium Chloride 10 ml 03/22/21 10:00 03/29/21 10:48 Sodium Chloride 0.9% 10 Ml Flush Syringe IV 10 ml BID CHAS Administration Sodium Chloride 10 ml 03/22/21 10:00 Sodium Chloride 0.9% 10 Ml Flush Syringe IV PRN PRN LINE FLUSH
[2021-03-30] MEDS: HEPARIN 5,000 UNIT/1 ML VIAL SUB-Q SCH ×3 (06:18→21:29)
[2021-03-30 06:19] LABS: Basophils % (Auto) 0.3 % (0.0-1.8); Eosinophils % (Auto) 0.4 % (0.0-4.3); Hematocrit 37.2 % (30.3-42.9); Hemoglobin 12.4 gm/dl (10.1-14.3); Lymphocytes # (Auto) 2.7 K/mm3 (1.2-5.4); Lymphocytes % (Auto) 33.1 % (13.4-35.0); Mean Corpuscular HGB Conc 33 % (30-34); Mean Corpuscular Volume 99 fl (79-97); Monocytes # (Auto) 1.1 K/mm3 (0.0-0.8); Monocytes % (Auto) 14.1 % (0.0-7.3); Platelet Count 160 K/mm3 (140-440); Red Blood Count 3.77 M/mm3 (3.65-5.03); Red Cell Distribution Width 14.7 % (13.2-15.2)
[2021-03-30 06:36] LABS: Calcium 8.3 mg/dL (8.4-10.2)
[2021-03-30] MEDS ORDERED: CALCIUM CARBONATE 500 MG TAB CHEW PO NR (08:30)
[2021-03-30] MEDS: INSULIN LISPRO 100 UNIT/ML SUB-Q SCH ×4 (09:22→22:00)
[2021-03-30] MEDS: FAMOTIDINE 10 MG TAB PO SCH ×2 (09:33→21:29)
[2021-03-30] MEDS: amLODIPine 10 MG TAB PO SCH (09:33)
[2021-03-30] MEDS: levETIRAcetam 500 MG TAB PO SCH ×2 (09:33→21:29)
[2021-03-30] MEDS: LACTULOSE 20 GM/30 ML ORAL LIQD PO SCH (09:34)
[2021-03-30] MEDS: K-PHOS NEUTRAL 250 MG TAB PO SCH ×3 (09:34→21:30)
[2021-03-30] MEDS: carBAMazepine 200 MG TAB PO SCH ×2 (09:35→21:30)
[2021-03-30 11:31] LABS: ANA Screen, IFA Positive (Negative)
--- NOTE | 2021-03-30 11:32 | Progress Note ---
Assessment and Plan Impression * Acute kidney injury * Atypical chest pain * Hypertension * Diabetes * Seizure disorder * Left adnexal cyst * Recommendations * Ordered IVF LR * Follow-up results of vasculitis work-up. Hepatitis B and C both are negative * Avoid nephrotoxins * Monitor fluid status and electrolytes closely * No urgent indication for dialysis * Renal ultrasound is essentially normal * Renal function is slowly improving * Adnexal cyst management as per primary Subjective Date of service: 03/30/21 Principal diagnosis: seizures Interval history: Awake and alert this morning. Incontinent. Objective - Exam Narrative Exam: General: No acute distress HEENT: Oral mucosa moist Neck: Supple, no JVD Chest: Clear to auscultation bilaterally Heart: RRR, S1 and S2, no pericardial rub Abdomen: Soft, nontender, no renal bruit Extremity: No peripheral cyanosis, edema Neurological: Alert, awake, no asterixis Dermatology: No skin rash Psych: No agitation Musculoskeletal: No joint effusion - Vital Signs Vital signs: Vital Signs - 12hr 03/30/21 03/30/21 05:45 09:31 Temperature 98.2 F 98.3 F Pulse Rate 80 86 Respiratory 18 16 Rate Blood Pressure 139/74 Blood Pressure 115/84 [Left] O2 Sat by Pulse 96 100 Oximetry - Lab 03/30/21 05:31 03/30/21 05:31 Most recent lab results Calcium 8.3 mg/dL (8.4-10.2) L 03/30/21 05:31 Phosphorus 2.90 mg/dL (2.5-4.5) 03/30/21 05:31 Magnesium 1.30 mg/dL (1.7-2.3) L 03/30/21 05:31 Urine Creatinine 70.3 mg/dL (0.1-20.0) H 03/26/21 01:00 Urine Sodium 121 mmol/L 03/26/21 01:00 Medications & Allergies - Medications Allergies/Adverse Reactions: Allergies No Known Allergies Allergy (Verified 02/02/21 09:38) Home Medications: Home Medications Medication Instructions Recorded Confirmed Last Taken Type ALBUTEROL NEB's [Proventil 0.083% 2.5 mg IH Q4HRT PRN #1 nebu 09/23/20 03/22/21 01/31/21 Rx NEBS] Albuterol Mdi (or & Nicu Only) 2 puff IH QID PRN #8.5 gram 02/05/21 03/22/21 Unknown Rx [ProAir HFA Inhaler] AtorvaSTATin [Lipitor] 20 mg PO QHS 02/05/21 03/22/21 Unknown History Pantoprazole [Protonix TAB] 40 mg PO QDAC #14 tablet 02/05/21 03/22/21 Unknown Rx Sodium Chloride 1 gm PO BID #14 tablet 02/05/21 03/22/21 Unknown Rx amLODIPine 10 mg PO DAILY 02/05/21 03/22/21 Unknown History carBAMazepine [TEGretol] 200 mg PO Q12HR #60 tablet 02/05/21 03/22/21 Unknown Rx levETIRAcetam [Keppra TAB] 500 mg PO BID #60 tablet 02/05/21 03/22/21 Unknown Rx Metoclopramide [Reglan TAB] 1 tab PO Q6H PRN 03/22/21 03/22/21 Unknown History Metoprolol [Lopressor TAB] 0.5 tab PO BID 03/22/21 03/22/21 Unknown History Active Medications: Generic Name Dose Route Start Last Admin Trade Name Freq PRN Reason Stop Dose Admin Acetaminophen 650 mg 03/22/21 10:00 Acetaminophen 325 Mg Tab PO Q4H PRN Pain MILD(1-3)/Fever >100.5/[place] Amlodipine Besylate 10 mg 03/22/21 14:00 03/30/21 09:33 Amlodipine 10 Mg Tab PO 10 mg QDAY CHAS Administration Atorvastatin Calcium 20 mg 03/22/21 22:00 03/29/21 23:42 Atorvastatin 20 Mg Tab PO 20 mg QHS CHAS Administration Carbamazepine 200 mg 03/22/21 22:00 03/30/21 09:35 Carbamazepine 200 Mg Tab PO 200 mg BID CHAS Administration Dextrose 50 ml 03/22/21 22:42 Dextrose 50% In Water (25gm) 50 Ml Syringe IV Q30MIN PRN Hypoglycemia Protocol Famotidine 10 mg 03/23/21 13:00 03/30/21 09:33 Famotidine 10 Mg Tab PO 10 mg BID CHAS Administration Heparin Sodium (Porcine) 5,000 unit 03/22/21 10:00 03/30/21 06:18 Heparin 5,000 Unit/1 Ml Vial SUB-Q 5,000 unit Q8HR CHAS Administration Insulin Human Lispro 0 unit 03/27/21 11:30 03/30/21 09:22 Insulin Lispro 100 Unit/Ml SUB-Q Not Given ACHS [facility] Protocol Lactulose 10 gm 03/26/21 12:30 03/30/21 09:34 Lactulose 20 Gm/30 Ml Oral Liqd PO 10 gm QDAY CHAS Administration Levetiracetam 500 mg 03/22/21 22:00 03/30/21 09:33 Levetiracetam 500 Mg Tab PO 500 mg BID CHAS Administration Magnesium Hydroxide 30 ml 03/22/21 10:00 Magnesium Hydroxide (Mom) Oral Liqd Udc PO Q4H PRN Constipation Morphine Sulfate 4 mg 03/22/21 10:00 03/23/21 13:16 Morphine 4 Mg/1 Ml Inj IV 4 mg Q4H PRN Administration Pain , Severe (7-10) Naloxone HCl 0.1 mg 03/22/21 10:00 Naloxone 0.4 Mg/1 Ml Inj IV Q2MIN PRN Res Rate </= 8 or 02 SAT < 92% Ondansetron HCl 4 mg 03/22/21 10:00 Ondansetron 4 Mg/2 Ml Inj IV Q8H PRN Nausea And Vomiting Oxycodone/Acetaminophen 1 tab 03/22/21 10:00 03/22/21 23:36 Oxycodone /Acetaminophen 5-325mg Tab PO 1 tab Q6H PRN Administration Pain, Moderate (4-6) Sodium Chloride 10 ml 03/22/21 10:00 03/30/21 09:34 Sodium Chloride 0.9% 10 Ml Flush Syringe IV 10 ml BID CHAS Administration Sodium Chloride 10 ml 03/22/21 10:00 Sodium Chloride 0.9% 10 Ml Flush Syringe IV PRN PRN LINE FLUSH Sodium Phosphate 250 mg 03/30/21 10:00 03/30/21 09:34 K-Phos Neutral 250 Mg Tab PO 03/30/21 20:00 250 mg QID CHAS Administration
[2021-03-30] MEDS ORDERED: LACTATED RINGERS 1,000 ML IV SCH (11:45)
--- NOTE | 2021-03-30 12:45 | Discharge Summary ---
Providers - Providers Date of Admission: 03/22/21 13:54 Date of discharge: 03/30/21 Attending physician: CHANELLE BOWLES MD 03/22/21 11:42 Consult to Physician [CONS] Routine Comment: Consulting Provider: LOBO PALMA Physician Instructions: Reason For Exam: chest pain 03/22/21 13:55 Physical Therapy Evaluation and Treat [CONS] Routine Comment: Reason For Exam: decreased ambulation 03/24/21 07:30 Consult to Physician [CONS] Routine Comment: Consulting Provider: ISSAC MADERA Physician Instructions: Reason For Exam: ALLAN 03/27/21 13:35 Consult to Case Management [CONS] Routine Services Needed at Discharge: Other Notified:: cm Additional Physician Instructions: custodial facility placement Primary care physician: MASH TUB COOKER Hospitalization Reason for admission: Acute chest pain Condition: Fair Pertinent studies: Reviewed Procedures: Stress testwithin normal limits Hospital course: The patient is a 76-year-old female with past medical history of vascular dementia, cerebral atherosclerosis, chronic debility, hypertension, and bilateral lower extremity DTI who presented via EMS after feeling sick and being unable to take care of herself. In the emergency room the patient was found to have bilateral lower extremity cellulitis with foul-smelling discharge. Due to the patient being bedbound and nonambulatory, the patient was a medicine to the medicine floor for further work-up. The patient was initiated on IV antibiotics, and general surgery was consulted for further evaluation. The patient was found to have maggots in her bilateral lower extremity ulcers/wounds. General surgery declined surgical intervention, but recommended extensive wet to dry dressing changes and follow-up with wound clinic after discharge. During her hospitalization the patient was also treated for vulvovaginal candidiasis with Diflucan. Due to chronic debility, the patient requires SNF placement. The patient and the family expressed understanding. Disposition: 01 HOME / SELF CARE / HOMELESS Final Discharge Diagnosis (Prints w/discharge instructions): Acute chest pain; debility; alcohol withdrawal Time spent for discharge: 30 min Core Measure Documentation - Palliative Care Palliative Care/ Comfort Measures: Not Applicable - Core Measures Any of the following diagnoses?: none - VTE Discharge Requirements Deep Vein Thrombosis/Pulmonary Embolism Present on Admission: No Has pt received <5 days of overlap therapy or INR<2.0: No (Not indicated) Anticoagulant overlap therapy prescribed at discharge: No Contraindication No Overlap Therapy order at DC: Not Indicated - Acute MA Discharge Requirements Aspirin at discharge: No Reason for no aspirin on DC: Medical contraindication (Not indicated) EMERSON/ARB for LVSD if EF <40%: Not Applicable Reason for no EMERSON/ARB: Medical contraindication (Not indicated) Beta stephani at discharge: No Reason for no beta stephani on DC: Medical contraindication (Not indicated) Statin for LDL = or >100 mg/dl on DC: Not Applicable Reason for no statin on DC: Medical contraindication (Not indicated) - Heart Failure Discharge Requirements EMERSNO/ARB for LVSD if EF <40%: Not Applicable Reason for no EMERSON/ARB: Renal impairment Beta stephani at discharge: No Reason for no beta stephani on DC: Medical contraindication - Stroke Discharge Requirements Statin for LDL = or >70 mg/dl on DC: Not Applicable Reason for no statin on DC: Not Indicated Anticoag for atrial fib/atrial flutter: Not Applicable Reason for no anticoag for AF/F on DC: Not Indicated Antithrombotic for ischemic stroke: No Reason for no antithrombotic on DC: Not Indicated Exam - Constitutional Vitals: Temp Pulse Resp BP Pulse Ox 98.3 F 86 16 115/84 100 03/30/21 09:31 03/30/21 09:31 03/30/21 09:31 03/30/21 09:31 03/30/21 09:31 General appearance: Present: no acute distress, cachectic, disheveled - EENT Eyes: Present: PERRL ENT: hearing intact, clear oral mucosa, poor dentition - Neck Neck: Present: supple, normal ROM - Respiratory Respiratory effort: normal - Cardiovascular Rhythm: regular Heart Sounds: Present: S1 & S2 - Extremities Extremities: no ischemia, pulses intact, pulses symmetrical, No edema, normal temperature, normal color Peripheral Pulses: within normal limits - Abdominal General gastrointestinal: Present: soft, non-tender, non-distended, normal bowel sounds Female genitourinary: Present: deferred - Rectal Rectal Exam: deferred - Integumentary Integumentary: Present: clear, warm, dry - Musculoskeletal Musculoskeletal: strength equal bilaterally - Psychiatric Psychiatric: appropriate mood/affect, cooperative - Neurologic Neurologic: moves all extremities, other (Alert and oriented x1) - Allied Health Allied health notes reviewed: nursing Plan Activity: advance as tolerated Diet: low salt Care Plan Goals: Patient will be discharging home with daughter. Assessment: The patient was evaluated for acute chest pain and found to have negative troponins and a negative stress test. The patient was monitored for alcohol withdrawal. The patient was recommended 24-hour care by physical therapy; however, the daughter is working to meet the financial requirements. Follow up with: PRIMARY CARE, [Primary Care Provider] - 3-5 Days Prescriptions: amLODIPine 10 mg PO DAILY 30 Days levETIRAcetam [Keppra TAB] 500 mg PO BID #60 tablet carBAMazepine [TEGretol] 200 mg PO Q12HR #60 tablet
--- NOTE | 2021-03-30 14:22 | Electrocardiograph Report ---
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
[2021-03-30 15:49] LABS: Albumin 2.9 g/dL (3.8-4.8); Gamma Globulin 1.6 g/dL (0.8-1.7)
[2021-03-31] MEDS: HEPARIN 5,000 UNIT/1 ML VIAL SUB-Q SCH ×3 (05:16→21:18)
[2021-03-31 06:07] LABS: Basophils % (Auto) 0.4 % (0.0-1.8); Eosinophils % (Auto) 0.1 % (0.0-4.3); Hematocrit 34.4 % (30.3-42.9); Hemoglobin 11.8 gm/dl (10.1-14.3); Lymphocytes # (Auto) 3.3 K/mm3 (1.2-5.4); Lymphocytes % (Auto) 30.9 % (13.4-35.0); Mean Corpuscular HGB Conc 34 % (30-34); Mean Corpuscular Volume 97 fl (79-97); Monocytes # (Auto) 1.4 K/mm3 (0.0-0.8); Monocytes % (Auto) 13.1 % (0.0-7.3); Platelet Count 247 K/mm3 (140-440); Red Blood Count 3.53 M/mm3 (3.65-5.03); Red Cell Distribution Width 14.7 % (13.2-15.2)
[2021-03-31 06:20] LABS: Calcium 8.4 mg/dL (8.4-10.2)
[2021-03-31] MEDS ORDERED: MAGNESIUM SULFATE 1 GM in SODIUM CHLORIDE 0.9% 50 ML IV ONE (08:00)
[2021-03-31] MEDS: INSULIN LISPRO 100 UNIT/ML SUB-Q SCH ×4 (08:52→22:17)
[2021-03-31] MEDS: LACTULOSE 20 GM/30 ML ORAL LIQD PO SCH (10:30)
[2021-03-31] MEDS: levETIRAcetam 500 MG TAB PO SCH ×2 (10:31→21:18)
[2021-03-31] MEDS: carBAMazepine 200 MG TAB PO SCH ×2 (10:31→21:18)
[2021-03-31] MEDS: amLODIPine 10 MG TAB PO SCH (10:32)
[2021-03-31] MEDS: FAMOTIDINE 10 MG TAB PO SCH ×2 (10:32→21:18)
--- NOTE | 2021-03-31 12:24 | Progress Note ---
Assessment and Plan Assessment and plan: #Acute encephalopathy -CT head ordered-negative -TSH, folate WNL -B12 elevated -Spoke to daughter Kathie ([phone]) extensively about mother's baseline. Based on conversation, patient was ambulating, completely independent, and able to perform ADLs without assistance. -Consulted neurology for further evaluation of encephalopathy; pending recs -will continue to monitor #ALLAN-improved -Creatinine 1.6 (previously 1.9) -Renal US showed normal kidneys, adnexal mass -continue gentle IVFs as patient is not having adequate oral intake -Nephrology consulted, assistance appreciated -will need outpatient follow up #Seizure disorder -continue Keppra and carbamazepine at home doses #Hypertension -continue amlodipine #Left ovarian cyst -Measuring 10 cm, unchanged from previous study -Will need outpatient follow-up #Type 2 diabetes -Goal glucose one 140-180 while inpatient -Sliding scale + Accu-Cheks #Chest pain, atypical- resolved -Stress test negative, will continue with medical optimization -Patient reported pain to be epigastric/abdominal in nature -CT abdomen pelvis without contrast shows large hiatal hernia, and large left ovarian cyst #Alcohol dependence -Patient reports to drink 1 can of beer per day -Attempts at counseling were refused -CIWA protocal discontinued, patient outside of withdrawal window #Debility -patient evaluated by physical therapy, recommendation for SNF -discussed with patient's daughter Kathie #Discharge planning -Discharge pending neurology evaluation. If no acute abnormalities found, pat ient will be discharged home. Daughter expressed understanding. Disposition Plan: Continue medical management. Total Time Spent with Patient (Minutes): 30 History Interval history: The patient was not discharged due to still requiring oxygen and concerns from her daugther (Kathie) about the patient's altered mental status compared to her baseline. Hospitalist Physical - Constitutional Vitals: Temp Pulse Resp BP Pulse Ox 98.4 F 86 20 136/83 92 03/31/21 05:42 03/31/21 05:42 03/31/21 05:42 03/31/21 05:42 03/31/21 05:42 General appearance: Present: no acute distress, cachectic, disheveled - EENT Eyes: Present: PERRL, EOM intact ENT: hearing intact, clear oral mucosa - Neck Neck: Present: supple, normal ROM - Respiratory Respiratory effort: normal - Cardiovascular Rhythm: regular Heart Sounds: Present: S1 & S2 - Extremities Extremities: no ischemia, pulses intact, pulses symmetrical, No edema, normal temperature, normal color Peripheral Pulses: within normal limits - Abdominal General gastrointestinal: soft, non-tender, non-distended, normal bowel sounds - Integumentary Integumentary: Present: clear, warm, dry - Psychiatric Psychiatric: cooperative - Neurologic Neurologic: CNII-XII intact, other (Alert and oriented x1) - Allied Health Allied health notes reviewed: nursing HEART Score - HEART Score EKG: Normal Age: > 65 Risk factors: 1-2 risk factors Troponin: Troponin T < 0.010 ng/mL (0.00-0.029) 03/22/21 15:11 Troponin: < normal limit Results - Labs CBC & Chem 7: 03/31/21 05:45 03/31/21 05:45 Labs: Laboratory Last Values WBC 10.8 K/mm3 (4.5-11.0) 03/31/21 05:45 RBC 3.53 M/mm3 (3.65-5.03) L 03/31/21 05:45 Hgb 11.8 gm/dl (10.1-14.3) 03/31/21 05:45 Hct 34.4 % (30.3-42.9) 03/31/21 05:45 MCV 97 fl (79-97) 03/31/21 05:45 MCH 33 pg (28-32) H 03/31/21 05:45 MCHC 34 % (30-34) 03/31/21 05:45 RDW 14.7 % (13.2-15.2) 03/31/21 05:45 Plt Count 247 K/mm3 (140-440) 03/31/21 05:45 Lymph % (Auto) 30.9 % (13.4-35.0) 03/31/21 05:45 [place] % (Auto) 13.1 % (0.0-7.3) H 03/31/21 05:45 Eos % (Auto) 0.1 % (0.0-4.3) 03/31/21 05:45 Baso % (Auto) 0.4 % (0.0-1.8) 03/31/21 05:45 Lymph # (Auto) 3.3 K/mm3 (1.2-5.4) 03/31/21 05:45 [place] # (Auto) 1.4 K/mm3 (0.0-0.8) H 03/31/21 05:45 Eos # (Auto) 0.0 K/mm3 (0.0-0.4) 03/31/21 05:45 Baso # (Auto) 0.0 K/mm3 (0.0-0.1) 03/31/21 05:45 Seg Neutrophils % 55.5 % (40.0-70.0) 03/31/21 05:45 Seg Neutrophils # 6.0 K/mm3 (1.8-7.7) 03/31/21 05:45 PT 22.4 Sec. (12.2-14.9) H 03/22/21 04:04 INR 1.90 (0.87-1.13) H 03/22/21 04:04 Sodium 137 mmol/L (137-145) 03/31/21 05:45 Potassium 3.6 mmol/L (3.6-5.0) 03/31/21 05:45 Chloride 98.6 mmol/L (98-107) 03/31/21 05:45 Carbon Dioxide 24 mmol/L (22-30) 03/31/21 05:45 Anion Gap 18 mmol/L 03/31/21 05:45 BUN 25 mg/dL (7-17) H 03/31/21 05:45 Creatinine 1.6 mg/dL (0.6-1.2) H 03/31/21 05:45 Estimated GFR 32 ml/min 03/31/21 05:45 BUN/Creatinine Ratio 16 % 03/31/21 05:45 Glucose 133 mg/dL (65-100) H 03/31/21 05:45 POC Glucose 156 mg/dL (70-105) H 03/31/21 11:20 Hemoglobin A1c 7.2 % (4-6) H 03/22/21 04:04 Calcium 8.4 mg/dL (8.4-10.2) 03/31/21 05:45 Phosphorus 2.80 mg/dL (2.5-4.5) 03/31/21 05:45 Magnesium 1.30 mg/dL (1.7-2.3) L 03/31/21 05:45 Ammonia 35.0 umol/L (25-60) 03/31/21 07:38 Total Creatine Kinase 90 units/L (30-135) 03/22/21 04:04 CK-MB (CK-2) 2.8 ng/mL (0.0-4.0) 03/22/21 04:04 CK-MB (CK-2) Rel Index 3.1 (0-4) 03/22/21 04:04 Troponin T < 0.010 ng/mL (0.00-0.029) 03/22/21 15:11 Serum Total Protein 6.0 g/dL (6.1-8.1) L 03/25/21 05:17 Albumin 2.9 g/dL (3.8-4.8) L 03/25/21 05:17 Hhnlj-4-Wojyfkafg 0.2 g/dL (0.2-0.3) 03/25/21 05:17 Emyyc-8-Dqztuqheg 0.5 g/dL (0.5-0.9) 03/25/21 05:17 Beta Globulins 0.7 g/dL (0.2-0.5) H 03/25/21 05:17 Gamma Globulins 1.6 g/dL (0.8-1.7) 03/25/21 05:17 Abnorm Protein Band 1 see below 03/25/21 05:17 PEP Interpretation see below H 03/25/21 05:17 Triglycerides 471 mg/dL (2-149) H 03/22/21 04:04 Cholesterol 212 mg/dL (50-199) H 03/22/21 04:04 LDL Cholesterol Direct TNR 03/22/21 04:04 HDL Cholesterol 68 mg/dL (40-59) H 03/22/21 04:04 Cholesterol/HDL Ratio 3.11 % 03/22/21 04:04 Lipase 88 units/L (13-60) H 03/22/21 04:04 Vitamin B12 1895 pg/mL (211-911) H 03/31/21 07:38 Folate 14.56 ng/mL (7.3-26.0) 03/25/21 16:41 TSH 2.060 mlU/mL (0.270-4.200) 03/25/21 16:41 Free T4 0.84 ng/dL (0.76-1.46) 03/25/21 16:41 Urine Color Yellow (Yellow) 03/26/21 01:00 Urine Turbidity Clear (Clear) 03/26/21 01:00 Urine pH 6.0 (5.0-7.0) 03/26/21 01:00 Ur Specific [place] 1.011 (1.003-1.030) 03/26/21 01:00 Urine Protein <15 mg/dl mg/dL (Negative) 03/26/21 01:00 Urine Glucose (UA) Neg mg/dL (Negative) 03/26/21 01:00 Urine Ketones Neg mg/dL (Negative) 03/26/21 01:00 Urine Blood Sm (Negative) 03/26/21 01:00 Urine Nitrite Neg (Negative) 03/26/21 01:00 Urine Bilirubin Neg (Negative) 03/26/21 01:00 Urine Urobilinogen < 2.0 mg/dL (<2.0) 03/26/21 01:00 Ur Leukocyte Esterase Tr (Negative) 03/26/21 01:00 Urine WBC (Auto) 3.0 /HPF (0.0-6.0) 03/26/21 01:00 Urine RBC (Auto) 1.0 /HPF (0.0-6.0) 03/26/21 01:00 U Epithel Cells (Auto) 3.0 /HPF (0-13.0) 03/26/21 01:00 Urine Bacteria (Auto) 1+ /HPF (Negative) 03/26/21 01:00 Urine Mucus Few /HPF 03/26/21 01:00 Urine Eosinophils <5% (None Seen) 03/24/21 01:00 Urine Creatinine 70.3 mg/dL (0.1-20.0) H 03/26/21 01:00 Urine Sodium 121 mmol/L 03/26/21 01:00 Fraction Sodium Excret 1.7 03/26/21 01:00 Plasma/Serum Alcohol < 0.01 % (0-0.07) 03/22/21 04:04 DIANE Screen Positive (Negative) H 03/24/21 15:42 Double Strand DNA Ab <1 IU/mL (<=4) 03/24/21 15:42 Complement C3 36 mg/dL (83-193) L 03/24/21 15:42 Complement C4 9 mg/dL (15-57) L 03/24/21 15:42 Hepatitis A IgM Ab Non-reactive (NonReactive) 03/24/21 15:42 Hep Bs Antigen Nonreactive (Negative) 03/24/21 15:42 Hep B Core IgM Ab Non-reactive (NonReactive) 03/24/21 15:42 Hepatitis C Antibody Nonreactive (NonReactive) 03/24/21 15:42 [place]/IV: Voiding Method Incontinent Active Medications - Current Medications Current Medications: Generic Name Dose Route Start Last Admin Trade Name Freq PRN Reason Stop Dose Admin Acetaminophen 650 mg 03/22/21 10:00 Acetaminophen 325 Mg Tab PO Q4H PRN Pain MILD(1-3)/Fever >100.5/[place] Amlodipine Besylate 10 mg 03/22/21 14:00 03/31/21 10:32 Amlodipine 10 Mg Tab PO Not Given QDAY CHAS Atorvastatin Calcium 20 mg 03/22/21 22:00 03/30/21 21:29 Atorvastatin 20 Mg Tab PO 20 mg QHS CHAS Administration Carbamazepine 200 mg 03/22/21 22:00 03/31/21 10:31 Carbamazepine 200 Mg Tab PO 200 mg BID CHAS Administration Dextrose 50 ml 03/22/21 22:42 Dextrose 50% In Water (25gm) 50 Ml Syringe IV Q30MIN PRN Hypoglycemia Protocol Famotidine 10 mg 03/23/21 13:00 03/31/21 10:32 Famotidine 10 Mg Tab PO 10 mg BID CHAS Administration Heparin Sodium (Porcine) 5,000 unit 03/22/21 10:00 03/31/21 05:16 Heparin 5,000 Unit/1 Ml Vial SUB-Q 5,000 unit Q8HR CHAS Administration Lactated Ringer's 1,000 mls @ 75 mls/hr 03/30/21 11:45 Lactated Ringers IV 04/01/21 01:04 DIRECT CHAS Insulin Human Lispro 0 unit 03/27/21 11:30 03/31/21 08:52 Insulin Lispro 100 Unit/Ml SUB-Q Not Given ACHS CHAS Protocol Lactulose 10 gm 03/26/21 12:30 03/31/21 10:30 Lactulose 20 Gm/30 Ml Oral Liqd PO 10 gm QDAY CHAS Administration Levetiracetam 500 mg 03/22/21 22:00 03/31/21 10:31 Levetiracetam 500 Mg Tab PO 500 mg BID CHAS Administration Magnesium Hydroxide 30 ml 03/22/21 10:00 Magnesium Hydroxide (Mom) Oral Liqd Udc PO Q4H PRN Constipation Morphine Sulfate 4 mg 03/22/21 10:00 03/23/21 13:16 Morphine 4 Mg/1 Ml Inj IV 4 mg Q4H PRN Administration Pain , Severe (7-10) Naloxone HCl 0.1 mg 03/22/21 10:00 Naloxone 0.4 Mg/1 Ml Inj IV Q2MIN PRN Res Rate </= 8 or 02 SAT < 92% Ondansetron HCl 4 mg 03/22/21 10:00 Ondansetron 4 Mg/2 Ml Inj IV Q8H PRN Nausea And Vomiting Oxycodone/Acetaminophen 1 tab 03/22/21 10:00 03/22/21 23:36 Oxycodone /Acetaminophen 5-325mg Tab PO 1 tab Q6H PRN Administration Pain, Moderate (4-6) Sodium Chloride 10 ml 03/22/21 10:00 03/31/21 10:32 Sodium Chloride 0.9% 10 Ml Flush Syringe IV 10 ml BID CHAS Administration Sodium Chloride 10 ml 03/22/21 10:00 Sodium Chloride 0.9% 10 Ml Flush Syringe IV PRN PRN LINE FLUSH Nutrition/Malnutrition Assess - Dietary Evaluation Nutrition/Malnutrition Findings: Nutrition Notes Start: 03/23/21 12:32 Freq: Status: Active Protocol: Document 03/25/21 12:06 AURELIA (Rec: 03/25/21 12:29 AURELIA [id number]) Nutrition Notes Need for Assessment generated from: utility [employer] Initial or Follow up Reassessment Current Diagnosis Acute Kidney Injury, Hypertension Other Pertinent Diagnosis Accute Kidney Failure Current Diet Pureed Diet (since D 03/24). Labs/Tests 03/25: CO2 21, BUN 28, Cr 2.1, Glu 151. Pertinent Medications 03/25: Nutritionally unremarkable. Height 5 ft Weight 45.8 kg [place] Body Weight (kg) 45.45 BMI 19.7 Weight Status Appropriate Percent of energy/protein needs met: Prescribed Pureed Diet provides with energy/protein needs (1,804 Kcal/77 g) during LOS. Burn Absent Trauma Absent GI Symptoms None Food Allergy No Skin Integrity/Comment Integumentary; clear, warm, dry. Current % PO Fair (50-74%) Minimum of two criteria No physical signs of malnutrition #1 Nutrition Diagnosis No nutrition diagnosis at this time Comments: Pt shows acceptance of PO intake of prescribed diet, as per ADL Notes. Is patient on ventilator? No Is Patient Ambulatory and/or Out of Bed Yes REE-([place]-St. Jeor-ambulatory/OOB) [ 1162.850 NUTR.[id number]] Kcal/Kg value to use for calculation 25 Approximate Energy Requirements Using 1145 kcal/Kg Calculation Used for Recommendations Kcal/kg Additional Notes Protein: 0.8-1.0 g/Kg/day; 36- 45 g/day; 144-180 Kcal/day ( from IBW). Fluids: 1.0 ml/Kcal/day, or as per MD. Nutrition Intervention Change Diet Order: Continue Pureed Diet, or as per MD. Goal #1 Maintain body weight within +/ -3% of current BWt during LOS. Goal #2 Reach and maintain acceptable chemistry lab values during LOS. Follow-Up By: 04/01/21 Additional Comments Continue monitoring acceptance of foods, % PO intake of meals, Hydration, and BM. - Attestation Statement I have reviewed and agreed w/ Malnutrition eval & tx plan: Yes
--- NOTE | 2021-03-31 12:43 | Progress Note ---
Assessment and Plan Impression * Acute kidney injury * Atypical chest pain * Hypertension * Diabetes * Seizure disorder * Left adnexal cyst * Recommendations * Continue IVF LR * Encouraged PO hydration * Follow-up results of vasculitis work-up. Hepatitis B and C both are negative * Avoid nephrotoxins * Monitor fluid status and electrolytes closely * No urgent indication for dialysis * Renal ultrasound is essentially normal * Renal function is slowly improving * Adnexal cyst management as per primary Subjective Date of service: 03/31/21 Principal diagnosis: seizures Interval history: Resting in bed. Incontinent. Objective - Exam Narrative Exam: General: No acute distress HEENT: Oral mucosa moist Neck: Supple, no JVD Chest: Clear to auscultation bilaterally Heart: RRR, S1 and S2, no pericardial rub Abdomen: Soft, nontender, no renal bruit Extremity: No peripheral cyanosis, edema Neurological: Alert, awake, no asterixis Dermatology: No skin rash Psych: No agitation Musculoskeletal: No joint effusion - Vital Signs Vital signs: Vital Signs - 12hr 03/31/21 03/31/21 03/31/21 05:42 10:34 11:20 Temperature 98.4 F 98.6 F Pulse Rate 86 83 88 Respiratory 20 18 Rate Blood Pressure 136/83 105/55 116/67 O2 Sat by Pulse 92 94 95 Oximetry - Lab 03/31/21 05:45 03/31/21 05:45 Most recent lab results Calcium 8.4 mg/dL (8.4-10.2) 03/31/21 05:45 Phosphorus 2.80 mg/dL (2.5-4.5) 03/31/21 05:45 Magnesium 1.30 mg/dL (1.7-2.3) L 03/31/21 05:45 Urine Creatinine 70.3 mg/dL (0.1-20.0) H 03/26/21 01:00 Urine Sodium 121 mmol/L 03/26/21 01:00 Medications & Allergies - Medications Allergies/Adverse Reactions: Allergies No Known Allergies Allergy (Verified 02/02/21 09:38) Home Medications: Home Medications Medication Instructions Recorded Confirmed Last Taken Type ALBUTEROL NEB's [Proventil 0.083% 2.5 mg IH Q4HRT PRN #1 nebu 09/23/20 03/22/21 01/31/21 Rx NEBS] Albuterol Mdi (or & Nicu Only) 2 puff IH QID PRN #8.5 gram 02/05/21 03/22/21 Unknown Rx [ProAir HFA Inhaler] AtorvaSTATin [Lipitor] 20 mg PO QHS 02/05/21 03/22/21 Unknown History Pantoprazole [Protonix TAB] 40 mg PO QDAC #14 tablet 02/05/21 03/22/21 Unknown Rx Metoclopramide [Reglan TAB] 1 tab PO Q6H PRN 03/22/21 03/22/21 Unknown History amLODIPine 10 mg PO DAILY #30 tab 03/30/21 Unknown Rx carBAMazepine [TEGretol] 200 mg PO Q12HR #60 tablet 03/30/21 Unknown Rx levETIRAcetam [Keppra TAB] 500 mg PO BID #60 tablet 03/30/21 Unknown Rx Active Medications: Generic Name Dose Route Start Last Admin Trade Name Freq PRN Reason Stop Dose Admin Acetaminophen 650 mg 03/22/21 10:00 Acetaminophen 325 Mg Tab PO Q4H PRN Pain MILD(1-3)/Fever >100.5/[place] Amlodipine Besylate 10 mg 03/22/21 14:00 03/31/21 10:32 Amlodipine 10 Mg Tab PO Not Given QDAY CHAS Atorvastatin Calcium 20 mg 03/22/21 22:00 03/30/21 21:29 Atorvastatin 20 Mg Tab PO 20 mg QHS CHAS Administration Carbamazepine 200 mg 03/22/21 22:00 03/31/21 10:31 Carbamazepine 200 Mg Tab PO 200 mg BID CHAS Administration Dextrose 50 ml 03/22/21 22:42 Dextrose 50% In Water (25gm) 50 Ml Syringe IV Q30MIN PRN Hypoglycemia Protocol Famotidine 10 mg 03/23/21 13:00 03/31/21 10:32 Famotidine 10 Mg Tab PO 10 mg BID CHAS Administration Heparin Sodium (Porcine) 5,000 unit 03/22/21 10:00 03/31/21 05:16 Heparin 5,000 Unit/1 Ml Vial SUB-Q 5,000 unit Q8HR CHAS Administration Lactated Ringer's 1,000 mls @ 75 mls/hr 03/30/21 11:45 Lactated Ringers IV 04/01/21 01:04 DIRECT CHAS Insulin Human Lispro 0 unit 03/27/21 11:30 03/31/21 08:52 Insulin Lispro 100 Unit/Ml SUB-Q Not Given ACHS [facility] Protocol Lactulose 10 gm 03/26/21 12:30 03/31/21 10:30 Lactulose 20 Gm/30 Ml Oral Liqd PO 10 gm QDAY CHAS Administration Levetiracetam 500 mg 03/22/21 22:00 03/31/21 10:31 Levetiracetam 500 Mg Tab PO 500 mg BID CHAS Administration Magnesium Hydroxide 30 ml 03/22/21 10:00 Magnesium Hydroxide (Mom) Oral Liqd Udc PO Q4H PRN Constipation Morphine Sulfate 4 mg 03/22/21 10:00 03/23/21 13:16 Morphine 4 Mg/1 Ml Inj IV 4 mg Q4H PRN Administration Pain , Severe (7-10) Naloxone HCl 0.1 mg 03/22/21 10:00 Naloxone 0.4 Mg/1 Ml Inj IV Q2MIN PRN Res Rate </= 8 or 02 SAT < 92% Ondansetron HCl 4 mg 03/22/21 10:00 Ondansetron 4 Mg/2 Ml Inj IV Q8H PRN Nausea And Vomiting Oxycodone/Acetaminophen 1 tab 03/22/21 10:00 03/22/21 23:36 Oxycodone /Acetaminophen 5-325mg Tab PO 1 tab Q6H PRN Administration Pain, Moderate (4-6) Sodium Chloride 10 ml 03/22/21 10:00 03/31/21 10:32 Sodium Chloride 0.9% 10 Ml Flush Syringe IV 10 ml BID CHAS Administration Sodium Chloride 10 ml 03/22/21 10:00 Sodium Chloride 0.9% 10 Ml Flush Syringe IV PRN PRN LINE FLUSH
--- NOTE | 2021-03-31 12:52 | Consultation ---
History of Present Illness Consult date: 03/31/21 Reason for Consult: Change in mentation History of present illness: Chest pain History of present illness: Patient is a 70-year-old lady with history of hypertension, seizure disorder and questionable alcohol dependence who presented with complaint of shortness of breath and chest pain. She was reported to have a witnessed seizure. She is currently on Keppra and carbamazepine at home and reports compliance. She reports her chest pain starting 1 day ago. She described it as "like heartburn". She tried to take mustard and the pain was unrelieved. The pain became worse with intensity and is associated with nausea and dizziness. The pain is located on the left side of her chest and is reproducible on exami nation. She denies radiation to arm, back, numbness tingling in extremities. She denies NSAID use or history of heartburn. She reports drinking a 12 ounce can of beer daily. Discussion with daughter Kathie ([phone]) revealed that patient drinks more than she alludes to. Labs were notable for negative troponin. Chest x-ray was negative for acute process. Cardiology was consulted and she was admitted for further care. During her stay cardiac perfusion scan was negative CT brain is unremarkable CT abdoen and chest is remarkable for ovarian cyst Ammonia level is #35 treated with lactulose B12 and TSH wnl neurology consulted today due to legs weakness she is able to walk with melissa tanlinda , No PT therapy was offered to pt. during her hospital stay due to confusion there was a concern pt. might have GB ? related J&J COVID vaccin she got in December No reported seizure during her stay . Most of hx is obtained from record and pt. Past History Past Medical History: hypertension Past Surgical History: No surgical history Social history: smoking, other (one 12oz beer daily) Family history: no significant family history Medications and Allergies Allergies Allergy/AdvReac Type Severity Reaction Status Date / Time No Known Allergies Allergy Verified 02/02/21 09:38 Home Medications Medication Instructions Recorded Confirmed Last Taken Type ALBUTEROL NEB's [Proventil 0.083% 2.5 mg IH Q4HRT PRN #1 nebu 09/23/20 03/22/21 01/31/21 Rx NEBS] Albuterol Mdi (or & Nicu Only) 2 puff IH QID PRN #8.5 gram 02/05/21 03/22/21 Unknown Rx [ProAir HFA Inhaler] AtorvaSTATin [Lipitor] 20 mg PO QHS 02/05/21 03/22/21 Unknown History Pantoprazole [Protonix TAB] 40 mg PO QDAC #14 tablet 02/05/21 03/22/21 Unknown Rx Sodium Chloride 1 gm PO BID #14 tablet 02/05/21 03/22/21 Unknown Rx amLODIPine 10 mg PO DAILY 02/05/21 03/22/21 Unknown History carBAMazepine [TEGretol] 200 mg PO Q12HR #60 tablet 02/05/21 03/22/21 Unknown Rx levETIRAcetam [Keppra TAB] 500 mg PO BID #60 tablet 02/05/21 03/22/21 Unknown Rx Metoclopramide [Reglan TAB] 1 tab PO Q6H PRN 03/22/21 03/22/21 Unknown History Metoprolol [Lopressor TAB] 0.5 tab PO BID 03/22/21 03/22/21 Unknown History Active Meds: Active Medications Acetaminophen (Acetaminophen 325 Mg Tab) 650 mg PO Q4H PRN PRN Reason: Pain MILD(1-3)/Fever >100.5/[place] Heparin Sodium (Porcine) (Heparin 5,000 Unit/1 Ml Vial) 5,000 unit SUB-Q Q8HR [facility] Last Admin: 03/22/21 11:00 Dose: 5,000 unit Documented by: Magnesium Hydroxide (Magnesium Hydroxide (Mom) Oral Liqd Udc) 30 ml PO Q4H PRN PRN Reason: Constipation Morphine Sulfate (Morphine 4 Mg/1 Ml Inj) 4 mg IV Q4H PRN PRN Reason: Pain , Severe (7-10) Naloxone HCl (Naloxone 0.4 Mg/1 Ml Inj) 0.1 mg IV Q2MIN PRN PRN Reason: Res Rate </= 8 or 02 SAT < 92% Ondansetron HCl (Ondansetron 4 Mg/2 Ml Inj) 4 mg IV Q8H PRN PRN Reason: Nausea And Vomiting Oxycodone/Acetaminophen (Oxycodone /Acetaminophen 5-325mg Tab) 1 tab PO Q6H PRN PRN Reason: Pain, Moderate (4-6) Last Admin: 03/22/21 11:51 Dose: 1 tab Documented by: Sodium Chloride (Sodium Chloride 0.9% 10 Ml Flush Syringe) 10 ml IV BID [facility] Last Admin: 03/22/21 10:45 Dose: 10 ml Documented by: Sodium Chloride (Sodium Chloride 0.9% 10 Ml Flush Syringe) 10 ml IV PRN PRN PRN Reason: LINE FLUSH Review of Systems Constitutional: chronic pain (bilateral leg pain) Cardiovascular: chest pain Gastrointestinal: nausea, heartburn Musculoskeletal: arm numbness/tingling Past History Past Medical History: hypertension Past Surgical History: No surgical history Social history: smoking, other (one 12oz beer daily) Family history: no significant family history Medications and Allergies Allergies Allergy/AdvReac Type Severity Reaction Status Date / Time No Known Allergies Allergy Verified 02/02/21 09:38 Home Medications Medication Instructions Recorded Confirmed Last Taken Type ALBUTEROL NEB's [Proventil 0.083% 2.5 mg IH Q4HRT PRN #1 nebu 09/23/20 03/22/21 01/31/21 Rx NEBS] Albuterol Mdi (or & Nicu Only) 2 puff IH QID PRN #8.5 gram 02/05/21 03/22/21 U nknown Rx [ProAir HFA Inhaler] AtorvaSTATin [Lipitor] 20 mg PO QHS 02/05/21 03/22/21 Unknown History Pantoprazole [Protonix TAB] 40 mg PO QDAC #14 tablet 02/05/21 03/22/21 Unknown Rx Metoclopramide [Reglan TAB] 1 tab PO Q6H PRN 03/22/21 03/22/21 Unknown History amLODIPine 10 mg PO DAILY #30 tab 03/30/21 Unknown Rx carBAMazepine [TEGretol] 200 mg PO Q12HR #60 tablet 03/30/21 Unknown Rx levETIRAcetam [Keppra TAB] 500 mg PO BID #60 tablet 03/30/21 Unknown Rx Active Meds: Active Medications Acetaminophen (Acetaminophen 325 Mg Tab) 650 mg PO Q4H PRN PRN Reason: Pain MILD(1-3)/Fever >100.5/[place] Amlodipine Besylate (Amlodipine 10 Mg Tab) 10 mg PO QDAY [facility] Last Admin: 03/31/21 10:32 Dose: Not Given Documented by: Atorvastatin Calcium (Atorvastatin 20 Mg Tab) 20 mg PO QHS [facility] Last Admin: 03/30/21 21:29 Dose: 20 mg Documented by: Carbamazepine (Carbamazepine 200 Mg Tab) 200 mg PO BID [facility] Last Admin: 03/31/21 10:31 Dose: 200 mg Documented by: Dextrose (Dextrose 50% In Water (25gm) 50 Ml Syringe) 50 ml IV Q30MIN PRN; Protocol PRN Reason: Hypoglycemia Famotidine (Famotidine 10 Mg Tab) 10 mg PO BID [facility] Last Admin: 03/31/21 10:32 Dose: 10 mg Documented by: Heparin Sodium (Porcine) (Heparin 5,000 Unit/1 Ml Vial) 5,000 unit SUB-Q Q8HR [facility] Last Admin: 03/31/21 05:16 Dose: 5,000 unit Documented by: Lactated Ringer's (Lactated Ringers) 1,000 mls @ 75 mls/hr IV DIRECT CHAS Stop: 04/01/21 01:04 Insulin Human Lispro (Insulin Lispro 100 Unit/Ml) 0 unit SUB-Q ACHS [facility]; Protocol Last Admin: 03/31/21 08:52 Dose: Not Given Documented by: Lactulose (Lactulose 20 Gm/30 Ml Oral Liqd) 10 gm PO QDAY [facility] Last Admin: 03/31/21 10:30 Dose: 10 gm Documented by: Levetiracetam (Levetiracetam 500 Mg Tab) 500 mg PO BID [facility] Last Admin: 03/31/21 10:31 Dose: 500 mg Documented by: Magnesium Hydroxide (Magnesium Hydroxide (Mom) Oral Liqd Udc) 30 ml PO Q4H PRN PRN Reason: Constipation Morphine Sulfate (Morphine 4 Mg/1 Ml Inj) 4 mg IV Q4H PRN PRN Reason: Pain , Severe (7-10) Last Admin: 03/23/21 13:16 Dose: 4 mg Documented by: Naloxone HCl (Naloxone 0.4 Mg/1 Ml Inj) 0.1 mg IV Q2MIN PRN PRN Reason: Res Rate </= 8 or 02 SAT < 92% Ondansetron HCl (Ondansetron 4 Mg/2 Ml Inj) 4 mg IV Q8H PRN PRN Reason: Nausea And Vomiting Oxycodone/Acetaminophen (Oxycodone /Acetaminophen 5-325mg Tab) 1 tab PO Q6H PRN PRN Reason: Pain, Moderate (4-6) Last Admin: 03/22/21 23:36 Dose: 1 tab Documented by: Sodium Chloride (Sodium Chloride 0.9% 10 Ml Flush Syringe) 10 ml IV BID [facility] Last Admin: 03/31/21 10:32 Dose: 10 ml Documented by: Sodium Chloride (Sodium Chloride 0.9% 10 Ml Flush Syringe) 10 ml IV PRN PRN PRN Reason: LINE FLUSH Physical Examination - Vital Signs Vital Signs: Vital Signs Temp Pulse Resp BP Pulse Ox 98 F 103 H 18 142/93 97 03/22/21 03:44 03/22/21 03:44 03/22/21 03:44 03/22/21 03:44 03/22/21 03:44 - Constitutional General appearance: comfortable - EENT EENT: Present: PERRL, mucous membranes moist - Respiratory Respiratory: Present: chest non-tender, lungs clear, rhonchi - Cardiovascular Cardiovascular: Present: regular rate, normal S1, normal S2 Extremities: Present: no peripheral edema bilatateraly, no clubbing, cyanosis - Gastrointestinal Gastrointestinal: Present: normoactive bowel sounds - Integumentary Integumentary: Present: normal - Neurologic Cranial nerve examination: PERRL, EOMI, intact Speech examination: intact Sensorimotor examination: other (mild diffuse weakness in feet dorsi flexion in addition to diffuse musles wasting , no fasciculation,reflexes are intact Bilteral upper and lower , sensation possibly decrese position sense in lower , gait is not done ) Results - Laboratory Findings CBC and BMP: 03/31/21 05:45 03/31/21 05:45 Abnormal Lab Findings: Abnormal Labs 03/22/21 03/22/21 03/22/21 04:04 04:04 04:04 RBC MCV 98 H MCH 34 H MCHC 35 H Plt Count [place] % (Auto) [place] # (Auto) Seg Neutrophils % 78.0 H PT 22.4 H INR 1.90 H Sodium 135 L Potassium Chloride 96.2 L Carbon Dioxide 18 L BUN 20 H Creatinine Glucose 214 H POC Glucose Hemoglobin A1c Calcium Magnesium Ammonia Serum Total Protein Albumin Beta Globulins PEP Interpretation Triglycerides Cholesterol HDL Cholesterol Lipase 88 H Vitamin B12 Urine Creatinine DIANE Screen Complement C3 Complement C4 03/22/21 03/22/21 03/22/21 04:04 04:04 04:04 RBC MCV MCH MCHC Plt Count [place] % (Auto) [place] # (Auto) Seg Neutrophils % PT INR Sodium Potassium Chloride Carbon Dioxide BUN Creatinine Glucose POC Glucose Hemoglobin A1c 7.2 H Calcium Magnesium 1.50 L Ammonia Serum Total Protein Albumin Beta Globulins PEP Interpretation Triglycerides 471 H Cholesterol 212 H HDL Cholesterol 68 H Lipase Vitamin B12 Urine Creatinine DIANE Screen Complement C3 Complement C4 03/23/21 03/23/21 03/23/21 05:30 06:35 11:05 RBC MCV MCH MCHC Plt Count [place] % (Auto) [place] # (Auto) Seg Neutrophils % PT INR Sodium 135 L Potassium Chloride Carbon Dioxide 21 L BUN 23 H Creatinine 1.4 H Glucose 109 H POC Glucose 113 H 114 H Hemoglobin A1c Calcium Magnesium Ammonia Serum Total Protein Albumin Beta Globulins PEP Interpretation Triglycerides Cholesterol HDL Cholesterol Lipase Vitamin B12 Urine Creatinine DIANE Screen Complement C3 Complement C4 03/23/21 03/24/21 03/24/21 15:33 05:48 11:11 RBC MCV MCH MCHC Plt Count [place] % (Auto) [place] # (Auto) Seg Neutrophils % PT INR Sodium 133 L Potassium Chloride 96.7 L Carbon Dioxide 20 L BUN 34 H Creatinine 2.3 H D Glucose POC Glucose 107 H 151 H Hemoglobin A1c Calcium Magnesium Ammonia Serum Total Protein Albumin Beta Globulins PEP Interpretation Triglycerides Cholesterol HDL Cholesterol Lipase Vitamin B12 Urine Creatinine DIANE Screen Complement C3 Complement C4 03/24/21 03/24/21 03/24/21 15:42 15:42 15:42 RBC MCV MCH MCHC Plt Count [place] % (Auto) [place] # (Auto) Seg Neutrophils % PT INR Sodium Potassium Chloride Carbon Dioxide BUN Creatinine Glucose POC Glucose Hemoglobin A1c Calcium Magnesium Ammonia Serum Total Protein Albumin Beta Globulins PEP Interpretation Triglycerides Cholesterol HDL Cholesterol Lipase Vitamin B12 Urine Creatinine DIANE Screen Positive H Complement C3 36 L Complement C4 9 L 03/24/21 03/24/21 03/25/21 17:48 23:07 05:17 RBC MCV MCH MCHC Plt Count [place] % (Auto) [place] # (Auto) Seg Neutrophils % PT INR Sodium Potassium Chloride Carbon Dioxide BUN Creatinine Glucose POC Glucose 154 H 185 H Hemoglobin A1c Calcium Magnesium Ammonia Serum Total Protein 6.0 L Albumin 2.9 L Beta Globulins 0.7 H PEP Interpretation see below H Triglycerides Cholesterol HDL Cholesterol Lipase Vitamin B12 Urine Creatinine DIANE Screen Complement C3 Complement C4 03/25/21 03/25/21 03/25/21 05:17 07:06 11:28 RBC MCV MCH MCHC Plt Count [place] % (Auto) [place] # (Auto) Seg Neutrophils % PT INR Sodium Potassium Chloride Carbon Dioxide 21 L BUN 28 H Creatinine 2.1 H Glucose 151 H POC Glucose 127 H 201 H Hemoglobin A1c Calcium Magnesium Ammonia Serum Total Protein Albumin Beta Globulins PEP Interpretation Triglycerides Cholesterol HDL Cholesterol Lipase Vitamin B12 Urine Creatinine DIANE Screen Complement C3 Complement C4 03/25/21 03/25/21 03/25/21 16:34 16:41 16:41 RBC MCV MCH MCHC Plt Count [place] % (Auto) [place] # (Auto) Seg Neutrophils % PT INR Sodium Potassium Chloride Carbon Dioxide BUN Creatinine Glucose POC Glucose 148 H Hemoglobin A1c Calcium Magnesium Ammonia 102.0 H Serum Total Protein Albumin Beta Globulins PEP Interpretation Triglycerides Cholesterol HDL Cholesterol Lipase Vitamin B12 2000 H Urine Creatinine DIANE Screen Complement C3 Complement C4 03/26/21 03/26/21 03/26/21 01:00 05:51 05:51 RBC 3.51 L MCV 99 H MCH 34 H MCHC Plt Count 112 L [place] % (Auto) [place] # (Auto) Seg Neutrophils % PT INR Sodium Potassium Chloride Carbon Dioxide BUN 24 H Creatinine 1.9 H Glucose 109 H POC Glucose Hemoglobin A1c Calcium Magnesium Ammonia Serum Total Protein Albumin Beta Globulins PEP Interpretation Triglycerides Cholesterol HDL Cholesterol Lipase Vitamin B12 Urine Creatinine 70.3 H DIANE Screen Complement C3 Complement C4 03/26/21 03/26/21 03/26/21 06:59 17:07 22:11 RBC MCV MCH MCHC Plt Count [place] % (Auto) [place] # (Auto) Seg Neutrophils % PT INR Sodium Potassium Chloride Carbon Dioxide BUN Creatinine Glucose POC Glucose 128 H 131 H 120 H Hemoglobin A1c Calcium Magnesium Ammonia Serum Total Protein Albumin Beta Globulins PEP Interpretation Triglycerides Cholesterol HDL Cholesterol Lipase Vitamin B12 Urine Creatinine DIANE Screen Complement C3 Complement C4 03/27/21 03/27/21 03/27/21 01:50 05:31 12:18 RBC MCV MCH MCHC Plt Count [place] % (Auto) [place] # (Auto) Seg Neutrophils % PT INR Sodium Potassium 3.3 L Chloride Carbon Dioxide BUN 20 H Creatinine 1.8 H 1.8 H Glucose 118 H POC Glucose 175 H Hemoglobin A1c Calcium Magnesium Ammonia Serum Total Protein Albumin Beta Globulins PEP Interpretation Triglycerides Cholesterol HDL Cholesterol Lipase Vitamin B12 Urine Creatinine DIANE Screen Complement C3 Complement C4 03/27/21 03/27/21 03/28/21 16:29 22:03 08:45 RBC MCV MCH MCHC Plt Count [place] % (Auto) [place] # (Auto) Seg Neutrophils % PT INR Sodium Potassium Chloride Carbon Dioxide BUN Creatinine 1.5 H Glucose 110 H POC Glucose 109 H 119 H Hemoglobin A1c Calcium Magnesium Ammonia Serum Total Protein Albumin Beta Globulins PEP Interpretation Triglycerides Cholesterol HDL Cholesterol Lipase Vitamin B12 Urine Creatinine DIANE Screen Complement C3 Complement C4 03/28/21 03/28/21 03/28/21 12:00 17:02 21:25 RBC MCV MCH MCHC Plt Count [place] % (Auto) [place] # (Auto) Seg Neutrophils % PT INR Sodium Potassium Chloride Carbon Dioxide BUN Creatinine Glucose POC Glucose 115 H 123 H 121 H Hemoglobin A1c Calcium Magnesium Ammonia Serum Total Protein Albumin Beta Globulins PEP Interpretation Triglycerides Cholesterol HDL Cholesterol Lipase Vitamin B12 Urine Creatinine DIANE Screen Complement C3 Complement C4 03/29/21 03/29/21 03/29/21 05:35 07:50 11:21 RBC MCV MCH MCHC Plt Count [place] % (Auto) [place] # (Auto) Seg Neutrophils % PT INR Sodium Potassium Chloride Carbon Dioxide BUN 19 H Creatinine 1.9 H Glucose 109 H POC Glucose 112 H 120 H Hemoglobin A1c Calcium Magnesium Ammonia Serum Total Protein Albumin Beta Globulins PEP Interpretation Triglycerides Cholesterol HDL Cholesterol Lipase Vitamin B12 Urine Creatinine DIANE Screen Complement C3 Complement C4 03/29/21 03/30/21 03/30/21 22:13 05:31 05:31 RBC MCV 99 H MCH 33 H MCHC Plt Count [place] % (Auto) 14.1 H [place] # (Auto) 1.1 H Seg Neutrophils % PT INR Sodium 135 L Potassium 3.4 L Chloride Carbon Dioxide BUN 24 H Creatinine 1.7 H Glucose 113 H POC Glucose 127 H Hemoglobin A1c Calcium 8.3 L Magnesium 1.30 L Ammonia Serum Total Protein Albumin Beta Globulins PEP Interpretation Triglycerides Cholesterol HDL Cholesterol Lipase Vitamin B12 Urine Creatinine DIANE Screen Complement C3 Complement C4 03/30/21 03/30/21 03/30/21 07:44 11:31 14:08 RBC MCV MCH MCHC Plt Count [place] % (Auto) [place] # (Auto) Seg Neutrophils % PT INR Sodium Potassium Chloride Carbon Dioxide BUN Creatinine Glucose POC Glucose 118 H 201 H 164 H Hemoglobin A1c Calcium Magnesium Ammonia Serum Total Protein Albumin Beta Globulins PEP Interpretation Triglycerides Cholesterol HDL Cholesterol Lipase Vitamin B12 Urine Creatinine DIANE Screen Complement C3 Complement C4 03/30/21 03/31/21 03/31/21 21:51 05:45 05:45 RBC 3.53 L MCV MCH 33 H MCHC Plt Count [place] % (Auto) 13.1 H [place] # (Auto) 1.4 H Seg Neutrophils % PT INR Sodium Potassium Chloride Carbon Dioxide BUN 25 H Creatinine 1.6 H Glucose 133 H POC Glucose 162 H Hemoglobin A1c Calcium Magnesium 1.30 L Ammonia Serum Total Protein Albumin Beta Globulins PEP Interpretation Triglycerides Cholesterol HDL Cholesterol Lipase Vitamin B12 Urine Creatinine DIANE Screen Complement C3 Complement C4 03/31/21 03/31/21 03/31/21 07:38 08:45 11:20 RBC MCV MCH MCHC Plt Count [place] % (Auto) [place] # (Auto) Seg Neutrophils % PT INR Sodium Potassium Chloride Carbon Dioxide BUN Creatinine Glucose POC Glucose 129 H 156 H Hemoglobin A1c Calcium Magnesium Ammonia Serum Total Protein Albumin Beta Globulins PEP Interpretation Triglycerides Cholesterol HDL Cholesterol Lipase Vitamin B12 1895 H Urine Creatinine DIANE Screen Complement C3 Complement C4 Assessment and Plan Assessment and Plan Assessment and plan: #Eencephalopathy on admission resolved -CT head is unremarkable -TSH, folate WNL -B12 elevated -BUN/Cr #25/1.6 -Ammonia #35 was #105 on admission ++ Underlying dementia multifactorial ? vascular vs alcohol related ,she is able to answer simple questions , disorieted to date , birthdate and location , # Concern for weakness and inability to ambulate independently -she was admitted on 03/22 with celulitis treated -Exam is remarkable for diffuse weakness and or possible foot drop related to underlying neuropathy mostly multifactorial -- more alcohol related -No sign of exam to suggest GB syndrom -Spoke to daughter Kathie ([phone]) extensively about mother's baseline. Based on conversation, patient was ambulating, completely independent, and able to perform ADLs without assistance. -pt. is in hospital since 03/22 being bed ridden #ALLAN-improved -Creatinine 1.6 (previously 1.9) -Renal US showed normal kidneys, adnexal mass #Seizure disorder -continue Keppra and carbamazepine at home doses -difficult to get details hx of her seizure -will check Tegretol level -According to pt. she is with intermittent seizure -my understanding her last seizure is before admission -EEG to order -MRI brain ? wo contrast due to impaired kidney function #Hypertension -continue amlodipine #Left ovarian cyst -Measuring 10 cm, unchanged from previous study -Will need outpatient follow-up #Type 2 diabetes -Goal glucose one 140-180 while inpatient -Sliding scale + Accu-Cheks -A1C # is pending #Chest pain, atypical- resolved -Stress test negative, will continue with medical optimization -Patient reported pain to be epigastric/abdominal in nature -CT abdomen pelvis without contrast shows large hiatal hernia, and large left ovarian cyst #Alcohol dependence -Patient reports to drink 1 can of beer per day -Attempts at counseling were refused -CIWA protocal discontinued, patient outside of withdrawal window #Debility -patient evaluated by physical therapy, recommendation for SNF -discussed with patient's daughter Kathie PLAN 1- Brain MRI wo gd 2- EEG 3- PT therapy ? Rehabilitation 4- Check tegretol level , A1C level ,B1 level ,Serum CPK 5- seizure precaution 6- Consider NCS as out pt. and neurology follow up 7- Thiamin 300 mg IV X3 days 8- neutrional consult will follow along case D/E her daughter According to daughter she have not taken care of her Mom for over a year as her Mom was staying with an alcoholic friend and that possibly contribute to her deterioration Daughter denied any knowledge of her Mom getting COVID -19 vaccine . According to daughter her mom had seizure all her life average 1-2 seizure a month started taking medications only recently for seizure , No neurology evaluation or follow up.
[2021-03-31] MEDS: THIAMINE 300 MG in SODIUM CHLORIDE 0.9% 50 ML IV SCH (15:32)
[2021-03-31] MEDS ORDERED: LORazepam 2 MG/ML VIAL IV ONE (16:08)
--- NOTE | 2021-03-31 19:17 | Magnetic Resonance Report ---
NONENHANCED MR SCAN OF THE BRAIN: INDICATION / CLINICAL INFORMATION: CVA. TECHNIQUE: Multiplanar, multisequence MR images of the brain obtained. Patient was given 2 mg of Ativan before M RI scan; still some of the imaging sequences are marred by motion related artifacts; best possible im ages were obtained COMPARISON: CT scan of the head from 03/25/2021 and MRI scan of the brain from 02/02/2021 FINDINGS: BRAIN / INTRACRANIAL CONTENTS: No acute ischemia, acute hemorrhage, mass effect, midline shift, or hy drocephalus. 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 Moderate confluent periventricular white matter hyperintensity (grade 2); small white matter lesions in both cerebral hemispheres and basal ganglia ([place] 1); due to chronic small vessel disease; mil d cortical involution; MR findings unchanged CRANIOCERVICAL JUNCTION: No significant abnormality. VASCULAR FLOW-VOIDS: No significant abnormality. ORBITS: No significant abnormality of visualized orbits. SINUSES / MASTOIDS: Coastal thickening in the sphenoid sinus ADDITIONAL FINDINGS: None. IMPRESSION: 1. No acute focal parenchymal lesion in the brain MR findings unchanged Signer Name: Brayan Brooks MD Signed: 03/31/2021 7:13 PM Workstation Name: [id number]
[2021-03-31] MEDS: oxyCODONE /ACETAMINOPHEN 5-325MG TAB PO PRN (22:21)
[2021-04-01] MEDS: MORPHINE 4 MG/1 ML INJ IV PRN ×2 (02:23→02:26)
[2021-04-01] MEDS: HEPARIN 5,000 UNIT/1 ML VIAL SUB-Q SCH ×3 (05:38→22:36)
[2021-04-01 06:26] LABS: Calcium 8.6 mg/dL (8.4-10.2)
[2021-04-01] MEDS: levETIRAcetam 500 MG TAB PO SCH ×2 (09:56→22:36)
[2021-04-01] MEDS: LACTULOSE 20 GM/30 ML ORAL LIQD PO SCH (09:56)
[2021-04-01] MEDS: FAMOTIDINE 10 MG TAB PO SCH ×2 (09:56→22:35)
[2021-04-01] MEDS: carBAMazepine 200 MG TAB PO SCH ×2 (09:56→22:35)
[2021-04-01] MEDS: amLODIPine 10 MG TAB PO SCH (09:57)
[2021-04-01] MEDS ORDERED: LORazepam 2 MG/ML VIAL IV ONE (10:00)
[2021-04-01] MEDS: INSULIN LISPRO 100 UNIT/ML SUB-Q SCH ×4 (11:11→22:00)
[2021-04-01] MEDS: THIAMINE 300 MG in SODIUM CHLORIDE 0.9% 50 ML IV SCH (11:29)
--- NOTE | 2021-04-01 11:38 | Progress Note ---
Assessment and Plan Assessment and Plan Assessment and plan: #Eencephalopathy on admission resolved -CT head is unremarkable -TSH, folate WNL -B12 elevated -BUN/Cr #25/1.6 -Ammonia #35 was #105 on admission ++ Underlying dementia multifactorial ? vascular vs alcohol related ,she is able to answer simple questions , disorieted to date , birthdate and location , # Concern for weakness and inability to ambulate independently -she was admitted on 03/22 with celulitis treated -Exam is remarkable for diffuse weakness and or possible foot drop related to underlying neuropathy mostly multifactorial -- more alcohol related -Spoke to daughter Kathie ([phone]) extensively about mother's baseline. Based on conversation, patient was ambulating, completely independent, and able to perform ADLs without assistance. -pt. is in hospital since 03/22 being bed ridden #ALLAN-improved -Creatinine 1.6 (previously 1.9) -Renal US showed normal kidneys, adnexal mass #Seizure disorder -continue Keppra and carbamazepine at home doses -difficult to get details hx of her seizure -will check Tegretol level -According to pt. she is with intermittent seizure -my understanding her last seizure is before admission -EEG to order -MRI brain wo contrast is unremarkable #Hypertension -continue amlodipine #Left ovarian cyst -Measuring 10 cm, unchanged from previous study -Will need outpatient follow-up #Type 2 diabetes -Goal glucose one 140-180 while inpatient -Sliding scale + Accu-Cheks -A1C # is pending #Chest pain, atypical- resolved -Stress test negative, will continue with medical optimization -Patient reported pain to be epigastric/abdominal in nature -CT abdomen pelvis without contrast shows large hiatal hernia, and large left ov sukhwinder cyst #Alcohol dependence -Patient reports to drink 1 can of beer per day -Attempts at counseling were refused -CIWA protocal discontinued, patient outside of withdrawal window #Debility -patient evaluated by physical therapy, recommendation for SNF -discussed with patient's daughter Kathie PLAN 1- Brain MRI wo gd is unremarkable 2- EEG is pending 3- PT therapy ? Rehabilitation 4- Check tegretol level is pending - , A1C level ,B1 level -,Serum CPK is WNL. 5- seizure precaution 6- Consider NCS as out pt. and neurology follow up 7- Thiamin 300 mg IV X3 days 8- neutrional consult will follow along case D/E her daughter According to daughter she have not taken care of her Mom for over a year as her Mom was staying with an alcoholic friend and that possibly contribute to her deterioration According to daughter her mom had seizure all her life average 1-2 seizure a month started taking medications only recently for seizure , No neurology evaluation or follow up. Subjective Date of service: 04/01/21 Principal diagnosis: seizures Interval history: More alert interactive today oriented to place knows day and her birthday , no seizure is reported MRI brain is unremarkable review Lumber spine MRI R/E spinal stenosis PT therapy EEG is pending Tegretol level is pending Objective - Vital Sign Vital Signs - 12hr 04/01/21 05:05 Temperature 98.8 F Pulse Rate 88 Respiratory 18 Rate Blood Pressure 123/75 O2 Sat by Pulse 83 L Oximetry - General Apperance Constitutional: comfortable - EENT EENT: PERRL, mucous membranes moist - Respiratory Respiratory: chest non-tender, lungs clear, rhonchi - Cardiovascular Cardiovascular: regular rate, normal S1, normal S2 Extremities: no peripheral edema bilat, no clubbing, cyanosis - Gastrointestinal Gastrointestinal: normoactive bowel sounds, absent bowel sounds - Integumentary Integumentary: normal - Neurologic Cranial nerve examination: PERRL, intact Speech examination: intact Detailed motor examination: other (motor 4/5 bilteral with slight give away weakness lower , gait not done) - Laboratory Findings CBC and BMP: 03/31/21 05:45 04/01/21 04:00 Abnormal Lab Findings: Abnormal Labs 03/22/21 03/22/21 03/22/21 04:04 04:04 04:04 RBC MCV 98 H MCH 34 H MCHC 35 H Plt Count [place] % (Auto) [place] # (Auto) Seg Neutrophils % 78.0 H PT 22.4 H INR 1.90 H Sodium 135 L Potassium Chloride 96.2 L Carbon Dioxide 18 L BUN 20 H Creatinine Glucose 214 H POC Glucose Hemoglobin A1c Calcium Magnesium Ammonia Serum Total Protein Albumin Beta Globulins PEP Interpretation Triglycerides Cholesterol HDL Cholesterol Lipase 88 H Vitamin B12 Urine Creatinine DIANE Screen Complement C3 Complement C4 03/22/21 03/22/21 03/22/21 04:04 04:04 04:04 RBC MCV MCH MCHC Plt Count [place] % (Auto) [place] # (Auto) Seg Neutrophils % PT INR Sodium Potassium Chloride Carbon Dioxide BUN Creatinine Glucose POC Glucose Hemoglobin A1c 7.2 H Calcium Magnesium 1.50 L Ammonia Serum Total Protein Albumin Beta Globulins PEP Interpretation Triglycerides 471 H Cholesterol 212 H HDL Cholesterol 68 H Lipase Vitamin B12 Urine Creatinine DIANE Screen Complement C3 Complement C4 03/23/21 03/23/21 03/23/21 05:30 06:35 11:05 RBC MCV MCH MCHC Plt Count [place] % (Auto) [place] # (Auto) Seg Neutrophils % PT INR Sodium 135 L Potassium Chloride Carbon Dioxide 21 L BUN 23 H Creatinine 1.4 H Glucose 109 H POC Glucose 113 H 114 H Hemoglobin A1c Calcium Magnesium Ammonia Serum Total Protein Albumin Beta Globulins PEP Interpretation Triglycerides Cholesterol HDL Cholesterol Lipase Vitamin B12 Urine Creatinine DIANE Screen Complement C3 Complement C4 03/23/21 03/24/21 03/24/21 15:33 05:48 11:11 RBC MCV MCH MCHC Plt Count [place] % (Auto) [place] # (Auto) Seg Neutrophils % PT INR Sodium 133 L Potassium Chloride 96.7 L Carbon Dioxide 20 L BUN 34 H Creatinine 2.3 H D Glucose POC Glucose 107 H 151 H Hemoglobin A1c Calcium Magnesium Ammonia Serum Total Protein Albumin Beta Globulins PEP Interpretation Triglycerides Cholesterol HDL Cholesterol Lipase Vitamin B12 Urine Creatinine DIANE Screen Complement C3 Complement C4 03/24/21 03/24/21 03/24/21 15:42 15:42 15:42 RBC MCV MCH MCHC Plt Count [place] % (Auto) [place] # (Auto) Seg Neutrophils % PT INR Sodium Potassium Chloride Carbon Dioxide BUN Creatinine Glucose POC Glucose Hemoglobin A1c Calcium Magnesium Ammonia Serum Total Protein Albumin Beta Globulins PEP Interpretation Triglycerides Cholesterol HDL Cholesterol Lipase Vitamin B12 Urine Creatinine DIANE Screen Positive H Complement C3 36 L Complement C4 9 L 03/24/21 03/24/21 03/25/21 17:48 23:07 05:17 RBC MCV MCH MCHC Plt Count [place] % (Auto) [place] # (Auto) Seg Neutrophils % PT INR Sodium Potassium Chloride Carbon Dioxide BUN Creatinine Glucose POC Glucose 154 H 185 H Hemoglobin A1c Calcium Magnesium Ammonia Serum Total Protein 6.0 L Albumin 2.9 L Beta Globulins 0.7 H PEP Interpretation see below H Triglycerides Cholesterol HDL Cholesterol Lipase Vitamin B12 Urine Creatinine DIANE Screen Complement C3 Complement C4 03/25/21 03/25/21 03/25/21 05:17 07:06 11:28 RBC MCV MCH MCHC Plt Count [place] % (Auto) [place] # (Auto) Seg Neutrophils % PT INR Sodium Potassium Chloride Carbon Dioxide 21 L BUN 28 H Creatinine 2.1 H Glucose 151 H POC Glucose 127 H 201 H Hemoglobin A1c Calcium Magnesium Ammonia Serum Total Protein Albumin Beta Globulins PEP Interpretation Triglycerides Cholesterol HDL Cholesterol Lipase Vitamin B12 Urine Creatinine DIANE Screen Complement C3 Complement C4 03/25/21 03/25/21 03/25/21 16:34 16:41 16:41 RBC MCV MCH MCHC Plt Count [place] % (Auto) [place] # (Auto) Seg Neutrophils % PT INR Sodium Potassium Chloride Carbon Dioxide BUN Creatinine Glucose POC Glucose 148 H Hemoglobin A1c Calcium Magnesium Ammonia 102.0 H Serum Total Protein Albumin Beta Globulins PEP Interpretation Triglycerides Cholesterol HDL Cholesterol Lipase Vitamin B12 2000 H Urine Creatinine DIANE Screen Complement C3 Complement C4 03/26/21 03/26/21 03/26/21 01:00 05:51 05:51 RBC 3.51 L MCV 99 H MCH 34 H MCHC Plt Count 112 L [place] % (Auto) [place] # (Auto) Seg Neutrophils % PT INR Sodium Potassium Chloride Carbon Dioxide BUN 24 H Creatinine 1.9 H Glucose 109 H POC Glucose Hemoglobin A1c Calcium Magnesium Ammonia Serum Total Protein Albumin Beta Globulins PEP Interpretation Triglycerides Cholesterol HDL Cholesterol Lipase Vitamin B12 Urine Creatinine 70.3 H DIANE Screen Complement C3 Complement C4 03/26/21 03/26/21 03/26/21 06:59 17:07 22:11 RBC MCV MCH MCHC Plt Count [place] % (Auto) [place] # (Auto) Seg Neutrophils % PT INR Sodium Potassium Chloride Carbon Dioxide BUN Creatinine Glucose POC Glucose 128 H 131 H 120 H Hemoglobin A1c Calcium Magnesium Ammonia Serum Total Protein Albumin Beta Globulins PEP Interpretation Triglycerides Cholesterol HDL Cholesterol Lipase Vitamin B12 Urine Creatinine DIANE Screen Complement C3 Complement C4 03/27/21 03/27/21 03/27/21 01:50 05:31 12:18 RBC MCV MCH MCHC Plt Count [place] % (Auto) [place] # (Auto) Seg Neutrophils % PT INR Sodium Potassium 3.3 L Chloride Carbon Dioxide BUN 20 H Creatinine 1.8 H 1.8 H Glucose 118 H POC Glucose 175 H Hemoglobin A1c Calcium Magnesium Ammonia Serum Total Protein Albumin Beta Globulins PEP Interpretation Triglycerides Cholesterol HDL Cholesterol Lipase Vitamin B12 Urine Creatinine DIANE Screen Complement C3 Complement C4 03/27/21 03/27/21 03/28/21 16:29 22:03 08:45 RBC MCV MCH MCHC Plt Count [place] % (Auto) [place] # (Auto) Seg Neutrophils % PT INR Sodium Potassium Chloride Carbon Dioxide BUN Creatinine 1.5 H Glucose 110 H POC Glucose 109 H 119 H Hemoglobin A1c Calcium Magnesium Ammonia Serum Total Protein Albumin Beta Globulins PEP Interpretation Triglycerides Cholesterol HDL Cholesterol Lipase Vitamin B12 Urine Creatinine DIANE Screen Complement C3 Complement C4 03/28/21 03/28/21 03/28/21 12:00 17:02 21:25 RBC MCV MCH MCHC Plt Count [place] % (Auto) [place] # (Auto) Seg Neutrophils % PT INR Sodium Potassium Chloride Carbon Dioxide BUN Creatinine Glucose POC Glucose 115 H 123 H 121 H Hemoglobin A1c Calcium Magnesium Ammonia Serum Total Protein Albumin Beta Globulins PEP Interpretation Triglycerides Cholesterol HDL Cholesterol Lipase Vitamin B12 Urine Creatinine DIANE Screen Complement C3 Complement C4 03/29/21 03/29/21 03/29/21 05:35 07:50 11:21 RBC MCV MCH MCHC Plt Count [place] % (Auto) [place] # (Auto) Seg Neutrophils % PT INR Sodium Potassium Chloride Carbon Dioxide BUN 19 H Creatinine 1.9 H Glucose 109 H POC Glucose 112 H 120 H Hemoglobin A1c Calcium Magnesium Ammonia Serum Total Protein Albumin Beta Globulins PEP Interpretation Triglycerides Cholesterol HDL Cholesterol Lipase Vitamin B12 Urine Creatinine DIANE Screen Complement C3 Complement C4 03/29/21 03/30/21 03/30/21 22:13 05:31 05:31 RBC MCV 99 H MCH 33 H MCHC Plt Count [place] % (Auto) 14.1 H [place] # (Auto) 1.1 H Seg Neutrophils % PT INR Sodium 135 L Potassium 3.4 L Chloride Carbon Dioxide BUN 24 H Creatinine 1.7 H Glucose 113 H POC Glucose 127 H Hemoglobin A1c Calcium 8.3 L Magnesium 1.30 L Ammonia Serum Total Protein Albumin Beta Globulins PEP Interpretation Triglycerides Cholesterol HDL Cholesterol Lipase Vitamin B12 Urine Creatinine DIANE Screen Complement C3 Complement C4 03/30/21 03/30/21 03/30/21 07:44 11:31 14:08 RBC MCV MCH MCHC Plt Count [place] % (Auto) [place] # (Auto) Seg Neutrophils % PT INR Sodium Potassium Chloride Carbon Dioxide BUN Creatinine Glucose POC Glucose 118 H 201 H 164 H Hemoglobin A1c Calcium Magnesium Ammonia Serum Total Protein Albumin Beta Globulins PEP Interpretation Triglycerides Cholesterol HDL Cholesterol Lipase Vitamin B12 Urine Creatinine DIANE Screen Complement C3 Complement C4 03/30/21 03/31/21 03/31/21 21:51 05:45 05:45 RBC 3.53 L MCV MCH 33 H MCHC Plt Count [place] % (Auto) 13.1 H [place] # (Auto) 1.4 H Seg Neutrophils % PT INR Sodium Potassium Chloride Carbon Dioxide BUN 25 H Creatinine 1.6 H Glucose 133 H POC Glucose 162 H Hemoglobin A1c Calcium Magnesium 1.30 L Ammonia Serum Total Protein Albumin Beta Globulins PEP Interpretation Triglycerides Cholesterol HDL Cholesterol Lipase Vitamin B12 Urine Creatinine DIANE Screen Complement C3 Complement C4 03/31/21 03/31/21 03/31/21 07:38 08:45 11:20 RBC MCV MCH MCHC Plt Count [place] % (Auto) [place] # (Auto) Seg Neutrophils % PT INR Sodium Potassium Chloride Carbon Dioxide BUN Creatinine Glucose POC Glucose 129 H 156 H Hemoglobin A1c Calcium Magnesium Ammonia Serum Total Protein Albumin Beta Globulins PEP Interpretation Triglycerides Cholesterol HDL Cholesterol Lipase Vitamin B12 1895 H Urine Creatinine DIANE Screen Complement C3 Complement C4 03/31/21 04/01/21 17:55 04:00 RBC MCV MCH MCHC Plt Count [place] % (Auto) [place] # (Auto) Seg Neutrophils % PT INR Sodium 134 L Potassium 3.5 L Chloride 95.2 L Carbon Dioxide BUN 25 H Creatinine 1.5 H Glucose 112 H POC Glucose 113 H Hemoglobin A1c Calcium Magnesium Ammonia Serum Total Protein Albumin Beta Globulins PEP Interpretation Triglycerides Cholesterol HDL Cholesterol Lipase Vitamin B12 Urine Creatinine DIANE Screen Complement C3 Complement C4
--- NOTE | 2021-04-01 11:57 | Magnetic Resonance Report ---
MR lumbar spine wo con INDICATION / CLINICAL INFORMATION: 70 years Female; legs weakness. TECHNIQUE: Multisequence, multiplanar images of the lumbar spine were obtained. COMPARISON: None available. FINDINGS: ALIGNMENT: There is milder anterolisthesis at L4-L5 with prominent facet joint arthropathy and small joint effusions at. There is no significant lumbar scoliosis. VERTEBRAE:There are endplate changes anteriorly from L3-4 to L5-S1 without significant edema. There i s diffuse heterogeneous appearance of the visualized spine which is nonspecific. Again, no focal jose miguel atous lesions are identified. There is transitional component to the S1 vertebral body with mild lumb arization. VISUALIZED SPINAL CORD: The distal spinal cord appears to demonstrate appropriate signal intensity an d terminates at L1. [id number] ANALYSIS: L1-2: No significant abnormality. L2-3: No significant abnormality. L3-4: There is a minimal a disc bulge without significant central spinal stenosis. There is facet cortes nt arthropathy with small effusions bilaterally at. There is also mild foraminal narrowing bilaterall y. L4-5: The spondylosis and notable facet joint hypertrophy result in marked spinal stenosis with effac ement of the lateral recesses. Additionally, the foraminal narrowing appears to mildly encroach on th e exiting L4 nerve root sheaths bilaterally. L5-S1: There is a broad-based disc bulge without ossific and central spinal stenosis. The facet joint arthropathy and foraminal annular tears contribute to mild to moderate foraminal narrowing bilateral ly. PARASPINAL SOFT TISSUES: There is a partially visualized large cystic lesion within the left adnexa w hich correlates with the previous abdominal CT of 09/13/2020. ADDITIONAL FINDINGS: No epidural collections are identified. IMPRESSION: 1. There is mild anterolisthesis at L4-5 with marked of spinal stenosis. Additionally, the neural fro m narrowing appears to mildly encroach on the exiting L4 nerve root sheaths bilaterally. 2. The diffuse a disc bulge and facet joint changes at L5-S1 result in mild to moderate neural forami nal narrowing bilaterally. 3. There is mild transitional component to the S1 vertebrae. Signer Name: Jimbo Cohn MD Signed: 04/01/2021 11:53 AM Workstation Name: [id number] / [id number]
--- NOTE | 2021-04-01 16:02 | Progress Note ---
Assessment and Plan Assessment and plan: #Acute encephalopathy -CT head ordered-negative -TSH, folate WNL, vitamin B12 elevated -Consulted neurology for further evaluation of encephalopathy; appreciate recs -MRI brain (03/31/2021) negative, MRI lumbar spine (04/01/2021) negative -Patient is more talkative and more interactive today. 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 Given negative assessment, patient will be discharged 04/02/2021. #ALLAN on CKD stage IIIb-resolved -Creatinine 1.6 (previously 1.9) -Renal US showed normal kidneys, adnexal mass -continue gentle IVFs as patient is not having adequate oral intake -Nephrology consulted, assistance appreciated -will need outpatient follow up #Seizure disorder -continue Keppra and carbamazepine at home doses #Hypertension -continue amlodipine #Left ovarian cyst -Measuring 10 cm, unchanged from previous study -Will need outpatient follow-up #Type 2 diabetes -Goal glucose one 140-180 while inpatient -Sliding scale + Accu-Cheks #Chest pain, atypical- resolved -Stress test negative, will continue with medical optimization -Patient reported pain to be epigastric/abdominal in nature -CT abdomen pelvis without contrast shows large hiatal hernia, and large left ovarian cyst #Alcohol dependence #Counseling on alcohol cessation -CIWA protocal discontinued, patient outside of withdrawal window -Counseled patient on alcohol cessation. -Time: +15 minutes #Debility -patient evaluated by physical therapy, recommendation for SNF -discussed with patient's daughter Kathie #Discharge planning -Given negative neurology evaluation so far, patient will be discharged home to [facility]ly [facility] on 04/02/2021. Disposition Plan: Pending neurology work-up in order to discharge Total Time Spent with Patient (Minutes): 30 History Interval history: No acute events over night. The patient denies fevers, chills, nausea, vomiting, abdominal pain, chest pain/pressure, shortness of breath, urinary symptoms, weakness, or confusion. Hospitalist Physical - Constitutional Vitals: Temp Pulse Resp BP Pulse Ox 98.8 F 88 18 123/75 92 04/01/21 05:05 04/01/21 05:05 04/01/21 05:05 04/01/21 05:05 04/01/21 15:51 General appearance: Present: no acute distress, cachectic, disheveled - EENT Eyes: Present: PERRL, EOM intact ENT: hearing intact, clear oral mucosa, poor dentition - Neck Neck: Present: supple, normal ROM - Respiratory Respiratory effort: normal - Cardiovascular Rhythm: regular Heart Sounds: Present: S1 & S2 - Extremities Extremities: no ischemia, pulses intact, pulses symmetrical, No edema, normal temperature, normal color Peripheral Pulses: within normal limits - Abdominal General gastrointestinal: soft, non-tender, non-distended, normal bowel sounds - Integumentary Integumentary: Present: clear, warm, dry - Psychiatric Psychiatric: appropriate mood/affect, cooperative - Neurologic Neurologic: CNII-XII intact, moves all extremities - Allied Health Allied health notes reviewed: nursing HEART Score - HEART Score EKG: Normal Age: > 65 Risk factors: 1-2 risk factors Troponin: Troponin T < 0.010 ng/mL (0.00-0.029) 03/22/21 15:11 Troponin: < normal limit Results - Labs CBC & Chem 7: 03/31/21 05:45 04/01/21 04:00 Labs: Laboratory Last Values WBC 10.8 K/mm3 (4.5-11.0) 03/31/21 05:45 RBC 3.53 M/mm3 (3.65-5.03) L 03/31/21 05:45 Hgb 11.8 gm/dl (10.1-14.3) 03/31/21 05:45 Hct 34.4 % (30.3-42.9) 03/31/21 05:45 MCV 97 fl (79-97) 03/31/21 05:45 MCH 33 pg (28-32) H 03/31/21 05:45 MCHC 34 % (30-34) 03/31/21 05:45 RDW 14.7 % (13.2-15.2) 03/31/21 05:45 Plt Count 247 K/mm3 (140-440) 03/31/21 05:45 Lymph % (Auto) 30.9 % (13.4-35.0) 03/31/21 05:45 [place] % (Auto) 13.1 % (0.0-7.3) H 03/31/21 05:45 Eos % (Auto) 0.1 % (0.0-4.3) 03/31/21 05:45 Baso % (Auto) 0.4 % (0.0-1.8) 03/31/21 05:45 Lymph # (Auto) 3.3 K/mm3 (1.2-5.4) 03/31/21 05:45 [place] # (Auto) 1.4 K/mm3 (0.0-0.8) H 03/31/21 05:45 Eos # (Auto) 0.0 K/mm3 (0.0-0.4) 03/31/21 05:45 Baso # (Auto) 0.0 K/mm3 (0.0-0.1) 03/31/21 05:45 Seg Neutrophils % 55.5 % (40.0-70.0) 03/31/21 05:45 Seg Neutrophils # 6.0 K/mm3 (1.8-7.7) 03/31/21 05:45 PT 22.4 Sec. (12.2-14.9) H 03/22/21 04:04 INR 1.90 (0.87-1.13) H 03/22/21 04:04 Sodium 134 mmol/L (137-145) L 04/01/21 04:00 Potassium 3.5 mmol/L (3.6-5.0) L 04/01/21 04:00 Chloride 95.2 mmol/L (98-107) L 04/01/21 04:00 Carbon Dioxide 26 mmol/L (22-30) 04/01/21 04:00 Anion Gap 16 mmol/L 04/01/21 04:00 BUN 25 mg/dL (7-17) H 04/01/21 04:00 Creatinine 1.5 mg/dL (0.6-1.2) H 04/01/21 04:00 Estimated GFR 34 ml/min 04/01/21 04:00 BUN/Creatinine Ratio 17 % 04/01/21 04:00 Glucose 112 mg/dL (65-100) H 04/01/21 04:00 POC Glucose 116 mg/dL (70-105) H 04/01/21 11:44 Hemoglobin A1c 7.2 % (4-6) H 03/22/21 04:04 Calcium 8.6 mg/dL (8.4-10.2) 04/01/21 04:00 Phosphorus 3.00 mg/dL (2.5-4.5) 04/01/21 04:00 Magnesium 1.70 mg/dL (1.7-2.3) 04/01/21 04:00 Ammonia 35.0 umol/L (25-60) 03/31/21 07:38 Total Creatine Kinase 90 units/L (30-135) 03/22/21 04:04 CK-MB (CK-2) 2.8 ng/mL (0.0-4.0) 03/22/21 04:04 CK-MB (CK-2) Rel Index 3.1 (0-4) 03/22/21 04:04 Troponin T < 0.010 ng/mL (0.00-0.029) 03/22/21 15:11 Serum Total Protein 6.0 g/dL (6.1-8.1) L 03/25/21 05:17 Albumin 2.9 g/dL (3.8-4.8) L 03/25/21 05:17 Bhpdp-5-Tftkdvglm 0.2 g/dL (0.2-0.3) 03/25/21 05:17 Skuhp-6-Wcfrdsbjz 0.5 g/dL (0.5-0.9) 03/25/21 05:17 Beta Globulins 0.7 g/dL (0.2-0.5) H 03/25/21 05:17 Gamma Globulins 1.6 g/dL (0.8-1.7) 03/25/21 05:17 Abnorm Protein Band 1 see below 03/25/21 05:17 PEP Interpretation see below H 03/25/21 05:17 Triglycerides 471 mg/dL (2-149) H 03/22/21 04:04 Cholesterol 212 mg/dL (50-199) H 03/22/21 04:04 LDL Cholesterol Direct TNR 03/22/21 04:04 HDL Cholesterol 68 mg/dL (40-59) H 03/22/21 04:04 Cholesterol/HDL Ratio 3.11 % 03/22/21 04:04 Lipase 88 units/L (13-60) H 03/22/21 04:04 Vitamin B12 1895 pg/mL (211-911) H 03/31/21 07:38 Folate 14.56 ng/mL (7.3-26.0) 03/25/21 16:41 TSH 2.060 mlU/mL (0.270-4.200) 03/25/21 16:41 Free T4 0.84 ng/dL (0.76-1.46) 03/25/21 16:41 Urine Color Yellow (Yellow) 03/26/21 01:00 Urine Turbidity Clear (Clear) 03/26/21 01:00 Urine pH 6.0 (5.0-7.0) 03/26/21 01:00 Ur Specific [place] 1.011 (1.003-1.030) 03/26/21 01:00 Urine Protein <15 mg/dl mg/dL (Negative) 03/26/21 01:00 Urine Glucose (UA) Neg mg/dL (Negative) 03/26/21 01:00 Urine Ketones Neg mg/dL (Negative) 03/26/21 01:00 Urine Blood Sm (Negative) 03/26/21 01:00 Urine Nitrite Neg (Negative) 03/26/21 01:00 Urine Bilirubin Neg (Negative) 03/26/21 01:00 Urine Urobilinogen < 2.0 mg/dL (<2.0) 03/26/21 01:00 Ur Leukocyte Esterase Tr (Negative) 03/26/21 01:00 Urine WBC (Auto) 3.0 /HPF (0.0-6.0) 03/26/21 01:00 Urine RBC (Auto) 1.0 /HPF (0.0-6.0) 03/26/21 01:00 U Epithel Cells (Auto) 3.0 /HPF (0-13.0) 03/26/21 01:00 Urine Bacteria (Auto) 1+ /HPF (Negative) 03/26/21 01:00 Urine Mucus Few /HPF 03/26/21 01:00 Urine Eosinophils <5% (None Seen) 03/24/21 01:00 Urine Creatinine 70.3 mg/dL (0.1-20.0) H 03/26/21 01:00 Urine Sodium 121 mmol/L 03/26/21 01:00 Fraction Sodium Excret 1.7 03/26/21 01:00 Carbamazepine 5.0 ug/mL (4-12) 04/01/21 08:32 Plasma/Serum Alcohol < 0.01 % (0-0.07) 03/22/21 04:04 DIANE Screen Positive (Negative) H 03/24/21 15:42 Double Strand DNA Ab <1 IU/mL (<=4) 03/24/21 15:42 Complement C3 36 mg/dL (83-193) L 03/24/21 15:42 Complement C4 9 mg/dL (15-57) L 03/24/21 15:42 Hepatitis A IgM Ab Non-reactive (NonReactive) 03/24/21 15:42 Hep Bs Antigen Nonreactive (Negative) 03/24/21 15:42 Hep B Core IgM Ab Non-reactive (NonReactive) 03/24/21 15:42 Hepatitis C Antibody Nonreactive (NonReactive) 03/24/21 15:42 [place]/IV: Voiding Method Incontinent Active Medications - Current Medications Current Medications: Generic Name Dose Route Start Last Admin Trade Name Freq PRN Reason Stop Dose Admin Acetaminophen 650 mg 03/22/21 10:00 Acetaminophen 325 Mg Tab PO Q4H PRN Pain MILD(1-3)/Fever >100.5/[place] Amlodipine Besylate 10 mg 03/22/21 14:00 04/01/21 09:57 Amlodipine 10 Mg Tab PO 10 mg QDAY CHAS Administration Atorvastatin Calcium 20 mg 03/22/21 22:00 03/31/21 21:18 Atorvastatin 20 Mg Tab PO 20 mg QHS CHAS Administration Carbamazepine 200 mg 03/22/21 22:00 04/01/21 09:56 Carbamazepine 200 Mg Tab PO 200 mg BID CHAS Administration Dextrose 50 ml 03/22/21 22:42 Dextrose 50% In Water (25gm) 50 Ml Syringe IV Q30MIN PRN Hypoglycemia Protocol Famotidine 10 mg 03/23/21 13:00 04/01/21 09:56 Famotidine 10 Mg Tab PO 10 mg BID CHAS Administration Heparin Sodium (Porcine) 5,000 unit 03/22/21 10:00 04/01/21 14:06 Heparin 5,000 Unit/1 Ml Vial SUB-Q 5,000 unit Q8HR CHAS Administration Thiamine HCl 300 mg/ Sodium 53 mls @ 100 mls/hr 03/31/21 15:00 04/01/21 11:29 Chloride IV 04/03/21 23:59 100 mls/hr QDAY CHAS Administration Insulin Human Lispro 0 unit 03/27/21 11:30 04/01/21 12:53 Insulin Lispro 100 Unit/Ml SUB-Q Not Given ACHS [facility] Protocol Lactulose 10 gm 03/26/21 12:30 04/01/21 09:56 Lactulose 20 Gm/30 Ml Oral Liqd PO 10 gm QDAY CHAS Administration Levetiracetam 750 mg 03/31/21 14:18 04/01/21 09:56 Levetiracetam 500 Mg Tab PO 750 mg BID CHAS Administration Magnesium Hydroxide 30 ml 03/22/21 10:00 Magnesium Hydroxide (Mom) Oral Liqd Udc PO Q4H PRN Constipation Morphine Sulfate 4 mg 03/22/21 10:00 04/01/21 02:26 Morphine 4 Mg/1 Ml Inj IV 4 mg Q4H PRN Administration Pain , Severe (7-10) Naloxone HCl 0.1 mg 03/22/21 10:00 Naloxone 0.4 Mg/1 Ml Inj IV Q2MIN PRN Res Rate </= 8 or 02 SAT < 92% Ondansetron HCl 4 mg 03/22/21 10:00 Ondansetron 4 Mg/2 Ml Inj IV Q8H PRN Nausea And Vomiting Oxycodone/Acetaminophen 1 tab 03/22/21 10:00 03/31/21 22:21 Oxycodone /Acetaminophen 5-325mg Tab PO 1 tab Q6H PRN Administration Pain, Moderate (4-6) Sodium Chloride 10 ml 03/22/21 10:00 04/01/21 09:57 Sodium Chloride 0.9% 10 Ml Flush Syringe IV 10 ml BID CHAS Administration Sodium Chloride 10 ml 03/22/21 10:00 Sodium Chloride 0.9% 10 Ml Flush Syringe IV PRN PRN LINE FLUSH Nutrition/Malnutrition Assess - Dietary Evaluation Nutrition/Malnutrition Findings: Nutrition Notes Start: 03/23/21 12:32 Freq: Status: Active Protocol: Document 04/01/21 14:24 AURELIA (Rec: 04/01/21 14:44 AURELIA [id number]) Nutrition Notes Need for Assessment generated from: product safety coordinator Initial or Follow up Reassessment Current Diagnosis Acute Kidney Injury, Hypertension Other Pertinent Diagnosis Accute Kidney Failure Current Diet Pureed Diet (since D 03/24). Labs/Tests 04/01: Na 134, K 3.5, Cl 95.2, BUN 25, Cr 1.5, Glu 112. Pertinent Medications 04/01: Milk of Magnesia, Thiamine, others nutritionally unremarkable. Height 5 ft Weight 46.4 kg [place] Body Weight (kg) 45.45 BMI 20.0 Weight Status Appropriate Percent of energy/protein needs met: Prescribed Pureed Diet provides for energy/protein needs (1,804 Kcal/77 g) duriong LOS. Burn Absent Trauma Absent GI Symptoms None Food Allergy No Skin Integrity/Comment Integumentary; clear, warm, dry. Current % PO Fair (50-74%) Minimum of two criteria No physical signs of malnutrition #1 Nutrition Diagnosis No nutrition diagnosis at this time Comments: Pt continues to show fair acceptance of PO intake of prescribed diet, as per ADL Notes. Is patient on ventilator? No Is Patient Ambulatory and/or Out of Bed Yes REE-([place]-St. Jeor-ambulatory/OOB) [ 1170.650 [id number]] Kcal/Kg value to use for calculation 25 Approximate Energy Requirements Using 1160 kcal/Kg Calculation Used for Recommendations Kcal/kg Additional Notes Protein: 0.8-1.0 g/Kg/day; 36- 45 g/day; 144-180 Kcal/day ( from IBW). Fluids: 1.0 ml/Kcal/day, or as per MD. Nutrition Intervention Change Diet Order: Continue Pureed Diet, or as per MD. Goal #1 Maintain body weight within +/ -3% of current BWt during LOS. Goal #2 Reach and maintain acceptable chemistry lab values during LOS. Follow-Up By: 04/08/21 Additional Comments Continue monitoring tolerance of foods, %PO intake of meals, Hydration, and BM. - Attestation Statement I have reviewed and agreed w/ Malnutrition eval & tx plan: Yes
[2021-04-01] MEDS ORDERED: LACTATED RINGERS 1,000 ML IV SCH (17:00)
--- NOTE | 2021-04-01 17:00 | Progress Note ---
Assessment and Plan Impression * Acute kidney injury * Atypical chest pain * Hypertension * Diabetes * Seizure disorder * Left adnexal cyst * Recommendations * Continue IVF LR * Encouraged PO hydration * Follow-up results of vasculitis work-up. Hepatitis B and C both are negative * Avoid nephrotoxins * Monitor fluid status and electrolytes closely * No urgent indication for dialysis * Renal ultrasound is essentially normal * Renal function is slowly improving * Adnexal cyst management as per primary Subjective Date of service: 04/01/21 Principal diagnosis: seizures Interval history: Resting in bed. Notes poor oral intake. Incontinent. Objective - Exam Narrative Exam: General: No acute distress HEENT: Oral mucosa moist Neck: Supple, no JVD Chest: Clear to auscultation bilaterally Heart: RRR, S1 and S2, no pericardial rub Abdomen: Soft, nontender, no renal bruit Extremity: No peripheral cyanosis, edema Neurological: Alert, awake, no asterixis Dermatology: No skin rash Psych: No agitation Musculoskeletal: No joint effusion - Vital Signs Vital signs: Vital Signs - 12hr 04/01/21 04/01/21 05:05 15:51 Temperature 98.8 F Pulse Rate 88 Respiratory 18 Rate Blood Pressure 123/75 O2 Sat by Pulse 83 L 92 Oximetry - Lab 03/31/21 05:45 04/01/21 04:00 Most recent lab results Calcium 8.6 mg/dL (8.4-10.2) 04/01/21 04:00 Phosphorus 3.00 mg/dL (2.5-4.5) 04/01/21 04:00 Magnesium 1.70 mg/dL (1.7-2.3) 04/01/21 04:00 Urine Creatinine 70.3 mg/dL (0.1-20.0) H 03/26/21 01:00 Urine Sodium 121 mmol/L 03/26/21 01:00 Medications & Allergies - Medications Allergies/Adverse Reactions: Allergies No Known Allergies Allergy (Verified 02/02/21 09:38) Home Medications: Home Medications Medication Instructions Recorded Confirmed Last Taken Type ALBUTEROL NEB's [Proventil 0.083% 2.5 mg IH Q4HRT PRN #1 nebu 09/23/20 03/22/21 01/31/21 Rx NEBS] Albuterol Mdi (or & Nicu Only) 2 puff IH QID PRN #8.5 gram 02/05/21 03/22/21 Unknown Rx [ProAir HFA Inhaler] AtorvaSTATin [Lipitor] 20 mg PO QHS 02/05/21 03/22/21 Unknown History Pantoprazole [Protonix TAB] 40 mg PO QDAC #14 tablet 02/05/21 03/22/21 Unknown Rx Metoclopramide [Reglan TAB] 1 tab PO Q6H PRN 03/22/21 03/22/21 Unknown History amLODIPine 10 mg PO DAILY #30 tab 03/30/21 Unknown Rx carBAMazepine [TEGretol] 200 mg PO Q12HR #60 tablet 03/30/21 Unknown Rx levETIRAcetam [Keppra TAB] 500 mg PO BID #60 tablet 03/30/21 Unknown Rx Active Medications: Generic Name Dose Route Start Last Admin Trade Name Freq PRN Reason Stop Dose Admin Acetaminophen 650 mg 03/22/21 10:00 Acetaminophen 325 Mg Tab PO Q4H PRN Pain MILD(1-3)/Fever >100.5/[place] Amlodipine Besylate 10 mg 03/22/21 14:00 04/01/21 09:57 Amlodipine 10 Mg Tab PO 10 mg QDAY CHAS Administration Atorvastatin Calcium 20 mg 03/22/21 22:00 03/31/21 21:18 Atorvastatin 20 Mg Tab PO 20 mg QHS CHAS Administration Carbamazepine 200 mg 03/22/21 22:00 04/01/21 09:56 Carbamazepine 200 Mg Tab PO 200 mg BID CHAS Administration Dextrose 50 ml 03/22/21 22:42 Dextrose 50% In Water (25gm) 50 Ml Syringe IV Q30MIN PRN Hypoglycemia Protocol Famotidine 10 mg 03/23/21 13:00 04/01/21 09:56 Famotidine 10 Mg Tab PO 10 mg BID CHAS Administration Heparin Sodium (Porcine) 5,000 unit 03/22/21 10:00 04/01/21 14:06 Heparin 5,000 Unit/1 Ml Vial SUB-Q 5,000 unit Q8HR CHAS Administration Thiamine HCl 300 mg/ Sodium 53 mls @ 100 mls/hr 03/31/21 15:00 04/01/21 11:29 Chloride IV 04/03/21 23:59 100 mls/hr QDAY CHAS Administration Insulin Human Lispro 0 unit 03/27/21 11:30 04/01/21 12:53 Insulin Lispro 100 Unit/Ml SUB-Q Not Given ACHS [facility] Protocol Lactulose 10 gm 03/26/21 12:30 04/01/21 09:56 Lactulose 20 Gm/30 Ml Oral Liqd PO 10 gm QDAY CHAS Administration Levetiracetam 750 mg 03/31/21 14:18 04/01/21 09:56 Levetiracetam 500 Mg Tab PO 750 mg BID CHAS Administration Magnesium Hydroxide 30 ml 03/22/21 10:00 Magnesium Hydroxide (Mom) Oral Liqd Udc PO Q4H PRN Constipation Morphine Sulfate 4 mg 03/22/21 10:00 04/01/21 02:26 Morphine 4 Mg/1 Ml Inj IV 4 mg Q4H PRN Administration Pain , Severe (7-10) Naloxone HCl 0.1 mg 03/22/21 10:00 Naloxone 0.4 Mg/1 Ml Inj IV Q2MIN PRN Res Rate </= 8 or 02 SAT < 92% Ondansetron HCl 4 mg 03/22/21 10:00 Ondansetron 4 Mg/2 Ml Inj IV Q8H PRN Nausea And Vomiting Oxycodone/Acetaminophen 1 tab 03/22/21 10:00 03/31/21 22:21 Oxycodone /Acetaminophen 5-325mg Tab PO 1 tab Q6H PRN Administration Pain, Moderate (4-6) Sodium Chloride 10 ml 03/22/21 10:00 04/01/21 09:57 Sodium Chloride 0.9% 10 Ml Flush Syringe IV 10 ml BID CHAS Administration Sodium Chloride 10 ml 03/22/21 10:00 Sodium Chloride 0.9% 10 Ml Flush Syringe IV PRN PRN LINE FLUSH
[2021-04-02] MEDS: HEPARIN 5,000 UNIT/1 ML VIAL SUB-Q SCH (05:43)
[2021-04-02] MEDS: INSULIN LISPRO 100 UNIT/ML SUB-Q SCH ×2 (07:30→11:44)
[2021-04-02 07:41] LABS: Basophils # (Auto) 0.1 K/mm3 (0.0-0.1); Basophils % (Auto) 0.6 % (0.0-1.8); Eosinophils # (Auto) 0.1 K/mm3 (0.0-0.4); Eosinophils % (Auto) 0.9 % (0.0-4.3); Hematocrit 35.3 % (30.3-42.9); Hemoglobin 11.7 gm/dl (10.1-14.3); Lymphocytes # (Auto) 3.6 K/mm3 (1.2-5.4); Lymphocytes % (Auto) 40.4 % (13.4-35.0); Mean Corpuscular HGB Conc 33 % (30-34); Mean Corpuscular Volume 99 fl (79-97); Monocytes # (Auto) 0.6 K/mm3 (0.0-0.8); Monocytes % (Auto) 7.2 % (0.0-7.3); Platelet Count 373 K/mm3 (140-440); Red Blood Count 3.57 M/mm3 (3.65-5.03); Red Cell Distribution Width 14.4 % (13.2-15.2)
[2021-04-02 07:43] LABS: Calcium 8.6 mg/dL (8.4-10.2)
[2021-04-02] MEDS: LACTULOSE 20 GM/30 ML ORAL LIQD PO SCH (09:54)
[2021-04-02] MEDS: FAMOTIDINE 10 MG TAB PO SCH (09:54)
[2021-04-02] MEDS: carBAMazepine 200 MG TAB PO SCH (09:54)
[2021-04-02] MEDS: levETIRAcetam 500 MG TAB PO SCH (09:55)
[2021-04-02] MEDS: amLODIPine 10 MG TAB PO SCH (09:55)
[2021-04-02] MEDS: THIAMINE 300 MG in SODIUM CHLORIDE 0.9% 50 ML IV SCH (09:56)
[2021-04-02 12:32] VITALS: BP 106/57
--- NOTE | 2021-04-02 12:52 | Progress Note ---
Assessment and Plan Assessment and Plan Assessment and plan: #Eencephalopathy on admission resolved -CT head is unremarkable -TSH, folate WNL -B12 elevated -BUN/Cr #25/1.6 -Ammonia #35 was #105 on admission ++ Underlying dementia multifactorial ? vascular vs alcohol related ,she is able to answer simple questions improved mentation # Concern for weakness and inability to ambulate independently -she was admitted on 03/22 with celulitis treated -Exam is remarkable for diffuse weakness and or possible foot drop related to underlying neuropathy mostly multifactorial -- more alcohol related -pt. is in hospital since 03/22 being bed ridden -- srength improved -MRI brain is unremarkable -Lumber spine MRI showed spinal stenosis mostly L4-5 and L S1 #ALLAN-improved -Creatinine 1.6 (previously 1.9) -Renal US showed normal kidneys, adnexal mass #Seizure disorder -continue Keppra and carbamazepine at home doses -difficult to get details hx of her seizure -will check Tegretol level #5 -According to pt. she is with intermittent seizure -my understanding her last seizure is before admission -EEG is unremarkable -MRI brain wo contrast is unremarkable #Hypertension -continue amlodipine #Left ovarian cyst -Measuring 10 cm, unchanged from previous study -Will need outpatient follow-up #Type 2 diabetes -Goal glucose one 140-180 while inpatient -Sliding scale + Accu-Cheks -A1C # is 7.2 #Chest pain, atypical- resolved -Stress test negative, will continue with medical optimization -Patient reported pain to be epigastric/abdominal in nature -CT abdomen pelvis without contrast shows large hiatal hernia, and large left ovarian cyst #Alcohol dependence -Patient reports to drink 1 can of beer per day -Attempts at counseling were refused -CIWA protocal discontinued, patient outside of withdrawal window #Debility -patient evaluated by physical therapy, recommendation for SNF -discussed with patient's daughter Kathie PLAN 1- PT therapy strength continues to improve 4- Check tegretol level is #5 - , A1C level#7.2 ,B1 level is pending -,Serum CPK is WNL. 5- seizure precaution 6- Consider NCS as out pt. and neurology follow up 7- Thiamin 300 mg IV X3 days 8- neutrional consult 9- No Alcohol , 10- Neurology follow due to Hx of seizure and ? neurolpathy mostly related to DM with need for better nutritions and better DM control 11- consider orthopedic and or NS follow up for management of Spinal stenosis will sign off Subjective Date of service: 04/02/21 Principal diagnosis: seizures Interval history: More alert interactive today oriented to place knows day and her birthday , no seizure is reported MRI brain is unremarkable review Lumber spine MRI is suggestive of spinal stenosis PT therapy EEG is unremarkable Tegretol level is# 5 Objective - Vital Sign Vital Signs - 12hr 04/02/21 04/02/21 04/02/21 05:18 10:00 11:20 Temperature 97.7 F 98.6 F Pulse Rate 85 90 Respiratory 18 18 Rate Blood Pressure 101/64 106/57 O2 Sat by Pulse 97 97 90 Oximetry - General Apperance Constitutional: comfortable - EENT EENT: PERRL, mucous membranes moist - Respiratory Respiratory: chest non-tender, lungs clear, rhonchi - Cardiovascular Cardiovascular: regular rate, normal S1, normal S2 Extremities: no peripheral edema bilat, no clubbing, cyanosis - Gastrointestinal Gastrointestinal: normoactive bowel sounds - Integumentary Integumentary: normal - Neurologic Cranial nerve examination: PERRL, EOMI, intact Speech examination: intact Detailed motor examination: grossly full strength in - Laboratory Findings CBC and BMP: 04/02/21 05:50 04/02/21 03:30 Abnormal Lab Findings: Abnormal Labs 03/22/21 03/22/21 03/22/21 04:04 04:04 04:04 RBC MCV 98 H MCH 34 H MCHC 35 H Plt Count Lymph % (Auto) Concho % (Auto) Concho # (Auto) Seg Neutrophils % 78.0 H PT 22.4 H INR 1.90 H Sodium 135 L Potassium Chloride 96.2 L Carbon Dioxide 18 L BUN 20 H Creatinine Glucose 214 H POC Glucose Hemoglobin A1c Calcium Magnesium Ammonia Serum Total Protein Albumin Beta Globulins PEP Interpretation Triglycerides Cholesterol HDL Cholesterol Lipase 88 H Vitamin B12 Urine Creatinine DIANE Screen Complement C3 Complement C4 03/22/21 03/22/21 03/22/21 04:04 04:04 04:04 RBC MCV MCH MCHC Plt Count Lymph % (Auto) Concho % (Auto) Concho # (Auto) Seg Neutrophils % PT INR Sodium Potassium Chloride Carbon Dioxide BUN Creatinine Glucose POC Glucose Hemoglobin A1c 7.2 H Calcium Magnesium 1.50 L Ammonia Serum Total Protein Albumin Beta Globulins PEP Interpretation Triglycerides 471 H Cholesterol 212 H HDL Cholesterol 68 H Lipase Vitamin B12 Urine Creatinine DIANE Screen Complement C3 Complement C4 03/23/21 03/23/21 03/23/21 05:30 06:35 11:05 RBC MCV MCH MCHC Plt Count Lymph % (Auto) Concho % (Auto) Concho # (Auto) Seg Neutrophils % PT INR Sodium 135 L Potassium Chloride Carbon Dioxide 21 L BUN 23 H Creatinine 1.4 H Glucose 109 H POC Glucose 113 H 114 H Hemoglobin A1c Calcium Magnesium Ammonia Serum Total Protein Albumin Beta Globulins PEP Interpretation Triglycerides Cholesterol HDL Cholesterol Lipase Vitamin B12 Urine Creatinine DIANE Screen Complement C3 Complement C4 03/23/21 03/24/21 03/24/21 15:33 05:48 11:11 RBC MCV MCH MCHC Plt Count Lymph % (Auto) Concho % (Auto) Concho # (Auto) Seg Neutrophils % PT INR Sodium 133 L Potassium Chloride 96.7 L Carbon Dioxide 20 L BUN 34 H Creatinine 2.3 H D Glucose POC Glucose 107 H 151 H Hemoglobin A1c Calcium Magnesium Ammonia Serum Total Protein Albumin Beta Globulins PEP Interpretation Triglycerides Cholesterol HDL Cholesterol Lipase Vitamin B12 Urine Creatinine DIANE Screen Complement C3 Complement C4 03/24/21 03/24/21 03/24/21 15:42 15:42 15:42 RBC MCV MCH MCHC Plt Count Lymph % (Auto) Concho % (Auto) Concho # (Auto) Seg Neutrophils % PT INR Sodium Potassium Chloride Carbon Dioxide BUN Creatinine Glucose POC Glucose Hemoglobin A1c Calcium Magnesium Ammonia Serum Total Protein Albumin Beta Globulins PEP Interpretation Triglycerides Cholesterol HDL Cholesterol Lipase Vitamin B12 Urine Creatinine DIANE Screen Positive H Complement C3 36 L Complement C4 9 L 03/24/21 03/24/21 03/25/21 17:48 23:07 05:17 RBC MCV MCH MCHC Plt Count Lymph % (Auto) Concho % (Auto) Concho # (Auto) Seg Neutrophils % PT INR Sodium Potassium Chloride Carbon Dioxide BUN Creatinine Glucose POC Glucose 154 H 185 H Hemoglobin A1c Calcium Magnesium Ammonia Serum Total Protein 6.0 L Albumin 2.9 L Beta Globulins 0.7 H PEP Interpretation see below H Triglycerides Cholesterol HDL Cholesterol Lipase Vitamin B12 Urine Creatinine DIANE Screen Complement C3 Complement C4 03/25/21 03/25/21 03/25/21 05:17 07:06 11:28 RBC MCV MCH MCHC Plt Count Lymph % (Auto) Concho % (Auto) Concho # (Auto) Seg Neutrophils % PT INR Sodium Potassium Chloride Carbon Dioxide 21 L BUN 28 H Creatinine 2.1 H Glucose 151 H POC Glucose 127 H 201 H Hemoglobin A1c Calcium Magnesium Ammonia Serum Total Protein Albumin Beta Globulins PEP Interpretation Triglycerides Cholesterol HDL Cholesterol Lipase Vitamin B12 Urine Creatinine DIANE Screen Complement C3 Complement C4 03/25/21 03/25/21 03/25/21 16:34 16:41 16:41 RBC MCV MCH MCHC Plt Count Lymph % (Auto) Concho % (Auto) Concho # (Auto) Seg Neutrophils % PT INR Sodium Potassium Chloride Carbon Dioxide BUN Creatinine Glucose POC Glucose 148 H Hemoglobin A1c Calcium Magnesium Ammonia 102.0 H Serum Total Protein Albumin Beta Globulins PEP Interpretation Triglycerides Cholesterol HDL Cholesterol Lipase Vitamin B12 2000 H Urine Creatinine DIANE Screen Complement C3 Complement C4 03/26/21 03/26/21 03/26/21 01:00 05:51 05:51 RBC 3.51 L MCV 99 H MCH 34 H MCHC Plt Count 112 L Lymph % (Auto) Concho % (Auto) Concho # (Auto) Seg Neutrophils % PT INR Sodium Potassium Chloride Carbon Dioxide BUN 24 H Creatinine 1.9 H Glucose 109 H POC Glucose Hemoglobin A1c Calcium Magnesium Ammonia Serum Total Protein Albumin Beta Globulins PEP Interpretation Triglycerides Cholesterol HDL Cholesterol Lipase Vitamin B12 Urine Creatinine 70.3 H DIANE Screen Complement C3 Complement C4 03/26/21 03/26/21 03/26/21 06:59 17:07 22:11 RBC MCV MCH MCHC Plt Count Lymph % (Auto) Concho % (Auto) Con[place] # (Auto) Seg Neutrophils % PT INR Sodium Potassium Chloride Carbon Dioxide BUN Creatinine Glucose POC Glucose 128 H 131 H 120 H Hemoglobin A1c Calcium Magnesium Ammonia Serum Total Protein Albumin Beta Globulins PEP Interpretation Triglycerides Cholesterol HDL Cholesterol Lipase Vitamin B12 Urine Creatinine DIANE Screen Complement C3 Complement C4 03/27/21 03/27/21 03/27/21 01:50 05:31 12:18 RBC MCV MCH MCHC Plt Count Lymph % (Auto) Concho % (Auto) Concho # (Auto) Seg Neutrophils % PT INR Sodium Potassium 3.3 L Chloride Carbon Dioxide BUN 20 H Creatinine 1.8 H 1.8 H Glucose 118 H POC Glucose 175 H Hemoglobin A1c Calcium Magnesium Ammonia Serum Total Protein Albumin Beta Globulins PEP Interpretation Triglycerides Cholesterol HDL Cholesterol Lipase Vitamin B12 Urine Creatinine DIANE Screen Complement C3 Complement C4 03/27/21 03/27/21 03/28/21 16:29 22:03 08:45 RBC MCV MCH MCHC Plt Count Lymph % (Auto) Concho % (Auto) Concho # (Auto) Seg Neutrophils % PT INR Sodium Potassium Chloride Carbon Dioxide BUN Creatinine 1.5 H Glucose 110 H POC Glucose 109 H 119 H Hemoglobin A1c Calcium Magnesium Ammonia Serum Total Protein Albumin Beta Globulins PEP Interpretation Triglycerides Cholesterol HDL Cholesterol Lipase Vitamin B12 Urine Creatinine DIANE Screen Complement C3 Complement C4 03/28/21 03/28/21 03/28/21 12:00 17:02 21:25 RBC MCV MCH MCHC Plt Count Lymph % (Auto) Concho % (Auto) [place] # (Auto) Seg Neutrophils % PT INR Sodium Potassium Chloride Carbon Dioxide BUN Creatinine Glucose POC Glucose 115 H 123 H 121 H Hemoglobin A1c Calcium Magnesium Ammonia Serum Total Protein Albumin Beta Globulins PEP Interpretation Triglycerides Cholesterol HDL Cholesterol Lipase Vitamin B12 Urine Creatinine DIANE Screen Complement C3 Complement C4 03/29/21 03/29/21 03/29/21 05:35 07:50 11:21 RBC MCV MCH MCHC Plt Count Lymph % (Auto) Concho % (Auto) Concho # (Auto) Seg Neutrophils % PT INR Sodium Potassium Chloride Carbon Dioxide BUN 19 H Creatinine 1.9 H Glucose 109 H POC Glucose 112 H 120 H Hemoglobin A1c Calcium Magnesium Ammonia Serum Total Protein Albumin Beta Globulins PEP Interpretation Triglycerides Cholesterol HDL Cholesterol Lipase Vitamin B12 Urine Creatinine DIANE Screen Complement C3 Complement C4 03/29/21 03/30/21 03/30/21 22:13 05:31 05:31 RBC MCV 99 H MCH 33 H MCHC Plt Count Lymph % (Auto) Concho % (Auto) 14.1 H Concho # (Auto) 1.1 H Seg Neutrophils % PT INR Sodium 135 L Potassium 3.4 L Chloride Carbon Dioxide BUN 24 H Creatinine 1.7 H Glucose 113 H POC Glucose 127 H Hemoglobin A1c Calcium 8.3 L Magnesium 1.30 L Ammonia Serum Total Protein Albumin Beta Globulins PEP Interpretation Triglycerides Cholesterol HDL Cholesterol Lipase Vitamin B12 Urine Creatinine DIANE Screen Complement C3 Complement C4 03/30/21 03/30/21 03/30/21 07:44 11:31 14:08 RBC MCV MCH MCHC Plt Count Lymph % (Auto) Concho % (Auto) [place]cho # (Auto) Seg Neutrophils % PT INR Sodium Potassium Chloride Carbon Dioxide BUN Creatinine Glucose POC Glucose 118 H 201 H 164 H Hemoglobin A1c Calcium Magnesium Ammonia Serum Total Protein Albumin Beta Globulins PEP Interpretation Triglycerides Cholesterol HDL Cholesterol Lipase Vitamin B12 Urine Creatinine DIANE Screen Complement C3 Complement C4 03/30/21 03/31/21 03/31/21 21:51 05:45 05:45 RBC 3.53 L MCV MCH 33 H MCHC Plt Count Lymph % (Auto) Concho % (Auto) 13.1 H Concho # (Auto) 1.4 H Seg Neutrophils % PT INR Sodium Potassium Chloride Carbon Dioxide BUN 25 H Creatinine 1.6 H Glucose 133 H POC Glucose 162 H Hemoglobin A1c Calcium Magnesium 1.30 L Ammonia Serum Total Protein Albumin Beta Globulins PEP Interpretation Triglycerides Cholesterol HDL Cholesterol Lipase Vitamin B12 Urine Creatinine DIANE Screen Complement C3 Complement C4 03/31/21 03/31/21 03/31/21 07:38 08:45 11:20 RBC MCV MCH MCHC Plt Count Lymph % (Auto) Concho % (Auto) [place] # (Auto) Seg Neutrophils % PT INR Sodium Potassium Chloride Carbon Dioxide BUN Creatinine Glucose POC Glucose 129 H 156 H Hemoglobin A1c Calcium Magnesium Ammonia Serum Total Protein Albumin Beta Globulins PEP Interpretation Triglycerides Cholesterol HDL Cholesterol Lipase Vitamin B12 1895 H Urine Creatinine DIANE Screen Complement C3 Complement C4 03/31/21 04/01/21 04/01/21 17:55 04:00 11:44 RBC MCV MCH MCHC Plt Count Lymph % (Auto) Concho % (Auto) [place]cho # (Auto) Seg Neutrophils % PT INR Sodium 134 L Potassium 3.5 L Chloride 95.2 L Carbon Dioxide BUN 25 H Creatinine 1.5 H Glucose 112 H POC Glucose 113 H 116 H Hemoglobin A1c Calcium Magnesium Ammonia Serum Total Protein Albumin Beta Globulins PEP Interpretation Triglycerides Cholesterol HDL Cholesterol Lipase Vitamin B12 Urine Creatinine DIANE Screen Complement C3 Complement C4 04/01/21 04/02/21 04/02/21 15:36 03:30 05:50 RBC 3.57 L MCV 99 H MCH 33 H MCHC Plt Count Lymph % (Auto) 40.4 H Concho % (Auto) Concho # (Auto) Seg Neutrophils % PT INR Sodium 135 L Potassium 3.2 L Chloride 95.9 L Carbon Dioxide BUN 19 H Creatinine 1.5 H Glucose 146 H POC Glucose 207 H Hemoglobin A1c Calcium Magnesium Ammonia Serum Total Protein Albumin Beta Globulins PEP Interpretation Triglycerides Cholesterol HDL Cholesterol Lipase Vitamin B12 Urine Creatinine DIANE Screen Complement C3 Complement C4 04/02/21 04/02/21 07:50 11:18 RBC MCV MCH MCHC Plt Count Lymph % (Auto) Concho % (Auto) [place] # (Auto) Seg Neutrophils % PT INR Sodium Potassium Chloride Carbon Dioxide BUN Creatinine Glucose POC Glucose 201 H 177 H Hemoglobin A1c Calcium Magnesium Ammonia Serum Total Protein Albumin Beta Globulins PEP Interpretation Triglycerides Cholesterol HDL Cholesterol Lipase Vitamin B12 Urine Creatinine DIANE Screen Complement C3 Complement C4
--- NOTE | 2021-04-02 12:56 | Discharge Summary ---
Providers - Providers Date of Admission: 03/22/21 13:54 Date of discharge: 04/02/21 Attending physician: CHANELLE BOWLES MD 03/22/21 11:42 Consult to Physician [CONS] Routine Comment: Consulting Provider: LOBO PALMA Physician Instructions: Reason For Exam: chest pain 03/22/21 13:55 Physical Therapy Evaluation and Treat [CONS] Routine Comment: Reason For Exam: decreased ambulation 03/24/21 07:30 Consult to Physician [CONS] Routine Comment: Consulting Provider: ISSAC MADERA Physician Instructions: Reason For Exam: ALLAN 03/27/21 13:35 Consult to Case Management [CONS] Routine Services Needed at Discharge: Other Notified:: cm Additional Physician Instructions: [facility] 03/31/21 12:13 Consult to Physician [CONS] Routine Comment: Consulting Provider: PAVEL SAMUELS Physician Instructions: Reason For Exam: Altered mental status after seizure 03/31/21 14:19 Physical Therapy Evaluation and Treat [CONS] Routine Comment: alcoholic , bed ridden for 10 days underlying angel Reason For Exam: deconditioning Mode of Transport?: Walker Primary care physician: [employer] Hospitalization Reason for admission: Altered mental status secondary to seizure; metabolic encephalopathy Condition: Fair Pertinent studies: Reviewed. Procedures: Stress testwithin normal limits Hospital course: Patient is a 70-year-old lady with history of hypertension, seizure disorder and questionable alcohol dependence who presented with complaint of shortness of breath and chest pain. She was reported to have a witnessed seizure. She is currently on Keppra and carbamazepine at home and reports compliance. The daughter provided additional information regarding the patient's alcohol dependence. Cardiology was consulted, and the patient underwent a stress test that was found to be within normal limits (negative for ischemia). The patient continue to undergo medical management for possible alcohol withdrawal. Physical therapy was consulted and recommended SNF placement; however, the patient did not qualify based on financial issues. Initially, the patient would be discharged home with family. However, the patient's daughter had concerns about her mother not being at her baseline, which was ambulating and being able to take care of her ADLs. Due to these concerns, neurology was consulted for further evaluation. MRI brain without contrast was within normal limits. MRA lumbar spine revealed spinal stenosis and outpatient follow-up was recommended. The patient has since shown significant improvement in ambulation, mentation, feeding herself, and performing ADLs with little assistance. The patient is being discharged home safely with her daughter Kathie. Kathie has been contacted, and expresses understanding. Disposition: 01 HOME / SELF CARE / HOMELESS Final Discharge Diagnosis (Prints w/discharge instructions): Seizure disorder; alcohol dependence; debility Time spent for discharge: 40 minutes Core Measure Documentation - Palliative Care Palliative Care/ Comfort Measures: Not Applicable - Core Measures Any of the following diagnoses?: none - VTE Discharge Requirements Deep Vein Thrombosis/Pulmonary Embolism Present on Admission: No Has pt received <5 days of overlap therapy or INR<2.0: No (Not indicated) Anticoagulant overlap therapy prescribed at discharge: No Contraindication No Overlap Therapy order at DC: Not Indicated - Acute NH Discharge Requirements Aspirin at discharge: No Reason for no aspirin on DC: Medical contraindication (Not indicated) EMERSON/ARB for LVSD if EF <40%: Not Applicable Reason for no EMERSON/ARB: Medical contraindication (Not indicated) Beta stephani at discharge: No Reason for no beta stephani on DC: Medical contraindication (Not indicated) Statin for LDL = or >100 mg/dl on DC: Not Applicable Reason for no statin on DC: Medical contraindication (Not indicated) - Heart Failure Discharge Requirements EMERSON/ARB for LVSD if EF <40%: Not Applicable Reason for no EMERSON/ARB: Medical contraindication (Not indicated) Beta stephani at discharge: No Reason for no beta stephani on DC: Medical contraindication (Not indicated) - Stroke Discharge Requirements Statin for LDL = or >70 mg/dl on DC: Not Applicable Reason for no statin on DC: Not Indicated Anticoag for atrial fib/atrial flutter: Not Applicable Reason for no anticoag for AF/F on DC: Not Indicated Antithrombotic for ischemic stroke: No Reason for no antithrombotic on DC: Not Indicated Exam - Constitutional Vitals: Temp Pulse Resp BP Pulse Ox 98.6 F 90 18 106/57 90 04/02/21 11:20 04/02/21 11:20 04/02/21 11:20 04/02/21 11:20 04/02/21 11:20 General appearance: Present: no acute distress, cachectic, disheveled - EENT Eyes: Present: PERRL, EOM intact ENT: hearing intact, clear oral mucosa, poor dentition - Neck Neck: Present: supple, normal ROM - Respiratory Respiratory effort: normal - Cardiovascular Rhythm: regular Heart Sounds: Present: S1 & S2 - Extremities Extremities: no ischemia, pulses intact, pulses symmetrical, No edema, normal temperature, normal color Peripheral Pulses: within normal limits - Abdominal General gastrointestinal: Present: soft, non-tender, non-distended, normal bowel sounds Female genitourinary: Present: deferred - Rectal Rectal Exam: deferred - Integumentary Integumentary: Present: clear, warm, dry - Musculoskeletal Musculoskeletal: generalized weakness - Psychiatric Psychiatric: appropriate mood/affect, cooperative - Neurologic Neurologic: CNII-XII intact, moves all extremities - Allied Health Allied health notes reviewed: nursing Plan Care Plan Goals: Patient will be discharging home with daughter. Assessment: The patient was evaluated for acute chest pain and found to have negative troponins and a negative stress test. The patient was monitored for alcohol withdrawal. The patient was recommended 24-hour care by physical therapy; however, the daughter is working to meet the financial requirements. Follow up with: PRIMARY CARE, [Primary Care Provider] - 3-5 Days Prescriptions: amLODIPine 10 mg PO DAILY #30 tab levETIRAcetam [Keppra TAB] 500 mg PO BID #60 tablet carBAMazepine [TEGretol] 200 mg PO Q12HR #60 tablet
[2021-04-06 08:05] LABS: Myeloperoxidase Antibody <1.0 AI (<1.0)
== END 2021-04-02 14:30 | disposition home or self-care (01) | DRG 101 ==
LOC: ED 03:11 → 4A 06:05 → 3A 09:35 → OBSVTOIN 13:54 → 3A 03-23 02:13
PROVIDERS: ADMIT Internal Medicine Geriatric Medicine; ATTEND Student in an Organized Health Care Education/Training Program
DX: G40.909 Epilepsy, unspecified, not intractable, without status epilepticus (principal); N17.9 Acute kidney failure, unspecified; N83.202 Unspecified ovarian cyst, left side; F10.20 Alcohol dependence, uncomplicated; N18.30 Chronic kidney disease, stage 3 unspecified; K21.9 Gastro-esophageal reflux disease without esophagitis; F32.9 Major depressive disorder, single episode, unspecified; Z86.79 Personal history of other diseases of the circulatory system; Z20.822 Contact with and (suspected) exposure to COVID-19
CPT/HCPCS: 36415; 70450; 70551; 71045; 72148; 74150; 76770; 78452; 80048; 80061; 80074; 80156; 80320; 81001; 82140; 82550; 82553; 82565; 82570; 82607; 82747; 82962; 83036; 83690; 83735; 84100; 84165; 84295; 84300; 84425; 84439; 84443; 84484; 85025; 85027; 85610; 86021; 86038; 86160; 86225; 89050; 93005; 93017; 95819; G0378; A9502; G0480; J1644; J1815; J1953; J2060; J2270; J2405; J2785; J3010; J3411; J3475; J7030; J7120

== ENCOUNTER 2021-10-31 19:28 | Emergency (ER) | payer MEDICAID ==
[2021-11-01 02:28] VITALS: BP 140/70
== END 2021-11-01 11:05 | disposition left against medical advice (07) ==
LOC: ED 19:28
DX: R56.9 Unspecified convulsions (principal); Z53.21 Procedure and treatment not carried out due to patient leaving prior to being seen by health care provider